=== PATIENT | female | born 1945 | race Caucasian/White ===

== ENCOUNTER 2019-07-02 14:28 | Inpatient (IN) | payer OTHER, SELFPAY ==
[2019-07-02] VITALS (32 sets, daily range): BP systolic 151–184; BP diastolic 50–106; PULSE 80–91; RESP 17–35; TEMP 36.4–36.9; O2SAT 88–97; BMI 36.4
--- NOTE | ~2019-07-02 | XR_ITS ---
EXAMINATION: XR pelvis 1-2V EXAM DATE: 07/02/2019 17:25 INDICATION: Fall, pelvic pain, initial encounter. TECHNIQUE: Pelvis frontal projection(s) obtained and reviewed. There is no prior study for compariso n. FINDINGS: There is moderate amount of collapsed right femoral head, likely from avascular necrosis. T here is severe bilateral hip osteoarthritis. There are no acute pelvic fractures or dislocations iden tified. There is no subcutaneous gas. There are arterial calcifications, arteriosclerosis. There are no radiopaque foreign bodies. IMPRESSION: 1. XR pelvis 1-2V exam without acute osseous findings. 2. 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 3. Severe bilateral hip osteoarthritis. Reviewed, dictated and finalized at location A.
--- NOTE | ~2019-07-02 | XR_ITS ---
EXAMINATION: XR lumbar spine 2-3V EXAM DATE: 07/02/2019 17:25 INDICATION: Initial encounter following injury, with pain of the lower back TECHNIQUE: Lumber spine frontal, lateral, lateral L5-S1 projections for interpretation. There is no prior study for comparison. FINDINGS: Mild diffuse loss of vertebral body heights. There are no acute fractures identified. There is moderate to severe disc disease at all lumbar levels. There is 4 mm retrolisthesis L4 on L5. The vertebral bodies are otherwise aligned. Sacrum, sacroiliac joints, sacral arcuate lines are intact. P araspinal soft tissue is unremarkable. Advanced lumbar facet arthropathy. IMPRESSION: 1. Advanced lumbar spondylosis. 2. No acute findings. Reviewed, dictated and finalized at location A.
--- NOTE | ~2019-07-02 | XR_ITS ---
EXAMINATION: XR chest 1V EXAM DATE: 07/02/2019 17:35 INDICATION: Frequent falls, abnormal lung sounds. TECHNIQUE: Portable AP frontal chest x-ray was obtained. There is no prior study for comparison. FINDINGS: There is prominent right paraspinal density, could be a right-sided or split aortic arch gi sandra normal left aortic knob is not identified. This finding has been indicated, marked on the examina tion for review, clinical correlation. No acute airspace disease suspected. There are no pleural eff usions. Cardiac silhouette is prominent but magnified on this AP technique. There is no pneumothor ax suspected. There is moderate to severe left glenohumeral, mild right glenohumeral primary osteoart hritis. IMPRESSION: 1. 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 2. No acute cardiopulmonary findings. Reviewed, dictated and finalized at location A.
--- NOTE | ~2019-07-02 | CT_ITS ---
EXAMINATION: CT chest w con DATE: 07/03/2019 16:32 INDICATION: Hyponatremia, abnormal chest radiograph TECHNIQUE: Transaxial computed tomographic images of the chest were obtained after the administration of 75 cc of Omnipaque 350 intravenous contrast. The dose-length product (DLP) was 757.43 mGy-cm. Ite rative reconstruction was used. COMPARISON: None FINDINGS: A right-sided aortic arch accounts for the chest radiographic finding in question. Respirat ory motion artifact limits evaluation of the lung parenchyma. There is mild mosaic perfusion of the l ungs, likely due to small airways disease. The right lobe of the thyroid is enlarged and contains mul tiple nodules. No pathologically enlarged thoracic lymph nodes are identified. The heart size is norm al. Calcified coronary artery atherosclerosis is noted. There is a trace pericardial effusion. Puncta te calcifications in an otherwise normal spleen likely represent healed granulomatous disease. There is moderate thoracic spondylosis. IMPRESSION: 1. 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 2. Multinodular goiter of the right thyroid lobe. Consider thyroid ultrasound for risk stratification . Reviewed, dictated and finalized at location A. IMPRESSION: 1. Right-sided aortic arch accounting for the chest radiographic finding in [place]le [place]. 2. Multinodular goiter of the right thyroid lobe. Consider thyroid ultrasound f or risk stratification.
--- NOTE | ~2019-07-02 | US_ITS ---
EXAMINATION: US thyroid DATE: 07/04/2019 10:42 INDICATION: Multinodular goiter TECHNIQUE: Multiple ultrasound images of the thyroid were obtained. COMPARISON: None. FINDINGS: The right thyroid lobe measures 5.7 x 3.1 x 3.7 cm. The left thyroid lobe measures 4.2 x 1.6 x 1.3 c m. There is a taller than wide, very hypoechoic predominantly solid nodule in the right thyroid maikel uring 1.7 x 1.2 x 1.1 cm with smooth margins but without internal echogenic foci. (TI-RADS 5, highly suspicious , FNA if >=1.0 cm, annual followup is >0.5 cm). There is a larger 3.3 x 2.0 x 3.5 cm wider than tall isoechoic solid nodule with smooth margins and without echogenic foci in the right thyroid (TI-RADS 3, mildly suspicious , FNA if >=2.5 cm, annual followup is >1.5 cm). IMPRESSION: 1. Multinodular goiter. Both the 1.7 cm TI RADS 5 and 3.5 cm TI RADS 3 nodules in the right thyroid m eet criteria for ultrasound-guided biopsy which would be recommended. Reviewed, dictated and finalized at location A. IMPRESSION: 1. Multinodular goiter. Both the 1.7 cm TI RADS 5 and 3.5 cm TI RADS 3 nodules in the right thyroid meet criteria for ultrasound-guided biopsy which would be recommended.
--- NOTE | ~2019-07-02 | CT_ITS ---
EXAMINATION: CT cervical spine wo con EXAM DATE: 07/02/2019 17:00 INDICATION: Fall, head injury. TECHNIQUE: Spiral CT of the cervical spine was performed without contrast. Axial images were reviewe d. Coronal and sagittal reformatted images were also reviewed. The dose-length product (DLP) for thi s examination was 432.14 mGy-cm. The exposure was tailored according to patient size (auto mA exposu re control), and iterative reconstruction (ASIR) was used as additional dose reduction technique. ere is no prior study for comparison. FINDINGS: There is no evidence of acute cervical fracture. The odontoid process is intact. Pre-dens space is normal. Prevertebral soft tissue is normal. There are no soft tissue abnormalities identi fied. There is no disc space widening or traumatic vertebral body subluxation suspected. There is m oderate to severe disc disease at C3-4 and C5-6 and 6-7. Overall moderate cervical arthropathy. A de tailed level by level evaluation of spondylosis can be added as addendum if requested. IMPRESSION: 1. No acute cervical fracture. 2. Advanced cervical spondylosis. Reviewed, dictated and finalized at location A.
--- NOTE | ~2019-07-02 | CT_ITS ---
EXAMINATION: CT brain wo con DATE: 07/02/2019 15:12 INDICATION: Fall. Head injury. Posterior head laceration. TECHNIQUE: Computed tomography (CT) of the head was performed without intravenous contrast. The mA wa s adjusted according to patient size. Iterative reconstruction technique was employed. Exam dose: 68 1.00 mGy-cm total exam DLP. COMPARISON: None FINDINGS: Prominent bilateral carotid siphon internal carotid artery calcifications. There is nonspec ific diminished attenuation of the cerebral white matter, likely due to chronic small vessel ischemic changes. No intracranial mass lesion or hemorrhage or cerebrovascular accident is evident. No midline shift or mass effect. There is central and cortical cerebral as well as cerebellar volume loss. No subdural or epidural hematoma is evident. No intracranial to or contrecoup injury is identified. No skull fracture is evident. There is a posterior occipital cephalohematoma centered slightly right of midline. Associated subcutaneous emphysema consistent with laceration. Incidental finding of 2 upper left posterior periapical tooth abscesses. IMPRESSION: Laceration and cephalhematoma in the occipital region; no skull fracture or acute intrac ranial finding Cerebral atherosclerosis and chronic small vessel ischemic changes of the cerebral white matter Reviewed, dictated and finalized at Location A. Reviewed, dictated and finalized at location A. IMPRESSION: Laceration and cephalhematoma in the occipital region; no skull fr acture or acute intracranial finding Cerebral atherosclerosis and chronic small vessel ischemic changes of the cereb ral white matter
--- NOTE | 2019-07-02 16:00 | ED.FALL ---
HPI - Fall General Chief Complaint: Fall Stated Complaint: fall Time Seen by Provider: 07/02/19 15:29 Source: patient Mode of arrival: EMS Limitations: no limitations History of Present Illness HPI Narrative: Patient is a 73-year-old female who presents to the emergency department complaint of fall. Patient has history of prior CVA and has issues with her legs getting weak and is prone to them giving out at times. Patient was on the toilet and when she tried to get up she fell and struck the back of her head. She denies having any loss of consciousness. She did sustain a small laceration to the occipital region. Bleeding has subsided this time. Patient is also complaining of some pain in her low back. Patient reportedly had a fall a few days ago before going to her dental appointment to have some teeth extracted. Patient reports pain in her back with movement that radiates down her legs. Patient denies any extremity injury during her fall and states she is otherwise been feeling okay. complaint: fall Fall from: other ([place]) Fall witnessed: no Place fall occurred: home Loss of consciousness: none Prolonged down time: unclear Symptoms prior to fall: other (weak in the legs from prior strokes) Context: tripped/slipped Location of injury: head and back Related Data Home Medications Medication Instructions Recorded Confirmed amlodipine 07/02/19 amoxicillin 07/02/19 atorvastatin 07/02/19 clopidogrel 07/02/19 ergocalciferol (vitamin D2) 07/02/19 escitalopram oxalate mg 07/02/19 folic acid 07/02/19 fosinopril 07/02/19 gabapentin 07/02/19 glipizide mg 07/02/19 hydrochlorothiazide 07/02/19 metformin [Glumetza] mg PO 07/02/19 sitagliptin [Januvia] mg 07/02/19 Allergies Allergy/AdvReac Type Severity Reaction Status Date / Time No Known Allergies Allergy Verified 07/02/19 14:29 Review of Systems Review of Systems: All systems reviewed & are unremarkable except as noted in HPI and below Musculoskeletal: Musculoskeletal: Reports back pain PMFSH Past Medical History Medical History (Updated 07/02/19 @ 19:56 by Elle Mills MD) CVA (cerebral vascular accident) Diabetes mellitus Hyperlipidemia Hypertension Social History Social History (Updated 07/02/19 @ 16:04 by Elle Mills MD) Smoking status: Former smoker Living arrangements: with friend(s) Gender identity (if verbalized by the patient): Female Exam Narrative: Exam Narrative: Small hematoma to the occipital region of the scalp with superficial small laceration without active bleeding Const: General: cooperative, no acute distress and alert Nutritional Appearance: obese Orientation/consciousness: patient oriented x3 Limitations: no limitations HENMT: Mouth: Yes lip normal and Yes moist mucous membranes Resp: Effort & Inspection: normal respiratory effort Auscultation: rhonchi throughout Cardio: Rate: regular rate Rhythm: regular rhythm GI: GI Palp: Yes Soft to palpation and Yes Tenderness to palpation present (GI) (Mild mid abdomen) Auscultation: normal bowel sounds Back/Spine/Pelvis: Cervical Spine: cervical ROM normal Thoracic/Lumbar Spine: pain with thoraco-lumbar ROM Skin: General skin exam: normal color Neuro: General: patient oriented x3 Cognition (Neuro): normal cognition Speech: normal speech Extrem: General: normal to inspection, full ROM, no clubbing, cyanosis or edema and other (No extremity trauma noted) Psych: Mental Status: mental status grossly normal Affect: normal affect Attitude: cooperative Course Course Emergency Course: Patient with findings of hyponatremia on labs. This certainly could be the origin of patient's recent falls. Patient without any acute abnormalities noted on CT scan of the brain aside from scalp hematoma. Laceration to the scalp is very superficial and does not require any repair. Patient started on normal saline and will be admitted to [facility]
[2019-07-02 16:20] LABS: Alveolar/Arterial O2 Gradient 53.2 mmHg; Base Excess ABG -0.7 mEq/l (+/-2.0); Carboxyhemoglobin 0.9 % THb (0-2.0); Fractional Inspired Oxygen 21 %; HCO3 ABG 22.3 mEq/l (22.0-26.0); Methemoglobin ABG 0.2 %THb (0-1.5); Oxygen Content ABG 17.2 %vol (16.0-22.0); Oxygen Saturation ABG 92.1 % (95.0-100.0); Oxyhemoglobin 89.3 % THb (90.0-100.0); PCO2 ABG 31.8 mmHg (35.0-45.0); PO2 ABG 58.5 mmHg (80.0-100.0); PO2 FiO2 Ratio Arterial Blood 2.79 %; Reduced Hemoglobin 9.6 %THb (0-5.0); Total Hemoglobin 13.7 g/dL (12.0-18.0); pH ABG 7.463 (7.350-7.450)
[2019-07-02 16:21] LABS: Basophils Percent Auto 0.2 % (0.2-1.2); Eosinophils Percent Auto 0.2 % (0-4.4); Hematocrit 34.9 % (37.0-47.0); Hemoglobin 13.3 g/dL (12.0-15.0); Immature Granulocyte Absolute 0.12 K/mm3 (0.00-0.031); Lymphocytes Absolute Auto 0.64 K/mm3 (0.9-3.2); Lymphocytes Percent Auto 5.1 % (18.3-44.2); Mean Corpuscular Hemoglobin 34.7 pg (26-34); Mean Corpuscular Volume 91.1 fl (80-100); Mean Platelet Volume 9.3 fl (7.4-10.4); Monocytes Absolute Auto 0.6 K/mm3 (0.1-0.6); Monocytes Percent Auto 4.4 % (2.6-8.5); Neutrophils Absolute Auto 11.2 K/mm3 (1.3-6.7); Neutrophils Percent Auto 89.1 % (45.5-73.1); Platelet Count Result 283 k/mm3 (150-375); Red Blood Count 3.83 M/mm3 (4.2-5.4); Red Cell Distribution Width 11.2 % (11.5-14.5); White Blood Count 12.6 K/mm3 (4.5-10.0)
[2019-07-02 16:22] LABS: Device ROOM AIR; Modified Allen's Test Pass; Site Drawn RIGHT RADIAL
[2019-07-02 16:43] LABS: Mean Corpuscular HGB Conc 38.1 g/dl (32-36)
[2019-07-02 16:58] LABS: Potassium 4.1 mmol/L (3.4-5.0)
[2019-07-02 17:09] LABS: NT Pro B Type Natriuretic Pept 206 PG/ML (5-100)
[2019-07-02 17:13] LABS: Alanine Aminotransferase 15 U/L (4-35); Albumin Level 4.6 g/dL (3.5-5.1); Alkaline Phosphatase 81 U/L (38-126); Aspartate Amino Transferase 56 U/L (14-36); Bilirubin,Total 0.9 mg/dL (0.2-1.3); Blood Urea Nitrogen 17 mg/dL (7-17); Calcium 8.9 mg/dL (8.4-10.2); Carbon Dioxide 23 mmol/L (22-30); Chloride 77 mmol/L (98-107); Creatine Kinase 414 U/L (30-135); Estimated CRCL calculation 83 ml/min; Estimated Glomerular Filt Rate > 60; Glucose 129 mg/dL (65-105); Sodium 113 mmol/L (137-145)
[2019-07-02] MEDS: SODIUM CHLORIDE 0.9% IV 1,000 ML 125 ML IV CONT (18:05)
--- NOTE | 2019-07-02 19:22 | PC.NURSE ---
Per dayshift, they were unable to obtain urine sample from straight cath, patient placed on bedpan for multiple bowel movements. VIRI Edwards instructed this RN to hold straight cath at this time.
--- NOTE | 2019-07-02 19:51 | PC.NURSE ---
Patient straight cathed upon this RN assuming care of patient
[2019-07-02 20:12] LABS: Add Urine Microscopic? YES; Appearance Urine Clear (Clear); Bilirubin Urine Negative (Negative); Blood Urine Negative (Negative); Color Urine Yellow (Yellow); Glucose Urine UA Negative (Negative); Ketones Urine 1+ mg/dL (Negative); Leukocyte Esterase Ur Trace LEU/UL (Negative); Mucus Urine Rare /lpf; Nitrate Urine Negative (Negative); Protein Urine 2+ mg/dL (Negative); RBC Urine 0-2 /hpf (0-2); Specific Grav Ur 1.015 (1.001-1.035); Squamous Epithelial Cell Urine Rare /hpf (Few); Urobilinogen Urine Negative mg/dL (<2.0); WBC Urine 0-3 /hpf
--- NOTE | 2019-07-02 21:08 | ADMGEN ---
This patient, Bela Shepherd, was admitted to [facility] Surg Room 306-01. Patient/family oriented to hospital policies and general routines including ID bracelet, bed and alarms, visiting hours, pain management, procedures, bathroom and other care routines, personal items, smoking policy, room service/diet, and visiting hours. Valuables list has been completed. Information on how to activate the Rapid Response Team has been discussed. Patient/Family are encouraged to report perceived risks to care and to ask questions if they do not understand what they are told or what they should do.
[2019-07-03] VITALS (9 sets, daily range): BP systolic 145–149; BP diastolic 54–65; PULSE 74–86; RESP 16–20; TEMP 36.6–36.7; O2SAT 91–92
[2019-07-03] MEDS: AMLODIPINE BESYLATE 5 MG TABLET 10 MG PO (02:02)
[2019-07-03 03:30] LABS: Sodium 113 mmol/L (137-145)
[2019-07-03 03:31] LABS: Blood Urea Nitrogen 16 mg/dL (7-17); Calcium 8.1 mg/dL (8.4-10.2); Carbon Dioxide 22 mmol/L (22-30); Chloride 81 mmol/L (98-107); Estimated CRCL calculation 84 ml/min; Estimated Glomerular Filt Rate > 60; Glucose 112 mg/dL (65-105); Potassium 3.5 mmol/L (3.4-5.0)
--- NOTE | 2019-07-03 05:21 | PM.IMHP ---
H&P: HPI History of Present Illness Chief complaint: Weakness, fall Narrative: Date and time of patient contact: 07/03/2019 at 2:40 a.m. Bela Shepherd is a 73 year old female with a past medical history of bibasilar CVA, recent tooth extraction due to abscess a noncompliance with antibiotic therapy, hypertension, type 2 diabetes mellitus and chronic hyponatremia who presented to the ER after having a fall when trying to stand up off the commode. Source of information is the patient was a fair historian and her POA. She had 3 teeth pulled on Saturday the due to dental infection. She had been on Bactrim prior to the teeth being pulled due to urinary urgency and dysuria. They stopped the Bactrim when she got prescribed Augmentin. She has been taking the Augmentin as directed but has had some looser stools last couple of days. She admits that she does fluctuate between diarrhea and constipation on a regular basis. Nursing staff reports that the patient had 1 loose brown somewhat watery brown stool after arriving to the medical floor. She reports generalized abdominal tenderness to palpation that is mild. The patient has been getting progressively weaker over what sounds like a fairly long time. She has [id number] arthritis to bilateral knees and hips according to her POA. The patient has chronic back pain and neck pain as well. The patient has had a progressive weight gain over the last 10 years following her brainstem strokes and contributed to with her chronic pain. The patient also does not sleep well, snores, and has daytime fatigue. She has never had a sleep study. The patient's primary care physician has been telling her for years that she has hyponatremia. He has threatened multiple times to admit her to the hospital for treatment and evaluation of her hyponatremia. However, the patient and her POA cannot remember what the patient's baseline sodium level. She has been on glipizide and hydrochlorothiazide for a longstanding period of time. The patient's hemoglobin A1c has been 7 or below for the last several lab draws. She does have an extensive smoking history and smoked 1-2 packs of cigarettes per day for over 40 years. She denies any history of lung disease, shortness of breath, cough, congestion, fevers or chills. She reports chronic gait instability. Her POA reports that the patient seemed to be more unstable on her feet when she was prescribed [place]. However despite stopping the [place] the patient continued to be unsteady on her feet and the POA was eventually able to convince the patient to come to the ER for evaluation after she fell. The patient has been taking marijuana gummies for the last couple of months. Her POA reports that the patient's blood pressure, anxiety, and pain levels have been significantly improved with the use of the marijuana. Review of Systems Review of Systems: Narrative: 12 systems were reviewed with pertinent positives and negatives per HPI. Except as documented in the HPI, all other systems were reviewed and are negative. COUNT INCLUDES THE [facility] Past Medical History Medical History (Updated 07/03/19 @ 08:20 by Jennifer Kennedy DO) Chronic hyponatremia CVA (cerebral vascular accident) Brainstem CVA in 2009 Diabetes mellitus Hemoglobin A1c today was 6.2 Hyperlipidemia Hypertension Surgical History Surgical History (Updated 07/03/19 @ 05:32 by Jennifer Kennedy DO) Hx of cholecystectomy Family History Family History (Updated 07/03/19 @ 05:29 by Jennifer Kennedy DO) Father Lung cancer Mother Heart disease Diabetes mellitus Sibling , Brother earlier this year. Multiple myeloma Social History Social History (Updated 07/03/19 @ 05:26 by Jennifer Kennedy DO) Social History: Primary care physician: Dr. Raya in [place] Code status: DNR/DNI however she would accept pressors, cardiac medications and possibly feeding tube. Surrogate decision maker: Her friend
[2019-07-03 06:39] LABS: Basophils Percent Auto 0.2 % (0.2-1.2); Eosinophils Percent Auto 0.1 % (0-4.4); Hematocrit 30.6 % (37.0-47.0); Hemoglobin 11.7 g/dL (12.0-15.0); Immature Granulocyte Percent A 1.2 % (0-0.5); Lymphocytes Absolute Auto 1.02 K/mm3 (0.9-3.2); Mean Corpuscular Volume 91.6 fl (80-100); Mean Platelet Volume 9.8 fl (7.4-10.4); Monocytes Absolute Auto 0.6 K/mm3 (0.1-0.6); Monocytes Percent Auto 7.4 % (2.6-8.5); Neutrophils Absolute Auto 6.7 K/mm3 (1.3-6.7); Neutrophils Percent Auto 79.1 % (45.5-73.1); Platelet Count Result 260 k/mm3 (150-375); Red Blood Count 3.34 M/mm3 (4.2-5.4); Red Cell Distribution Width 11.2 % (11.5-14.5); White Blood Count 8.5 K/mm3 (4.5-10.0)
[2019-07-03 07:03] LABS: Blood Urea Nitrogen 16 mg/dL (7-17); Calcium 8.1 mg/dL (8.4-10.2); Carbon Dioxide 22 mmol/L (22-30); Chloride 81 mmol/L (98-107); Estimated CRCL calculation 84 ml/min; Estimated Glomerular Filt Rate > 60; Glucose 102 mg/dL (65-105); Mean Corpuscular HGB Conc 38.2 g/dl (32-36); Potassium 3.6 mmol/L (3.4-5.0); Sodium 114 mmol/L (137-145)
[2019-07-03 07:10] LABS: Hemoglobin A1C 6.2 % (<5.7)
[2019-07-03] MEDS: ATORVASTATIN 10 MG TABLET PO (09:25)
[2019-07-03] MEDS: lisinopriL 20 MG TABLET PO ×2 (09:25→18:22)
[2019-07-03] MEDS: FOLIC ACID 1 MG TABLET PO (09:25)
[2019-07-03] MEDS: CLOPIDOGREL BISULFATE 75 MG TABLET PO (09:25)
[2019-07-03] MEDS: ESCITALOPRAM OXALATE 10 MG TABLET PO (09:26)
[2019-07-03] MEDS: GABAPENTIN 100 MG CAPSULE PO (09:26)
[2019-07-03] MEDS: AMLODIPINE BESYLATE 5 MG TABLET PO (09:26)
[2019-07-03 11:12] LABS: Blood Urea Nitrogen 15 mg/dL (7-17); Calcium 8.2 mg/dL (8.4-10.2); Carbon Dioxide 22 mmol/L (22-30); Chloride 80 mmol/L (98-107); Estimated CRCL calculation 84 ml/min; Estimated Glomerular Filt Rate > 60; Glucose 140 mg/dL (65-105); Potassium 3.5 mmol/L (3.4-5.0); Sodium 113 mmol/L (137-145)
[2019-07-03 11:40] LABS: Glucose Point of Care 117 (65-105)
[2019-07-03 12:26] LABS: Glucose Point of Care 158 (65-105)
--- NOTE | 2019-07-03 13:22 | PM.IMPN ---
Progress Note: A&P Assessment and Plan (1) Hyponatremia: Code(s): E87.1 - Hypo-osmolality and hyponatremia Status: Acute Assessment and Plan: Differential is broad and could be related to patient's chronic pain, hydrochlorothiazide and/or glipizide use, or possible underlying malignancy given abnormal chest x-ray. The patient's hydrochlorothiazide and glipizide for both discontinued. The patient's sodium stayed stable at 113 after IV fluid hydration. IV fluids were discontinued and her repeat sodium was still 113. Given the patient's abnormal chest x-ray and history of heavy tobacco use in the past her concern for possible malignancy related hyponatremia. CT of the chest has been ordered but is still pending at this time. Ordered urine sodium, urine creatinine and urine osmolality Will continue monitoring the patient's sodium every 4 hours. Nephrology was consulted for further recommendations. Will place the patient on a 1 L fluid restriction. (2) History of snoring: Code(s): Z87.898 - Personal history of other specified conditions Status: Acute Assessment and Plan: The patient is at high risk for obstructive sleep apnea given her report of poor sleep, disrupted sleep, snoring, and daytime fatigue. Apnea link has been ordered. (3) Traumatic hematoma of scalp: Qualifiers: Encounter type: initial encounter Qualified Code(s): S00.03XA - Contusion of scalp, initial encounter Code(s): S00.03XA - Contusion of scalp, initial encounter Status: Acute Assessment and Plan: Abrasion noted to her occipital scalp. With tenderness. Dry blood is noted. No acute bleeding. Fall precautions in place. (4) Frequent falls: Code(s): R29.6 - Repeated falls Status: Acute Assessment and Plan: Fall precautions in place. 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 A CT scan of the chest was ordered for further evaluation and rule out any masses, nodules or abnormality. (6) Arthritis: Code(s): M19.90 - Unspecified osteoarthritis, unspecified site Status: Acute Assessment and Plan: Patient reports having arthritis and taking ibuprofen daily for this. Due to her being on anticoagulation and history of CVAs I do not feel comfortable with her having ibuprofen at this time. I told patient she can have Tylenol, heating pad, for local arthritis areas and we can consider a lidocaine patch if it is necessary. (7) CVA (cerebral vascular accident): Code(s): I63.9 - Cerebral infarction, unspecified Status: Acute Assessment and Plan: Continue on Plavix and she is not having any symptoms of increased weakness or any focal deficits. Continue monitoring. Time Spent With Patient Time with patient: 25 - 35 minutes Subjective Date/time seen: 07/03/19 13:22 Interval history: Date of service 07/03/2019: She reports feeling okay today. She has slight tenderness to her left side of the neck and back of her head from when she fell prior to arrival. She reports chronic left shoulder pain from a torn ligament. She denies any lightheadedness, dizziness, syncope prior to her fall. She has been eating and drinking without any issues. She reports chronic shortness of breath denies any change or worsening symptoms recently. She denies any chest pain, cough, fever,
--- NOTE | 2019-07-03 15:04 | PM.CNNEP ---
Assessment and Plan Assessment and plan (1) Hyponatremia: Code(s): E87.1 - Hypo-osmolality and hyponatremia Status: Acute Assessment and Plan: . Additional Plan Bela has acute on chronic hyponatremia as evidenced by her labs on admission. Unfortunately, I am not clear what her baseline sodium level normally runs but apparently, from what she tells me, she has had issues with hyponatremia for years. From review of her history, she has multiple risk factors for hyponatremia in general. She has an extensive smoking history and lung disease in of itself can sometimes predispose the patient to low sodium levels. The concern for malignancy is also a possible culprit with regard to hyponatremia as well. She has taken narcotics recently which may have worsened her baseline hyponatremia as well. At this point, since her admission, she has been started on a free water restriction in the hopes that this will help improve her sodium level. I agree with testing has been done to date including urine electrolytes, serum and urine osmolality, and if not already ordered /checked, check a TSH, cortisol level, serum and urine protein electrophoresis. If her sodium level fails to improve with just fluid restriction alone, consideration of the use of 3% saline will be discussed as I would like to get the patient closer to the 120 range with regard to her sodium low to decrease the likelihood of any type of neurological sequelae (seizures, headaches, memory issues...etc). I will continue to follow the trend of her repeat sodium levels as well. I will continue to follow the patient with you while she remains hospitalized may further conditions during hospital course. Thank you for allowing me to participate in care this patient. History of Present Illness Reason for Consult Consult date: 07/04/19 Reason for consult: hyponatremia Chief Complaint Chief complaint: Weakness, fall History of Present Illness Narrative: The patient is a 73 year old female with a past medical history as outlined below who presented to [facility] ER after having a fall when trying to stand up off the commode. The patient has been dealing with multiple issues in lost several weeks ranging from a dental infection requiring antibiotics, urinary tract infection, diarrhea alternating with constipation, severe degenerative joint disease along with chronic back and neck pain, insomnia, and apparently chronic hyponatremia. Reportedly, her primary care physician has threatened to hospitalize her on several occasions for further evaluation of her hyponatremia given its severity. She has been recently more unstable on her feet which probably precipitated the a for mentioned fall. Workup and evaluation emergency room demonstrated the patient to be hemodynamically stable and routine blood test demonstrated significant/severe hypernatremia with a sodium level of 113. given her constellation of symptoms that led to her presentation to the emergency room as well as his laboratory findings, she was admitted to the hospital for further evaluation and therapy. Renal consultation was requested due to her acute on chronic hyponatremia. As already mentioned, the patient has a component of chronic hyponatremia at baseline but I am unclear exactly where her sodium level actually fluctuates. I attempted to get old records from her primary care physician's office but there apparently closed today. She does have multiple risk factors for hyponatremia and surprisingly, given the severity of her hyponatremia, she apparently seems asymptomatic. The obvious concern of course is that her frequent falls may be related to this issue/problem. Currently, at the time my evaluation, the patient appears to be in no acute distress and denies any issues or problems otherwise. Review of Systems Review of Systems: Narrative: As per HPI. [facility] Past Medical History Medical
[2019-07-03 15:11] LABS: Creatinine Urine 113.5 mg/dL
[2019-07-03 15:46] LABS: Sodium Urine Random 16 meq/L
[2019-07-03 17:37] LABS: Blood Urea Nitrogen 16 mg/dL (7-17); Calcium 7.8 mg/dL (8.4-10.2); Carbon Dioxide 22 mmol/L (22-30); Chloride 81 mmol/L (98-107); Estimated CRCL calculation 73 ml/min; Estimated Glomerular Filt Rate > 60; Glucose 182 mg/dL (65-105); Potassium 3.5 mmol/L (3.4-5.0); Sodium 112 mmol/L (137-145)
[2019-07-03 18:04] LABS: Glucose Point of Care 195 (65-105)
[2019-07-03] MEDS: SODIUM CHLORIDE 0.9% IV 1,000 ML 100 ML IV CONT (18:22)
[2019-07-03] MEDS: AMOXICILLIN 500 MG CAPSULE PO ×2 (18:22→21:23)
[2019-07-03] MEDS: SACCHAROMYCES BOULARDII 250 MG CAPSULE PO (18:22)
--- NOTE | 2019-07-03 23:46 | PC.NURSE ---
Laboratory called Na+ level is critical and will be released soon.
[2019-07-03 23:47] LABS: Blood Urea Nitrogen 15 mg/dL (7-17); Calcium 7.7 mg/dL (8.4-10.2); Carbon Dioxide 24 mmol/L (22-30); Chloride 82 mmol/L (98-107); Estimated CRCL calculation 73 ml/min; Estimated Glomerular Filt Rate > 60; Glucose 120 mg/dL (65-105); Potassium 3.5 mmol/L (3.4-5.0)
[2019-07-03 23:49] LABS: Sodium 114 mmol/L (137-145)
--- NOTE | 2019-07-03 23:57 | PC.NURSE ---
Na+ level released per laboratory. Level is 114.
[2019-07-04] VITALS (8 sets, daily range): BP systolic 146–150; BP diastolic 52–69; PULSE 72–80; RESP 18–20; TEMP 36.5–37.1; O2SAT 90–92
[2019-07-04 02:39] LABS: Blood Urea Nitrogen 14 mg/dL (7-17); Calcium 7.9 mg/dL (8.4-10.2); Carbon Dioxide 24 mmol/L (22-30); Chloride 84 mmol/L (98-107); Estimated CRCL calculation 84 ml/min; Estimated Glomerular Filt Rate > 60; Glucose 114 mg/dL (65-105); Potassium 3.4 mmol/L (3.4-5.0); Sodium 115 mmol/L (137-145)
[2019-07-04 07:14] LABS: Alanine Aminotransferase 15 U/L (4-35); Albumin Level 3.7 g/dL (3.5-5.1); Alkaline Phosphatase 70 U/L (38-126); Aspartate Amino Transferase 45 U/L (14-36); Bilirubin,Total 0.6 mg/dL (0.2-1.3); Blood Urea Nitrogen 13 mg/dL (7-17); Carbon Dioxide 25 mmol/L (22-30); Chloride 84 mmol/L (98-107); Estimated CRCL calculation 73 ml/min; Estimated Glomerular Filt Rate > 60; Glucose 113 mg/dL (65-105); Magnesium 1.5 mg/dL (1.6-2.3); Potassium 3.4 mmol/L (3.4-5.0); Sodium 117 mmol/L (137-145)
[2019-07-04 08:22] LABS: Basophils Percent Auto 0.3 % (0.2-1.2); Eosinophils Percent Auto 0.4 % (0-4.4); Hematocrit 30.3 % (37.0-47.0); Hemoglobin 11.5 g/dL (12.0-15.0); Immature Granulocyte Absolute 0.11 K/mm3 (0.00-0.031); Immature Granulocyte Percent A 1.6 % (0-0.5); Immature Platelet Fraction Pct 0.6 % (0.9-11.2); Lymphocytes Absolute Auto 1.18 K/mm3 (0.9-3.2); Lymphocytes Percent Auto 17.2 % (18.3-44.2); Mean Corpuscular Hemoglobin 34.5 pg (26-34); Mean Platelet Volume 9.7 fl (7.4-10.4); Monocytes Absolute Auto 0.7 K/mm3 (0.1-0.6); Monocytes Percent Auto 9.7 % (2.6-8.5); Neutrophils Absolute Auto 4.9 K/mm3 (1.3-6.7); Neutrophils Percent Auto 70.8 % (45.5-73.1); Platelet Count Result 301 k/mm3 (150-375); Red Blood Count 3.33 M/mm3 (4.2-5.4); Red Cell Distribution Width 11.5 % (11.5-14.5); White Blood Count 6.9 K/mm3 (4.5-10.0)
[2019-07-04] MEDS: lisinopriL 20 MG TABLET PO ×2 (08:58→18:02)
[2019-07-04] MEDS: ATORVASTATIN 10 MG TABLET PO (08:58)
[2019-07-04] MEDS: AMLODIPINE BESYLATE 5 MG TABLET PO (08:58)
[2019-07-04] MEDS: CLOPIDOGREL BISULFATE 75 MG TABLET PO (08:58)
[2019-07-04] MEDS: SACCHAROMYCES BOULARDII 250 MG CAPSULE PO ×2 (08:58→18:25)
[2019-07-04] MEDS: AMOXICILLIN 500 MG CAPSULE PO ×3 (08:58→21:59)
[2019-07-04] MEDS: ESCITALOPRAM OXALATE 10 MG TABLET PO (08:58)
[2019-07-04] MEDS: GABAPENTIN 100 MG CAPSULE PO (08:58)
[2019-07-04] MEDS: FOLIC ACID 1 MG TABLET PO (08:58)
--- NOTE | 2019-07-04 10:28 | PM.IMPN ---
Progress Note: A&P Assessment and Plan (1) Hyponatremia: Code(s): E87.1 - Hypo-osmolality and hyponatremia Status: Acute Assessment and Plan: Differential is broad and could be related to patient's chronic pain, hydrochlorothiazide and/or glipizide use, or possible underlying malignancy given abnormal chest x-ray. The patient's hydrochlorothiazide and glipizide for both discontinued. The patient's sodium improved today to 117. Yesterday at 1700 she she was at 112. There is improvement with IV normal saline we will continue this at this time. We will continue monitor make sure she does not go over 8 points in a 24 hour. Given the patient's abnormal chest x-ray and history of heavy tobacco use in the past her concern for possible malignancy related hyponatremia. 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 Multi nodule goiter of the right thyroid lobe was found and we will check a thyroid ultrasound. Urine sodium was slightly low at 16, urine creatinine was slightly low at 113. Urine osmolality was pending. Will continue monitoring the patient's sodium every 4 hours. Nephrology was consulted for further recommendations. Will place the patient on a 1 L fluid restriction. (2) History of snoring: Code(s): Z87.898 - Personal history of other specified conditions Status: Acute Assessment and Plan: The patient is at high risk for obstructive sleep apnea given her report of poor sleep, disrupted sleep, snoring, and daytime fatigue. Apnea link shows the patient's AHI is 5.8, RI is 6.6, oxygen desaturation was 9.4. This is very suspicious that she has a breathing disorder and will need a better outpatient sleep study for official diagnosis of sleep apnea. (3) Traumatic hematoma of scalp: Qualifiers: Encounter type: initial encounter Qualified Code(s): S00.03XA - Contusion of scalp, initial encounter Code(s): S00.03XA - Contusion of scalp, initial encounter Status: Acute Assessment and Plan: Abrasion noted to her occipital scalp. With tenderness. Dry blood is noted. No acute bleeding. Fall precautions in place. (4) Frequent falls: Code(s): R29.6 - Repeated falls Status: Acute Assessment and Plan: Fall precautions in place. 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 A CT scan of the chest showed Right-sided aortic arch accounting for the chest radiographic finding in question. No concerns at this time. (6) Arthritis: Code(s): M19.90 - Unspecified osteoarthritis, unspecified site Status: Acute Assessment and Plan: Patient reports having arthritis and taking ibuprofen daily for this. Due to her being on anticoagulation and history of CVAs I do not feel comfortable with her having ibuprofen at this time. I told patient she can have Tramadol, Tylenol, heating pad, for local arthritis areas and we can consider a lidocaine patch if it is necessary. (7) CVA (cerebral vascular accident): Code(s): I63.9 - Cerebral infarction, unspecified Status: Acute Assessment and Plan: Continue on Plavix and she is not having any symptoms of increased weakness or any focal deficits. Continue monitoring. (8) Multinodular thyroid: Code(s): E04.2 - Nontoxic multinodular goiter Status: Acute
[2019-07-04 10:48] LABS: Sodium 117 mmol/L (137-145)
--- NOTE | 2019-07-04 10:54 | PM.PNNEP ---
Progress Note: A&P Assessment and Plan (1) Hyponatremia: Code(s): E87.1 - Hypo-osmolality and hyponatremia Status: Acute Assessment and Plan: assuming acute on chronic (chronic history of low sodium levels) from my discussion with patient's POA, sodium in April 2019 was 127; in February 2018, her sodium was 130 urine sodium low suggestive of volume depletion - improvement in sodium noted with normal saline IVFs as well for now, follow trend of sodium with IVFs and fluid restriction goal is to keep rate of change in sodium with 6 - 9mmol in 24hrs off HCTZ at this time TSH and cortisol level okay; SPE/UPE pending CT of chest without evidence of malignancy depending on trend of sodium, will consider use of 3% saline as well Will continue to follow. Subjective Date/time seen: 07/04/19 10:54 No apparent issues or problems to report at this time; some improvement in sodium noted with IVFs (normal saline); no apparent distress voiced. Exam Narrative: Exam Narrative: General: WD/WN female in NAD Heart: normal S1 and S2; no rub Lungs: clear to auscultation Abdomen: soft, nontender, nondistended, positive bowel sounds Extremities: no cyanosis or clubbing; no edema Skin: warm and dry Objective Data Vital Signs Vital Signs: Vital Signs Temp Pulse Resp BP Pulse Ox 07/04/19 06:00 36.7 C 76 20 149/56 H 92 07/04/19 04:00 74 07/04/19 00:00 76 07/03/19 22:00 36.6 C 74 20 149/54 H 91 07/03/19 20:00 83 07/03/19 16:00 81 07/03/19 14:00 36.7 C 83 16 145/65 H 92 07/03/19 12:00 86 Intake/Output Intake/Output: Intake & Output 07/01/19 07/02/19 07/03/19 07/04/19 23:59 23:59 23:59 23:59 Intake Total 860 140 Output Total 300 325 Balance -300 535 140 Meds/Results Medications: Active Medications Generic Name Dose Route Start Last Admin Trade Name Freq PRN Reason Stop Dose Admin Acetaminophen 650 mg 07/03/19 11:58 Tylenol Tablet PO Q4H PRN mild pain Amlodipine Besylate 5 mg 07/03/19 09:00 07/04/19 08:58 Norvasc PO 5 mg DAILY MANOJ Administration Amoxicillin 500 mg 07/03/19 14:00 07/04/19 08:58 Amoxil Capsule PO 07/06/19 06:01 500 mg Q8HR MANOJ Administration Atorvastatin Calcium 10 mg 07/03/19 09:00 07/04/19 08:58 Lipitor PO 10 mg DAILY MANOJ Administration Clopidogrel Bisulfate 75 mg 07/03/19 09:00 07/04/19 08:58 Plavix PO 75 mg DAILY MANOJ Administration Dextrose 12.5 gm 07/03/19 00:55 Dextrose 50% Syringe IV PUSH PRN PRN Hypoglycemia Protocol Escitalopram Oxalate 10 mg 07/03/19 09:00 07/04/19 08:58 Lexapro PO 10 mg DAILY MANOJ Administration Folic Acid 1 mg 07/03/19 09:00 07/04/19 08:58 Folic Acid PO 1 mg DAILY MANOJ Administration Gabapentin 100 mg 07/03/19 09:00 07/04/19 08:58 Neurontin PO 100 mg DAILY [facility] Administration Glucagon 1 mg 07/03/19 00:55 Glucagon For Inj IM PRN PRN Hypoglycemia Protocol Glucose 15 gm 07/03/19 00:55 Glutose 15 PO PRN PRN Hypoglycemia Protocol Dextrose 1,000 mls @ 100 mls/hr 07/03/19 00:55 Dextrose 5% 1,000 Ml IVPB PRN PRN Hypoglycemia Protocol Sodium Chloride 1,000 mls @ 100 mls/hr 07/03/19 17:50 07/03/19 18:22 Normal Saline Iv IV CONT 100 mls/hr .Q10H [facility] Administration Insulin Aspart 3 - 6 units 07/03/19 08:00 Novolog SUB-Q TIDWM [facility] Protocol Lisinopril 20 mg 07/03/19 09:00 07/04/19 08:58 Prinivil PO 08/02/19 09:01 20 mg BID [facility] Administration Promethazine HCl 12.5 mg 07/04/19 09:14 Phenergan Inj IV PUSH Q4H PRN Nausea And Vomiting Saccharomyces Boulardii 250 mg 07/03/19 17:00 07/04/19 08:58 Florastor PO 250 mg BID [facility] Administration Sitagliptin Phosphate 100 mg 07/03/19 09:00 07/04/19 08:58 Januvia PO 100 mg DAILY [facility]OJ Administration T
[2019-07-04] MEDS: SODIUM CHLORIDE 0.9% IV 1,000 ML 100 ML IV CONT (11:02)
[2019-07-04] MEDS: MAGNESIUM SULFATE 3GM/D5W100ML 3 GM/100 ML BAG IVPB (12:06)
[2019-07-04 13:00] LABS: Glucose Point of Care 190 (65-105)
[2019-07-04] MEDS: POTASSIUM CHLORIDE 20 MEQ TABLET 40 MEQ PO (13:58)
[2019-07-04 14:07] LABS: Sodium 116 mmol/L (137-145)
[2019-07-04] MEDS: SODIUM CHLORIDE 3% 500 ML 80 ML IV CONT (15:30)
[2019-07-04 18:02] LABS: Glucose Point of Care 174 (65-105)
[2019-07-04 20:03] LABS: Sodium 119 mmol/L (137-145)
[2019-07-04 23:45] LABS: Sodium 119 mmol/L (137-145)
[2019-07-05] VITALS (9 sets, daily range): BP systolic 132–154; BP diastolic 50–60; PULSE 65–83; RESP 20; TEMP 36.6–37.1; O2SAT 90–93
[2019-07-05 00:27] LABS: Glucose Point of Care 222 (65-105)
[2019-07-05 02:20] LABS: Glucose Point of Care 139 (65-105)
[2019-07-05 06:10] LABS: Hemoglobin 10.6 g/dL (12.0-15.0); Immature Platelet Fraction Pct 0.8 % (0.9-11.2); Mean Corpuscular HGB Conc 37.9 g/dl (32-36); Mean Corpuscular Hemoglobin 35.3 pg (26-34); Mean Corpuscular Volume 93.3 fl (80-100); Mean Platelet Volume 10.1 fl (7.4-10.4); Platelet Count Result 294 k/mm3 (150-375); Red Cell Distribution Width 11.6 % (11.5-14.5); White Blood Count 6.8 K/mm3 (4.5-10.0)
[2019-07-05] MEDS: AMOXICILLIN 500 MG CAPSULE PO ×3 (06:15→21:11)
[2019-07-05 08:04] LABS: Sodium 121 mmol/L (137-145)
[2019-07-05] MEDS: ESCITALOPRAM OXALATE 10 MG TABLET PO (08:34)
[2019-07-05] MEDS: FOLIC ACID 1 MG TABLET PO (08:34)
[2019-07-05] MEDS: CLOPIDOGREL BISULFATE 75 MG TABLET PO (08:34)
[2019-07-05] MEDS: AMLODIPINE BESYLATE 5 MG TABLET PO (08:34)
[2019-07-05] MEDS: lisinopriL 20 MG TABLET PO ×2 (08:34→17:36)
[2019-07-05] MEDS: GABAPENTIN 100 MG CAPSULE PO (08:35)
[2019-07-05] MEDS: SACCHAROMYCES BOULARDII 250 MG CAPSULE PO ×2 (08:35→17:36)
[2019-07-05] MEDS: ATORVASTATIN 10 MG TABLET PO (08:35)
[2019-07-05 08:56] LABS: Glucose Point of Care 152 (65-105)
[2019-07-05 09:47] LABS: Blood Urea Nitrogen 14 mg/dL (7-17); Calcium 8.1 mg/dL (8.4-10.2); Carbon Dioxide 24 mmol/L (22-30); Chloride 89 mmol/L (98-107); Estimated CRCL calculation 73 ml/min; Estimated Glomerular Filt Rate > 60; Glucose 152 mg/dL (65-105); Sodium 121 mmol/L (137-145)
[2019-07-05 10:14] LABS: Sodium 120 mmol/L (137-145)
--- NOTE | 2019-07-05 11:29 | PM.PNNEP ---
Progress Note: A&P Assessment and Plan (1) Hyponatremia: Code(s): E87.1 - Hypo-osmolality and hyponatremia Status: Acute Assessment and Plan: acute on chronic (chronic history of low sodium levels) - from my discussion with patient's POA: -- sodium in April 2019 was 127 -- in February 2018, her sodium was 130 urine sodium low suggestive of volume depletion - improvement in sodium noted with normal saline IVFs transiently s/p 3% saline infusion yesterday with improvement in sodium goal is to keep rate of change in sodium with 6 - 9mmol in 24hrs off HCTZ at this time TSH and cortisol level okay; SPE/UPE pending CT of chest without evidence of malignancy depending on trend of sodium, may consider repeat use of 3% saline as well Will continue to follow. Subjective Date/time seen: 07/05/19 11:29 Seems to be doing relatively well; given 3% saline yesterday due to persistent hyponatremia despite fluid restriction and normal saline infusion with appropriate incrementation in sodium; otherwise, no apparent distress at this time. Exam Narrative: Exam Narrative: General: WD/WN female in NAD Heart: normal S1 and S2; no rub Lungs: clear to auscultation Abdomen: soft, nontender, nondistended, positive bowel sounds Extremities: no cyanosis or clubbing; no edema Skin: warm and dry Objective Data Vital Signs Vital Signs: Vital Signs Temp Pulse Resp BP Pulse Ox 07/05/19 06:00 37.1 C 75 20 132/60 92 07/05/19 04:00 74 07/05/19 00:00 73 07/04/19 22:00 37.1 C 76 18 150/69 H 90 07/04/19 20:00 80 07/04/19 16:00 72 07/04/19 14:00 36.5 C 76 20 146/52 H 90 07/04/19 12:00 79 Intake/Output Intake/Output: Intake & Output 07/02/19 07/03/19 07/04/19 07/05/19 23:59 23:59 23:59 23:59 Intake Total 860 1860 820 Output Total 300 325 200 Balance -763 009 5626 620 Meds/Results Medications: Active Medications Generic Name Dose Route Start Last Admin Trade Name Freq PRN Reason Stop Dose Admin Acetaminophen 650 mg 07/03/19 11:58 Tylenol Tablet PO Q4H PRN mild pain Amlodipine Besylate 5 mg 07/03/19 09:00 07/05/19 08:34 Norvasc PO 5 mg DAILY [facility] Administration Amoxicillin 500 mg 07/03/19 14:00 07/05/19 06:15 Amoxil Capsule PO 07/06/19 06:01 500 mg Q8HR [facility] Administration Atorvastatin Calcium 10 mg 07/03/19 09:00 07/05/19 08:35 Lipitor PO 10 mg DAILY [facility] Administration Clopidogrel Bisulfate 75 mg 07/03/19 09:00 07/05/19 08:34 Plavix PO 75 mg DAILY [facility] Administration Dextrose 12.5 gm 07/03/19 00:55 Dextrose 50% Syringe IV PUSH PRN PRN Hypoglycemia Protocol Escitalopram Oxalate 10 mg 07/03/19 09:00 07/05/19 08:34 Lexapro PO 10 mg DAILY [facility] Administration Folic Acid 1 mg 07/03/19 09:00 07/05/19 08:34 Folic Acid PO 1 mg DAILY [facility] Administration Gabapentin 100 mg 07/03/19 09:00 07/05/19 08:35 Neurontin PO 100 mg DAILY [facility] Administration Glucagon 1 mg 07/03/19 00:55 Glucagon For Inj IM PRN PRN Hypoglycemia Protocol Glucose 15 gm 07/03/19 00:55 Glutose 15 PO PRN PRN Hypoglycemia Protocol Dextrose 1,000 mls @ 100 mls/hr 07/03/19 00:55 Dextrose 5% 1,000 Ml IVPB PRN PRN Hypoglycemia Protocol Insulin Aspart 3 - 6 units 07/03/19 08:00 Novolog SUB-Q TIDWM [facility] Protocol Lisinopril 20 mg 07/03/19 09:00 07/05/19 08:34 Prinivil PO 08/02/19 09:01 20 mg BID [facility] Administration Promethazine HCl 12.5 mg 07/04/19 09:14 Phenergan Inj IV PUSH Q4H PRN Nausea And Vomiting Saccharomyces Boulardii 250 mg 07/03/19 17:00 07/05/19 08:35 Florastor PO 250 mg BID [facility] Administration Sitagliptin Phosphate 100 mg 07/03/19 09:00 07/05/19 08:34 Januvia PO 100 mg DAILY [facility] Administration Tramadol HCl 25 mg 0
[2019-07-05 11:46] LABS: Glucose Point of Care 201 (65-105)
--- NOTE | 2019-07-05 13:47 | PM.IMPN ---
Progress Note: A&P Assessment and Plan (1) Hyponatremia: Code(s): E87.1 - Hypo-osmolality and hyponatremia Status: Acute Assessment and Plan: Differential is broad and could be related to patient's chronic pain, hydrochlorothiazide and/or glipizide use, or possible underlying malignancy given abnormal chest x-ray. The patient's hydrochlorothiazide and glipizide for both discontinued. The patient's sodium improved today to 121 this morning, but repeat sodiums since them have been 120. Nephrology gave her some 3% NS yesterday afternoon, but it has since been discontinued. Given the patient's abnormal chest x-ray and history of heavy tobacco use in the past her concern for possible malignancy related hyponatremia. 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 Urine sodium was slightly low at 16, urine creatinine was slightly low at 113. Urine osmolality was pending. Will continue monitoring the patient's sodium every 4 hours. Nephrology was consulted for further recommendations. Will place the patient on a 1 L fluid restriction. (2) History of snoring: Code(s): Z87.898 - Personal history of other specified conditions Status: Acute Assessment and Plan: The patient is at high risk for obstructive sleep apnea given her report of poor sleep, disrupted sleep, snoring, and daytime fatigue. Apnea link shows the patient's AHI is 5.8, RI is 6.6, oxygen desaturation was 9.4. This is very suspicious that she has a breathing disorder and will need a better outpatient sleep study for official diagnosis of sleep apnea. (3) Traumatic hematoma of scalp: Qualifiers: Encounter type: initial encounter Qualified Code(s): S00.03XA - Contusion of scalp, initial encounter Code(s): S00.03XA - Contusion of scalp, initial encounter Status: Acute Assessment and Plan: Abrasion noted to her occipital scalp. With tenderness. Dry blood is noted. No acute bleeding. Fall precautions in place. (4) Frequent falls: Code(s): R29.6 - Repeated falls Status: Acute Assessment and Plan: Fall precautions in place. 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 A CT scan of the chest showed Right-sided aortic arch accounting for the chest radiographic finding in question. No concerns at this time. (6) Arthritis: Code(s): M19.90 - Unspecified osteoarthritis, unspecified site Status: Acute Assessment and Plan: Patient reports having arthritis and taking ibuprofen daily for this. Due to her being on anticoagulation and history of CVAs I do not feel comfortable with her having ibuprofen at this time. I told patient she can have Tramadol, Tylenol, heating pad, for local arthritis areas and we can consider a lidocaine patch if it is necessary. (7) CVA (cerebral vascular accident): Code(s): I63.9 - Cerebral infarction, unspecified Status: Acute Assessment and Plan: Continue on Plavix and she is not having any symptoms of increased weakness or any focal deficits. Continue monitoring. (8) Multinodular thyroid: Code(s): E04.2 - Nontoxic multinodular goiter Status: Acute Assessment and Plan: CT chest showed multi nodule goiter of the right thyroid lobe. Thyroid ultrasound showed Multinodular goiter
[2019-07-05 14:12] LABS: Sodium 120 mmol/L (137-145)
[2019-07-05] MEDS: SODIUM CHLORIDE 3% 500 ML 80 ML IV CONT (16:28)
[2019-07-05 17:34] LABS: Glucose Point of Care 155 (65-105)
[2019-07-05 18:44] LABS: Sodium 122 mmol/L (137-145)
--- NOTE | 2019-07-05 20:55 | PC.NURSE ---
Lab at bedside drawing sodium level.
[2019-07-05 21:19] LABS: Sodium 124 mmol/L (137-145)
[2019-07-05 21:42] LABS: Glucose Point of Care 191 (65-105)
[2019-07-06] VITALS: PULSE 77
--- NOTE | 2019-07-06 02:00 | PC.NURSE ---
Lab at bedside drawing sodium level.
[2019-07-06 02:28] LABS: Sodium 124 mmol/L (137-145)
[2019-07-06 04:00] VITALS: PULSE 75
[2019-07-06] MEDS: AMOXICILLIN 500 MG CAPSULE PO (05:42)
[2019-07-06 06:00] VITALS: BP 134/72; PULSE 80; RESP 20; TEMP 36.4; O2SAT 90
[2019-07-06 06:32] LABS: Hematocrit 32.5 % (37.0-47.0); Hemoglobin 11.9 g/dL (12.0-15.0); Mean Corpuscular HGB Conc 36.6 g/dl (32-36); Mean Corpuscular Hemoglobin 35.1 pg (26-34); Mean Corpuscular Volume 95.9 fl (80-100); Mean Platelet Volume 9.3 fl (7.4-10.4); Platelet Count Result 280 k/mm3 (150-375); Red Blood Count 3.39 M/mm3 (4.2-5.4); Red Cell Distribution Width 11.7 % (11.5-14.5); White Blood Count 7.3 K/mm3 (4.5-10.0)
[2019-07-06 07:48] LABS: Blood Urea Nitrogen 14 mg/dL (7-17); Calcium 8.1 mg/dL (8.4-10.2); Carbon Dioxide 24 mmol/L (22-30); Chloride 92 mmol/L (98-107); Estimated CRCL calculation 84 ml/min; Estimated Glomerular Filt Rate > 60; Glucose 150 mg/dL (65-105); Magnesium 1.9 mg/dL (1.6-2.3); Potassium 4.1 mmol/L (3.4-5.0); Sodium 124 mmol/L (137-145)
[2019-07-06] MEDS: ESCITALOPRAM OXALATE 10 MG TABLET PO (08:19)
[2019-07-06] MEDS: ATORVASTATIN 10 MG TABLET PO (08:19)
[2019-07-06] MEDS: lisinopriL 20 MG TABLET PO ×2 (08:19→17:12)
[2019-07-06] MEDS: FOLIC ACID 1 MG TABLET PO (08:19)
[2019-07-06] MEDS: CLOPIDOGREL BISULFATE 75 MG TABLET PO (08:19)
[2019-07-06] MEDS: GABAPENTIN 100 MG CAPSULE PO (08:19)
[2019-07-06] MEDS: SACCHAROMYCES BOULARDII 250 MG CAPSULE PO ×2 (08:19→17:12)
[2019-07-06] MEDS: AMLODIPINE BESYLATE 5 MG TABLET PO (08:19)
[2019-07-06 10:39] LABS: Sodium 122 mmol/L (137-145)
[2019-07-06] MEDS: SODIUM CHLORIDE 3% 500 ML 80 ML IV CONT (12:44)
--- NOTE | 2019-07-06 12:55 | PM.IMPN ---
Progress Note: A&P Assessment and Plan (1) Hyponatremia: Code(s): E87.1 - Hypo-osmolality and hyponatremia Status: Acute Assessment and Plan: Differential is broad and could be related to patient's chronic pain, hydrochlorothiazide and/or glipizide use, or possible underlying malignancy given abnormal chest x-ray. The patient's hydrochlorothiazide and glipizide for both discontinued. 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 Urine sodium was slightly low at 16, urine creatinine was slightly low at 113. Urine osmolality was pending. The patient's sodium improved today to 124 this morning, but repeat sodiums since them have been 122. I talked to Dr. Garcia Nephrology who recommended ordering another 3% NS for 3 hours and repeat sodium [address] Garica states he will look at the patient's sodium again in the morning and at that point consider adding salt tabs to her regiment. Will continue monitoring the patient's sodium every 4 hours. Nephrology was consulted for further recommendations. Will place the patient on a 1 L fluid restriction. (2) History of snoring: Code(s): Z87.898 - Personal history of other specified conditions Status: Acute Assessment and Plan: The patient is at high risk for obstructive sleep apnea given her report of poor sleep, disrupted sleep, snoring, and daytime fatigue. Apnea link shows the patient's AHI is 5.8, RI is 6.6, oxygen desaturation was 9.4. This is very suspicious that she has a breathing disorder and will need a better outpatient sleep study for official diagnosis of sleep apnea. (3) Traumatic hematoma of scalp: Qualifiers: Encounter type: initial encounter Qualified Code(s): S00.03XA - Contusion of scalp, initial encounter Code(s): S00.03XA - Contusion of scalp, initial encounter Status: Acute Assessment and Plan: Abrasion noted to her occipital scalp. With tenderness. Dry blood is noted. No acute bleeding. Fall precautions in place. (4) Frequent falls: Code(s): R29.6 - Repeated falls Status: Acute Assessment and Plan: Fall precautions in place. 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 A CT scan of the chest showed Right-sided aortic arch accounting for the chest radiographic finding in question. No concerns at this time. (6) Arthritis: Code(s): M19.90 - Unspecified osteoarthritis, unspecified site Status: Acute Assessment and Plan: Patient reports having arthritis and taking ibuprofen daily for this. Due to her being on anticoagulation and history of CVAs I do not feel comfortable with her having ibuprofen at this time. I told patient she can have Tramadol, Tylenol, heating pad, for local arthritis areas and we can consider a lidocaine patch if it is necessary. (7) CVA (cerebral vascular accident): Code(s): I63.9 - Cerebral infarction, unspecified Status: Acute Assessment and Plan: Continue on Plavix and she is not having any symptoms of increased weakness or any focal deficits. Continue monitoring. (8) Multinodular thyroid: Code(s): E04.2
[2019-07-06 14:00] VITALS: BP 131/70; PULSE 74; RESP 16; TEMP 36.8; O2SAT 96
[2019-07-06 14:11] LABS: Sodium 123 mmol/L (137-145)
--- NOTE | 2019-07-06 16:02 | PM.PNNEP ---
Progress Note: A&P Assessment and Plan (1) Hyponatremia: Code(s): E87.1 - Hypo-osmolality and hyponatremia Status: Acute Assessment and Plan: acute on chronic (chronic history of low sodium levels) - from my discussion with patient's POA: -- sodium in April 2019 was 127 -- in February 2018, her sodium was 130 urine sodium low suggestive of volume depletion - improvement in sodium noted with normal saline IVFs transiently s/p 3% saline infusion x2 with improvement in sodium - will repeat again today goal is to keep rate of change in sodium with 6 - 9mmol in 24hrs off HCTZ at this time; lexapro may be a contributing facotre TSH and cortisol level okay; SPE/UPE pending CT of chest without evidence of malignancy leaning toward use of salt tabs +/- low dose lasix to help maintain sodium level Will continue to follow. Subjective Date/time seen: 07/06/19 16:02 No new issues or complaints voiced -- slow improvement in sodium level noted but has required 3% saline to acheive this improvement; no apparent distress to report at this time. Exam Narrative: Exam Narrative: General: WD/WN female in NAD Heart: normal S1 and S2; no rub Lungs: clear to auscultation Abdomen: soft, nontender, nondistended, positive bowel sounds Extremities: no cyanosis or clubbing; no edema Skin: warm and intact Objective Data Vital Signs Vital Signs: Vital Signs Temp Pulse Resp BP Pulse Ox 07/06/19 14:00 36.8 C 74 16 131/70 96 07/06/19 06:00 36.4 C 80 20 134/72 90 07/06/19 04:00 75 07/06/19 00:00 77 07/05/19 22:00 36.9 C 77 20 154/50 H 93 07/05/19 20:00 83 Intake/Output Intake/Output: Intake & Output 07/03/19 07/04/19 07/05/19 07/06/19 23:59 23:59 23:59 23:59 Intake Total 860 1860 1798 380 Output Total 325 600 200 Balance 535 1860 1198 180 Meds/Results Medications: Active Medications Generic Name Dose Route Start Last Admin Trade Name Freq PRN Reason Stop Dose Admin Acetaminophen 650 mg 07/03/19 11:58 Tylenol Tablet PO Q4H PRN mild pain Amlodipine Besylate 5 mg 07/03/19 09:00 07/06/19 08:19 Norvasc PO 5 mg DAILY MANOJ Administration Atorvastatin Calcium 10 mg 07/03/19 09:00 07/06/19 08:19 Lipitor PO 10 mg DAILY MANOJ Administration Clopidogrel Bisulfate 75 mg 07/03/19 09:00 07/06/19 08:19 Plavix PO 75 mg DAILY MANOJ Administration Dextrose 12.5 gm 07/03/19 00:55 Dextrose 50% Syringe IV PUSH PRN PRN Hypoglycemia Protocol Escitalopram Oxalate 10 mg 07/03/19 09:00 07/06/19 08:19 Lexapro PO 10 mg DAILY MANOJ Administration Folic Acid 1 mg 07/03/19 09:00 07/06/19 08:19 Folic Acid PO 1 mg DAILY MANOJ Administration Gabapentin 100 mg 07/03/19 09:00 07/06/19 08:19 Neurontin PO 100 mg DAILY MANOJ Administration Glucagon 1 mg 07/03/19 00:55 Glucagon For Inj IM PRN PRN Hypoglycemia Protocol Glucose 15 gm 07/03/19 00:55 Glutose 15 PO PRN PRN Hypoglycemia Protocol Dextrose 1,000 mls @ 100 mls/hr 07/03/19 00:55 Dextrose 5% 1,000 Ml IVPB PRN PRN Hypoglycemia Protocol Insulin Aspart 3 - 6 units 07/03/19 08:00 Novolog SUB-Q TIDWM [facility] Protocol Lisinopril 20 mg 07/03/19 09:00 07/06/19 08:19 Prinivil PO 08/02/19 09:01 20 mg BID [facility] Administration Promethazine HCl 12.5 mg 07/04/19 09:14 Phenergan Inj IV PUSH Q4H PRN Nausea And Vomiting Saccharomyces Boulardii 250 mg 07/03/19 17:00 07/06/19 08:19 Florastor PO 250 mg BID [facility] Administration Sitagliptin Phosphate 100 mg 07/03/19 09:00 07/06/19 08:19 Januvia PO 100 mg DAILY [facility] Administration Tramadol HCl 25 mg 07/04/19 09:14 07/06/19 05:42 Ultram PO 25 mg Q4H PRN Administration Pain Rated 4-6 Radiology Results: ITS Impressions Head CT 06/18
[2019-07-06 17:08] LABS: Glucose Point of Care 173 (65-105)
[2019-07-06 17:08] LABS: Glucose Point of Care 166 (65-105)
[2019-07-06 17:15] LABS: Sodium 124 mmol/L (137-145)
[2019-07-06 17:39] LABS: Glucose Point of Care 220 (65-105)
[2019-07-06] MEDS: SODIUM CHLORIDE 500 MG TABLET PO (18:31)
[2019-07-06 20:26] LABS: Glucose Point of Care 170 (65-105)
[2019-07-06 22:00] VITALS: BP 149/68; PULSE 80; RESP 20; TEMP 37.4; O2SAT 92
[2019-07-06 22:24] LABS: Sodium 124 mmol/L (137-145)
[2019-07-07 06:00] VITALS: BP 149/70; PULSE 80; RESP 20; TEMP 37.1; O2SAT 90
[2019-07-07 06:27] LABS: Hematocrit 29.3 % (37.0-47.0); Hemoglobin 10.8 g/dL (12.0-15.0); Mean Corpuscular HGB Conc 36.9 g/dl (32-36); Mean Corpuscular Hemoglobin 35.3 pg (26-34); Mean Corpuscular Volume 95.8 fl (80-100); Mean Platelet Volume 9.4 fl (7.4-10.4); Platelet Count Result 281 k/mm3 (150-375); Red Blood Count 3.06 M/mm3 (4.2-5.4); Red Cell Distribution Width 11.7 % (11.5-14.5); White Blood Count 7.8 K/mm3 (4.5-10.0)
[2019-07-07 06:36] LABS: Blood Urea Nitrogen 12 mg/dL (7-17); Calcium 8.2 mg/dL (8.4-10.2); Carbon Dioxide 28 mmol/L (22-30); Chloride 93 mmol/L (98-107); Estimated CRCL calculation 99 ml/min; Estimated Glomerular Filt Rate > 60; Glucose 154 mg/dL (65-105); Potassium 3.7 mmol/L (3.4-5.0); Sodium 126 mmol/L (137-145)
[2019-07-07] MEDS: CLOPIDOGREL BISULFATE 75 MG TABLET PO (08:40)
[2019-07-07] MEDS: AMLODIPINE BESYLATE 5 MG TABLET PO (08:40)
[2019-07-07] MEDS: GABAPENTIN 100 MG CAPSULE PO (08:40)
[2019-07-07] MEDS: ATORVASTATIN 10 MG TABLET PO (08:40)
[2019-07-07] MEDS: lisinopriL 20 MG TABLET PO (08:40)
[2019-07-07] MEDS: FOLIC ACID 1 MG TABLET PO (08:41)
[2019-07-07] MEDS: SODIUM CHLORIDE 500 MG TABLET PO (08:41)
[2019-07-07] MEDS: SACCHAROMYCES BOULARDII 250 MG CAPSULE PO (08:41)
[2019-07-07] MEDS: ESCITALOPRAM OXALATE 10 MG TABLET PO (08:41)
[2019-07-07 09:00] LABS: Glucose Point of Care 173 (65-105)
[2019-07-07 12:07] LABS: Glucose Point of Care 228 (65-105)
[2019-07-07] MEDS: INSULIN ASPART (*BKC) 100 UNITS/ML SUB-Q (12:08)
--- NOTE | 2019-07-07 12:11 | PM.DS ---
DS: Summary Hospital Course Reason for hospitalization: Severe hyponatremia Hospital Course: Patient is a 73 yo F with past medical history of bibasilar CVA, recent tooth extraction due to abscess and noncompliance with antibiotic therapy, hypertension, type 2 diabetes mellitus and chronic hyponatremia who presented to the ER on 07/01 after having a fall when trying to stand up off the commode earlier in the day. Patient had been getting progressively weaker over a fairly long time. Patient had been told for years by her PCP that she has had hyponatremia but uncertain of her baseline. In the ER she was found to have acute hyponatremia and was admitted under this setting. Please see H&P for further details. Presenting VS: Temp Pulse Resp BP Pulse Ox 98.1 F 80 20 172/82 H 96 07/02/19 14:30 07/02/19 14:30 07/02/19 14:30 07/02/19 14:30 07/02/19 14:30 Presenting Pertinent labs: Na 113 (07/06: 126), WBC 12.6k. ABG on RA showed pH 7.463, pCO2 31.8, pO2 58.5, O2 sat 92.1, Oxyhemoglobin 89.3%, reduced hemoglobin 9.6%. CBC, chemistry, UA, and ABG otherwise grossly unremarkable Micro: none Imaging: Head CT 07/02/19 15:15 IMPRESSION: Laceration and cephalhematoma in the occipital region; no skull fracture or acute intracranial finding Cerebral atherosclerosis and chronic small vessel ischemic changes of the cerebral white matter Cervical Spine CT 07/02/19 17:04 IMPRESSION: 1. No acute cervical fracture. 2. Advanced cervical spondylosis. Pelvis X-Ray 07/02/19 17:27 IMPRESSION: 1. XR pelvis 1-2V exam without acute osseous findings. 2. 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 3. Severe bilateral hip osteoarthritis. Lumbar Spine X-Ray 07/02/19 17:29 IMPRESSION: 1. Advanced lumbar spondylosis. 2. No acute findings. Chest X-Ray 07/02/19 17:39 IMPRESSION: 1. 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 2. No acute cardiopulmonary findings. Chest CT 07/03/19 18:34 IMPRESSION: 1. 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 2. Multinodular goiter of the right thyroid lobe. Consider thyroid ultrasound for risk stratification. Thyroid Ultrasound 07/04/19 16:37 IMPRESSION: 1. Multinodular goiter. Both the 1.7 cm TI RADS 5 and 3.5 cm TI RADS 3 nodules in the right thyroid meet criteria for ultrasound-guided biopsy which would be recommended. ECG: none Patient was admitted to the hospitalist service for further evaluation for severe hyponatremia; Dr. Garcia (Nephrology) was consulted for further input and management of hyponatremia. CT of chest was ordered to rule out any malignancy related hyponatremia; CT results above. Patient was placed on free water restriction during stay and medications that could induce hyponatremia were held. Sodium was trended with goals of increasing sodium 6-9 mmol/24 hours. Patient given three 3% sodium solution infusions with improvements. She was also started on salt tablets later in stay. Sodium trended up to 126 on day of discharge; per POA, it appears baseline was between 127 in 04/2019 and 130 in 02/2018. Given improvement in sodium levels, patient was okay for discharge from a Nephrology standpoint on 07/06 with prompt follow up with PCP and BMP to be done on 07/09. Hydrochlorothiazide and glipizide held at discharge; she was to also discuss Lexapro being discontinued with her PCP. Patient was prescribed 500 mg sodium tablets twice daily. Of note, patient found to have multinodular goiter on US during stay; it was recommended she follow up with her PCP for furhter workup and management. Patient agreeable and comfortable with plan for discharge on 07/06. Patient remained hemodynamically stable and in improved condition. Status at Discharge Overall status at discharge: patient is progressing back to baseline Time Spent with Patient Time attestation: Total time spent providing and/or c
--- NOTE | 2019-07-07 12:39 | PM.PNNEP ---
Progress Note: A&P Assessment and Plan (1) Hyponatremia: Code(s): E87.1 - Hypo-osmolality and hyponatremia Status: Acute Assessment and Plan: acute on chronic (chronic history of low sodium levels) - from my discussion with patient's POA: -- sodium in April 2019 was 127 -- in February 2018, her sodium was 130 urine sodium low suggestive of volume depletion - improvement in sodium noted with normal saline IVFs transiently s/p 3% saline infusion x3 with improvement in sodium started on low dose salt tabs yesterday evening off HCTZ at this time; lexapro may be a contributing factor TSH and cortisol level okay; SPE/UPE pending CT of chest without evidence of malignancy Not opposed to discharge -- agree with checking BMP later this week to ensure sodium is stable. Discussed with LUCINDA Esteves. Subjective Date/time seen: 07/07/19 12:39 Happy about discharge today; sodium better following 3% saline and addition of salt tabs; no apparent distress voiced at this time; feels reasonably well. Exam Narrative: Exam Narrative: General: WD/WN female in NAD Heart: normal S1 and S2; no rub Lungs: clear to auscultation Abdomen: soft, nontender, nondistended, positive bowel sounds Extremities: no cyanosis or clubbing; no edema Skin: No rash Objective Data Vital Signs Vital Signs: Vital Signs Temp Pulse Resp BP Pulse Ox 07/07/19 06:00 37.1 C 80 20 149/70 H 90 07/06/19 22:00 37.4 C 80 20 149/68 H 92 07/06/19 14:00 36.8 C 74 16 131/70 96 Intake/Output Intake/Output: Intake & Output 07/04/19 07/05/19 07/06/19 07/07/19 23:59 23:59 23:59 23:59 Intake Total 1860 1798 850 380 Output Total 600 850 600 Balance 1860 1198 0 -220 Meds/Results Medications: Active Medications Generic Name Dose Route Start Last Admin Trade Name Freq PRN Reason Stop Dose Admin Acetaminophen 650 mg 07/03/19 11:58 Tylenol Tablet PO Q4H PRN mild pain Amlodipine Besylate 5 mg 07/03/19 09:00 07/07/19 08:40 Norvasc PO 5 mg DAILY MANOJ Administration Atorvastatin Calcium 10 mg 07/03/19 09:00 07/07/19 08:40 Lipitor PO 10 mg DAILY MANOJ Administration Clopidogrel Bisulfate 75 mg 07/03/19 09:00 07/07/19 08:40 Plavix PO 75 mg DAILY MANOJ Administration Dextrose 12.5 gm 07/03/19 00:55 Dextrose 50% Syringe IV PUSH PRN PRN Hypoglycemia Protocol Escitalopram Oxalate 10 mg 07/03/19 09:00 07/07/19 08:41 Lexapro PO 10 mg DAILY MANOJ Administration Folic Acid 1 mg 07/03/19 09:00 07/07/19 08:41 Folic Acid PO 1 mg DAILY MANOJ Administration Gabapentin 100 mg 07/03/19 09:00 07/07/19 08:40 Neurontin PO 100 mg DAILY MANOJ Administration Glucagon 1 mg 07/03/19 00:55 Glucagon For Inj IM PRN PRN Hypoglycemia Protocol Glucose 15 gm 07/03/19 00:55 Glutose 15 PO PRN PRN Hypoglycemia Protocol Dextrose 1,000 mls @ 100 mls/hr 07/03/19 00:55 Dextrose 5% 1,000 Ml IVPB PRN PRN Hypoglycemia Protocol Insulin Aspart 3 - 6 units 07/03/19 08:00 07/07/19 12:08 Novolog SUB-Q 3 units TIDWM MANOJ Administration Protocol Lisinopril 20 mg 07/03/19 09:00 07/07/19 08:40 Prinivil PO 08/02/19 09:01 20 mg BID MANOJ Administration Promethazine HCl 12.5 mg 07/04/19 09:14 Phenergan Inj IV PUSH Q4H PRN Nausea And Vomiting Saccharomyces Boulardii 250 mg 07/03/19 17:00 07/07/19 08:41 Florastor PO 250 mg BID MANOJ Administration Sitagliptin Phosphate 100 mg 07/03/19 09:00 07/07/19 08:41 Januvia PO 100 mg DAILY MANOJ Administration Sodium Chloride 500 mg 07/06/19 18:00 07/07/19 08:41 Sodium Chloride PO 500 mg BID MANOJ Administration Tramadol HCl 25 mg 07/04/19 09:14 07/07/19 00:41 Ultram PO 25 mg Q4H PRN Administration Pain Rated 4-6 Radiology Results: ITS Impre
[2019-07-07 14:53] VITALS: BP 149/60; PULSE 73; RESP 20; TEMP 35.9; O2SAT 93
[2019-07-07 22:23] LABS: Albumin 3.2 g/dL (3.8-4.8); Alpha 1 Globulin 0.3 g/dL (0.2-0.3); Alpha 2 Globulin 0.8 g/dL (0.5-0.9); Beta 1 Globulin 0.4 g/dL (0.4-0.6); Protein, Total 5.9 g/dL (6.1-8.1)
[2019-07-09 01:37] LABS: Osmolality, Urine 489 mOsm/kg (50-1200)
[2019-07-09 05:25] LABS: Creatinine, Random Urine 45 mg/dL (20-275); Total Protein/Creatinine Ratio 422 mg/g creat (21-161)
--- NOTE | 2019-08-03 13:09 | PM.IMPN ---
Progress Note: A&P Assessment and Plan (1) Hyponatremia: Code(s): E87.1 - Hypo-osmolality and hyponatremia Status: Acute Assessment and Plan: Differential is broad and could be related to patient's chronic pain, hydrochlorothiazide and/or glipizide use, or increased free fluid intake (patient felt she may have had a UTI coming, and decided to increase her PO fluid intake). Na 126 this morning; improved. Patient okay for discharge from Nephrology standpoint with prompt follow up with PCP in 1-2 weeks. Urine osmolality pending. The patient's hydrochlorothiazide and glipizide will be held Per Nephrology recommendations, will discharge on sodium tabs. Dr. Garcia states he will look at the patient's sodium again in the morning and at that point consider adding salt tabs to her regiment. Fluid restrict to 2L after discharge Follow up with PCP to see if HCTZ and glipizide should continue to be held and if Lexapro should be discontinued BMP on 07/09 F/u with Nephrology as needed (2) History of snoring: Code(s): Z87.898 - Personal history of other specified conditions Status: Acute Assessment and Plan: The patient is at high risk for obstructive sleep apnea given her report of poor sleep, disrupted sleep, snoring, and daytime fatigue. Apnea link shows the patient's AHI is 5.8, RI is 6.6, oxygen desaturation was 9.4. This is very suspicious that she has a breathing disorder and will need a better outpatient sleep study for official diagnosis of sleep apnea. Recommended outpatient work up for JULIA Follow up with PCP (3) Traumatic hematoma of scalp: Qualifiers: Encounter type: initial encounter Qualified Code(s): S00.03XA - Contusion of scalp, initial encounter Code(s): S00.03XA - Contusion of scalp, initial encounter Status: Acute Assessment and Plan: Abrasion noted to her occipital scalp. Stable Fall precautions in place. (4) Frequent falls: Code(s): R29.6 - Repeated falls Status: Acute Assessment and Plan: Fall precautions in place. PT and OT evaluation Patient wishes to be discharged home with her sleeve maker; Will recommend PT/OT outpatient should she wish to continue this. She does not wish to have HH therapy at this time despite PT/OT recs (5) Abnormal chest x-ray: Code(s): R93.89 - Abnormal findings on diagnostic imaging of other specified body structures Status: Acute Assessment and Plan: Patient's chest x-ray showed widened right paratracheal contour, most likely from right-sided aortic arch. A CT scan of the chest showed Right-sided aortic arch accounting for the chest radiographic finding in question. Follow up with PCP (6) Arthritis: Code(s): M19.90 - Unspecified osteoarthritis, unspecified site Status: Acute Assessment and Plan: Patient reports having arthritis and taking ibuprofen daily for this. Ibuprofen will be held at discharged, with recommendations fo Tylenol Recommend Tylenol, heating pad for pain relief. (7) CVA (cerebral vascular accident): Code(s): I63.9 - Cerebral infarction, unspecified Status: Acute Assessment and Plan: No acute issues at this time Continue on Plavix (8) Multinodular thyroid: Code(s): E04.2 - Nontoxic multinodular goiter Status: Acute Assessment and Plan: CT chest showed multi nodule goiter of the right thyroid lobe. Thyroid ultrasound showed Multinodular goiter. Both the 1.7 cm TI RADS 5 and 3.5 cm TI RADS 3 nodules in the right thyroid meet criteria for ultrasound-guided biopsy which would be
== END 2019-07-07 16:08 | disposition home or self-care (01) | DRG 641 ==
LOC: ANHED 19:56 → ANH3MEDSUR 07-03 08:03
PROVIDERS: Internal Medicine; Internal Medicine Nephrology; Physician Assistant; Admitting Provider Internal Medicine; Emergency Provider Emergency Medicine; PCP Internal Medicine; Visit Provider Physician Assistant
DX: E87.1 Hypo-osmolality and hyponatremia (principal); T50.2X5A Adverse effect of carbonic-anhydrase inhibitors, benzothiadiazides and other diuretics, initial encounter; T38.3X5A Adverse effect of insulin and oral hypoglycemic [antidiabetic] drugs, initial encounter; T43.225A Adverse effect of selective serotonin reuptake inhibitors, initial encounter; S01.01XA Laceration without foreign body of scalp, initial encounter; S00.03XA Contusion of scalp, initial encounter; E11.9 Type 2 diabetes mellitus without complications; I10 Essential (primary) hypertension; W18.12XA Fall from or off toilet with subsequent striking against object, initial encounter; E78.5 Hyperlipidemia, unspecified; R29.6 Repeated falls; R93.89 Abnormal findings on diagnostic imaging of other specified body structures; E04.2 Nontoxic multinodular goiter; M19.90 Unspecified osteoarthritis, unspecified site; G47.00 Insomnia, unspecified; E66.9 Obesity, unspecified; Z68.36 Body mass index [BMI] 36.0-36.9, adult; Z90.49 Acquired absence of other specified parts of digestive tract; Z87.891 Personal history of nicotine dependence; Z91.14 Patient's other noncompliance with medication regimen; Z86.73 Personal history of transient ischemic attack (TIA), and cerebral infarction without residual deficits
CPT/HCPCS: 36415; 36600; 51701; 70450; 71045; 71260; 72100; 72125; 72170; 76536; 80048; 80053; 81001; 82375; 82533; 82550; 82570; 82805; 83036; 83050; 83735; 83880; 83930; 83935; 84155; 84156; 84165; 84166; 84295; 84300; 84443; 85025; 85027; 85055; 94762; 97110; 97116; 97161; 97165; 97530; 97535; 99285; A9270; J1815; J3475; J7030; J7131; Q9967

== ENCOUNTER 2019-07-11 09:08 | Outpatient (CLI) | payer OTHER, SELFPAY ==
[2019-07-11 10:05] LABS: Blood Urea Nitrogen 13 mg/dL (7-17); Calcium 9.2 mg/dL (8.4-10.2); Carbon Dioxide 28 mmol/L (22-30); Chloride 90 mmol/L (98-107); Estimated Glomerular Filt Rate > 60; Glucose 185 mg/dL (65-105); Potassium 4.2 mmol/L (3.4-5.0); Sodium 127 mmol/L (137-145)
== END 2019-07-11 09:09 | disposition home or self-care (01) ==
PROVIDERS: Visit Provider Physician Assistant
DX: E87.1 Hypo-osmolality and hyponatremia (principal)
CPT/HCPCS: 36415; 80048

== ENCOUNTER 2019-08-03 10:44 | Outpatient (CLI) | payer OTHER, SELFPAY ==
[2019-08-03 11:50] LABS: Alanine Aminotransferase 13 U/L (4-35); Albumin Level 4.5 g/dL (3.5-5.1); Alkaline Phosphatase 128 U/L (38-126); Aspartate Amino Transferase 29 U/L (14-36); Bilirubin,Total 0.6 mg/dL (0.2-1.3); Blood Urea Nitrogen 13 mg/dL (7-17); Calcium 9.4 mg/dL (8.4-10.2); Carbon Dioxide 28 mmol/L (22-30); Chloride 94 mmol/L (98-107); Estimated Glomerular Filt Rate > 60; Glucose 206 mg/dL (65-105); Potassium 4.5 mmol/L (3.4-5.0); Sodium 132 mmol/L (137-145)
== END 2019-08-03 10:45 | disposition home or self-care (01) ==
LOC: ANHLAB 10:50
DX: E87.1 Hypo-osmolality and hyponatremia (principal)
CPT/HCPCS: 36415; 80053

== ENCOUNTER 2019-10-01 07:57 | Outpatient (CLI) | payer OTHER, SELFPAY ==
[2019-10-05 08:14] LABS: Adrenocorticotropic Hormone 16 pg/mL (6-50)
== END 2019-10-01 07:58 | disposition home or self-care (01) ==
LOC: ANHLAB 07:58
PROVIDERS: PCP Family Medicine; Visit Provider Internal Medicine Nephrology
DX: E87.1 Hypo-osmolality and hyponatremia (principal)
CPT/HCPCS: 36415; 82024; 82533; 96372; J0834

== ENCOUNTER 2019-11-26 11:14 | Outpatient (CLI) | payer OTHER, SELFPAY ==
[2019-11-26 12:48] LABS: Hemoglobin A1C 6.7 % (<5.7)
[2019-11-26 13:00] LABS: Phosphorus 4.5 mg/dL (2.5-4.5)
== END 2019-11-26 11:15 | disposition home or self-care (01) ==
PROVIDERS: PCP Family Medicine; Referring Provider Internal Medicine Nephrology; Visit Provider Physician Assistant
DX: E11.9 Type 2 diabetes mellitus without complications (principal); E87.1 Hypo-osmolality and hyponatremia; I10 Essential (primary) hypertension
CPT/HCPCS: 36415; 83036; 84100

== ENCOUNTER 2019-12-02 10:26 | Outpatient (CLI) | payer OTHER, SELFPAY ==
[2019-12-02 11:11] LABS: Alanine Aminotransferase 13 U/L (4-35); Albumin Level 4.7 g/dL (3.5-5.1); Alkaline Phosphatase 98 U/L (38-126); Anion Gap 11 mmol/L (8-16); Aspartate Amino Transferase 35 U/L (14-36); Bilirubin,Total 0.7 mg/dL (0.2-1.3); Blood Urea Nitrogen 14 mg/dL (7-17); Carbon Dioxide 27 mmol/L (22-30); Chloride 90 mmol/L (98-107); Cholesterol 146 mg/dL (0-200); Estimated Glomerular Filt Rate > 60; Glucose 138 mg/dL (65-105); HDL Direct 51 mg/dL; Potassium 4.9 mmol/L (3.4-5.0); Sodium 128 mmol/L (137-145); Triglycerides 203 mg/dL (<150)
[2019-12-02 11:19] LABS: LDL Cholesterol Direct 60 mg/dL
== END 2019-12-02 10:27 | disposition home or self-care (01) ==
PROVIDERS: PCP Family Medicine; Referring Provider Internal Medicine Nephrology; Visit Provider Family Medicine
DX: E78.5 Hyperlipidemia, unspecified (principal); I10 Essential (primary) hypertension
CPT/HCPCS: 36415; 80053; 80061

== ENCOUNTER 2020-03-18 11:46 | Outpatient (CLI) | payer OTHER, SELFPAY ==
[2020-03-18 13:03] LABS: Hemoglobin A1C 6.5 % (<5.7)
[2020-03-18 13:18] LABS: Alanine Aminotransferase 13 U/L (4-35); Albumin Level 4.5 g/dL (3.5-5.1); Alkaline Phosphatase 97 U/L (38-126); Anion Gap 7 mmol/L (8-16); Aspartate Amino Transferase 32 U/L (14-36); Bilirubin,Total 0.6 mg/dL (0.2-1.3); Blood Urea Nitrogen 13 mg/dL (7-17); Calcium 9.4 mg/dL (8.4-10.2); Carbon Dioxide 28 mmol/L (22-30); Chloride 95 mmol/L (98-107); Cholesterol 132 mg/dL (0-200); Estimated Glomerular Filt Rate > 60; Glucose 145 mg/dL (65-105); HDL Direct 53 mg/dL; Potassium 4.6 mmol/L (3.4-5.0); Sodium 130 mmol/L (137-145); Triglycerides 131 mg/dL (<150)
[2020-03-18 13:29] LABS: LDL Cholesterol Direct 53 mg/dL
== END 2020-03-18 11:47 | disposition home or self-care (01) ==
PROVIDERS: Physician Assistant; PCP Family Medicine; Visit Provider Internal Medicine Nephrology
DX: E78.5 Hyperlipidemia, unspecified (principal); I10 Essential (primary) hypertension; E11.9 Type 2 diabetes mellitus without complications; E87.1 Hypo-osmolality and hyponatremia
CPT/HCPCS: 36415; 80053; 80061; 83036

== ENCOUNTER 2020-09-13 10:39 | Outpatient (CLI) | payer OTHER, SELFPAY ==
[2020-09-13 11:20] LABS: Hematocrit 34.4 % (37.0-47.0); Hemoglobin 12.6 g/dL (12.0-15.0); Immature Reticulocyte Fraction 9.8 % (3.0-15.9); Mean Corpuscular HGB Conc 36.6 g/dl (32-36); Mean Corpuscular Hemoglobin 34.8 pg (26-34); Mean Platelet Volume 9.5 fl (7.4-10.4); Platelet Count Result 257 k/mm3 (150-375); Red Blood Count 3.62 M/mm3 (4.2-5.4); Red Cell Distribution Width 11.6 % (11.5-14.5); Reticulocyte Hemoglobin Conten 38.7 pg (28.2-35.7); Reticulocyte Percent 2.78 % (0.7-4.3); White Blood Count 8.5 K/mm3 (4.5-10.0)
[2020-09-13 11:35] LABS: Phosphorus 3.9 mg/dL (2.5-4.5)
[2020-09-13 11:43] LABS: Alanine Aminotransferase 13 U/L (4-35); Albumin Level 4.5 g/dL (3.5-5.1); Alkaline Phosphatase 91 U/L (38-126); Anion Gap 15 mmol/L (8-16); Aspartate Amino Transferase 33 U/L (14-36); Bilirubin,Total 0.8 mg/dL (0.2-1.3); Blood Urea Nitrogen 13 mg/dL (7-17); Carbon Dioxide 21 mmol/L (22-30); Chloride 80 mmol/L (98-107); Cholesterol 99 mg/dL (0-200); Estimated Glomerular Filt Rate > 60; Glucose 121 mg/dL (65-110); HDL Direct 51 mg/dL; Sodium 116 mmol/L (137-145); Triglycerides 67 mg/dL (<150)
[2020-09-13 12:12] LABS: Iron 72 ug/dL (37-170)
[2020-09-13 12:21] LABS: Percent Iron Saturation 26 % (20-50)
[2020-09-13 12:39] LABS: Folic Acid > 20.0 ng/mL (2.76->20); Vitamin B12 > 1000.0 pg/mL (239-931)
[2020-09-13 12:55] LABS: LDL Cholesterol Direct < 30 mg/dL
== END 2020-09-13 10:40 | disposition home or self-care (01) ==
PROVIDERS: PCP Family Medicine; Referring Provider Internal Medicine Nephrology; Visit Provider Family Medicine
DX: D64.9 Anemia, unspecified (principal); E78.2 Mixed hyperlipidemia; E11.9 Type 2 diabetes mellitus without complications; I10 Essential (primary) hypertension; R53.83 Other fatigue; E87.1 Hypo-osmolality and hyponatremia
CPT/HCPCS: 36415; 80053; 80061; 82607; 82728; 82746; 83036; 83540; 83550; 84100; 84443; 85027; 85046; 93005

== ENCOUNTER 2020-09-13 13:24 | Inpatient (IN) | payer OTHER, SELFPAY ==
[2020-09-13] VITALS (11 sets, daily range): BP systolic 96–144; BP diastolic 65–98; PULSE 44–120; RESP 18–95; TEMP 36.4–36.7; O2SAT 22–95; BMI 35.6
--- NOTE | ~2020-09-13 | XR_ITS ---
XR chest 1V portable 09/15/2020 06:04 Indication: Shortness of breath Procedure: AP portable chest Comparison: 09/13/2020 Findings: Cardiomegaly. No focal air space disease, pulmonary edema, pleural effusion or suspected pn eumothorax. There are degenerative changes of the shoulders, left greater than right. No acute osseou s abnormality. Impression: 1: No acute cardiopulmonary disease. Reviewed, dictated and finalized at location A. Impression: 1: No acute cardiopulmonary disease.
--- NOTE | ~2020-09-13 | CT_ITS ---
EXAMINATION: CT diagnostic chest wo con DATE: 09/13/2020 16:02 INDICATION: Hypoxia, abnormal chest radiograph TECHNIQUE: Computed tomography (CT) of the chest was performed without intravenous contrast. The dose -length product (DLP) was 772.37 mGy-cm. Automated exposure control and iterative reconstruction tech nique were employed. COMPARISON: 07/03/2019 FINDINGS: There is a large pericardial effusion. Streak artifact from the arms makes assessment of th e fluid density difficult however effusion measures greater than simple fluid density. There is passi ve atelectasis of the lingula and right middle lobe related to the pericardial effusion. There are sm all pleural effusions, right greater than left. Dependent atelectasis is noted. There is no pneumotho rax. There is calcified coronary artery atherosclerosis. There is a 3.7 cm nodule of the right thyroi d lobe. No pathologically enlarged thoracic lymph nodes are identified. The heart size is normal. The re is advanced osteoarthritis of the left shoulder. Punctate calcifications in an otherwise normal sp penny likely represent healed granulomatous disease. There is severe thoracic spondylosis. A right-nacho ed aortic arch is noted. IMPRESSION: 1. Large pericardial effusion with increased density which could reflect an exudative effusion contai alina proteinaceous and/or hemorrhagic material. These findings were discussed with Dr. Eric worley MD in the Emergency Department at 1623 hours on 09/13/2020. 2. Small pleural effusions with passive atelectasis in the lungs. 3. Right thyroid nodule having previously undergone ultrasound evaluation with recommendation for bio psy. Reviewed, dictated and finalized at location A. IMPRESSION: 1. Large pericardial effusion with increased density which could reflect an exu dative effusion containing proteinaceous and/or hemorrhagic material. These fin dings were discussed with Dr. Eric Woods MD in the Emergency Department at 1623 hours on 09/13/2020. 2. Small pleural effusions with passive atelectasis in the lungs. 3. Right thyroid nodule having previously undergone ultrasound evaluation with recommendation for biopsy.
--- NOTE | ~2020-09-13 | US_ITS ---
EXAMINATION: US venous doppler LE EXAM DATE: 09/13/2020 18:44 INDICATION: Leg swelling bilaterally. TECHNIQUE: Multiple grayscale, color flow and Doppler images of the lower extremity deep venous syste ms bilaterally were obtained and reviewed. There is no prior study for comparison. FINDINGS: Right side: The right common femoral, femoral and profunda veins demonstrate normal color flow, respi ratory variation, augmentation and compressibility. Compressibility, color flow confirmed within the right popliteal, posterior tibial, peroneal, and greater saphenous veins. Left side: The left common femoral, femoral and profunda veins demonstrate normal color flow, respira tory variation, augmentation and compressibility. Compressibility, color flow confirmed within the l eft popliteal, posterior tibial, peroneal, and greater saphenous veins. IMPRESSION: 1. No lower extremity deep venous thrombosis bilaterally. Reviewed, dictated and finalized at location .
--- NOTE | ~2020-09-13 | XR_ITS ---
EXAMINATION: XR chest 2V DATE: 09/13/2020 14:11 INDICATION: Shortness of breath TECHNIQUE: frontal and lateral views of the chest were obtained. COMPARISON: Chest radiograph dated 07/02/[address] dated 07/03/2019 FINDINGS: New opacity in the anterior right lower lung zone obscuring the right heart border consistent with ri ght middle lobe atelectasis and/or pneumonia. Small right pleural effusion with blunting at the right posterior sulcus. Left lung remains clear with no focal airspace opacities or left pleural effusion. No pulmonary edema or pneumothorax. Left heart border is unchanged. Anatomic variant right-sided aor tic arch. Severe left glenohumeral osteoarthritis. Moderate thoracolumbar spondylosis. IMPRESSION: 1. Confluent opacity in the right middle lobe which could represent atelectasis and/or pneumonia. 2. Small right pleural effusion. Reviewed, dictated and finalized at location A.
--- NOTE | 2020-09-13 13:58 | ECG_ITS ---
Measurements Intervals [place] Rate: 134 P: NE: 0 QRS: 56 QRSD: 140 T: -25 QT: 305 QTc: 456 Interpretive Statements ATRIAL FIBRILLATION WITH RAPID VENTRICULAR RESPONSE RIGHT BUNDLE BRANCH BLOCK BASELINE ARTIFACT- I, II, III, AVR, AVL, AVF, V2-V6 ABNORMAL ECG Electronically Signed On 09-13-2020 16:04:51 CDT by Diallo Gonzalez D.O.
[2020-09-13] MEDS: dilTIAZem HCl INJ 25 MG/5 ML VIAL 10 MG IV PUSH (14:33)
[2020-09-13 14:45] LABS: Anion Gap 11 mmol/L (8-16); Blood Urea Nitrogen 13 mg/dL (7-17); Calcium 8.7 mg/dL (8.4-10.2); Carbon Dioxide 21 mmol/L (22-30); Chloride 83 mmol/L (98-107); Estimated CRCL calculation 66 ml/min; Estimated Glomerular Filt Rate > 60; Glucose 159 mg/dL (65-110); Potassium 4.9 mmol/L (3.4-5.0); Sodium 115 mmol/L (137-145)
--- NOTE | 2020-09-13 14:51 | ED.GENADULT ---
HPI - General Adult General Chief complaint: Recheck/Abnormal Lab/Rx Stated complaint: low sodium Time Seen by Provider: 09/13/20 13:45 History of Present Illness HPI narrative: Patient is a 75-year-old female who presents ER with multiple issues. First issue is fact that she had abnormal outpatient lab work that showed a sodium of 116. She has history of low sodium in the past and she has been adhering to fluid restriction over the last year related to it. Additionally patient reports that she has been more short of breath and fatigued as of late. Worsening over the last 2 days and she has been having significant orthopnea and is now sleeping in recliner instead of in her bed. She denies any chest pain or chest pressure or racing the heart. Patient found to be in A. fib with RVR upon arrival here with hypoxia. Patient denies any known history of atrial fibrillation. Related Data Allergies Allergy/AdvReac Type Severity Reaction Status Date / Time No Known Allergies Allergy Verified 09/13/20 13:57 Review of Systems Review of Systems: All systems reviewed & are unremarkable except as noted in HPI and below Constitutional: Constitutional: Denies chills, Denies fever(s) and Reports weakness ENT: Denies nasal congestion and Denies sore throat Cardiovascular: Cardiovascular: Denies chest pain, Denies rapid heart rate and Denies radiating jaw, neck or arm pain Respiratory: Respiratory: Denies cough, Reports dyspnea and Denies wheezing Comments: Orthopnea Gastrointestinal: Gastrointestinal: Denies abdominal pain, Denies nausea and Denies vomiting PMFSH Past Medical History Medical History (Updated 09/13/20 @ 21:29 by Eric Woods MD) Anemia Chronic hyponatremia CVA (cerebral vascular accident) Brainstem CVA in 2009 Diabetes mellitus Hemoglobin A1c today was 6.2 Hyperlipidemia Hypertension Surgical History Surgical History Hx of cholecystectomy Family History Family History Father Lung cancer Mother Heart disease Diabetes mellitus Sibling , Brother earlier this year. Multiple myeloma Social History Social History Social History: Primary care physician: Dr. Raya in [place] Code status: DNR/DNI however she would accept pressors, cardiac medications and possibly feeding tube. Surrogate decision maker: Her friend Gwendolyn Smoking packs per day: 1.5 Smoking cigarettes per day: 30.0 Years smoked: 45 Smoking pack-years: 67.50 Smoking status: Former smoker Tobacco type: cigarettes Additional smoking assessment comments: She smoked 1-2 packs cigarettes per day for approximately 44 years. Alcohol intake: never Substance use: never Substance use type: marijuana Other substance usage details: pt states she sometimes uses marijuana gummies Additional living arrangements comments: The patient lives in her own home. Her close friend Gwendolyn lives downstairs and helps provide care for the patient. Her friend neo lau has 3 cats that live in the basement. She is single/never has been and does not have any children. 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 Gender identity (if verbalized by the patient): Female Spiritual care concerns: No Exam Narrative: Exam Narrative: GENERAL: Well-appearing, well-nourished, and in no acute distress. HEAD: Normocephalic, atraumatic. EYES: PERRL and EOMI. ENT: Mucous membranes moist. CHEST: Crackles diffuse, bilaterally. No respiratory distress. HEART: Tachycardic regular. Normal peripheral pulses. ABDOMEN: Soft, nontender, nondistended. EXTREMITIES: Normal range of motion. 2+ edema. SKIN: Warm, dry, no rash. NEURO: Alert and oriented x3. PSYCH: Normal mood and affect. Course Course Emergency Cou
[2020-09-13 15:01] LABS: Partial Thromboplastin Time 25.8 SECONDS (22.3-36.8); Prothrombin Time 13.5 Seconds (11.1-14.7)
[2020-09-13 15:06] LABS: NT Pro B Type Natriuretic Pept 360 pg/mL (5-100)
[2020-09-13 15:08] LABS: Alveolar/Arterial O2 Gradient 159.9 mmHg; Base Excess ABG -2.4 mEq/l (+/-2.0); Carboxyhemoglobin 0.6 % THb (0-2.0); Fractional Inspired Oxygen 36 %; HCO3 ABG 21.1 mEq/l (22.0-26.0); Methemoglobin ABG 0.3 %THb (0-1.5); Oxygen Content ABG 16.7 %vol (16.0-22.0); Oxygen Saturation ABG 91.6 % (95.0-100.0); Oxyhemoglobin 90.1 % THb (90.0-100.0); PCO2 ABG 32.6 mmHg (35.0-45.0); PO2 FiO2 Ratio Arterial Blood 1.64 %; Total Hemoglobin 13.2 g/dL (12.0-18.0); pH ABG 7.429 (7.350-7.450)
[2020-09-13 15:09] LABS: Device NASAL CANNULA; Modified Allen's Test Pass; Site Drawn RIGHT RADIAL
[2020-09-13] MEDS: FUROSEMIDE INJ 40 MG/4 ML VIAL 20 MG IV PUSH (15:34)
[2020-09-13 16:55] LABS: Creatinine Urine 123.5 mg/dL
[2020-09-13 16:57] LABS: Sodium Urine Random 26 meq/L
[2020-09-13 16:58] LABS: Sodium 114 mmol/L (137-145)
--- NOTE | 2020-09-13 17:00 | PM.IMHP ---
H&P: HPI History of Present Illness Date/Time: 09/13/20 17:00 Chief Complaint: Low sodium noted on outpatient labs. Narrative: This is a very pleasant 75-year-old female with history of stroke, hypertension, and type 2 diabetes who presented to the emergency department earlier today for evaluation after she was found to have low sodium on labs drawn today. She has not felt well for about 7 days with increasing weakness, no appetite, nausea, and poor oral intake. The symptoms are similar to when she had severe hyponatremia in June 2019 and thus she had outpatient labs done which showed a sodium level of 116. She has had some mild chest discomfort which seems to be worse when lying supine and a bit better when sitting forward as well as increasing shortness of breath on lesser and lesser exertion and mild lower extremity edema. A chest x-ray done on arrival to the emergency department showed a small right pleural effusion and a pericardial effusion fluid opacity in the right middle lobe and a subsequent chest CT showed a large pericardial effusion with increased density which could reflect an exudate of effusion containing proteinaceous and/or hemorrhagic material. upon further chart review the patient was found to have a multinodular goiter sometime last year and a thyroid ultrasound on 07/04/2019 which showed 1.7 cm TI RADS 5 and a 3.5 cm TI RADS 3 nodules in the right thyroid. The patient has had these biopsied as of yet, unfortunately. She has no known history of malignancy. Weight has remained stable. She denies confusion. No seizures. No pleuritic pain or palpitations. No history of venous thromboembolism. Review of Systems Review of Systems: Narrative: Twelve systems were reviewed with pertinent positives and negatives as per HPI. No fever or sweats. She reports feeling cold all of the time. She is no longer able to walk and is essentially wheelchair-bound though can help transfer and pivot. She lives with her friend, Gwendolyn, who helps her at home. She reports some mild right-sided foot pain that has been going on for couple of days and she is wondering if she twisted accidentally. No history of venous thromboembolism. No diarrhea. No dysuria. Except as documented, all other systems were reviewed and are negative. [facility] Past Medical History Medical History Anemia Arthritis 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 Chronic hyponatremia Coronary artery calcification Debilitated Diabetes mellitus Recent hemoglobin A1c was 6.2 Hyperlipidemia Hypertension Multinodular goiter Ultrasound in June 2019 showed 2 right thyroid nodules, 1 with TI RADS 3 and the other TI RADS 5. Suspected sleep apnea Surgical History Surgical History History of cholecystectomy Family History Family History Father Lung cancer Mother Heart disease Diabetes mellitus Sibling , Brother earlier this year. Multiple myeloma Social History Social History Social History: Primary care physician: Dr. Tori Roque. Code status: Full code. Surrogate decision maker and speech pathology assistant: Gwendolyn Peters, friend. Smoking packs per day: 1.5 Smoking cigarettes per day: 30.0 Years smoked: 45 Smoking pack-years: 67.50 Smoking status: Former smoker Tobacco type: cigarettes Additional smoking assessment comments: She smoked 1-2 packs cigarettes per day for approximately 44 years. Alcohol intake: never Substance use: never Other substance usage details: Occasional medicine all marijuana gummies. Additional living arrangements comments: The patient lives in her own home. Her close friend Gwendolyn lives downstairs and helps provide care for the patient. She is single/never has been and does not h
--- NOTE | 2020-09-13 20:10 | ADMGEN ---
This patient, Bela Shepherd, was admitted to IMU Room 211-01. Patient/family oriented to hospital policies and general routines including ID bracelet, bed and alarms, visiting hours, pain management, procedures, bathroom and other care routines, personal items, smoking policy, room service/diet, and visiting hours. Information on how to activate the Rapid Response Team has been discussed. Patient/Family are encouraged to report perceived risks to care and to ask questions if they do not understand what they are told or what they should do. arrived 2000
[2020-09-13 20:20] LABS: Glucose Point of Care 210 mg/dl (65-105)
[2020-09-13] MEDS: ONDANSETRON INJ 4 MG/2 ML VIAL IV PUSH (20:28)
[2020-09-13 21:03] LABS: Sodium 113 mmol/L (137-145)
--- NOTE | 2020-09-13 21:24 | PC.NURSE ---
Dr. Padilla consulted in ED for management of na+ which was 115 originally. He ordered a fluid restriction and lasix. I called to notified of newest na+113 he deferred me to hospitalist who ordered serial na+. I then notified Jessica she ordered normal saline 100mls/hr.
--- NOTE | 2020-09-13 21:28 | PC.NURSE ---
Pt converted at 1630 and arrived on floor w cardizem gtt at 15ml at 1900. heartrate at that time was SR50s. EKG repeated gtt shut off and Dr. Tolliver notified
[2020-09-13] MEDS: SODIUM CHLORIDE 0.9% IV 1,000 ML 75 ML IV CONT (21:37)
[2020-09-14] VITALS (15 sets, daily range): BP systolic 129–149; BP diastolic 55–96; PULSE 49–82; RESP 20–24; TEMP 35.8–37.1; O2SAT 90–96; BMI 36.4
--- NOTE | 2020-09-14 | ECHO_ITS ---
Patient Info Name: Bela Shepherd Age: 75 years : 1945 Gender: Female Ht: 66 in Wt: 225 lbs BSA: 2.22 m2 HR: 70 bpm BP: 135 / 65 mmHg Heart Rhythm: Sinus Rhythm Technical Quality: Fair Exam Date: 09/14/2020 3:10 PM Exam Location: [facility] Pulmonary Exam Room: 211 Patient Status: Inpatient Admit Date: 09/14/2020 Staff Ordering Physician: Britton Padilla MD Heel Room Supervisor: Gerri Le RDCS Attending Provider: Chantel Maldonado PA-C Referring Physician: Valerie STRAUSS; Exam Type: CA echo dop color flow w con Study Info Indications - effusion chf Complete two-dimensional, color flow and Doppler transthoracic echocardiogram is performed with contrast to opacify the left ventricle and to improve the deliniation of the left ventricle endocardial borders. Contrast/Agitated Saline Contrast/Ag. Saline: Definity Amount: 1.00 ml Existing IV Access: Yes IV Access Condition: patent with no signs of infiltration Summary 1. Left ventricular chamber size, wall thickness, systolic are normal with no regional wall motion abnormalities with an estimated ejection fraction of >70%. Grade 1 diastolic dysfunction is present. 2. Left atrial chamber dimension is mildly enlarged. 3. No significant valve disease. 4. Dilated inferior vena cava with <50% collapse upon inspiration consistent with significantly elevated right atrial pressure, 10 mmHg. 5. Mild pulmonary hypertension, estimated pulmonary arterial systolic pressure is 42 mmHg. 6. A large pericardial effusion is present, measuring 2.5-3.5 cm thick posteriorly with a small amount anteriorly and apically. No masses are seen within the pericardium. There is some invagination of the right atrium, and mild delayed relaxation of the right ventricle during diastole consistent with mild tamponade. 7. Normal sinus rhythm. Left Ventricle Left ventricular chamber dimension is normal. Left ventricular systolic function is normal, estimated at >70%. There is no increased left ventricular wall thickness. Left ventricular septal wall motion is normal. The left ventricular diastolic function is grade I diastolic dysfunction. Left ventricular chamber size, wall thickness, systolic are normal with no regional wall motion abnormalities with an estimated ejection fraction of >70%. Grade 1 diastolic dysfunction is present. Right Ventricle Right ventricular chamber dimension is normal. Right ventricular systolic function is normal. Left Atria Left atrial chamber dimension is mildly enlarged. Right Atria Right atrial chamber dimension is normal. Aortic Valve The aortic valve is trileaflet. There is no aortic valve sclerosis. There is no aortic valve stenosis. There is no aortic valve regurgitation. Pulmonic Valve The pulmonic valve is normal. There is no pulmonic valve stenosis. There is no pulmonic regurgitation. Mitral Valve The mitral valve has normal leaflets. There is no mitral valve stenosis. There is no mitral valve regurgitation. Tricuspid Valve The tricuspid valve leaflets are normal. There is no significant tricuspid valve stenosis. There is trace tricuspid valve regurgitation. Mild pulmonary hypertension, estimated pulmonary arterial systolic pressure is 42 mmHg. Pericardium/Pleural The pericardium appears normal. There is consistent with cardiac tamponade pericardial effusion. Inferior Vena Cava Dilated inferior vena cava with <50% col
[2020-09-14 00:01] LABS: Sodium 112 mmol/L (137-145)
[2020-09-14] MEDS: SODIUM CHLORIDE 3% 500 ML 50 ML IV CONT (00:47)
[2020-09-14 04:49] LABS: Sodium 115 mmol/L (137-145)
--- NOTE | 2020-09-14 05:33 | PC.NURSE ---
pt has had no output. bladder scan shows 250mls
[2020-09-14] MEDS: FUROSEMIDE INJ 40 MG/4 ML VIAL 20 MG IV PUSH (08:10)
[2020-09-14 09:10] LABS: Glucose Point of Care 122 mg/dl (65-105)
--- NOTE | 2020-09-14 09:24 | PM.CNNEP ---
Assessment and Plan Assessment and plan (1) Hyponatremia: Code(s): E87.1 - Hypo-osmolality and hyponatremia Status: Acute Assessment and Plan: the patient has chronic hyponatremia. TSH and cortisol are okay. She is not on SSRIs diuretics are narcotics. The CT scan shows a pericardial effusion and multinodular goiter. Could she have some sort of cancer? No primary pulmonary or [employer] issues on prior scans. The sodium is been low for at least a year generally the baseline sodium is around 130. Now she has acute hyponatremia. There are several things going on the could do this. The patient has had nausea for few days. Nausea can trigger hyponatremia. The patient has volume overload and probably congestive heart failure. This can also cause hyponatremia. she has a low urine sodium indicating pre renal azotemia. However she has swelling and chest congestion so this may be cardiac dysfunction. Will check an echo. The patient has not been eating very well because of the nausea. This the balance of water and osmoles in her diet are heavily leaning toward the free water side which could cause the sodium to drop. This is the same sort of physiology is beer drinkers potomania but of course she does not drink. She has a pericardial effusion which is new which could contribute to pre renal issues. And also if it is a manifestation of cancer than cancer could also be involved. All 5 of those could be playing a role. At this point would continue fluid restriction. Will give diuretics plus salt tablets. And try to diurese but also bring the sodium level up. We can give intermittent 3% saline if she needs it. (2) Atrial fibrillation with rapid ventricular response: Code(s): I48.91 - Unspecified atrial fibrillation Status: Acute Assessment and Plan: Her heart rate is doing well now. It is in the 70s. (3) Hypertension: Qualifiers: Hypertension type: essential hypertension Qualified Code(s): I10 - Essential (primary) hypertension Code(s): I10 - Essential (primary) hypertension Status: Acute Assessment and Plan: Blood pressure is under good control (4) Suspected sleep apnea: Code(s): R29.818 - Other symptoms and signs involving the nervous system Status: Acute Assessment and Plan: she needs an outpatient sleep test (5) Anemia: Code(s): D64.9 - Anemia, unspecified Status: Acute Assessment and Plan: hemoglobin is normal this admission. (6) Pericardial effusion: Code(s): I31.3 - Pericardial effusion (noninflammatory) Status: Acute Assessment and Plan: Will need evaluation for this. (7) Diabetes mellitus: Qualifiers: Diabetes mellitus type: type 2 Diabetes mellitus exterminator helper insulin use: without exterminator helper use Diabetes mellitus complication status: without complication Qualified Code(s): E11.9 - Type 2 diabetes mellitus without complications Code(s): E11.9 - Type 2 diabetes mellitus without complications Status: Acute Assessment and Plan: On Accu-Cheks and sliding-scale insulin History of Present Illness Reason for Consult Consult date: 09/14/20 Chief Complaint Chief complaint: afib rvr,hypoxia,hyponatremia History of Present Illness Narrative: Bela is a very pleasant 75-year-old lady who has multiple medical problems including hypertension, hyperlipidemia, chronic hyponatremia, vitamin-D deficiency, diabetes, Arthritis, anemia, possible sleep apneaand neuropathy. the patient has chronic hyponatremia. Been worked up in the past thoroughly. Thyroid and adrenals are okay. No sign of any cancer. Pulmonary and [employer] issues do not apply. She had a stroke but not big enough to cause this. She has had hyponatremia for years and is felt to be idiopathic. She was in the hospital on last year for severe hyponatremia. This was a
[2020-09-14 09:51] LABS: Anion Gap 13 mmol/L (8-16); Blood Urea Nitrogen 19 mg/dL (7-17); Calcium 8.7 mg/dL (8.4-10.2); Carbon Dioxide 19 mmol/L (22-30); Chloride 84 mmol/L (98-107); Estimated CRCL calculation 51 ml/min; Estimated Glomerular Filt Rate 54; Glucose 115 mg/dL (65-110); Potassium 4.9 mmol/L (3.4-5.0); Sodium 116 mmol/L (137-145)
[2020-09-14 12:19] LABS: Sodium 116 mmol/L (137-145)
--- NOTE | 2020-09-14 12:34 | PM.CNCAR ---
Assessment and Plan Assessment and plan (1) Atrial fibrillation with rapid ventricular response: Code(s): I48.91 - Unspecified atrial fibrillation Status: Acute Assessment and Plan: new onset AFib RVR in the setting of hypertension and diabetes in a older lady. Converted to sinus rhythm on IV Cardizem which has been discontinued TSH normal Echo pending eventual anticoagulation but holding off for now as the patient may need some procedures. eventually change amlodipine to a beta angel or Cardizem (2) Pericardial effusion: Code(s): I31.3 - Pericardial effusion (noninflammatory) Status: Acute Assessment and Plan: Ct scan shows a new large pericardial effusion of uncertain etiology. Appears exudative by CT. No obvious infection, connective tissue disease, TSH normal, no known malignancy. May be symptomatic as she has had BUTLER and SOB (which may be 2nd a fib also) Echo pending Check ESR, RAZIA, CRP etc. (3) Hyponatremia: Code(s): E87.1 - Hypo-osmolality and hyponatremia Status: Acute Assessment and Plan: Followed by Dr. Padilla. (4) Multinodular goiter: Code(s): E04.2 - Nontoxic multinodular goiter Status: Acute Assessment and Plan: Noted i the past biopsy recommended. (5) Hypertension: Qualifiers: Hypertension type: essential hypertension Qualified Code(s): I10 - Essential (primary) hypertension Code(s): I10 - Essential (primary) hypertension Status: Acute Assessment and Plan: REasonable control (6) Coronary artery calcification: Code(s): I25.10 - Atherosclerotic heart disease of [place] coronary artery without angina pectoris; I25.84 - Coronary atherosclerosis due to calcified coronary lesion Status: Acute Assessment and Plan: No angina Recommend ASA or anticoagulant and moderate dose statin -- will increase atorvastatin to 20 mg daily (7) Debilitated: Code(s): R53.81 - Other malaise Status: Acute Assessment and Plan: Nonambulatory History of Present Illness History of Present Illness Consult date/time: 09/14/20 12:34 Reason For Visit: afib rvr,hypoxia,hyponatremia Narrative: Date of service: 09/14/2020 Bela Weber is a 75-year-old female whom we were asked to see at the request of the hospitalist for advice and opinion regarding her pericardial effusion, in consultation. She has a history of stroke, diabetes, hyperlipidemia, hypertension, morbid obesity, and hyponatremia followed by Dr. Padilla. The patient was admitted in June 2019 after a fall and found to have hyponatremia. Her CT scan at that time showed a trivial pericardial effusion and a multinodular right-sided goiter. Thyroid US was done, bx recommended but I don't think was done. The patient came to the emergency room yesterday because an outpatient labs showed a sodium of 116, despite her adherence to her fluid restriction. She also complained of shortness of breath and fatigue with orthopnea over the past several days, nausea and poor appetite for a few weeks. No Chest pain (but has some heaviness associated with her SOB) or palpitations but has some edema. She was found to be in AFib RVR with an O2 sat of 87%. She was started on IV diltiazem and converted to NSR. A CT scan incidentally showed a large pericardial effusion with a consistency that might be an exudative effusion containing proteinaceous and/or hemorrhagic material. She also had coronary artery calcification, a right-sided multinodular goiter, compressive atelectasis, small bilateral effusioins and a right-sided aortic arch was noted. No h/o Heart disease, atrial fibrillation, recent infections or fevers,
[2020-09-14 13:23] LABS: Glucose Point of Care 174 mg/dl (65-105)
[2020-09-14] MEDS: FUROSEMIDE 20 MG TABLET PO ×2 (15:36→18:11)
[2020-09-14] MEDS: SODIUM CHLORIDE 1 GM TABLET PO ×2 (15:36→18:11)
[2020-09-14] MEDS: PERFLUTREN LIPID MICROSPHERES 1.5 ML VIAL DILUTED TO 10 ML TOTAL VOLUME IV PUSH (15:38)
--- NOTE | 2020-09-14 17:45 | PM.IMPN ---
Progress Note: A&P Assessment and Plan (1) Hyponatremia: Code(s): E87.1 - Hypo-osmolality and hyponatremia Status: Acute Assessment and Plan: Patient presents with acute on chronic hyponatremia - Last sodium 116 which is up from 112 from the lowest reading - nephrology is managing, I appreciate his recommendation - continue fluid restriction, diuretics and salt tabs. He also plans to give intermittent 3% saline if needed so she will need to continue to stay in the IMU - I am concerned that she does have possible thyroid cancer as she has had an abnormal thyroid scan. I have spoke with both Dr. Padilla and Dr. Levy in the plan is to get a biopsy in the near future. If she stays here ( depending on the echo) we can order it for here but if the echo shows need for transfer, she can get the biopsy at [facility] where cardiology plans to transfer her if needed. - Likely causing the patient's weakness (2) Pericardial effusion: Code(s): I31.3 - Pericardial effusion (noninflammatory) Status: Acute Assessment and Plan: Concerning for exudate of effusion per radiologist read - spoke with Dr. Levy who plans on obtaining an echo and formulating a plan from there - is no evidence of tamponade currently - consider malignant pleural effusions since she has an abnormal thyroid scan (3) Atrial fibrillation with rapid ventricular response: Code(s): I48.91 - Unspecified atrial fibrillation Status: Acute Assessment and Plan: converted with Cardizem drip and now normal sinus rhythm - cardiology managing, plan to hold off on anticoagulation due to large pericardial effusion which may need to be tapped in the future (4) Multinodular thyroid: Code(s): E04.2 - Nontoxic multinodular goiter Status: Acute Assessment and Plan: Ultrasound in June 2019 showed 2 nodules with TI RADS 5 and TI RADS 3. - this is concerning for malignancy and I recommend a biopsy in the very near future either here or at an outside area hospital where she may be transferred as stated above (5) Diabetes mellitus: Qualifiers: Diabetes mellitus type: type 2 Diabetes mellitus continuous churn buttermaker insulin use: without continuous churn buttermaker use Diabetes mellitus complication status: without complication Qualified Code(s): E11.9 - Type 2 diabetes mellitus without complications Code(s): E11.9 - Type 2 diabetes mellitus without complications Status: Acute Assessment and Plan: last glucose 174 - hold oral hypoglycemics and continue sliding scale insulin - last A1c 6.0 Time Spent With Patient Time with patient: 25 - 35 minutes Subjective Date/time seen: 09/14/20 17:45 Interval history: Pt is a 75-year-old female here for low sodium and hypoxia. Patient was seen today and states that she hurts all over but this is pretty normal for her. She does not use oxygen at home and she feels short of breath. She does not know if laying flat or sitting up helps. She denies chest pain but does feel pretty bloated. She denies nausea, vomiting, fevers, chills or abdominal pain. Plan discussed with patient and friend at bedside. Review of Systems Review of Systems: All systems reviewed & are unremarkable except as noted in HPI and below Exam Narrative: General: overweight patient resting comfortably in bed in no acute distress HEENT: normocephalic Neck: supple Neuro: Alert and oriented CV:RRR. Telemetry shows normal sinus rhythm now. Was previously in AFib Resp: crackles bilaterally to both lungs Abd: Soft, non distended. slightly distended but no pain to palpation or acute abdomen signs. Positive bowel sounds Extremities: Mild swelling to the feet. No pain to palpation or erythema. Objective Data Vital Signs Vital Signs: Vital Signs - 24 hr 09/13/20 19:20 09/13/20 22:00 09/13/20 23:55 Temperature 97.8 F 98.0 F Pulse Rate 67 44 L 50 L Respiratory Ra
[2020-09-14 18:00] LABS: Sodium 117 mmol/L (137-145)
[2020-09-14] MEDS: lisinopriL 20 MG TABLET PO (18:11)
[2020-09-14] MEDS: SODIUM CHLORIDE 0.9% IV 1,000 ML 75 ML IV CONT (19:13)
[2020-09-15] VITALS (18 sets, daily range): BP systolic 100–147; BP diastolic 59–92; PULSE 68–136; RESP 17–22; TEMP 35.9–36.9; O2SAT 91–96
--- NOTE | 2020-09-15 00:20 | ECG_ITS ---
Measurements Intervals [place] Rate: 114 P: [place]: 0 QRS: 69 QRSD: 137 T: 0 QT: 341 QTc: 471 Interpretive Statements ATRIAL FIBRILLATION WITH RAPID VENTRICULAR RESPONSE RIGHT BUNDLE BRANCH BLOCK BASELINE ARTIFACT- II, III, AVR, AVF, V1-V3 ABNORMAL ECG Electronically Signed On 09-15-2020 9:35:26 CDT by Diallo Gonzalez D.O.
[2020-09-15 05:18] LABS: Hematocrit 31.2 % (37.0-47.0); Mean Corpuscular HGB Conc 35.3 g/dl (32-36); Mean Corpuscular Hemoglobin 34.1 pg (26-34); Mean Corpuscular Volume 96.6 fl (80-100); Mean Platelet Volume 9.7 fl (7.4-10.4); Platelet Count Result 223 k/mm3 (150-375); Red Blood Count 3.23 M/mm3 (4.2-5.4); Red Cell Distribution Width 11.8 % (11.5-14.5); White Blood Count 8.1 K/mm3 (4.5-10.0)
[2020-09-15 05:32] LABS: Alanine Aminotransferase 26 U/L (4-35); Albumin Level 3.6 g/dL (3.5-5.1); Alkaline Phosphatase 69 U/L (38-126); Anion Gap 7 mmol/L (8-16); Aspartate Amino Transferase 47 U/L (14-36); Bilirubin Indirect 0.5 mg/dL (0-1.1); Bilirubin,Total 0.6 mg/dL (0.2-1.3); Blood Urea Nitrogen 16 mg/dL (7-17); Calcium 8.1 mg/dL (8.4-10.2); Carbon Dioxide 21 mmol/L (22-30); Chloride 89 mmol/L (98-107); Estimated CRCL calculation 63 ml/min; Estimated Glomerular Filt Rate > 60; Glucose 138 mg/dL (65-110); Magnesium 1.5 mg/dL (1.6-2.3); Phosphorus 3.5 mg/dL (2.5-4.5); Potassium 4.3 mmol/L (3.4-5.0); Sodium 117 mmol/L (137-145)
[2020-09-15 07:05] LABS: Erythrocyte Sedimentation Rate 19 mm/hr (0-20)
--- NOTE | 2020-09-15 08:21 | PM.PNCARD ---
Progress Note: A&P Assessment and Plan (1) Pericardial effusion: Code(s): I31.3 - Pericardial effusion (noninflammatory) Status: Acute Assessment and Plan: Ct scan shows a new large pericardial effusion of uncertain etiology. Appears to have increased density, possibly exudative effusion by CT. Echo suggests early tamponade physiology. The patient appears to be in mild CHF clinically. Hemodynamically stable. No obvious infection, h/o TB or connective tissue disease, TSH normal, no known malignancy. However there is concern that the patient may have a malignant thyroid nodule. Probably not viral pericarditis. ESR 19, RAZIA, CRP - Pending Effusion would be challenging to relieve with pericardiocentesis and I recommend she be transferred to [facility] for a pericardial window. Discussed extensively with the patient and she is in agreement. Discussed w/ pt's Gwendolyn WALL. Discussed with cardiothoracic surgeon, Dr. Therese Hill at [facility]. Discussed w/ Dr. Geeta Crews, cardiology at . Currently There are no beds available at [facility] but we will be on a waiting list. (2) Atrial fibrillation with rapid ventricular response: Code(s): I48.91 - Unspecified atrial fibrillation Status: Acute Assessment and Plan: New onset AFib RVR in the setting of hypertension , diabetes and pericardial effusion in a older lady. Had recurrence last night and is on IV Cardizem. TSH normal Change to po metoprolol 25 mg BID I have been holding off on anticoagulation due to possibly needing a procedure but at this point will start full-dose Lovenox to protect against cardioembolic events. Since the pericardial effusion is likely not inflammatory it is unlikely she will develop a hemorrhagic effusion. (3) Hyponatremia: Code(s): E87.1 - Hypo-osmolality and hyponatremia Status: Acute Assessment and Plan: Followed by Dr. Padilla. Very slowly improving. (4) Multinodular goiter: Code(s): E04.2 - Nontoxic multinodular goiter Status: Acute Assessment and Plan: Possibly malignant; biopsy recommended. (5) Hypertension: Qualifiers: Hypertension type: essential hypertension Qualified Code(s): I10 - Essential (primary) hypertension Code(s): I10 - Essential (primary) hypertension Status: Acute Assessment and Plan: REasonable control (6) Coronary artery calcification: Code(s): I25.10 - Atherosclerotic heart disease of [place] coronary artery without angina pectoris; I25.84 - Coronary atherosclerosis due to calcified coronary lesion Status: Acute Assessment and Plan: No angina Recommend ASA or anticoagulant and moderate dose statin -- will increase atorvastatin to 20 mg daily (7) Debilitated: Code(s): R53.81 - Other malaise Status: Acute Assessment and Plan: Nonambulatory Subjective Date/time seen: 09/15/20 08:21 Interval history: Follow-up large pericardial effusion, new onset paroxysmal AFib RVR, diastolic CHF. Also: Significant hyponatremia, coronary artery calcification, debilitation, hypertension, diabetes, history of stroke. Date of service 09/15/2020: Patient went back and AFib RVR last night, heart rate in the 140s, and was started on a Cardizem drip. Heart rate is now 95-105. Patient still feels a little short of breath, says the oxygen is not helping her much. A little queasy this morning. Sodium up to 117, Dr. Padilla stopped the 3% IV normal saline. Remains on 2 L O2 and fluid restriction. Declines to wear sequentials because they are uncomfortable. Echo yesterday as below, large mostly posterior pericardial effusion with signs of early tampon
[2020-09-15] MEDS: MAGNESIUM SULFATE 3GM/D5W100ML 3 GM/100 ML BAG IVPB (10:18)
[2020-09-15] MEDS: FOLIC ACID 1 MG TABLET PO (10:20)
[2020-09-15] MEDS: SODIUM CHLORIDE 1 GM TABLET PO ×3 (10:20→17:48)
[2020-09-15] MEDS: ATORVASTATIN 20 MG TABLET PO (10:20)
[2020-09-15] MEDS: FUROSEMIDE 20 MG TABLET PO ×3 (10:20→17:48)
[2020-09-15] MEDS: lisinopriL 20 MG TABLET PO ×2 (10:20→17:48)
[2020-09-15] MEDS: ENOXAPARIN 40 MG/0.4 ML SYRINGE SUB-Q (10:20)
[2020-09-15] MEDS: GABAPENTIN 100 MG CAPSULE PO (10:20)
--- NOTE | 2020-09-15 11:09 | PM.PNNEP ---
Progress Note: A&P Assessment and Plan (1) Hyponatremia: Code(s): E87.1 - Hypo-osmolality and hyponatremia Status: Acute Assessment and Plan: the patient has chronic hyponatremia. TSH and cortisol are okay. She is not on SSRIs diuretics are narcotics. The CT scan shows a pericardial effusion and multinodular goiter. Could she have some sort of cancer? No primary pulmonary or MANAGER ASSESSMENT issues on prior scans. The sodium is been low for at least a year generally the baseline sodium is around 130. Now she has acute hyponatremia. Osmolality is pending. etiology is unclear. Probably related to the pericardial effusion, nausea, and ?Cancer. She has been on fluid restriction, salt tablets, furosemide, and saline. Sodium has come up from 113 to 117. Will stop the IV fluids. recheck the sodium level at noon (2) Atrial fibrillation with rapid ventricular response: Code(s): I48.91 - Unspecified atrial fibrillation Status: Acute Assessment and Plan: Her heart rate is doing well now. It is in the 70s. (3) Hypertension: Qualifiers: Hypertension type: essential hypertension Qualified Code(s): I10 - Essential (primary) hypertension Code(s): I10 - Essential (primary) hypertension Status: Acute Assessment and Plan: Blood pressure is under good control (4) Suspected sleep apnea: Code(s): R29.818 - Other symptoms and signs involving the nervous system Status: Acute Assessment and Plan: she needs an outpatient sleep test (5) Anemia: Code(s): D64.9 - Anemia, unspecified Status: Acute Assessment and Plan: hemoglobin is normal this admission. (6) Pericardial effusion: Code(s): I31.3 - Pericardial effusion (noninflammatory) Status: Acute Assessment and Plan: Will need evaluation for this. (7) Diabetes mellitus: Qualifiers: Diabetes mellitus type: type 2 Diabetes mellitus long-term insulin use: without predatory animal exterminator use Diabetes mellitus complication status: without complication Qualified Code(s): E11.9 - Type 2 diabetes mellitus without complications Code(s): E11.9 - Type 2 diabetes mellitus without complications Status: Acute Assessment and Plan: On Accu-Cheks and sliding-scale insulin Subjective Date/time seen: 09/15/20 11:09 Interval history: Bela is feeling better. She is less short of breath. Her swelling seems to be better also. She is eating and drinking okay. Review of Systems Cardiovascular: Cardiovascular: Reports no additional cardiovascular complaints Respiratory: Respiratory: Reports no additional respiratory complaints Gastrointestinal: Gastrointestinal: Reports no additional gastrointestinal complaints Genitourinary: Genitourinary: Reports no additional female genitourinary complaints Exam Narrative: WDWN in NAD skin no rash head ncat lungs clear cor reg no rub abd BS+ nontender and soft ext 1-2+ edema. Objective Data Vital Signs Vital Signs: Vital Signs - 24 hr 09/14/20 12:00 09/14/20 12:34 09/14/20 14:00 Temperature 36.7 C Pulse Rate 73 72 Respiratory Rate 24 H Blood Pressure 129/57 L Pulse Oximetry 92 92 09/14/20 16:00 09/14/20 18:00 09/14/20 20:00 Temperature 37.1 C 35.8 C L Pulse Rate 74 78 78 Respiratory Rate 22 H 24 H Blood Pressure 138/55 L 149/61 H Pulse Oximetry 96 91 09/14/20 22:00 09/14/20 23:45 09/15/20 00:00 Temperature Pulse Rate 76 107 H Respiratory Rate Blood Pressure Pulse Oximetry 96 09/15/20 00:51 09/15/20 02:00 09/15/20 04:00 Temperature 36.4 C 35.9 C L Pulse Rate 113 H 104 H 136 H Respiratory Rate 22 H 20 Blood Pressure 147/92 H 110/73 Pulse Oximetry 92 96 09/15/20 06:00 09/15/20 07:57 09/15/20 09:34 Temperature 36.9 C Pulse Rate 97 85 Respiratory Rate 18 Blood Pressure 139/70 Pulse Oximetry
[2020-09-15 12:04] LABS: CRP 1.9 mg/dL (<1.0)
--- NOTE | 2020-09-15 13:01 | PM.IMPN ---
Progress Note: A&P Assessment and Plan (1) Pericardial effusion: Code(s): I31.3 - Pericardial effusion (noninflammatory) Status: Acute Assessment and Plan: Concerning for exudative effusion per radiologist read. Concerned the patient will need to have pericardial effusion to be drained and sent for cytology, I am worried that it is malignant in light of her thyroid nodules with a TI RADS [address] Levy has talked to cardiothoracic surgeon, Dr. Therese Hill at [facility] and with Dr. Geeta Crews, cardiology at [facility] for transfer, Accepting Dr. Crawley 09/15/20, who has accepted the patient but there is no bed available at this time. Cardiology believe she may have some early tamponade physiology. ESR 19, RAZIA, CRP - Pending (2) Hyponatremia: Code(s): E87.1 - Hypo-osmolality and hyponatremia Status: Acute Assessment and Plan: Patient presents with acute on chronic hyponatremia. Etiology is not entirely clear; she has had poor oral intake with nausea and she looks a bit dehydrated on exam. Urine sodium consistent with pre renal thus she has been started on normal saline at a low rate with frequent monitoring of her sodium. Effusion may be leading to pre-renal picture as well. She is edematous in the lower limbs which may be due in part to the effusion as well. She may very well have a component of SIADH with concerns for possible malignancy (thyroid). Continue Lasix and fluid restriction as well. Dr. Padilla has been consulted and his input is appreciated. Continue monitoring Sodium every 6 hours. (3) Dehydration: Code(s): E86.0 - Dehydration Status: Deleted Assessment and Plan: Very poor oral intake this past week. Cautious IV fluid rehydration overnight with close monitoring of volume status and sodium levels. (4) Atrial fibrillation with rapid ventricular response: Code(s): I48.91 - Unspecified atrial fibrillation Status: Acute Assessment and Plan: Currently on a Cardizem drip with improvement in rate. Hold on anticoagulation given large pericardial effusion which will need to be tapped. Cardiology input appreciated. (5) Multinodular thyroid: Code(s): E04.2 - Nontoxic multinodular goiter Status: Acute Assessment and Plan: Ultrasound in June 2019 showed 2 nodules with TI RADS 5 and TI RADS 3. Concerning for malignancy, unfortunately she did not have them biopsied. (6) Diabetes mellitus: Qualifiers: Diabetes mellitus complication status: without complication Diabetes mellitus fci insulin use: without fci use Diabetes mellitus type: type 2 Qualified Code(s): E11.9 - Type 2 diabetes mellitus without complications Code(s): E11.9 - Type 2 diabetes mellitus without complications Status: Acute Assessment and Plan: Initiate sliding scale insulin, Accu-Cheks, and hypoglycemic protocol. Check hemoglobin A1c. Time Spent With Patient Time with patient: 25 - 35 minutes Subjective Date/time seen: 09/15/20 13:01 Interval history: Pt is a 75-year-old female here for low sodium and hypoxia. Date of Service 09/15/20: Patient reports feeling well today. She is resting comfortably in 2 L of oxygen. She does report some right ankle pain and states she twisted her ankle at home prior to arrival. She also reports bilateral lower extremity swelling to her feet, right greater than left. Denies any shortness of breath, cough, fever, chills, nausea, vomiting, abdominal pain, or any other symptoms at this time. Review of Systems Review of Systems: All systems reviewed & are unremarkable except as noted in HPI and below Exam Narrative: General: 75-year-old woman sitting up in bed watching TV and friend at bedside. Appears comfortable. In no acute distress. Skin: No jaundice or cyanosis. Good skin turgor. Neck: Full range of motion. Supple. Respiratory: L
[2020-09-15] MEDS: METOPROLOL TARTRATE 25 MG TABLET PO ×2 (13:39→20:35)
[2020-09-15] MEDS: ONDANSETRON INJ 4 MG/2 ML VIAL IV PUSH (13:40)
[2020-09-15 14:14] LABS: EDCOVIDSCREEN Negative (Negative)
--- NOTE | 2020-09-15 19:02 | PC.NURSE ---
Called report to VIRI Almeida at [facility].
[2020-09-15 19:49] LABS: Sodium 118 mmol/L (137-145)
[2020-09-15] MEDS: ENOXAPARIN 100 MG/ML SYRINGE SUB-Q (20:35)
[2020-09-16] VITALS: BP 112/73; PULSE 72; PULSE 80; RESP 20; RESP 22; TEMP 36.2; O2SAT 93; O2SAT 96
[2020-09-16 01:27] LABS: Sodium 118 mmol/L (137-145)
--- NOTE | 2020-09-16 18:10 | PM.TDS ---
Transfer Discharge Sum: Prov Provider Date of admission: 09/14/20 09:26 Primary care physician: Tori Roque MD Admitting clinician: Yousif Robison MD Consults: 09/13/20 Consult to Physician Routine Comment: CALLED EXCHANGE WITH CONSULT INFORMATION Consulting Provider: Britton Padilla call center coordinator/MD group to consult: NEPHROLOGY Reason for consultation: hyponatremia Has provider been notified: Yes 09/14/20 Consult to Physician Routine Comment: Consulting Provider: Jessica Stratton call center coordinator/MD group to consult: Dr. Crews Reason for consultation: large pericardial effusion Has provider been notified: Yes Attending physician on discharge: Yousif Robison Discharging clinician: Domitila Jeong Receiving physician/facility: Dr. Levy has talked to cardiothoracic surgeon, Dr. Therese Hill at [facility] and with Dr. Geeta Crews, cardiology at [facility] for transfer, Accepting Dr. Crawley 09/15/20, DS: Admitting Diagnosis Admitting Diagnosis Abnormal labs, hyponatremia DS: Discharge Diagnosis Discharge Diagnosis (1) Pericardial effusion: Code(s): I31.3 - Pericardial effusion (noninflammatory) Status: Acute Assessment and Plan: This is a very pleasant 75-year-old female with history of stroke, hypertension, and type 2 diabetes who presented to the emergency department earlier today for evaluation after she was found to have low sodium on labs drawn today. She has not felt well for about 7 days with increasing weakness, no appetite, nausea, and poor oral intake. The symptoms are similar to when she had severe hyponatremia in June 2019 and thus she had outpatient labs done which showed a sodium level of 116. She has had some mild chest discomfort which seems to be worse when lying supine and a bit better when sitting forward as well as increasing shortness of breath on lesser and lesser exertion and mild lower extremity edema. A chest x-ray done on arrival to the emergency department showed a small right pleural effusion and a pericardial effusion fluid opacity in the right middle lobe and a subsequent chest CT showed a large pericardial effusion with increased density which could reflect an exudate of effusion containing proteinaceous and/or hemorrhagic material. upon further chart review the patient was found to have a multinodular goiter sometime last year and a thyroid ultrasound on 07/04/2019 which showed 1.7 cm TI RADS 5 and a 3.5 cm TI RADS 3 nodules in the right thyroid. The patient has had these biopsied as of yet, unfortunately. She has no known history of malignancy. She was admitted to the hospital with a consult to Cardiology due to her pericardial effusion. cast and is concerning for large pericardial effusion of uncertain etiology and peers to have increased density, possibly exudate of effusion. An echocardiogram was completed Suggests early tamponade physiology and appears to be in mild CHF clinically. Otherwise the patient is hemodynamically stable. The shotblaster, Dr Lazo, arranged for the patient to be transferred to [facility] with a consult to cardiothoracic surgery, Dr. Therese Hill and discussed with Dr. Geeta Crews. Patient was accepted in transfer for a higher level of care and CT surgery. She was transferred in stable condition (2) Hyponatremia: Code(s): E87.1 - Hypo-osmolality and hyponatremia Status: Acute Assessment and Plan: Patient presents with acute on chronic hyponatremia. Etiology is not entirely clear; she has had poor oral intake with nausea and she looks a bit dehydrated on exam. Urine sodium consistent with pre renal thus she has been started on normal saline at a low rate with frequent monitoring of her sodium. Effusion may be leading to pre-renal picture as well. She is edematous in the lower limbs which may be due in part to the effusion as well. She may very well have a component of SIADH with concerns for pos
[2020-09-17 04:43] LABS: Osmolality, Urine 415 mOsm/kg (50-1200)
== END 2020-09-16 02:50 | disposition short-term general hospital (02) | DRG 314 ==
LOC: ANHED 14:20 → ANHIMU 17:18
PROVIDERS: Internal Medicine Cardiovascular Disease; Internal Medicine Nephrology; Physician Assistant; Admitting Provider Internal Medicine; Emergency Provider Emergency Medicine; PCP Family Medicine; Visit Provider Physician Assistant
DX: I31.3 Pericardial effusion (noninflammatory) (principal); I50.31 Acute diastolic (congestive) heart failure; E87.1 Hypo-osmolality and hyponatremia; Z20.822 Contact with and (suspected) exposure to COVID-19; I11.0 Hypertensive heart disease with heart failure; E86.0 Dehydration; I48.91 Unspecified atrial fibrillation; E11.9 Type 2 diabetes mellitus without complications; E04.2 Nontoxic multinodular goiter; R09.02 Hypoxemia; E78.5 Hyperlipidemia, unspecified; D64.9 Anemia, unspecified; E55.9 Vitamin D deficiency, unspecified; G47.30 Sleep apnea, unspecified; M19.90 Unspecified osteoarthritis, unspecified site; Z86.73 Personal history of transient ischemic attack (TIA), and cerebral infarction without residual deficits; Z90.49 Acquired absence of other specified parts of digestive tract; Z87.891 Personal history of nicotine dependence; E66.01 Morbid (severe) obesity due to excess calories; Z68.36 Body mass index [BMI] 36.0-36.9, adult
CPT/HCPCS: 36415; 36600; 71045; 71046; 71250; 80048; 80053; 82248; 82375; 82570; 82805; 82948; 83036; 83050; 83735; 83880; 83930; 83935; 84100; 84295; 84300; 84443; 85027; 85610; 85652; 85730; 86038; 86140; 87426; 93005; 93970; 96365; 96366; 96374; 96375; 99285; A9270; C8929; C9803; G0378; J1650; J1940; J2405; J3475; J7030; J7131; Q9957

== ENCOUNTER 2020-11-28 10:24 | Outpatient (CLI) | payer OTHER, SELFPAY ==
[2020-11-28 11:04] LABS: Albumin Level 4.5 g/dL (3.5-5.1); Anion Gap 9 mmol/L (8-16); Blood Urea Nitrogen 12 mg/dL (7-17); Calcium 9.5 mg/dL (8.4-10.2); Carbon Dioxide 31 mmol/L (22-30); Chloride 95 mmol/L (98-107); Estimated Glomerular Filt Rate > 60; Glucose 146 mg/dL (65-110); Phosphorus 4.4 mg/dL (2.5-4.5); Potassium 4.1 mmol/L (3.4-5.0); Sodium 135 mmol/L (137-145)
== END 2020-11-28 10:25 | disposition home or self-care (01) ==
PROVIDERS: PCP Family Medicine; Referring Provider Internal Medicine Nephrology; Visit Provider Family Medicine
DX: E87.5 Hyperkalemia (principal)
CPT/HCPCS: 36415; 80069

== ENCOUNTER 2021-01-20 13:46 | Observation (INO) | payer OTHER, SELFPAY ==
[2021-01-20] VITALS (35 sets, daily range): BP systolic 104–160; BP diastolic 63–140; PULSE 78–149; RESP 12–31; TEMP 36.8; O2SAT 88–98
--- NOTE | ~2021-01-20 | XR_ITS ---
EXAMINATION: XR hip RT min 2V DATE: 01/21/2021 14:07 INDICATION: Right hip pain. TECHNIQUE: 2 views of right hip were obtained. COMPARISON: Pelvis radiograph 07/02/2019 FINDINGS: Bone alignment is normal. No acute fracture. There is advanced right hip osteoarthritis inc luding flattening of superior femoral head and enlargement of the acetabulum. IMPRESSION: 1. Advanced right hip osteoarthritis. Reviewed, dictated and finalized at location A. ING PERSONS INVESTIGATOR
--- NOTE | ~2021-01-20 | XR_ITS ---
EXAMINATION: XR knee RT 2V DATE: 01/21/2021 14:07 INDICATION: Right knee pain. TECHNIQUE: 2 views of right knee were obtained. COMPARISON: None. FINDINGS: Bone alignment is normal. No fracture. There is sclerosis in distal femur. There is moderat e osteoarthritis of lateral compartment and mild osteoarthritis of medial and patellofemoral compartm ents. No knee joint effusion. IMPRESSION: 1. Moderate right knee osteoarthritis. 2. Sclerosis in distal right femur, likely osteonecrosis. Reviewed, dictated and finalized at location A. CITY SHOOTER
--- NOTE | ~2021-01-20 | XR_ITS ---
EXAMINATION: XR chest 1V portable EXAM DATE: 01/20/2021 14:40 INDICATION: Heart palpitations. TECHNIQUE: Portable AP frontal chest x-ray was obtained. Comparison is made to prior examination from 09/15/2020. FINDINGS: The lungs are clear. There are no pleural effusions. Cardiac silhouette is prominent but magnified on this AP technique. There is no pneumothorax suspected. There is severe left glenohumer al joint primary osteoarthritis. IMPRESSION: No acute cardiopulmonary findings. Reviewed, dictated and finalized at location B. ICE DIRECTOR
--- NOTE | 2021-01-20 13:59 | ECG_ITS ---
Measurements Intervals [place] Rate: 149 P: NV: 0 QRS: -37 QRSD: 141 T: -41 QT: 294 QTc: 464 Interpretive Statements ATRIAL FLUTTER/TACHYCARDIA WITH RAPID VENTRICULAR RESPONSE RIGHT BUNDLE BRANCH BLOCK LOW VOLTAGE- PRECORDIAL LEADS NONSPECIFIC ST ELEVATION IN ANTEROLAT/HIGH LAT LEADS BASELINE ARTIFACT- I, II, AVR ABNORMAL ECG Electronically Signed On 01-25-2021 12:28:37 FINANCIAL ASSISTANT by Diallo Gonzalez D.O.
[2021-01-20 14:57] LABS: Basophils Percent Auto 0.3 % (0.2-1.2); Eosinophils Absolute Auto 0.1 K/mm3 (0-0.3); Eosinophils Percent Auto 0.7 % (0-4.4); Hematocrit 36.3 % (37.0-47.0); Hemoglobin 12.8 g/dL (12.0-15.0); Immature Granulocyte Absolute 0.17 K/mm3 (0.00-0.031); Immature Granulocyte Percent A 1.6 % (0-0.5); Lymphocytes Absolute Auto 2.24 K/mm3 (0.9-3.2); Lymphocytes Percent Auto 21.2 % (18.3-44.2); Mean Corpuscular HGB Conc 35.3 g/dl (32-36); Mean Corpuscular Hemoglobin 36.1 pg (26-34); Mean Corpuscular Volume 102.3 fl (80-100); Mean Platelet Volume 10.4 fl (7.4-10.4); Monocytes Absolute Auto 1.3 K/mm3 (0.1-0.6); Monocytes Percent Auto 12.6 % (2.6-8.5); Neutrophils Absolute Auto 6.7 K/mm3 (1.3-6.7); Neutrophils Percent Auto 63.6 % (45.5-73.1); Platelet Count Result 262 k/mm3 (150-375); Red Blood Count 3.55 M/mm3 (4.2-5.4); Red Cell Distribution Width 12.3 % (11.5-14.5); White Blood Count 10.6 K/mm3 (4.5-10.0)
[2021-01-20] MEDS: dilTIAZem HCl INJ 25 MG/5 ML VIAL 10 MG IV PUSH ×2 (14:58→16:36)
[2021-01-20 15:10] LABS: INR 1.9; Partial Thromboplastin Time 33.7 SECONDS (22.3-36.8)
--- NOTE | 2021-01-20 15:41 | ED.ARRPALP ---
HPI - Arrhythmia/Palpitations General Chief Complaint: Arrhythmia/Palpitations Stated Complaint: aflutter Time Seen by Provider: 01/20/21 14:28 Source: patient, family and RN notes reviewed Mode of arrival: ambulatory Limitations: no limitations History of Present Illness HPI narrative: Patient presents with tachycardia. Patient denies any symptoms. Normally she check her vital signs every day in the morning, heart rate this morning was in the 150s. Again patient denies any symptoms, referred to the emergency room for further evaluation. Patient denies any fever, chills, nausea, vomiting, chest pain, shortness of breath or back pain. I know the x-ray with him presents okay so currently can come together got because we were not sure patient anemia CHF October for anemia GI bleed #gastritis bleeding she came back in today as she now vomiting diarrhea start dark stools and hemoglobin so blood pressure. History of atrial fibrillation, used to be on Eliquis which changed to Xarelto 1 week ago because of insurance issues. Related Data Home Medications Medication Instructions Recorded Confirmed spironolactone 50 mg tablet 50 mg PO DAILY 10/20/20 10/20/20 urea 15 gram oral powder packet 1 packet PO DAILY 10/20/20 10/20/20 Allergies Allergy/AdvReac Type Severity Reaction Status Date / Time No Known Allergies Allergy Verified 10/20/20 12:05 Review of Systems Review of Systems: CONSTITUTIONAL: Denies fever, chills, or sweats. EYES: Denies visual changes, redness, or discharge. ENT: Denies rhinorrhea, congestion, sore throat, or otalgia. CARDIOVASCULAR: Tachycardia RESPIRATORY: Denies cough or dyspnea. GASTROINTESTINAL: Denies abdominal pain, nausea, vomiting, or diarrhea. GENITOURINARY: Denies dysuria or hematuria. SKIN: Denies rash or itching. MUSCULOSKELETAL: Denies back pain, joint pain, or myalgia. NEUROLOGIC: Denies headache, numbness, or weakness. PSYCHIATRIC: Denies anxiety or depression. 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 Chronic hyponatremia Chronic renal insufficiency, stage III (moderate) Coronary artery calcification Debilitated Diabetes mellitus Recent hemoglobin A1c was 6.2 Hyperlipidemia Hypertension penitentiary current use of diuretic Multinodular goiter Ultrasound in June 2019 showed 2 right thyroid nodules, 1 with TI RADS 3 and the other TI RADS 5. Suspected sleep apnea Surgical History Surgical History History of cholecystectomy Family History Family History Father Lung cancer Mother Heart disease Diabetes mellitus Sibling , Brother earlier this year. Multiple myeloma Social History Social History Social History: Primary care physician: Dr. Tori Roque. Code status: Full code. Surrogate decision maker and personal counselor: Gwendolyn Peters, friend. Smoking packs per day: 1.5 Smoking cigarettes per day: 30.0 Years smoked: 45 Smoking pack-years: 67.50 Tobacco type: cigarettes Additional smoking assessment comments: She smoked 1-2 packs cigarettes per day for approximately 44 years. Alcohol intake: never Substance use: never Other substance usage details: Occasional medicine all marijuana gummies. Additional living arrangements comments: The patient lives in her own home. Her close friend Gwendolyn lives downstairs and helps provide care for the patient. She is single/never has been and does not have any children. 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 Spiritual care concerns: No Course Consultations Consultation #1: Dr. Crawford Date: 01/20/21 Time: 16:13 Vital Signs Vital signs: Vital Signs Temperature 3
[2021-01-20 16:09] LABS: Alanine Aminotransferase 14 U/L (4-35); Albumin Level 4.1 g/dL (3.5-5.1); Alkaline Phosphatase 97 U/L (38-126); Anion Gap 11 mmol/L (8-16); Aspartate Amino Transferase 29 U/L (14-36); Bilirubin,Total 0.8 mg/dL (0.2-1.3); Blood Urea Nitrogen 18 mg/dL (7-17); Calcium 8.9 mg/dL (8.4-10.2); Carbon Dioxide 25 mmol/L (22-30); Chloride 93 mmol/L (98-107); Estimated CRCL calculation 58 ml/min; Estimated Glomerular Filt Rate > 60; Glucose 153 mg/dL (65-110); Lipase 97 U/L (23-300); Potassium 3.6 mmol/L (3.4-5.0); Sodium 129 mmol/L (137-145)
--- NOTE | 2021-01-20 16:10 | PM.CNCAR ---
Assessment and Plan Additional Plan This is a 75-year-old lady with: Atrial flutter with rapid ventricular response. She is anticoagulated with Xarelto. She is interestingly asymptomatic of the arrhythmia. I think we can be fairly confident that this started within the last 24 hours since her caregiver takes her vital signs every day and 1st noticed this this morning. She also has a history of atrial fibrillation which occurred in the summer when she was hospitalized with the above described pericardial effusion. I would like to trend recommend starting sotalol in hopes of converting her back to sinus rhythm at this time. Xarelto will be continued for systemic anticoagulation. If she does not convert medically we will plan on electrically converting her while she is in the hospital. Jasvir Crawford MD [facility] History of Present Illness History of Present Illness Consult date/time: 01/20/21 16:10 Reason For Visit: aflutter Narrative: This is a pleasant 75-year-old woman I am seeing at the request of the hospitalist assist with evaluation and management of atrial flutter with rapid ventricular response. Patient is followed by of our practice but I do not believe I have seen her previously. In any event she is in her usual state of health at home and her caregiver who sees her daily and checks her vital signs noticed this morning that she was tachycardic. Interestingly the patient herself was totally unaware of this. When she noticed the tachycardia she contacted our office who had her come in for an electrocardiogram. The electrocardiogram demonstrated atrial flutter with 2-1 conduction and an incomplete right bundle branch block. She was vessel E sent to the emergency room where she was evaluated. Since being here she has been placed on IV diltiazem infusion which really has not changed her heart rate very much. She remains asymptomatic and feels well otherwise. The patient will became ill a so acquainted with Dr. Levy this year in the summer in August of this year when she presented to the hospital with a symptomatic pericardial effusion. She was felt to have early cardiac tamponade and she was also in atrial fibrillation with rapid ventricular response. She was transferred to [facility] where she urgently underwent a pericardial window procedure for tamponade and rate about 700 cc of bloody pericardial fluid was drained. The etiology of this was never clear there was no cytology evidence of a malignancy. Following the procedure interestingly her ejection fraction dropped to a low of 25% with the appearance of a takotsubo cardiomyopathy. Later they LV recovered with an ejection fraction of 60%. When she was in atrial fibrillation during that hospitalization at the time of conversion to sinus rhythm which was done with amiodarone she had a 2nd asystolic pause. She was not maintained on any antiarrhythmic therapy and has been seen by Dr. braun in the office in October of this year and then by our nurse practitioner early last month. Apparently the patient is a lady who is wheelchair-bound secondary to an old CVA. She has a caregiver who comes in and checks on her and helps her with household activities regularly. 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 She has no other complaints such as chest pain shortness of breath or other distress today. Review of Systems Constitutional: Constitutional: Reports no additional constitutional complaints Eyes: Eyes: Reports no additional eye complaints ENT: Reports system reviewed and no additional complaints, except as documented Cardiovascular: Cardiovascular: Reports as per HPI Respiratory: Respiratory: Reports no additional respiratory complaints Gastrointestinal: Gastrointestinal: Reports no additional gastrointestinal complaints Musculoskeletal: Musculoskeletal: Reports no additional musculoskeletal complaints Integumentary/Breasts: Skin/Breast: Reports system reviewed
[2021-01-20 16:27] LABS: Troponin I < 0.012 ng/mL (0.000-0.034)
[2021-01-20] MEDS: SODIUM CHLORIDE 0.9% IV 1,000 ML 60 ML IV CONT (16:35)
[2021-01-20] MEDS: SOTALOL HCL 80 MG TABLET PO (16:35)
--- NOTE | 2021-01-20 19:19 | PC.NURSE ---
Assumed care of pt at this time. Caregiver at bedside. Discussed POC. VSS.
[2021-01-20 20:32] LABS: Troponin I < 0.012 ng/mL (0.000-0.034)
--- NOTE | 2021-01-20 22:03 | PM.IMHP ---
H&P: HPI History of Present Illness Date/Time: 01/20/21 22:03 this is a 75 year old female patient who has a history of having atrial fibrillation. The patient stated that she checks her pulse at home and her pulse is been going up and down. This morning her pulse rate was 150. She did have any symptoms or feel bad but noticed that her heart rate was elevated. The patient had been on Eliquis but was changed to Xarelto 1 week ago because insurance issues. Patient was found to be in atrial flutter heart rate in the 130s -140s. Her blood sugar was 153. The patient was given aspirin, Cardizem IV push and then a drip. When I saw the patient had a heart rate between 90s and 1 teens. Cardiology has been consulted and recommended sotalol. If the patient does not convert medically then the plan is to electrically convert her while she is in hospital. The patient also has a goiter and was hoping to get a biopsy however explained her that she would have to be on anticoagulation in order to get a biopsy of her thyroid. At this time it is not feasible to withhold anticoagulation. The patient does have a history of having a pericardial effusion with a pericardial window procedure performed in the past. Her sodium level was 129. Troponin negative x2. Chest x-ray was read as no acute cardiopulmonary findings. The patient is being admitted to observation status on 03/23/2020. Chief Complaint: Fast heart rate Review of Systems Review of Systems: All systems reviewed & are unremarkable except as noted in HPI and below Constitutional: Constitutional: Reports as per HPI and Reports no additional constitutional complaints Eyes: Eyes: Reports as per HPI and Reports no additional eye complaints ENT: Reports system reviewed and no additional complaints, except as documented and Reports Normal hearing present Cardiovascular: Cardiovascular: Reports no additional cardiovascular complaints Respiratory: Respiratory: Reports no additional respiratory complaints and Reports no additional respiratory complaints Gastrointestinal: Gastrointestinal: Reports as per HPI and Reports no additional gastrointestinal complaints Musculoskeletal: Musculoskeletal: Reports no additional musculoskeletal complaints Integumentary/Breasts: Skin/Breast: Reports system reviewed and no additional complaints, except as docu and Reports as per HPI Neurologic: Reports system reviewed and no additional complaints, except as documented, Reports as per HPI and Reports Normal hearing present Psychiatric: Psychiatric: Reports no additional psychiatric complaints and Reports as per HPI Endocrine: Endocrine: Reports no additional endocrine complaints Hematologic/Lymphatic: Hematologic/Lymphatic: Reports no additional hematologic/lymphatic complaints Allergic/Immunologic: Allergic/Immunologic: Reports no additional allergic/immunologic complaints [facility] Past Medical History Medical History (Updated 01/20/21 @ 22:24 by Janel Painting NP) Abrasion of scalp Anemia Ankle pain Arthritis 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 Suspected sleep apnea Traumatic hematoma of scalp Surgical History Surgical History (Updated 01/20/21 @ 22:18 by Janel Painting NP) History of cholecystectomy Status post creation of pericardial window Family History Family History Father Lung cancer Mother Heart disease Diabetes mellitus Sibling , Brother earlier this year. Multiple myeloma Social History Social History (Reviewed 01/20/21 @ 22:20 by Janel Henderson
[2021-01-20] MEDS: RIVAROXABAN 20 MG TABLET PO (22:27)
[2021-01-20 22:55] LABS: Troponin I < 0.012 ng/mL (0.000-0.034)
[2021-01-20 23:18] LABS: Anion Gap 8 mmol/L (8-16); Blood Urea Nitrogen 19 mg/dL (7-17); Calcium 8.8 mg/dL (8.4-10.2); Carbon Dioxide 25 mmol/L (22-30); Chloride 92 mmol/L (98-107); Estimated CRCL calculation 58 ml/min; Estimated Glomerular Filt Rate > 60; Glucose 179 mg/dL (65-110); Potassium 3.9 mmol/L (3.4-5.0); Sodium 125 mmol/L (137-145)
[2021-01-21] VITALS (17 sets, daily range): BP systolic 108–130; BP diastolic 66–94; PULSE 63–130; RESP 18–22; TEMP 36.1–37.5; O2SAT 93–96; BMI 30.7
--- NOTE | 2021-01-21 | PC.NURSE ---
This patient, Bela Shepherd, was admitted to IMU Room 206-01. Patient/family oriented to hospital policies and general routines including ID bracelet, bed and alarms, visiting hours, pain management, procedures, bathroom and other care routines, personal items, smoking policy, room service/diet, and visiting hours. Information on how to activate the Rapid Response Team has been discussed. Patient/Family are encouraged to report perceived risks to care and to ask questions if they do not understand what they are told or what they should do.
--- NOTE | 2021-01-21 | ECHO_ITS ---
Patient Info Name: Bela Shepherd Age: 75 years : 1945 Gender: Female Ht: 65 in Wt: 191 lbs BSA: 2.02 m2 HR: 122 bpm BP: 130 / 94 mmHg Heart Rhythm: Atrial Flutter, Tachycardia, Sinus Rhythm Technical Quality: Fair Exam Date: 01/21/2021 2:20 PM Exam Location: [facility] Pulmonary Exam Room: 206 1 Patient Status: Inpatient Admit Date: 01/20/2021 Staff Ordering Physician: Raheel Carrera MD Closet Builder: Gerri Le RDCS Attending Provider: Yumi Mendosa PA-C Exam Type: CA echo dop color flow w con Study Info Indications - pericardila effusion hx/o afib Complete two-dimensional, color flow and Doppler transthoracic echocardiogram is performed with contrast to opacify the left ventricle and to improve the deliniation of the left ventricle endocardial borders. Contrast/Agitated Saline Contrast/Ag. Saline: Definity Amount: 1.00 ml Existing IV Access: Yes Summary 1. Technically difficult study. 2. Left ventricular chamber dimension is normal. 3. Left ventricular systolic function is normal, estimated at 65-70%. 4. There is no increased left ventricular wall thickness. 5. The left ventricular diastolic function is indeterminate. 6. Left atrial chamber dimension is mildly enlarged. 7. There is no aortic valve stenosis. 8. There is trace mitral valve regurgitation. 9. There is trace tricuspid valve regurgitation. 10. No pulmonary hypertension, estimated pulmonary arterial systolic pressure is 27 mmHg. Left Ventricle Left ventricular chamber dimension is normal. Left ventricular systolic function is normal, estimated at 65-70%. There is no increased left ventricular wall thickness. The left ventricular diastolic function is indeterminate. Technically difficult study. Right Ventricle Right ventricular chamber dimension is normal. Right ventricular systolic function is normal. Left Atria Left atrial chamber dimension is mildly enlarged. Right Atria Right atrium was not well visualized. Aortic Valve The aortic valve is not well visualized. There is mild aortic valve sclerosis. There is no aortic valve stenosis. There is no aortic valve regurgitation. Pulmonic Valve The pulmonic valve is not well visualized. There is trace pulmonic regurgitation. Mitral Valve The mitral valve has thickened leaflets. There is trace mitral valve regurgitation. The mitral valve annulus is moderately calcified. Tricuspid Valve The tricuspid valve leaflets are normal. There is trace tricuspid valve regurgitation. No pulmonary hypertension, estimated pulmonary arterial systolic pressure is 27 mmHg. Pericardium/Pleural The pericardium appears normal. There is small pericardial effusion. Inferior Vena Cava Normal inferior vena cava with >50% collapse upon inspiration consistent with normal right atrial pressure, 5 mmHg. Aorta The aortic root size at the sinus of Valsalva is normal. There is mild aortic atherosclerosis. Left Ventricular Outflow Tract Name Value Normal LVOT 2D LVOT Diameter 1.95 cm LVOT Doppler LVOT Pe
[2021-01-21 07:51] LABS: Basophils Percent Auto 0.2 % (0.2-1.2); Eosinophils Absolute Auto 0.1 K/mm3 (0-0.3); Eosinophils Percent Auto 1.2 % (0-4.4); Hematocrit 32.3 % (37.0-47.0); Hemoglobin 11.5 g/dL (12.0-15.0); Immature Granulocyte Absolute 0.16 K/mm3 (0.00-0.031); Immature Granulocyte Percent A 1.9 % (0-0.5); Lymphocytes Percent Auto 17.5 % (18.3-44.2); Mean Corpuscular HGB Conc 35.6 g/dl (32-36); Mean Corpuscular Hemoglobin 35.9 pg (26-34); Mean Corpuscular Volume 100.9 fl (80-100); Mean Platelet Volume 10.3 fl (7.4-10.4); Monocytes Absolute Auto 0.9 K/mm3 (0.1-0.6); Monocytes Percent Auto 10.3 % (2.6-8.5); Neutrophils Absolute Auto 5.9 K/mm3 (1.3-6.7); Neutrophils Percent Auto 68.9 % (45.5-73.1); Platelet Count Result 255 k/mm3 (150-375); Red Cell Distribution Width 11.9 % (11.5-14.5); White Blood Count 8.6 K/mm3 (4.5-10.0)
[2021-01-21 08:08] LABS: Alanine Aminotransferase 13 U/L (4-35); Albumin Level 3.8 g/dL (3.5-5.1); Alkaline Phosphatase 81 U/L (38-126); Anion Gap 8 mmol/L (8-16); Aspartate Amino Transferase 25 U/L (14-36); Bilirubin,Total 0.6 mg/dL (0.2-1.3); Blood Urea Nitrogen 18 mg/dL (7-17); Calcium 8.8 mg/dL (8.4-10.2); Carbon Dioxide 27 mmol/L (22-30); Chloride 94 mmol/L (98-107); Estimated CRCL calculation 51 ml/min; Estimated Glomerular Filt Rate > 60; Glucose 165 mg/dL (65-110); Lactate Dehydrogenase 346 U/L (313-618); Magnesium 1.5 mg/dL (1.6-2.3); Potassium 4.1 mmol/L (3.4-5.0); Sodium 129 mmol/L (137-145)
[2021-01-21 09:24] LABS: Glucose Point of Care 159 mg/dl (65-105)
[2021-01-21] MEDS: SOTALOL HCL 80 MG TABLET PO ×2 (09:40→20:22)
--- NOTE | 2021-01-21 09:49 | ECG_ITS ---
Measurements Intervals [place] Rate: 126 P: [place]: 0 QRS: -10 QRSD: 161 T: -43 QT: 377 QTc: 546 Interpretive Statements ATRIAL FLUTTER/TACHYCARDIA WITH RAPID VENTRICULAR RESPONSE RIGHT BUNDLE BRANCH BLOCK LOW VOLTAGE- PRECORDIAL LEADS MINIMAL Q WAVES- INFERIOR LEADS NONSPECIFIC ST ELEVATION IN ANTEROLAT/HIGH LAT LEADS ABNORMAL ECG Electronically Signed On 01-21-2021 12:44:52 TREE TOPPER by Diallo Gonzalez D.O.
--- NOTE | 2021-01-21 10:54 | PM.PNCARD ---
Progress Note: A&P Assessment and Plan (1) Atrial flutter with rapid ventricular response: Code(s): I48.92 - Unspecified atrial flutter Status: Acute Assessment and Plan: Remains tachycardic on sotalol 80 mg twice daily started by my partner. Follow-up 12 lead EKG QT interval. Somewhat difficult to accurately assess given underlying RBBB confounded by underlying atrial flutter with RVR. Continue telemetry to monitor for ventricular arrhythmias. Stable thus far. Patient is asymptomatic in this regard and hemodynamically stable. Continue systemic anticoagulation. If she remains in atrial flutter discussed plans for cardioversion prior to discharge. Patient is verbalized understanding and is in agreement with the plan of care. Caution to avoid symptomatic bradycardia given underlying conduction system disease. May consider additional rate-control therapy if remains tachycardic and or symptomatic. (2) Hypertension: Qualifiers: Hypertension type: essential hypertension Qualified Code(s): I10 - Essential (primary) hypertension Code(s): I10 - Essential (primary) hypertension Status: Acute Assessment and Plan: Stable. Continue medical therapy. (3) Hyperlipidemia: Qualifiers: Hyperlipidemia type: unspecified Qualified Code(s): E78.5 - Hyperlipidemia, unspecified Code(s): E78.5 - Hyperlipidemia, unspecified Status: Acute Assessment and Plan: Continue atorvastatin. (4) Diabetes mellitus: Qualifiers: Diabetes mellitus type: type 2 Diabetes mellitus termite treater insulin use: without termite treater use Diabetes mellitus complication status: without complication Qualified Code(s): E11.9 - Type 2 diabetes mellitus without complications Code(s): E11.9 - Type 2 diabetes mellitus without complications Status: Acute Assessment and Plan: Per primary service. Stable. (5) History of CVA (cerebrovascular accident): Code(s): Z86.73 - Personal history of transient ischemic attack (TIA), and cerebral infarction without residual deficits Status: Acute Assessment and Plan: Continue systemic anticoagulation. Patient at elevated risk for recurrent stroke given history of atrial fibrillation and now in persistent atrial flutter. 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 Monitor renal function. Subjective Date/time seen: Date of Service: 01/21/21 10:54 Follow up for Atrial flutter with RVR Patient feels well. Denies palpitations. Remains in atrial flutter with RVR heart rate in the upper 120s. Started on sotalol 80 mg b.i.d. 1st dose evening 01/20/2021. QT stable with underlying LBBB. Caregiver at bedside. No chest pain or shortness of breath. Patient feels perfectly fine she states. Review of Systems Constitutional: Constitutional: Reports no additional constitutional complaints Eyes: Eyes: Reports no additional eye complaints ENT: Reports system reviewed and no additional complaints, except as documented Cardiovascular: Cardiovascular: Reports as per HPI Respiratory: Respiratory: Reports no additional respiratory complaints Gastrointestinal: Gastrointestinal: Reports no additional gastrointestinal complaints Musculoskeletal: Musculoskeletal: Reports no additional musculoskeletal complaints Integumentary/Breasts: Skin/Breast: Reports system reviewed and no additional complaints, except as docu Neurologic: Reports as per HPI Endocrine: Endocrine: Reports no additional endocrine complaints Hematologic/Lymphatic: Hematologic/Lymphatic: Reports no additional hematologic/lymphatic complaints Allergic/Immunologic: Allergic/Immunologic: Reports no additional allergic/immunologic complaints Exam Const: General: comfortable and no acute distress Other: Pleasant
--- NOTE | 2021-01-21 11:45 | ECG_ITS ---
Measurements Intervals [place] Rate: 123 P: 220 [place]: 221 QRS: 10 QRSD: 149 T: -43 QT: 378 QTc: 541 Interpretive Statements ATRIAL FLUTTER/TACHYCARDIA WITH RAPID VENTRICULAR RSPONSE RIGHT BUNDLE BRANCH BLOCK LOW VOLTAGE- PRECORDIAL LEADS MINIMAL Q WAVES- INFERIOR LEADS NONSPECIFIC ST ELEVATION IN ANTEROLAT/HIGH LAT LEADS ABNORMAL ECG Electronically Signed On 01-21-2021 12:45:29 EXECUTIVE DIRECTOR by Diallo Gonzalez D.O.
--- NOTE | 2021-01-21 12:56 | PM.IMPN ---
Progress Note: A&P Assessment and Plan (1) Atrial flutter with rapid ventricular response: Code(s): I48.92 - Unspecified atrial flutter Status: Acute Assessment and Plan: Patient has a history of atrial fibrillation. TSH normal. Echocardiogram in August showing EF of 70% with grade 1 diastolic dysfunction, mild pulmonary hypertension and large pericardial effusion. Chest x-ray on admission here showed the cardiac silhouette is prominent. Checked 2 Vasc score at least 7. Patient started on sotalol. Cardizem drip has been stopped. She remains on Xarelto stroke prophylaxis. Patient's heart rate poorly controlled. Appreciate cardiology input. Will start oral Cardizem. Repeat echocardiogram to follow up on the pericardial effusion. Lasix IV once and resume home lasix in the morning (2) Hyponatremia: Code(s): E87.1 - Hypo-osmolality and hyponatremia Status: Acute Assessment and Plan: Patient is chronically low with her normal baseline high 120 - low 130 range. She has see a phlebotomy services representative for this. Patient's sodium is 129 on admission and about the same now. Check urine sodium. Start sodium tablets (3) Thyroid nodule: Code(s): E04.1 - Nontoxic single thyroid nodule Status: Acute Assessment and Plan: Patient has a history of multinodular goiter with thyroid nodules. Will defer thyroid biopsy for now given the need to maintain anticoagulation. (4) Anemia: Code(s): D64.9 - Anemia, unspecified Status: Acute Assessment and Plan: Chronic and mild. Iron studies, B12 and folate levels normal in August. Continue to monitor HH. (5) Diabetes mellitus: Qualifiers: Diabetes mellitus complication status: without complication Diabetes mellitus correction insulin use: without correction use Diabetes mellitus type: type 2 Qualified Code(s): E11.9 - Type 2 diabetes mellitus without complications Code(s): E11.9 - Type 2 diabetes mellitus without complications Status: Acute Assessment and Plan: A1c 6.0 in August. The patient's blood glucose was reviewed on 01/21 Glucose remains reasonably well controlled. Continue AccuCheks covering with sliding scale. Hypoglycemia protocol available as needed. Resume home medications. (6) Hyperlipidemia: Qualifiers: Hyperlipidemia type: unspecified Qualified Code(s): E78.5 - Hyperlipidemia, unspecified Code(s): E78.5 - Hyperlipidemia, unspecified Status: Acute Assessment and Plan: LFTs normal. Resume atorvastatin (7) Hypertension: Qualifiers: Hypertension type: essential hypertension Qualified Code(s): I10 - Essential (primary) hypertension Code(s): I10 - Essential (primary) hypertension Status: Acute Assessment and Plan: Patient's blood pressure was reviewed on 01/21 Blood pressure remains well controlled. Will add diltiazem (8) History of CVA (cerebrovascular accident): Code(s): Z86.73 - Personal history of transient ischemic attack (TIA), and cerebral infarction without residual deficits Status: Acute Assessment and Plan: Patient has a history CVA. Will start PT and OT. Out of bed to the chair. Will check right knee and hip x-ray given the physical findings and increasing pain. 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 (9) DVT prophylaxis: Code(s): Z29.9 - Encounter for prophylactic measures, unspecified Status: Acute Assessment and Plan: Cassirelsid Subjective Date/time seen: 01/21/21 12:56 Interval history: 75yo female with hx of CVA, pAFib, DM and HTN here for palpitations and found to have AFib with RVR. Assuming care. Chart reviewed. Patient is not on home oxygen. She denies chest pain shortness of breath. No nausea or vomiting. She does have chronic right leg for shortening but has been complaining of right hip and knee pain over the past yea
[2021-01-21 13:15] LABS: Glucose Point of Care 203 mg/dl (65-105)
[2021-01-21] MEDS: FUROSEMIDE INJ 40 MG/4 ML VIAL IV PUSH (13:35)
[2021-01-21] MEDS: INSULIN ASPART (*BKC) 100 UNITS/ML SUB-Q ×2 (13:35→17:04)
--- NOTE | 2021-01-21 14:38 | PCPTNOTE ---
Attempted PT evaluation. Pt getting echo done, will attempt at a later date/time.
[2021-01-21 15:03] LABS: Sodium Urine Random 81 meq/L
[2021-01-21] MEDS: dilTIAZem HCL 30 MG TABLET PO (16:49)
[2021-01-21] MEDS: SODIUM CHLORIDE 500 MG TABLET PO (16:49)
[2021-01-21] MEDS: RIVAROXABAN 20 MG TABLET PO (16:49)
[2021-01-21] MEDS: glipiZIDE 5 MG TABLET PO (16:49)
[2021-01-21 16:54] LABS: Glucose Point of Care 217 mg/dl (65-105)
[2021-01-21] MEDS: ATORVASTATIN 20 MG TABLET PO (20:12)
[2021-01-21] MEDS: FOLIC ACID 1 MG TABLET PO (20:12)
[2021-01-21 20:52] LABS: Glucose Point of Care 223 mg/dl (65-105)
[2021-01-21] MEDS: ACETAMINOPHEN 325 MG TABLET 650 MG PO (22:09)
--- NOTE | 2021-01-21 22:12 | ECG_ITS ---
Measurements Intervals [place] Rate: 111 P: [place]: 0 QRS: 19 QRSD: 144 T: 34 QT: 380 QTc: 518 Interpretive Statements ATRIAL FLUTTER/TACHYCARDIA WITH RAPID VENTRICULAR RESPONSE RIGHT BUNDLE BRANCH BLOCK LOW VOLTAGE- PRECORDIAL LEADS MINIMAL Q WAVES- INFERIOR LEADS BASELINE ARTIFACT- I, II ABNORMAL ECG Electronically Signed On 01-26-2021 8:22:21 HAZARDOUS MATERIALS WASTE TECHNICIAN by Diallo Gonzalez D.O.
--- NOTE | 2021-01-21 22:38 | ECG_ITS ---
Measurements Intervals [place] Rate: 62 P: 56 [place]: 222 QRS: 14 QRSD: 158 T: 25 QT: 432 QTc: 440 Interpretive Statements SINUS RHYTHM WITH FIRST DEGREE AV BLOCK RIGHT BUNDLE BRANCH BLOCK CONSIDER INFERIOR INFARCT, AGE INDETERMINATE ABNORMAL ECG Electronically Signed On 01-22-2021 17:00:09 IMAGING ACCOUNT MANAGER by Diallo Gonzalez D.O.
[2021-01-22] VITALS (15 sets, daily range): BP systolic 123–143; BP diastolic 46–69; PULSE 60–90; RESP 10–20; TEMP 36.1–37.2; O2SAT 91–98
[2021-01-22 07:36] LABS: Albumin Level 3.7 g/dL (3.5-5.1); Anion Gap 7 mmol/L (8-16); Blood Urea Nitrogen 22 mg/dL (7-17); Calcium 8.7 mg/dL (8.4-10.2); Carbon Dioxide 24 mmol/L (22-30); Chloride 97 mmol/L (98-107); Estimated CRCL calculation 46 ml/min; Estimated Glomerular Filt Rate 54; Glucose 176 mg/dL (65-110); Magnesium 1.6 mg/dL (1.6-2.3); Phosphorus 4.3 mg/dL (2.5-4.5); Potassium 3.7 mmol/L (3.4-5.0); Sodium 128 mmol/L (137-145)
--- NOTE | 2021-01-22 07:49 | PCPTNOTE ---
Attempted PT evaluation this date however pt declined stating she was more concerned about her heart and did not want to do anything to mess it up. Pt asked that therapy return tomorrow.
[2021-01-22 07:58] LABS: Basophils Percent Auto 0.5 % (0.2-1.2); Eosinophils Absolute Auto 0.1 K/mm3 (0-0.3); Eosinophils Percent Auto 1.6 % (0-4.4); Hematocrit 31.7 % (37.0-47.0); Hemoglobin 11.1 g/dL (12.0-15.0); Immature Granulocyte Absolute 0.13 K/mm3 (0.00-0.031); Immature Granulocyte Percent A 1.6 % (0-0.5); Lymphocytes Absolute Auto 1.79 K/mm3 (0.9-3.2); Lymphocytes Percent Auto 22.3 % (18.3-44.2); Mean Corpuscular Hemoglobin 36.9 pg (26-34); Mean Corpuscular Volume 105.3 fl (80-100); Mean Platelet Volume 10.5 fl (7.4-10.4); Monocytes Absolute Auto 0.9 K/mm3 (0.1-0.6); Monocytes Percent Auto 10.8 % (2.6-8.5); Neutrophils Absolute Auto 5.1 K/mm3 (1.3-6.7); Neutrophils Percent Auto 63.2 % (45.5-73.1); Platelet Count Result 253 k/mm3 (150-375); Red Blood Count 3.01 M/mm3 (4.2-5.4); Red Cell Distribution Width 12.2 % (11.5-14.5)
[2021-01-22 08:29] LABS: Glucose Point of Care 167 mg/dl (65-105)
--- NOTE | 2021-01-22 10:20 | PCOTNOTE ---
Attempted OT evaluation this date however pt declined stating she was more concerned about her heart and did not want to do anything to mess it up. Pt asked that therapy return tomorrow.
[2021-01-22] MEDS: SOTALOL HCL 80 MG TABLET PO ×2 (10:22→20:03)
[2021-01-22] MEDS: glipiZIDE 5 MG TABLET PO ×2 (10:23→18:37)
[2021-01-22] MEDS: MULTIVITAMINS /C LUTEIN (CENTRUM SILVER) TABLET *BKC 1 TAB PO (10:24)
[2021-01-22] MEDS: SODIUM CHLORIDE 500 MG TABLET PO ×2 (10:24→18:38)
[2021-01-22] MEDS: FUROSEMIDE 20 MG TABLET 60 MG PO (10:25)
--- NOTE | 2021-01-22 10:47 | PHAR ---
Home medication Glumetza seen in pharmacy and returned to IMU nursing unit
--- NOTE | 2021-01-22 11:39 | PM.IMPN ---
Progress Note: A&P Assessment and Plan (1) Atrial flutter with rapid ventricular response: Code(s): I48.92 - Unspecified atrial flutter Status: Acute Assessment and Plan: Patient has a history of atrial fibrillation currently has episodes of a flutter per Cardiology. TSH normal. Echocardiogram shows ejection fraction of 66% no significant finding. Patient started on sotalol. Cardizem drip has been stopped. She remains on Xarelto stroke prophylaxis. Cardiology recommendation appreciated possible plan for cardioversion in a.m. (2) Hyponatremia: Code(s): E87.1 - Hypo-osmolality and hyponatremia Status: Acute Assessment and Plan: Patient is chronically low with her normal baseline high 120 - low 130 range. She has see a airways operations specialist for this. Patient's sodium is 129 on admission and 128 now. Continue sodium tablets (3) Thyroid nodule: Code(s): E04.1 - Nontoxic single thyroid nodule Status: Acute Assessment and Plan: Patient has a history of multinodular goiter with thyroid nodules. Follow-up with PCP and Endocrine as outpatient (4) Anemia: Code(s): D64.9 - Anemia, unspecified Status: Acute Assessment and Plan: Chronic and mild. Iron studies, B12 and folate levels normal in August. Continue to monitor HH. Probable anemia of chronic disease follow-up with PCP (5) Diabetes mellitus: Qualifiers: Diabetes mellitus type: type 2 Diabetes mellitus rat exterminator insulin use: without rat exterminator use Diabetes mellitus complication status: without complication Qualified Code(s): E11.9 - Type 2 diabetes mellitus without complications Code(s): E11.9 - Type 2 diabetes mellitus without complications Status: Acute Assessment and Plan: A1c 6.0 in August. Accu-Chek insulin sliding scale resume home meds (6) Hyperlipidemia: Qualifiers: Hyperlipidemia type: unspecified Qualified Code(s): E78.5 - Hyperlipidemia, unspecified Code(s): E78.5 - Hyperlipidemia, unspecified Status: Acute Assessment and Plan: LFTs normal. Resume atorvastatin (7) Hypertension: Qualifiers: Hypertension type: essential hypertension Qualified Code(s): I10 - Essential (primary) hypertension Code(s): I10 - Essential (primary) hypertension Status: Acute Assessment and Plan: Patient's blood pressure was reviewed on 01/22 Blood pressure remains well controlled. Continue the thiazide (8) History of CVA (cerebrovascular accident): Code(s): Z86.73 - Personal history of transient ischemic attack (TIA), and cerebral infarction without residual deficits Status: Acute Assessment and Plan: Patient has a history CVA. PT and OT. Out of bed to the chair. Will check right knee and hip x-ray given the physical findings and increasing pain. 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 (9) DVT prophylaxis: Code(s): Z29.9 - Encounter for prophylactic measures, unspecified Status: Acute Assessment and Plan: Xarelto (10) CHF exacerbation: Code(s): I50.9 - Heart failure, unspecified Status: Acute Assessment and Plan: Most likely acute of chronic diastolic CHF exacerbation present on admission given 1 dose of IV Lasix on 01/21/2021 Start oral diuretics on 01/22/2021 Subjective Date/time seen: 01/22/21 11:39 Interval history: 75 years old female with past medical history of CHF multinodular goiter sleep apnea hyponatremia coronary artery disease AFib on anticoagulation presented to the hospital found to have AFib with RVR cardiology was consulted patient was treated with sotalol plan for cardioversion before discharge Patient has history of chronic hyponatremia Patient denies chest pain or shortness of breath I am seeing the patient for hypertension Exam Narrative: Alert Chest decreased air entry bilateral Abdome
--- NOTE | 2021-01-22 12:15 | ECG_ITS ---
Measurements Intervals [place] Rate: 60 P: 46 [place]: 226 QRS: 10 QRSD: 178 T: 13 QT: 462 QTc: 462 Interpretive Statements SINUS RHYTHM WITH FIRST DEGREE AV BLOCK RIGHT BUNDLE BRANCH BLOCK CONSIDER INFERIOR INFARCT, AGE INDETERMINATE ABNORMAL ECG Electronically Signed On 01-22-2021 17:08:23 INTERNET E COMMERCE SPECIALIST by Diallo Gonzalez D.O.
[2021-01-22 12:49] LABS: Glucose Point of Care 209 mg/dl (65-105)
[2021-01-22] MEDS: INSULIN ASPART (*BKC) 100 UNITS/ML SUB-Q (13:25)
--- NOTE | 2021-01-22 13:40 | PM.PNCARD ---
Progress Note: A&P Assessment and Plan (1) Atrial flutter with rapid ventricular response: Code(s): I48.92 - Unspecified atrial flutter Status: Acute Assessment and Plan: Converted to sinus rhythm 11:33 p.m. last night on sotalol 80 mg b.i.d. and diltiazem 30 mg p.o. q.6 hours. Follow-up 12 lead EKG QT interval stable at 462 milliseconds presently. Continue telemetry to monitor for ventricular arrhythmias. Stable thus far. Patient is asymptomatic in this regard and hemodynamically stable. Continue systemic anticoagulation. Complete loading protocol with 5 total doses of sotalol in the hospital and routine EKG to monitor QT corrected interval and assessment for sotalol toxicity. Doing well thus far. Will discontinue diltiazem to avoid symptomatic bradycardia. (2) Hypertension: Qualifiers: Hypertension type: essential hypertension Qualified Code(s): I10 - Essential (primary) hypertension Code(s): I10 - Essential (primary) hypertension Status: Acute Assessment and Plan: Stable. Continue medical therapy. (3) Diabetes mellitus: Qualifiers: Diabetes mellitus type: type 2 Diabetes mellitus shelter insulin use: without shelter use Diabetes mellitus complication status: without complication Qualified Code(s): E11.9 - Type 2 diabetes mellitus without complications Code(s): E11.9 - Type 2 diabetes mellitus without complications Status: Acute Assessment and Plan: Per primary service. Stable. (4) History of CVA (cerebrovascular accident): Code(s): Z86.73 - Personal history of transient ischemic attack (TIA), and cerebral infarction without residual deficits Status: Acute Assessment and Plan: Continue systemic anticoagulation. Patient at elevated risk for recurrent stroke given history of atrial fibrillation and now atrial flutter converted to sinus rhythm on sotalol. 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 Monitor renal function. Monitor for signs of bleeding. Stable thus far. (6) Mixed dyslipidemia: Code(s): E78.2 - Mixed hyperlipidemia Status: Acute Assessment and Plan: Continue atorvastatin Subjective Date/time seen: Date of service: 01/22/21 13:40 History of PAF admitted with atrial flutter with rapid ventricular response Patient feels very well. Converted to sinus rhythm at 11:33 p.m.. 4.5 second pause upon conversion in which patient was aware feeling transiently lightheaded then completely resolved. Tolerating medical therapy. No other complaints. No chest pain, shortness of breath palpitations. Review of Systems Constitutional: Constitutional: Reports no additional constitutional complaints Eyes: Eyes: Reports no additional eye complaints ENT: Reports system reviewed and no additional complaints, except as documented Cardiovascular: Cardiovascular: Reports as per HPI Respiratory: Respiratory: Reports no additional respiratory complaints Gastrointestinal: Gastrointestinal: Reports no additional gastrointestinal complaints Musculoskeletal: Musculoskeletal: Reports no additional musculoskeletal complaints Integumentary/Breasts: Skin/Breast: Reports system reviewed and no additional complaints, except as docu Neurologic: Reports as per HPI Endocrine: Endocrine: Reports no additional endocrine complaints Hematologic/Lymphatic: Hematologic/Lymphatic: Reports no additional hematologic/lymphatic complaints Allergic/Immunologic: Allergic/Immunologic: Reports no additional allergic/immunologic complaints Exam Const: General: comfortable and no acute distress Other: Pleasant obese lady no apparent distress HENMT: Mouth: Yes moist mucous membranes Eyes: Sclera: sclerae normal Pupils: Equal, round and reactive pupils present Neck: Neck: suppl
[2021-01-22 16:37] LABS: Glucose Point of Care 184 mg/dl (65-105)
[2021-01-22] MEDS: RIVAROXABAN 20 MG TABLET PO (18:37)
[2021-01-22] MEDS: FOLIC ACID 1 MG TABLET PO (20:03)
[2021-01-22] MEDS: ATORVASTATIN 20 MG TABLET PO (20:03)
[2021-01-22 20:31] LABS: Glucose Point of Care 144 mg/dl (65-105)
--- NOTE | 2021-01-22 22:00 | ECG_ITS ---
Measurements Intervals [place] Rate: 65 P: 51 [place]: 215 QRS: 11 QRSD: 147 T: 21 QT: 441 QTc: 461 Interpretive Statements SINUS RHYTHM WITH FIRST DEGREE AV BLOCK RIGHT BUNDLE BRANCH BLOCK MINIMAL Q WAVES- INFERIOR LEADS BASELINE ARTIFACT- I, II, AVR, AVL ABNORMAL ECG Electronically Signed On 01-23-2021 5:33:34 PLANER OPERATOR by Diallo Gonzalez D.O.
[2021-01-22] MEDS: ACETAMINOPHEN 325 MG TABLET 650 MG PO (22:25)
[2021-01-23] VITALS (11 sets, daily range): BP systolic 137–158; BP diastolic 48–76; PULSE 58–80; RESP 20–22; TEMP 36.4–36.7; O2SAT 94–97
--- NOTE | 2021-01-23 08:00 | ECG_ITS ---
Measurements Intervals [place] Rate: 64 P: 53 [place]: 217 QRS: 13 QRSD: 164 T: 21 QT: 456 QTc: 473 Interpretive Statements SINUS RHYTHM WITH FIRST DEGREE AV BLOCK RIGHT BUNDLE BRANCH BLOCK MINIMAL Q WAVES- INFERIOR LEADS ABNORMAL ECG Electronically Signed On 01-23-2021 10:21:30 ASSISTANT FOREMAN by Diallo Gonzalez D.O.
[2021-01-23 08:48] LABS: Glucose Point of Care 113 mg/dl (65-105)
--- NOTE | 2021-01-23 09:05 | PCOTNOTE ---
Attempted OT evaluation, despite education on benefits of participating with Occupational therapy, patient declined OT at this time, RN notified. Will follow and attempt at later time.
--- NOTE | 2021-01-23 09:07 | PCPTNOTE ---
pt refused PT evaluation this AM, unable to convince her to do exercises or get OOB; pt stated she did not want to mess things up discussed pt with VIRI Rojas; she reports pt had a 24 hour caregiver at home who assisted her with mobility and she is returning to that same situation;
[2021-01-23] MEDS: glipiZIDE 5 MG TABLET PO (10:37)
[2021-01-23] MEDS: SOTALOL HCL 80 MG TABLET PO (10:37)
[2021-01-23] MEDS: MULTIVITAMINS /C LUTEIN (CENTRUM SILVER) TABLET *BKC 1 TAB PO (10:37)
[2021-01-23] MEDS: SODIUM CHLORIDE 500 MG TABLET PO (10:37)
--- NOTE | 2021-01-23 12:05 | PM.DS ---
DS: Admitting Diagnosis Discharge Date 01/23/21 Admitting Diagnosis Palpitations DS: Discharge Diagnosis Discharge Diagnosis (1) Atrial flutter with rapid ventricular response: Code(s): I48.92 - Unspecified atrial flutter Status: Acute Assessment and Plan: Patient has a history of atrial fibrillation. TSH normal. Echo in August showing EF of 70% with grade 1 diastolic dysfunction and large pericardial effusion. Chest x-ray on admission here showed the cardiac silhouette is prominent. [id number] score at least 7. Patient started on sotalol. Cardizem drip was stopped. She remained on Xarelto for stroke prophylaxis. Patient's heart rate was poorly controlled so oral Cardizem added. Appreciate cardiology input. Repeat Echo showing EF 65-70% with indeterminate diastolic function and small pericardial effusion. She converted after a 4.5sec pause. She continued on Sotalol and Diltiazem stopped. She remained in NSR t/o the remainder of her hospital course. (2) Hyponatremia: Code(s): E87.1 - Hypo-osmolality and hyponatremia Status: Acute Assessment and Plan: Patient has chronically low sodium with her normal baseline high 120 - low 130 range. She has see a electromagnet crane operator for this. Patient's sodium is 129 on admission and about the same at discharge. We started sodium tablets. (3) Thyroid nodule: Code(s): E04.1 - Nontoxic single thyroid nodule Status: Acute Assessment and Plan: Patient has a history of multinodular goiter with thyroid nodules. Defer to primary care provider who is following this (4) Anemia: Code(s): D64.9 - Anemia, unspecified Status: Acute Assessment and Plan: Chronic and mild. Iron studies, B12 and folate levels normal in August. Continue to monitor HH. 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 The patient's blood glucose was monitored closely with AccuCheks covering with sliding scale. Hypoglycemia protocol was available as needed. Glucose remained reasonably well controlled. (6) Hyperlipidemia: Qualifiers: Hyperlipidemia type: unspecified Qualified Code(s): E78.5 - Hyperlipidemia, unspecified Code(s): E78.5 - Hyperlipidemia, unspecified Status: Acute Assessment and Plan: LFTs were normal. We continued atorvastatin (7) Hypertension: Qualifiers: Hypertension type: essential hypertension Qualified Code(s): I10 - Essential (primary) hypertension Code(s): I10 - Essential (primary) hypertension Status: Acute Assessment and Plan: Patient's blood pressure was monitored closely and remained well controlled. (8) History of CVA (cerebrovascular accident): Code(s): Z86.73 - Personal history of transient ischemic attack (TIA), and cerebral infarction without residual deficits Status: Acute Assessment and Plan: Patient has a history CVA. She was evaluated and treated with PT and OT. We did check right knee and hip x-ray given the physical findings and increasing pain. Right hip xray showing advanced right hip osteoarthritis. Right knee xray showing moderate right knee osteoarthritis with sclerosis in distal right femur, likely osteonecrosis. Advised patient to followup with her primary care doctor to have this further evaluated. DS: Summary Hospital Course Reason for hospitalization: 75yo female with hx of CVA, pAFib, DM and HTN here for palpitations and found to have AFib with RVR. Please see H&P for details Hospital Course: Please see above for details of hospital cou
--- NOTE | 2021-01-23 12:45 | ECG_ITS ---
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
[2021-01-23 12:46] LABS: Glucose Point of Care 159 mg/dl (65-105)
--- NOTE | 2021-01-23 14:59 | PM.PNCARD ---
Progress Note: A&P Assessment and Plan (1) Atrial flutter with rapid ventricular response: Code(s): I48.92 - Unspecified atrial flutter Status: Acute Assessment and Plan: Converted to sinus rhythm 11:33 p.m. 12/4 on sotalol 80 mg b.i.d. and diltiazem 30 mg p.o. q.6 hours. Follow-up 12 lead EKG QT interval stable at 463 milliseconds this afternoon. Continue systemic anticoagulation. Diltiazem has been discontinued at this point. Sotalol loading protocol with 5 total doses has been completed and QTc has remained stable. O.K. for discharge from this perspective. (2) Hypertension: Qualifiers: Hypertension type: essential hypertension Qualified Code(s): I10 - Essential (primary) hypertension Code(s): I10 - Essential (primary) hypertension Status: Acute Assessment and Plan: Stable. Continue medical therapy. 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 Stable. (4) History of CVA (cerebrovascular accident): Code(s): Z86.73 - Personal history of transient ischemic attack (TIA), and cerebral infarction without residual deficits Status: Acute Assessment and Plan: Continue systemic anticoagulation. Patient at elevated risk for recurrent stroke given history of atrial fibrillation and now atrial flutter converted to sinus rhythm on sotalol. 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 Monitor renal function. Monitor for signs of bleeding. Stable thus far. (6) Mixed dyslipidemia: Code(s): E78.2 - Mixed hyperlipidemia Status: Acute Assessment and Plan: Continue atorvastatin Subjective Date/time seen: 01/23/21 14:59 Interval history: Cardiology follow up - History of PAF admitted with atrial flutter with rapid ventricular response Date of service 01/23/2021: She feels very well this morning. Maintaining sinus rhythm on sotalol. She does not have any shortness of breath, palpitations, chest pain. QTC stable on sotalol. Review of Systems Constitutional: Constitutional: Reports no additional constitutional complaints Eyes: Eyes: Reports no additional eye complaints ENT: Reports system reviewed and no additional complaints, except as documented Cardiovascular: Cardiovascular: Reports as per HPI Respiratory: Respiratory: Reports no additional respiratory complaints Gastrointestinal: Gastrointestinal: Reports no additional gastrointestinal complaints Musculoskeletal: Musculoskeletal: Reports no additional musculoskeletal complaints Integumentary/Breasts: Skin/Breast: Reports system reviewed and no additional complaints, except as docu Neurologic: Reports as per HPI Endocrine: Endocrine: Reports no additional endocrine complaints Hematologic/Lymphatic: Hematologic/Lymphatic: Reports no additional hematologic/lymphatic complaints Allergic/Immunologic: Allergic/Immunologic: Reports no additional allergic/immunologic complaints Exam Const: General: comfortable and no acute distress Other: Pleasant woman sitting in bed. Alert and oriented. HENMT: Mouth: Yes moist mucous membranes Eyes: Sclera: sclerae normal Pupils: Equal, round and reactive pupils present Neck: Neck: supple and no JVD Resp: Effort & Inspection: normal respiratory effort Auscultation: clear to auscultation bilaterally Other: Breath sounds are distant but otherwise clear Cardio: Rate: tachycardic Rhythm: regular rhythm Other: No murmur no gallop GI:
== END 2021-01-23 15:09 | disposition home health service (06) ==
LOC: ANHED 16:17 → ANH2MED 20:18 → ANHIMU 01-21 04:15
PROVIDERS: Nurse Practitioner; Physician Assistant; Admitting Provider Internal Medicine; Emergency Provider Emergency Medicine; PCP Family Medicine; Visit Provider Internal Medicine
DX: I48.92 Unspecified atrial flutter (principal); I12.9 Hypertensive chronic kidney disease with stage 1 through stage 4 chronic kidney disease, or unspecified chronic kidney disease; E11.22 Type 2 diabetes mellitus with diabetic chronic kidney disease; N18.30 Chronic kidney disease, stage 3 unspecified; D64.9 Anemia, unspecified; E87.1 Hypo-osmolality and hyponatremia; E04.1 Nontoxic single thyroid nodule; E78.5 Hyperlipidemia, unspecified; M17.11 Unilateral primary osteoarthritis, right knee; M16.11 Unilateral primary osteoarthritis, right hip; Z79.01 Long term (current) use of anticoagulants; Z23 Encounter for immunization; Z86.73 Personal history of transient ischemic attack (TIA), and cerebral infarction without residual deficits; Z87.891 Personal history of nicotine dependence; Z79.84 Long term (current) use of oral hypoglycemic drugs
CPT/HCPCS: 36415; 71045; 73502; 73560; 80048; 80053; 80069; 82570; 82728; 82948; 83605; 83615; 83690; 83735; 84300; 84443; 84484; 85025; 85610; 85730; 90471; 90653; 93005; 96361; 96365; 96374; 96376; 99285; A9270; C8929; G0008; G0378; J1815; J1940; J7030; Q9957

== ENCOUNTER 2021-01-30 09:33 | Outpatient (CLI) | payer OTHER, SELFPAY ==
[2021-01-30 10:29] LABS: Anion Gap 11 mmol/L (8-16); Blood Urea Nitrogen 21 mg/dL (7-17); Calcium 9.2 mg/dL (8.4-10.2); Carbon Dioxide 27 mmol/L (22-30); Chloride 96 mmol/L (98-107); Estimated Glomerular Filt Rate 54; Glucose 112 mg/dL (65-110); Potassium 4.5 mmol/L (3.4-5.0); Sodium 134 mmol/L (137-145)
== END 2021-01-30 09:34 | disposition home or self-care (01) ==
LOC: ANHLAB 09:35
PROVIDERS: PCP Family Medicine; Visit Provider Internal Medicine
DX: E87.1 Hypo-osmolality and hyponatremia (principal)
CPT/HCPCS: 36415; 80048

== ENCOUNTER 2021-04-24 10:52 | Outpatient (CLI) | payer OTHER, SELFPAY ==
--- NOTE | ~2021-04-24 | XR_ITS ---
EXAMINATION: XR lg joint inject/asp w image DATE: 04/24/2021 12:23 INDICATION: Right hip arthritis. TECHNIQUE: A time-out was performed to verify the patient's name, date of , and procedure to b e performed. The procedure including the risks, benefits, and alternatives was discussed with the pat ient. Risks discussed included bleeding and infection. The patient understood the risks and agreed to proceed. The skin overlying the right hip joint was prepped and draped in usual sterile fashion. A nesthetic was administered with 1% lidocaine subcutaneously. A 22 G needle was advanced under fluoro scopic guidance into the joint. Injection of 1 mL of Omnipaque 240 confirmed intra-articular positio n of the needle. Subsequently, injectate consisting of 2 mL 0.5% bupivacaine and 2 mL 40 mg/mL Depo- Medrol was instilled. The needle was removed and the entry site was cleaned and dressed. There were no immediate complications. Fluoroscopy exposure time was 0.1 minutes. The total number of images wa s 2. FINDINGS: Real-time fluoroscopy demonstrates the needle in the right hip joint. Patient's pain prior to procedure:8/10. Patient's pain following the procedure: /. IMPRESSION: 1. Fluoroscopy guided right hip joint injection of local anesthetic and steroid with decrease in the patient's presenting pain. Reviewed, dictated and finalized at location A. ATIONS BOARDMAN
== END 2021-04-24 10:53 | disposition home or self-care (01) ==
PROVIDERS: PCP Family Medicine; Visit Provider Orthopaedic Surgery
DX: M25.551 Pain in right hip (principal)
CPT/HCPCS: 20610; 77002; J1030; Q9966

== ENCOUNTER 2021-05-25 09:57 | Outpatient (CLI) | payer OTHER, SELFPAY ==
--- NOTE | ~2021-05-25 | US_ITS ---
EXAMINATION: US thyroid DATE: 05/25/2021 11:37 INDICATION: Thyroid nodules TECHNIQUE: Multiple ultrasound images of the thyroid were obtained. COMPARISON: None. FINDINGS: The right thyroid lobe measures 4.5 x 1.5 x 2.1 cm. The left thyroid lobe measures 4.0 x 2.1 x 1.0 c m. No significant change in a 3.4 x 1.6 x 3.1 cm wider than tall isoechoic solid right thyroid nodul e with ill-defined margins (TI-RADS 3, mildly suspicious , FNA if >=2.5 cm, annual followup is >=1.5 cm). A previously noted 1.7 cm TI RADS 5 nodule at the lateral right thyroid is partially visualized in one of the images currently measuring 1.3 x 0.7 cm although this may be underestimated as the nodu les most not directly imaged and measured by the slipcover cutter. No significant change in a 2.7 x 1.3 x 1.8 cm wider than tall solid hypoechoic nodule with smooth margins (TI-RADS 4, moderately suspicious , FNA if >=1.5 cm, annual followup is >=1 cm). IMPRESSION: 1. Multinodular goiter. Again seen are 3 thyroid nodules, each meeting criteria for ultrasound guided biopsy. Would recommend ultrasound-guided biopsy of at least the TI-RADS 5 right thyroid nodule. Reviewed, dictated and finalized at location B. IMPRESSION: 1. Multinodular goiter. Again seen are 3 thyroid nodules, each meeting criteria for ultrasound guided biopsy. Would recommend ultrasound-guided biopsy of at l east the TI-RADS 5 right thyroid nodule.
== END 2021-05-25 09:58 | disposition home or self-care (01) ==
PROVIDERS: PCP Family Medicine; Visit Provider Internal Medicine Endocrinology, Diabetes & Metabolism
DX: E04.2 Nontoxic multinodular goiter (principal)
CPT/HCPCS: 76536

== ENCOUNTER 2021-06-23 10:52 | Outpatient (CLI) | payer OTHER, SELFPAY ==
[2021-06-23 11:28] LABS: Albumin Level 4.2 g/dL (3.5-5.1); Anion Gap 8 mmol/L (8-16); Blood Urea Nitrogen 26 mg/dL (7-17); Calcium 8.9 mg/dL (8.4-10.2); Carbon Dioxide 29 mmol/L (22-30); Chloride 96 mmol/L (98-107); Estimated Glomerular Filt Rate > 60; Glucose 123 mg/dL (65-110); Phosphorus 4.5 mg/dL (2.5-4.5); Potassium 4.5 mmol/L (3.4-5.0); Sodium 133 mmol/L (137-145)
== END 2021-06-23 10:53 | disposition home or self-care (01) ==
LOC: ANHLAB 10:54
PROVIDERS: PCP Family Medicine; Visit Provider Internal Medicine Nephrology
DX: E87.1 Hypo-osmolality and hyponatremia (principal)
CPT/HCPCS: 36415; 80069

== ENCOUNTER 2021-07-25 11:15 | Outpatient (CLI) | payer OTHER, SELFPAY ==
[2021-07-25 11:57] LABS: Albumin Level 4.4 g/dL (3.5-5.1); Anion Gap 8 mmol/L (8-16); Blood Urea Nitrogen 22 mg/dL (7-17); Calcium 8.8 mg/dL (8.4-10.2); Carbon Dioxide 28 mmol/L (22-30); Chloride 97 mmol/L (98-107); Estimated Glomerular Filt Rate > 60; Glucose 136 mg/dL (65-110); Phosphorus 4.3 mg/dL (2.5-4.5); Potassium 4.5 mmol/L (3.4-5.0); Sodium 133 mmol/L (137-145)
== END 2021-07-25 11:16 | disposition home or self-care (01) ==
PROVIDERS: PCP Family Medicine; Visit Provider Internal Medicine Nephrology
DX: E87.1 Hypo-osmolality and hyponatremia (principal)
CPT/HCPCS: 36415; 80069

== ENCOUNTER 2021-08-22 11:11 | Outpatient (CLI) | payer OTHER, SELFPAY ==
[2021-08-22 11:47] LABS: Cholesterol 120 mg/dL (0-200); HDL Direct 41 mg/dL; Hemoglobin A1C 6.2 % (<5.7); Triglycerides 148 mg/dL (<150)
[2021-08-22 11:49] LABS: Albumin Level 4.4 g/dL (3.5-5.1); Anion Gap 5 mmol/L (8-16); Blood Urea Nitrogen 17 mg/dL (7-17); Calcium 8.6 mg/dL (8.4-10.2); Carbon Dioxide 28 mmol/L (22-30); Chloride 101 mmol/L (98-107); Estimated Glomerular Filt Rate > 60; Glucose 122 mg/dL (65-110); Phosphorus 4.4 mg/dL (2.5-4.5); Potassium 4.7 mmol/L (3.4-5.0); Sodium 134 mmol/L (137-145)
[2021-08-22 11:58] LABS: LDL Cholesterol Direct 46 mg/dL
== END 2021-08-22 11:12 | disposition home or self-care (01) ==
LOC: ANHLAB 11:12
PROVIDERS: PCP Family Medicine; Visit Provider Physician Assistant
DX: E11.9 Type 2 diabetes mellitus without complications (principal); Z13.220 Encounter for screening for lipoid disorders; E87.1 Hypo-osmolality and hyponatremia
CPT/HCPCS: 36415; 80061; 80069; 83036

== ENCOUNTER 2022-01-09 11:17 | Outpatient (CLI) | payer OTHER, SELFPAY ==
[2022-01-09 12:00] LABS: Albumin Level 4.4 g/dL (3.5-5.1); Anion Gap 11 mmol/L (8-16); Blood Urea Nitrogen 17 mg/dL (7-17); Calcium 8.7 mg/dL (8.4-10.2); Carbon Dioxide 23 mmol/L (22-30); Chloride 100 mmol/L (98-107); Estimated Glomerular Filt Rate > 60; Glucose 121 mg/dL (65-110); Phosphorus 4.1 mg/dL (2.5-4.5); Potassium 4.6 mmol/L (3.4-5.0); Sodium 134 mmol/L (137-145)
== END 2022-01-09 11:18 | disposition home or self-care (01) ==
PROVIDERS: PCP Family Medicine; Visit Provider Internal Medicine Nephrology
DX: E87.1 Hypo-osmolality and hyponatremia (principal)
CPT/HCPCS: 36415; 80069

== ENCOUNTER 2022-02-16 12:04 | Outpatient (CLI) | payer OTHER, SELFPAY ==
[2022-02-16 12:34] LABS: Hematocrit 38.3 % (37.0-47.0); Mean Corpuscular HGB Conc 33.9 g/dl (32-36); Mean Corpuscular Hemoglobin 35.3 pg (26-34); Mean Corpuscular Volume 104.1 fl (80-100); Mean Platelet Volume 10.4 fl (7.4-10.4); Platelet Count Result 206 k/mm3 (150-375); Red Blood Count 3.68 M/mm3 (4.2-5.4); Red Cell Distribution Width 11.8 % (11.5-14.5); White Blood Count 7.2 K/mm3 (4.5-10.0)
[2022-02-16 12:55] LABS: Alanine Aminotransferase 12 U/L (6-35); Albumin Level 4.4 g/dL (3.5-5.1); Alkaline Phosphatase 83 U/L (38-126); Anion Gap 9 mmol/L (8-16); Aspartate Amino Transferase 32 U/L (14-36); Bilirubin,Total 0.6 mg/dL (0.2-1.3); Blood Urea Nitrogen 14 mg/dL (7-17); Calcium 8.8 mg/dL (8.4-10.2); Carbon Dioxide 24 mmol/L (22-30); Chloride 100 mmol/L (98-107); Estimated Glomerular Filt Rate > 60; Glucose 122 mg/dL (65-110); Magnesium 1.6 mg/dL (1.6-2.3); Potassium 4.6 mmol/L (3.4-5.0); Sodium 133 mmol/L (137-145)
[2022-02-16 13:20] LABS: Hemoglobin A1C 6.6 % (<5.7)
== END 2022-02-16 12:05 | disposition home or self-care (01) ==
PROVIDERS: PCP Family Medicine; Visit Provider Physician Assistant
DX: D64.9 Anemia, unspecified (principal); E11.9 Type 2 diabetes mellitus without complications; Z51.81 Encounter for therapeutic drug level monitoring; Z79.899 Other long term (current) drug therapy; Z13.1 Encounter for screening for diabetes mellitus
CPT/HCPCS: 36415; 80053; 83036; 83735; 85027

== ENCOUNTER 2022-06-27 11:19 | Outpatient (CLI) | payer OTHER, SELFPAY ==
[2022-06-27 12:39] LABS: Albumin Level 4.4 g/dL (3.5-5.1); Anion Gap 5 mmol/L (8-16); Blood Urea Nitrogen 16 mg/dL (7-17); Calcium 8.8 mg/dL (8.4-10.2); Carbon Dioxide 29 mmol/L (22-30); Chloride 100 mmol/L (98-107); Estimated Glomerular Filt Rate > 60; Glucose 150 mg/dL (65-110); Potassium 4.8 mmol/L (3.4-5.0); Sodium 134 mmol/L (137-145)
== END 2022-06-27 11:20 | disposition home or self-care (01) ==
PROVIDERS: PCP Family Medicine; Visit Provider Internal Medicine Nephrology
DX: E87.1 Hypo-osmolality and hyponatremia (principal)
CPT/HCPCS: 36415; 80069

== ENCOUNTER 2022-09-18 10:45 | Outpatient (CLI) | payer OTHER, SELFPAY ==
[2022-09-18 11:31] LABS: Basophils Percent Auto 0.3 % (0.2-1.2); Eosinophils Absolute Auto 0.1 K/mm3 (0-0.3); Eosinophils Percent Auto 1.3 % (0-4.4); Hematocrit 36.3 % (37.0-47.0); Hemoglobin 12.7 g/dL (12.0-15.0); Immature Granulocyte Absolute 0.18 K/mm3 (0.00-0.031); Immature Granulocyte Percent A 2.6 % (0-0.5); Lymphocytes Absolute Auto 2.21 K/mm3 (0.9-3.2); Lymphocytes Percent Auto 32.4 % (18.3-44.2); Mean Corpuscular Hemoglobin 35.8 pg (26-34); Mean Corpuscular Volume 102.3 fl (80-100); Mean Platelet Volume 10.5 fl (7.4-10.4); Monocytes Absolute Auto 0.6 K/mm3 (0.1-0.6); Monocytes Percent Auto 8.5 % (2.6-8.5); Neutrophils Absolute Auto 3.7 K/mm3 (1.3-6.7); Neutrophils Percent Auto 54.9 % (45.5-73.1); Platelet Count Result 183 k/mm3 (150-375); Red Blood Count 3.55 M/mm3 (4.2-5.4); Red Cell Distribution Width 11.8 % (11.5-14.5); White Blood Count 6.8 K/mm3 (4.5-10.0)
[2022-09-18 11:42] LABS: Alanine Aminotransferase 16 U/L (6-35); Albumin Level 4.4 g/dL (3.5-5.1); Alkaline Phosphatase 82 U/L (38-126); Anion Gap 8 mmol/L (8-16); Aspartate Amino Transferase 27 U/L (14-36); Bilirubin,Total 0.5 mg/dL (0.2-1.3); Blood Urea Nitrogen 14 mg/dL (7-17); Calcium 8.9 mg/dL (8.4-10.2); Carbon Dioxide 25 mmol/L (22-30); Chloride 97 mmol/L (98-107); Cholesterol 124 mg/dL (0-200); Estimated Glomerular Filt Rate > 60; Glucose 130 mg/dL (65-110); HDL Direct 43 mg/dL; Potassium 4.5 mmol/L (3.4-5.0); Sodium 130 mmol/L (137-145); Triglycerides 213 mg/dL (<150)
[2022-09-18 11:47] LABS: Hemoglobin A1C 6.6 % (<5.7)
[2022-09-18 11:53] LABS: Creatinine Urine 89.7 mg/dL
[2022-09-18 11:53] LABS: LDL Cholesterol Direct 44 mg/dL
[2022-09-18 11:55] LABS: Microalbumin Urine Random 25.1 mg/L (0-16.7)
== END 2022-09-18 10:46 | disposition home or self-care (01) ==
PROVIDERS: PCP Physician Assistant; Visit Provider Physician Assistant
DX: R53.83 Other fatigue (principal); Z13.220 Encounter for screening for lipoid disorders; D64.9 Anemia, unspecified; E11.9 Type 2 diabetes mellitus without complications; Z13.1 Encounter for screening for diabetes mellitus
CPT/HCPCS: 36415; 80053; 80061; 82043; 83036; 84439; 84443; 85025

== ENCOUNTER 2022-12-25 10:38 | Outpatient (CLI) | payer OTHER, SELFPAY ==
[2022-12-25 11:55] LABS: Albumin Level 4.6 g/dL (3.5-5.1); Anion Gap 10 mmol/L (8-16); Blood Urea Nitrogen 14 mg/dL (7-17); Calcium 9.3 mg/dL (8.4-10.2); Carbon Dioxide 27 mmol/L (22-30); Chloride 94 mmol/L (98-107); Estimated Glomerular Filt Rate > 60; Glucose 126 mg/dL (65-110); Phosphorus 4.7 mg/dL (2.5-4.5); Potassium 4.4 mmol/L (3.4-5.0); Sodium 131 mmol/L (137-145)
[2022-12-25 12:00] LABS: Creatinine Urine 24.7 mg/dL; Total Protein Urine Random 27 mg/dL; Ur Ttl Prot Creatinine Ratio 1.09 mg/mg (0-0.20)
== END 2022-12-25 10:39 | disposition home or self-care (01) ==
PROVIDERS: PCP Physician Assistant; Visit Provider Internal Medicine Nephrology
DX: E87.1 Hypo-osmolality and hyponatremia (principal)
CPT/HCPCS: 36415; 80069; 82570; 84156

== ENCOUNTER 2023-06-27 10:57 | Outpatient (CLI) | payer OTHER, SELFPAY ==
[2023-06-27 12:00] LABS: Albumin Level 4.8 g/dL (3.5-5.1); Anion Gap 10 mmol/L (4-12); Blood Urea Nitrogen 15 mg/dL (7-17); Calcium 9.5 mg/dL (8.4-10.2); Carbon Dioxide 25 mmol/L (22-30); Chloride 100 mmol/L (98-107); Estimated Glomerular Filt Rate > 60; Glucose 120 mg/dL (65-110); Phosphorus 4.6 mg/dL (2.5-4.5); Potassium 4.5 mmol/L (3.4-5.0); Sodium 135 mmol/L (137-145)
== END 2023-06-27 10:58 | disposition home or self-care (01) ==
LOC: ANHLAB 10:59
PROVIDERS: PCP Family Medicine; Visit Provider Internal Medicine Nephrology
DX: E87.1 Hypo-osmolality and hyponatremia (principal)
CPT/HCPCS: 36415; 80069

== ENCOUNTER 2023-09-27 11:50 | Outpatient (CLI) | payer OTHER, SELFPAY ==
[2023-09-27 12:12] LABS: Hematocrit 38.4 % (37.0-47.0); Hemoglobin 13.7 g/dL (12.0-15.0); Mean Corpuscular HGB Conc 35.7 g/dl (32-36); Mean Corpuscular Hemoglobin 35.6 pg (26-34); Mean Corpuscular Volume 99.7 fl (80-100); Mean Platelet Volume 10.2 fl (7.4-10.4); Platelet Count Result 207 k/mm3 (150-375); Red Blood Count 3.85 M/mm3 (4.2-5.4); Red Cell Distribution Width 11.9 % (11.5-14.5)
[2023-09-27 12:36] LABS: Add Urine Microscopic? YES; Alanine Aminotransferase 11 U/L (6-35); Albumin Level 4.7 g/dL (3.5-5.1); Alkaline Phosphatase 88 U/L (38-126); Anion Gap 15 mmol/L (4-12); Appearance Urine Clear (Clear); Aspartate Amino Transferase 27 U/L (14-36); Bacteria Urine None Seen /hpf; Bilirubin Urine Negative (Negative); Bilirubin,Total 0.7 mg/dL (0.2-1.3); Blood Urea Nitrogen 14 mg/dL (7-17); Blood Urine 3+ (Negative); Calcium 8.8 mg/dL (8.4-10.2); Carbon Dioxide 25 mmol/L (22-30); Chloride 93 mmol/L (98-107); Color Urine Yellow (Yellow); Estimated Glomerular Filt Rate > 60; Glucose 163 mg/dL (65-110); Glucose Urine UA Negative (Negative); Ketones Urine Negative (Negative); Leukocyte Esterase Ur 3+ LEU/UL (Negative); Nitrate Urine Negative (Negative); Non Pathogenic Casts 0-2; Potassium 4.5 mmol/L (3.4-5.0); Protein Urine 3+ mg/dL (Negative); RBC Urine 21-50 /hpf (0-2); Sodium 133 mmol/L (137-145); Specific Grav Ur 1.005 (1.001-1.035); Squamous Epithelial Cell Urine None Seen /hpf (Few); Urobilinogen Urine 0.2 mg/dL (<2.0); WBC Urine 21-50 /hpf (0-3); pH Urine 7.5 (5.0-9.0)
[2023-09-27 14:16] LABS: Sodium Urine Random 72 meq/L
[2023-09-27 20:10] LABS: Hemoglobin A1C 6.6 % (<5.7)
[2023-10-01 09:54] LABS: Osmolality, Urine 207 mOsm/kg (50-1200)
== END 2023-09-27 11:51 | disposition home or self-care (01) ==
LOC: ANHLAB 11:51
PROVIDERS: PCP Family Medicine; Visit Provider Family Medicine
DX: R35.0 Frequency of micturition (principal); E87.1 Hypo-osmolality and hyponatremia; E11.9 Type 2 diabetes mellitus without complications; R53.83 Other fatigue; D64.9 Anemia, unspecified; E78.5 Hyperlipidemia, unspecified; I10 Essential (primary) hypertension
CPT/HCPCS: 36415; 80053; 81001; 83036; 83930; 83935; 84300; 84443; 85027; 87086; 87088

== ENCOUNTER 2024-01-01 11:19 | Outpatient (CLI) | payer OTHER, SELFPAY ==
[2024-01-01 12:07] LABS: Albumin Level 4.6 g/dL (3.5-5.1); Anion Gap 9 mmol/L (4-12); Blood Urea Nitrogen 15 mg/dL (7-17); Calcium 9.3 mg/dL (8.4-10.2); Carbon Dioxide 28 mmol/L (22-30); Chloride 96 mmol/L (98-107); Estimated Glomerular Filt Rate > 60; Glucose 143 mg/dL (65-110); Phosphorus 4.3 mg/dL (2.5-4.5); Potassium 4.7 mmol/L (3.4-5.0); Sodium 133 mmol/L (137-145)
== END 2024-01-01 11:20 | disposition home or self-care (01) ==
PROVIDERS: PCP Family Medicine; Visit Provider Internal Medicine Nephrology
DX: E87.1 Hypo-osmolality and hyponatremia (principal)
CPT/HCPCS: 36415; 80069

== ENCOUNTER 2024-07-16 09:43 | Outpatient (CLI) | payer OTHER, SELFPAY ==
--- OUTSIDE RECORDS SUMMARY | 2024-07-16 09:48 | XMS_ITS | Clinical Summary ---
Author Organization [facility] , [facility] Address [address] [address] Phone Care Team Providers Care Tool Inspector Name Role Phone Tori Roque MD Primary Care Provider [phone] Allergies Active Allergy Reactions Criticality Noted Date Comments Prochlorperazine Medium 09/21/2019 Medications amLODIPine (NORVASC) 5 MG tablet Take 5 mg by mouth 1 (one) time each day 09/04/2020 Active atorvastatin (LIPITOR) 20 MG tablet 09/30/2020 Active clopidogrel (PLAVIX) 75 MG tablet Take 75 mg by mouth 1 (one) time each day 09/04/2020 Active ergocalciferol 1.25 MG (49285 UT) capsule TAKE 1 CAPSULE BY MOUTH TWICE PER MONTH DIRECTED ON THE AND OF THE MONTH 09/10/2020 Active folic acid (FOLVITE) 1 MG tablet Take 1,000 mcg by mouth 1 (one) time each day 09/07/2020 Active fosinopril (MONOPRIL) 20 MG tablet Take 20 mg by mouth 2 (two) times a day 07/19/2020 Active furosemide (LASIX) 20 MG tablet 09/30/2020 Active glipiZIDE (GLUCOTROL) 5 MG tablet Take 5 mg by mouth 2 (two) times a day 09/07/2020 Active Glumetza 500 MG 24 hr tablet Take 500 mg by mouth 2 (two) times a day 09/11/2020 Active Januvia 100 MG tablet Take 100 mg by mouth 1 (one) time each day 09/04/2020 Active spironolactone (ALDACTONE) 100 MG tablet 09/30/2020 Active Active Problems Problem Noted Date Diagnosed Date Chronic hyponatremia 09/21/2019 Immunizations Immunization Administration Dates Next Due Influenza LAIV (Nasal) 11/19/2019 Social History Tobacco Use Types Packs/Day Years Used Date Smoking Tobacco: Never Assessed Comments Unknown Sex and Gender Information Value Date Recorded Sex Assigned at Not on file Legal Sex Female 3:16 PM EDT Gender Identity Not on file Sexual Orientation Not on file Plan of Treatment Health Maintenance Due Date Last Done Comments Pneumococcal Vaccine: 50+ Ye ars (1 of 1 - PCV) 1994 Influenza Vaccine (Season Ended) 2024 11/19/19 20 Hepatitis B Vaccine Aged Out No longe r eligible based on patient's age to complete this topic Insurance [employer] ([id number]) Care Teams Tool Inspector Relationship Specialty Start Date End Date Tori Roque MD [address] [place] [address] PCP - General Family Medicine 10/13/20
--- OUTSIDE RECORDS SUMMARY | 2024-07-16 09:48 | XMS_ITS | Clinical Summary ---
Author Organization [facility] Address [address] [place] [address] Care Team Providers Care Dispensing Optician Name Role Phone Alee Lewis MD Unavailable [phone] Jasvir Rosa MD Unavailable [phone] Britton Padilla MD Unavailable [phone] Tori Roque MD Primary Care Provider [phone] Allergies Active Allergy Reactions Criticality Noted Date Comments Losartan Rash Medium 03/20/2023 Possible rash, 2023 Prochlorperazine Medium Medications multivitamin/iro n/folic acid (CENTRUM COMPLETE ORAL)Indications :vitamin deficiency prevention Take 1 capsule by mouth daily. Indications: vitamin deficiency prevention Active folic acid (FOLVITE) 1 mg tabletIndication s:Folate Deficiency Take 1 tablet (1 mg total) by mouth daily Active glipiZIDE (GLUCOTROL) 5 mg tabletIndication s:type 2 diabetes mellitus Take 1 tablet (5 mg total) by mouth 2 (two) times a day Active ergocalciferol (VITAMIN D) 50,000 unit capsuleIndicatio ns:Vitamin D Deficiency Take 1 capsule (50,000 Units total) by mouth as directed take 2 times per month Active SITagliptin (JANUVIA) 100 mg tabletIndication s:type 2 diabetes mellitus Take 1 tablet (100 mg total) by mouth daily Active atorvastatin (LIPITOR) 20 mg tablet Take 1 tablet (20 mg total) by mouth nightly 30 tablet 1 Active acetaminophen (TYLENOL) 500 mg tabletIndication s:Pain Take 1 tablet (500 mg total) by mouth every 6 (six) hours as needed for fever, headaches or pain Active nystatin powderIndication s:cutaneous candidiasis Apply 1 application topically daily as needed RX# [id number] qty 30. No Refills. Ordered by LUCINDA Pedraza 12/08/20 Active UNABLE TO FINDIndications: pain Apply 1 each topically continuously as needed (Pain) Hempvana cream Active rivaroxaban (XARELTO) 20 mg tabletIndication s:atrial fibrillation Take 1 tablet (20 mg total) by mouth daily 1 Active amLODIPine (NORVASC) 2.5 mg tablet Take 1 tablet (2.5 mg total) by mouth daily 4 Active mupirocin (BACTROBAN) 2 % ointment APPLY TOPICALLY TO THE AFFECTED AREA TWICE DAILY 5 Active sAXagliptin (ONGLYZA) 5 mg tablet Take 1 tablet (5 mg total) by mouth daily 5 Active metFORMIN XR (GLUCOPHAGE XR) 500 mg 24 hr tablet Take 1 tablet (500 mg total) by mouth daily 5 Active sotaloL (BETAPACE) 80 mg tablet TAKE 1 TABLET(80 MG) BY MOUTH TWICE DAILY 180 tablet 2 5 Active Active Problems Problem Noted Date Diagnosed Date nutritionists current use of antiarrhythmic drug H/O: stroke 03/20/2023 Chronic pain syndrome 01/03/2022 Medication monitoring encounter 06/28/2021 Mixed diabetic hyperlipidemi a associated with type 2 diabetes mellitus 06/28/2021 Atrial flutter 03/01/2021 Encounter for monitoring sotalol therapy 022 Takotsubo cardiomyopathy 10/19/2020 Tachy-moshe syndrome 10/19/2020 Chronic anticoagulation 10/19/2020 History of cardiomyopathy 10/19/2020 Coronary artery calcification 10/19/2020 Sleep-disordered breathing 10/19/2020 Chronic systolic congestive heart failure 2020 Hyponatremia 09/16/2020 Pericardial effusion 09/16/2020 PAF (paroxysmal atrial fibrillation) 09/16/2020 Multiple thyroid nodules 09/16/2020 Diabetes mellitus type II, controlled 09/16/2020 Frailty syndrome in geriatric patient 09/16/2020 Moderate protein-calorie malnutrition 09/16/2020 Pleural effusion 09/15/2020 Overview (09/16/2020): Added automatically from request for surgery [id number] Hyperlipidemia Resolved Problems Problem Noted Date Diagnosed Date Resolved Date Acute respiratory failure with hypoxia 09/16/2020 10/19/2020 Atrial fibrillation with RVR 09/16/2020 01/21/2022 Encounters Date Type Department Care Team Description 05/12/2024 10:45 AM CDT Office Visit [facility] Medical Group Cardiology [address] [place] [address] Joesph Baker MD Paroxysmal atrial fibrillation (HCC) (Primary Dx); PAF (paroxysmal atrial fibrillation) (HCC) from Last 3 Months Surgical History Surgery Date Site/Laterality Comments CHOLECYSTECTOMY PERICARDIAL WINDOW 09/16/2020 Medical History Medical History Date Comments Multiple thyroid nodules Diabetes mellitus (HCC) Hyponatremia Hypertension Goiter Coronary artery disease Stroke (HCC) Family History Medical History Relation Name Comments Stroke Father Diabetes Mother Hypertension Mother Multiple sclerosis Mother Relation Name Status Comments Father (Age 71) Mother (Age 68) Social History Tobacco Use Types Packs/Day Years Used Date Smoking Tobacco: Former Cigarettes 1.5 45 1 964 - 2008 Smokeless Tobacco: Former Quit: 2008 Tobacco Cessation:Counseling Given: Not Answered AUDIT-C Answer Date Recorded Q1: How often do you have a drink containing alc ohol? 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 Gender Identity Not on file Sexual Orientation Not on file Obstetrics History Last Filed Vital Signs Vital Sign Reading Time Taken Comments Blood Pressure 142/82 05/12/2024 10:58 AM CDT Pulse 56 05/12/2024 10:58 AM CDT Temperature 35.7 C (96.3 F) 02/01/2021 4:18 PM CRUSHER FOREMAN Respiratory Rate 18 02/01/2021 4:18 PM CRUSHER FOREMAN Oxygen Saturation 90% 05/12/2024 10:58 AM CDT Inhaled Oxygen Concentration - - Weight 88.9 kg (196 lb) 05/12/2024 10:58 AM CDT Height 165.1 cm (5' 5) 05/12/2024 10:58 AM CDT Body Mass Index 32.62 05/12/2024 10:58 AM CDT Plan of Treatment Health Maintenance Due Date Last Done Comments Depression Screening 1944 Hepatitis C Screening 1944 Osteoporosis Screening-Bone Density Scan 1944 Dilated Eye Exam 1944 Foot Exam 1944 DTaP/Tdap/Td Vaccine (1 - Tdap) 08/19/1955 Hepatitis B Screening 1962 Pneumococcal vaccine 65+ (1 of 2 - PCV) 08/19/1963 Zoster Vaccine (1 of 2) 1994 Well Visit 65+ 2009 Hemoglobin A1C 03/23/2021 09/20/2020 Albumin Creatinine Ratio, Urine 09/17/2021 Fall Risk Assessment 10/01/2021 10/01/2020 eGFR 10/06/2021 10/06/2020, 09/18, 09/30/2020, Additional history exists Influenza Vaccine (Season Ended) 2024 12/03/19, 11/19/2019 Lipid Panel 05/12/2025 05/12/2024, 02/20, 03/01/2021 Procedures Procedure Name Priority Date/Time Associated Diagnosis Comments POCT LIPID PANEL Routine 05/12/2024 10:5 2 AM CDT Paroxysmal atrial fibrillation (HCC) ELECTROCARDIOGRAM REPORT Routine 05/12/2024 Paroxysmal atrial fibrillation (HCC) EGFR STAT 10/06/2020 8:45 AM CDT HEMOGLOBIN A1C Routine 09/20/2020 3:14 AM CDT ALBUMIN CREATININE RATIO, URINE Routine 09/17/2020 4:47 PM CDT from Last 3 Months or Most Recently Relevant to Health Maintenance Results * POCT lipid panel (05/12/2024 10:52 AM CDT) Cholesterol, POC <100 mg/dL HDL, POC 42 mg/dL Triglycerides, POC 157 mg/dL LDL Cholesterol POC 25.6 mg/dL Chol/HDL Ratio, POC n/a Non-HDL Cholesterol, POC n/a mg/dL Cholesterol Total, POC <100 mg/dL Capillary blood 05/12/2024 1 0:52 AM CDT Joesph Baker MD POINT OF CARE TEST ORDERABLES Fi nal Result * Electrocardiogram Report (05/12/2024) 05/12/2024 Joesph Baker MD ECG ORDERABLES Final Result * (ABNORMAL) eGFR (10/06/2020 8:45 AM CDT) eGFR 66(L) 90 - 130 mL/min/1.7 3 m2 [facility] Comment: Interpretive Data Reference Interval Normal >/= 90 mL/min/1.73m2 Mildly decreased* 60 - 89 mL/min/1.73m2 Mildly to moderately decreased 45 - 59 mL/min/1.73m2 Moderately to severely decreased 30 - 44 mL/min/1.73m2 Severely decreased 15 - 29 mL/min/1.73m2 Kidney Failure < 15 mL/min/1.73m2 *Relative to young adult level Estimated glomerular filtration rate is determined by the CKD-EPI equation recommended by the National Kidney Foundation (KDIGO 2012 Clinical Practice Guideline for the Evaluation and Management of Chronic Kidney Disease. Kidney Intnl Suppl Feb 2012;3:1). The CKD-EPI equation should not be used for patients with unstable renal function and has not been validated in children and those over 70. Current interpretive data was last reviewed 2020 Blood 10/06/2020 8:45 AM CDT 10/06/2020 11:44 AM CDT Tori Roque MD LAB BLOOD ORDERABLES Final Resu lt [facility] Department [place] [address] * (ABNORMAL) Hemoglobin A1c (09/20/2020 3:14 AM CDT) Hgb A1C 6.1(H) 4.0 - 5.6 % [facility] Estimated Average Glucose 128 mg/dL [facility] Comment: The ADA recommends reporting an estimated Average Glucose (eAG) with all Hemoglobin A1c results using the equation derived from a study of 507 normal and diabetic adults. Minority populations were underrepresented and children were not included. (Diabetes Care 31:3335-5263, 2008). The eAG is not equivalent to a fasting glucose. Blood specimen (specimen) 09/20/2020 3:14 AM CDT 09/20/2020 3:16 AM CDT Kyleigh Pastrana MD LAB BLOOD ORDERABLES Breana l Result Performing Organization Address City/[facility]/ZIP Co de Phone Number [facility] [address] [place] [address] * Albumin Creatinine Ratio, Urine (09/17/2020 4:47 PM CDT) Albumin Ur <12.0 mg/L [facility] Comment: Interpretive Data No reference range established. Current interpretive data was last revised 2018. Creatinine Ur 63.7 mg/dL [facility] Comment: Interpretive Data No reference range established. Current interpretive data was last revised 2018. Albumin Creatinine Ratio, Ur <19 1 - 29 mg/g [facility] Urine 09/17/2020 4:47 PM CDT 09/17/2020 4:51 PM CDT Cruz Villa DO LAB URINE ORDERABLES Final Result [facility] [address] [place] [address] from Last 3 Months or Most Recently Relevant to Health Maintenance Insurance [facility] [id number] [facility] [place] [facility] [id number] Advance Directives For more information, please contact: [phone] Documents on File Type Date Recorded Patient Personal Lines Account Manager Expl anation ADVANCE DIRECTIVE 10/03/2020 12:55 PM 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
--- OUTSIDE RECORDS SUMMARY | 2024-07-16 09:48 | XMS_ITS | Referral Summary ---
Author Organization [facility] Address [address] [place] [address] Care Team Providers Care Wooden Frame Builder Name Role Phone Alee Lewis MD Unavailable [phone] Jasvir Rosa MD Unavailable [phone] Britton Padilla MD Unavailable [phone] Tori Roque MD Primary Care Provider [phone] Encounters Date Type Department Care Team Description 05/12/2024 10:45 AM CDT Office Visit [facility] Medical Group Cardiology [address] [place] [address] Joesph Baker MD Paroxysmal atrial fibrillation (HCC) (Primary Dx); PAF (paroxysmal atrial fibrillation) (HCC) from Last 3 Months Allergies Active Allergy Reactions Criticality Noted Date [...] 1 application topically daily as needed RX# [id number] qty 30. No Refills. 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 Gender Identity Not on file Sexual Orientation Not on file Last Filed Vital Signs Vital Sign Reading Time Taken Comments Blood Pressure 142/82 05/12/2024 10:58 AM CDT Pulse 56 05/12/2024 10:58 AM CDT Temperature 35.7 C (96.3 F) 02/01/2021 4:18 PM 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 Respiratory Rate 18 02/01/2021 4:18 PM 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 Oxygen Saturation 90% 05/12/2024 10:58 AM CDT Inhaled Oxygen Concentration - - Weight 88.9 kg (196 lb) 05/12/2024 10:58 AM CDT Height 165.1 cm (5' 5) 05/12/2024 10:58 AM CDT Body Mass Index 32.62 05/12/2024 10:58 AM CDT Plan of Treatment Not on file Procedures Procedure Name Priority Date/Time Associated Diagnosis [...] Capillary blood 05/12/2024 1 0:52 AM CDT us Joesph Baker MD POINT OF CARE TEST ORDERABLES Fi nal Result * Electrocardiogram Report (05/12/2024) 05/12/2024 us Joesph Baker MD ECG ORDERABLES Final Result * (ABNORMAL) eGFR (10/06/2020 8:45 AM CDT) eGFR 66(L) 90 - 130 mL/min/1.7 3 m2 [facility] Comment: Interpretive Data Reference Interval Normal >/= [...] 8:45 AM CDT 10/06/2020 11:44 AM CDT us Tori Rouqe MD LAB BLOOD ORDERABLES Final Resu lt Performing Organization Address [facility] Co de Phone Number [facility] Department [place] [address] * (ABNORMAL) Hemoglobin A1c (09/20/2020 3:14 AM CDT) Hgb A1C 6.1(H) 4.0 - 5.6 % [facility] Estimated Average Glucose 128 mg/dL [facility] Comment: The ADA recommends reporting an estimated Average Glucose (eAG) with all Hemoglobin A1c results using the equation derived from a study of 507 normal and diabetic adults. Minority populations were underrepresented and children were not included. (Diabetes Care 31:9079-5304, 2008). The eAG is not equivalent to a fasting glucose. Blood specimen (specimen) 09/20/2020 3:14 AM CDT 09/20/2020 3:16 AM CDT Kyleigh Pastrana MD LAB BLOOD ORDERABLES Breana l Result [facility] [address] Department [place] [address] * Albumin Creatinine Ratio, Urine (09/17/2020 4:47 PM CDT) Albumin Ur <12.0 mg/L [facility] Comment: Interpretive Data No reference range established. Current interpretive data was last revised 2018. Creatinine Ur 63.7 mg/dL [facility] Comment: Interpretive Data No reference range established. Current interpretive data was last revised 2018. Albumin Creatinine Ratio, Ur <19 1 - 29 mg/g [facility] Urine 09/17/2020 4:47 PM CDT 09/17/2020 4:51 PM CDT Cruz Villa DO LAB URINE ORDERABLES Final Result [facility] [address] Department [place] [address] from Last 3 Months or Most Recently Relevant to Health Maintenance Insurance [employer] [facility] [employer] Address: [address] [address] [facility] [address] [facility] [id number] Advance Directives For more information, please contact: [phone] Documents on File Type Date Recorded Patient Criminal Analyst Expl anation ADVANCE DIRECTIVE 10/03/2020 12:55 PM GATITO R OF KINDERGARTEN INSTRUCTIONAL ASSISTANT-MEDICAL * Full Code (Latest Code Status on File) Date Activated Date Inactivated Comments 09/16/2020 5:33 AM 10/01/2020 8:25 PM Care Teams Wooden Frame Builder Relationship Specialty Start [place] [address] [address] PCP - General Family Medicine 10/19/20 [place] [address] [address] Consulting Physician Endocrinology 09/30/20 [place] [address] [address] Consulting Physician Pulmonary Disease 09/30/20 [place] [address] [address] [facility] [address], [place] [address] Referring Physician Nephrology 09/30/20
--- OUTSIDE RECORDS SUMMARY | 2024-07-16 09:48 | XMS_ITS | Continuity of Care Document ---
Author Organization [facility] Address [address] [facility] [address] [place] [address] Phone Care Team Providers Care Marine Habitat Resource Specialist Name Role Phone Janeen Sommer Unavailable Unavailable Procedures Procedure Date Office/outpatient Visit, Est Visual Field Examination(s) Office/outpatient Visit, Est Optic Nerve Topography Optic Nerve Topography Eye Exam, New Patient Advance Directives Directive Yes / No Effective Date File Name No Information Encounters Encounter Description Practice Location Reason(s) For Visit Diagnoses Date Provider Providers Copied on Encounter Office/outpat ient Visit, Est [facility], [address] [place] [address] [address], [place], [place], [id number], tel:[phone] [facility] No Information 8-200 9 Ros [place] [address] [facility] , [address], [place], [place], [facility], . tel:[phone] [facility], [address] [place] [address] [address], [place], [place], [id number], tel:[phone] [facility] [place] No Information 3-200 8 Ros [address] [address] [facility] [address] [facility], [place], [address], [place]. tel:[phone] Referring Provider: Jose [facility] [address], [place], [place], [facility]. tel:[phone] Office/outpat ient Visit, Est [facility], [address] [place] [address] [address], [place], [place], [id number], tel:[phone] [facility] [place] No Information Nov-0 6-200 8 Ros [place] [address] [facility] [place] , [address], [place], [place], [facility], . tel:[phone] [facility], [address] [place] [address] [address], [place], [place], [id number], tel:[phone] [facility] [place] No Information Dec-0 7-200 7 Ros [place]. [address] [facility] , [address], [place], [place], [facility], . tel:[phone] Referring Provider: Jose A [facility] [place] [address], [place], [facility]. tel:[phone] [facility], [address] [place] [address] [address], [place], [place], [id number], tel:[phone] [facility] [place] No Information Sep-2 0-200 7 Ros [place]. [facility] , [address], [place], [place], [facility], . tel:[phone] Family History Family Member Type Diagnosis Age At Onset No Information Payers Payer name Insurance type Covered libertarian ID Authoriza tion(s) No Information Social History Type Description Quantity Date Captured Comments Sex Female Smoking Status No Information Chief Complaint And Reason For Visit No Information Reason For Referral Reason For Referral No Information History Of Present Illness Encounter Date Complaint History Of Prese nt Illness No Information Functional Status Date Functional Assessmen t No Information Instructions Date Instruction Additional Infor mation No Information Assessments Type Assessment Date No Information Patient Care Teams Name Effective Dates (start - stop) Status Members No Information
--- OUTSIDE RECORDS SUMMARY | 2024-07-16 09:48 | XMS_ITS | Clinical Summary ---
Author Organization [facility] Address [address] [place] [address] Phone Care Team Providers Care Elevating Grader Operator Name Role Phone Tori Roque MD Primary Care Provider [phone] Allergies Active Allergy Reactions Criticality Noted Date Comments Prochlorperazine Medium 09/21/2019 Medications multivitamin with minerals (CENTRUM/CERTAV IT) 9-200 mg-mcg tablet (HALF TABLET) Take 1 capsule by mouth daily Active ergocalciferol (VITAMIN D2) 1.25 MG (43881 UT) capsule TK 2 CS PO MONTHLY 0 Active glipiZIDE (GLUCOTROL) 5 MG tablet TK 2 TS PO QAM AND 2 TS PO QPM 0 Active JANUVIA 100 MG tablet TK 1 T PO D 0 Active folic acid (FOLVITE) 1 MG tablet TK 1 T PO D 0 Active Glumetza 500 MG 24 hr tablet Take 500 mg by mouth 2 (two) times a day 1 Active SSD 1 % cream Apply topically 2 (two) times a day 0 Active atorvastatin (LIPITOR) 20 MG tablet Take 20 mg by mouth 1 (one) time each day 1 Active Nystop 692683 UNIT/GM powder APPLY TOPICALLY TO THE AFFECTED AREA TWICE DAILY 1 Active Xarelto 20 MG tablet TAKE 1 TABLET BY MOUTH WITH NOON MEAL 2 Active sotalol (BETAPACE) 80 MG tablet Take 80 mg by mouth every 12 (twelve) hours 2 Active Active Problems Problem Noted Date Diagnosed Date Dyslipidemia 12/15/2020 Atrial fibrillation with rapid ventricular respo nse 09/16/2020 Type 2 diabetes mellitus 09/16/2020 Chronic hyponatremia 09/21/2019 Immunizations Immunization Administration Dates Next Due Influenza LAIV (Nasal) 11/19/2019,11/19/2019 Influenza TIV (IM) 12/02/2021 Family History Medical History Relation Comments Hyponatremia Neg Hx Social History Tobacco Use Types Packs/Day Years Used Date Smoking Tobacco: Former Smokeless Tobacco: Never Alcohol Use Standard Drinks/Week Comments Yes 0 (1 standard drink = 0.6 oz pur e alcohol) rare Comments Unknown Sex and Gender Information Value Date Recorded Sex Assigned at Not on file Legal Sex Female 11:19 AM MDT Gender Identity Not on file Sexual Orientation Not on file Last Filed Vital Signs Vital Sign Reading Time Taken Comments Blood Pressure 122/82 01/15/2022 11:11 AM CONFERENCE SERVICE COORDINATOR Pulse 72 01/15/2022 11:11 AM CONFERENCE SERVICE COORDINATOR Temperature 35.2 C (95.3 F) 01/15/2022 11:11 AM CONFERENCE SERVICE COORDINATOR Respiratory Rate - - Oxygen Saturation - - Inhaled Oxygen Concentration - - Weight 88.9 kg (196 lb) 07/03/2021 11:10 AM CDT Height 167.6 cm (5' 6) 07/03/2021 11:10 AM CDT Body Mass Index 31.64 07/03/2021 11:10 AM CDT Plan of Treatment Health Maintenance Due Date Last Done Comments Diabetic Foot Exam 1955 Ophthalmology Exam 1954 Pneumococcal PPSV23/PCV13 65 + Years / High and Highest Risk (1 of 5 - PCV) 08/19/1963 Influenza Vaccine (Season Ended) 2024 12/02/2021, 11/19/2019, 11/19/2019 Insurance PISTIS Consult Advance Directives For more information, please contact: [phone] (7AM - 4PM [facility], 7 days a week) Documents on File Type Date Recorded Patient Security Guard Expl anation Power of Cmm Programmer 09/30/2019 12:07 PM Ajit [id number] f Care Teams Elevating Grader Operator Relationship Specialty Start Date End Date Tori Roque MD [address] [place] [address] PCP - General Internal Medicine 08/17/19
[2024-07-16 10:22] LABS: Alanine Aminotransferase 11 U/L (6-35); Albumin Level 4.6 g/dL (3.5-5.1); Alkaline Phosphatase 84 U/L (38-126); Aspartate Amino Transferase 32 U/L (14-36); Bilirubin,Total 0.7 mg/dL (0.2-1.3); Cholesterol 130 mg/dL (0-200); HDL Direct 48 mg/dL; Triglycerides 180 mg/dL (<150)
[2024-07-16 10:25] LABS: Albumin Level 4.5 g/dL (3.5-5.1); Anion Gap 8 mmol/L (4-12); Blood Urea Nitrogen 14 mg/dL (7-17); Calcium 9.3 mg/dL (8.4-10.2); Carbon Dioxide 28 mmol/L (22-30); Chloride 95 mmol/L (98-107); Estimated Glomerular Filt Rate > 60; Glucose 117 mg/dL (65-110); Phosphorus 4.7 mg/dL (2.5-4.5); Potassium 4.5 mmol/L (3.4-5.0); Sodium 131 mmol/L (137-145)
[2024-07-16 10:33] LABS: LDL Cholesterol Direct 51 mg/dL
[2024-07-16 10:48] LABS: Add Urine Microscopic? YES; Appearance Urine Clear (Clear); Bacteria Urine 3+ /hpf; Bilirubin Urine Negative (Negative); Blood Urine 2+ (Negative); Color Urine Yellow (Yellow); Glucose Urine UA Negative (Negative); Ketones Urine Negative (Negative); Leukocyte Esterase Ur 3+ LEU/UL (Negative); Nitrate Urine Positive (Negative); Non Pathogenic Casts 0-2; Protein Urine Negative (Negative); Squamous Epithelial Cell Urine Occasional /hpf (Few); Urobilinogen Urine 0.2 mg/dL (<2.0); WBC Urine 51-100 /hpf (0-3)
[2024-07-16 11:13] LABS: Hemoglobin A1C 6.4 % (<5.7)
== END 2024-07-16 09:44 | disposition home or self-care (01) ==
PROVIDERS: PCP Family Medicine; Visit Provider Internal Medicine Nephrology
DX: E87.1 Hypo-osmolality and hyponatremia (principal); R82.81 Pyuria; E11.9 Type 2 diabetes mellitus without complications; E78.2 Mixed hyperlipidemia; E78.5 Hyperlipidemia, unspecified; E03.9 Hypothyroidism, unspecified
CPT/HCPCS: 36415; 80061; 80069; 80076; 81001; 83036; 84443; 87077; 87086; 87186

== ENCOUNTER 2025-01-06 05:36 | Inpatient (IN) | payer OTHER, SELFPAY ==
[2025-01-06] VITALS (21 sets, daily range): BP systolic 156–191; BP diastolic 66–117; PULSE 56–77; RESP 12–23; TEMP 36.4–36.9; O2SAT 84–99; BMI 35.2
--- NOTE | ~2025-01-06 | XR_ITS ---
MODIFIED ESOPHAGRAM HISTORY: Dysphagia. TECHNIQUE: Modified barium esophagram was performed on 01/11/2025. I administered fluoroscopy and performed the exam with speech pathologist. Patient was seated for lateral fluoroscopic imaging for ingestion of thin liquids, pudding, solids and quantified amounts, followed by thin liquids in uncontrolled amounts. This was recorded on tape. A single fluoroscopic spot image was also recorded. The DAP for this procedure was 2.842 Gycm2. The amount of fluoroscopy time used during this procedure was 2.7 minutes. FINDINGS: Oral stage: Adequate function. Pharyngeal stage: Reduced laryngeal elevation. There is transient shallow/trace laryngeal penetration which cleared rapidly without aspiration.. Cervical/esophageal stage: Adequate function. IMPRESSION: Mild pharyngeal dysphagia with flash laryngeal penetration without aspiration. Please correlate with speech pathologist findings and specific feeding recommendations. Reviewed, dictated and finalized at location A. BUILDER IMPRESSION: Mild pharyngeal dysphagia with flash laryngeal penetration without aspiration. Please correlate with speech pathologist findings and specific fee ding recommendations.
--- NOTE | ~2025-01-06 | XR_ITS ---
EXAMINATION: XR chest 1V portable DATE: 01/07/2025 16:47 INDICATION: Hypoxia TECHNIQUE: A single frontal view of the chest was obtained. COMPARISON: January 06 chest x-ray FINDINGS: Mildly increased bibasilar parenchymal markings left worse than right. Mid and upper lung anderson are clear. Heart shadow normal. Bones and upper abdomen unremarkable. IMPRESSION: 1. Suspect worsening pulmonary edema and/or infiltrates in the lower lobes left worse than right. Reviewed, dictated and finalized at location A. L BUSINESS DIRECTOR
--- NOTE | ~2025-01-06 | XR_ITS ---
Examination: XR chest 2V Clinical History: sob Comparison: 01/20/2021 Technique: PA and Lateral Findings: Cardiomediastinal silhouette normal size and configuration. Lungs clear. No acute bony abnormality. IMPRESSION: 1. No acute cardiopulmonary findings. Reviewed, dictated and finalized at location R. TOCK SPRAY UNIT FEEDER
--- NOTE | ~2025-01-06 | XR_ITS ---
EXAM/PROCEDURE: XR barium swallow modified HISTORY: Coughing with liquids COMPARISON: None available. TECHNIQUE: Modified barium swallow Fluoroscopy time: 1.3 minutes DAP: 1.1 santos per square centimeter Number of images: 1 IMPRESSION: No aspiration observed. See speech therapist's report for complete evaluation. Reviewed, dictated and finalized at location A. DREN'S SERVICE WORKER
--- NOTE | ~2025-01-06 | XR_ITS ---
EXAMINATION: XR chest 1V portable COMPARISON: No comparisons available. HISTORY: CHF FINDINGS: The lungs are clear, no effusion. No pneumothorax. Heart is normal size. Mediastinal and hilar contours are within normal limits. Bony thorax no acute abnormality. Miscellaneous: None Impression: No acute cardiopulmonary abnormality. Reviewed, dictated and finalized at location P. GHT FLAGMAN Impression: No acute cardiopulmonary abnormality.
--- NOTE | ~2025-01-06 | XR_ITS ---
EXAMINATION: XR chest 1V portable COMPARISON: No comparisons available. HISTORY: SOB FINDINGS: Mild pulmonary venous congestion. No pneumothorax. Mild cardiomegaly. Mediastinal and hilar contours are within normal limits. Bony thorax no acute abnormality. Miscellaneous: None Impression: Mild CHF. The findings appear relatively unchanged Reviewed, dictated and finalized at location P. ON REDEMPTION CLERK Impression: Mild CHF. The findings appear relatively unchanged
--- NOTE | 2025-01-06 05:59 | ECG_ITS ---
Test Date: 2025-01-06 07:06:56 Measurements Intervals [place] Rate: 65 P: 37 [place]: 233 QRS: 5 QRSD: 154 T: 24 QT: 452 QTc: 472 Interpretive Statements SINUS RHYTHM WITH FIRST DEGREE AV BLOCK RIGHT BUNDLE BRANCH BLOCK [120+ ms QRS DURATION, UPRIGHT V1, 40+ ms S IN I/aVL/V4/V5/V6] ABNORMAL ECG No previous ECG available for comparison Electronically Signed On 01-06-2025 07:49:41 APPRISE COUNSELOR by Jasvir Crawford M.D.
--- NOTE | 2025-01-06 06:24 | ED.GENADULT ---
HPI - General Adult General Chief complaint: Shortness of Breath/Dyspnea <Raheel Velarde MD - Last Filed: 01/06/25 06:43> Stated complaint: Cough/fever/nausea <Raheel Velarde MD - Last Filed: 01/06/25 06:43> Time Seen by Provider: 01/06/25 06:10 <Raheel Velarde MD - Last Filed: 01/06/25 06:43> History of Present Illness HPI narrative: Patient is a 79-year-old female who presents emergency department with chief complaint of generalized malaise and shortness of breath patient reports about 4 days ago she started having flu-like symptoms with cough headache sore throat and nausea patient reports that she does not normally wear oxygen reports that she has been coughing but not coughing up anything noticed that her urine has been very dark patient does have prior history of congestive heart failure and hyponatremia <Raheel Velarde MD - Last Filed: 01/06/25 06:43> Related Data Home medications: Home Medications ?Medication ?Instructions ?Recorded ?Confirmed ?Last Taken ?Type multivitamin-ferrous 1 tablet PO DAILY 01/21/21 01/06/25 Unknown History fumarate-folic acid 18 mg-400 mcg tablet (Centrum Complete) acetaminophen 500 mg tablet 500 mg PO QHS PRN pain 01/14/24 01/06/25 Unknown History (Tylenol Extra Strength) glipizide 5 mg tablet 5 mg PO BID 01/06/25 01/06/25 Unknown History <Raheel Velarde MD - Last Filed: 01/06/25 06:43> Allergies/adverse reactions: Allergies Allergy/AdvReac Type Severity Reaction Status Date / Time No Known Allergies Allergy Verified 01/06/25 10:03 <Raheel Velarde MD - Last Filed: 01/06/25 06:43> Review of Systems Review of Systems: A 10 system review of systems was completed on the patient and is negative except for what is stated in the HPI. Nursing and ancillary documentation was reviewed. 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 Multinodular goiter Ultrasound in June 2019 showed 2 right thyroid nodules, 1 with TI RADS 3 and the other TI RADS 5. Anemia Chronic hyponatremia Abrasion of scalp Traumatic hematoma of scalp CVA (cerebral vascular accident) Brainstem CVA in 2009 Hyperlipidemia Hypertension Diabetes mellitus Recent hemoglobin A1c was 6.2 <Raheel Velarde MD - Last Filed: 01/06/25 06:43> Surgical History Surgical History: Surgical History History of hip surgery Status post creation of pericardial window History of cholecystectomy <Raheel Velarde MD - Last Filed: 01/06/25 06:43> Family History Family History: Family History Father Lung cancer Mother Heart disease Diabetes mellitus Sibling , Brother earlier this year. 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 She has no children and is single. She is with his best friend Gwendolyn. Quit smoking in 2008 after a 30pk year hx. No alcohol or drug use. Code status: Full code. Surrogate decision maker and personal care attendant: Gwendolyn Peters, friend. Smoking packs per day: 1 Smoking cigarettes per day: 20.0 Years smoked: 30 Smoking pack-years: 30.00 Smoking status: Former smoker Tobacco type: cigarettes Second hand tobacco smoke exposure: Yes Smoking end date: 07/19/08 Additional smoking assessment comments: She smoked 1-2 packs cigarettes per day for approximately 44 years. Alcohol intake: never Substance use: never Other substance usage details: Occasional medicine all marijuana gummies. Do You Feel Safe in your Home?: Yes Lack of Transportation: No Lack of Food: Never True Current Housing: I Have Housing Concerned About Future Housing: No Difficulty Paying Gas/Electric Bills: No Difficulty Paying for Meds: No Currently Unemployed: No Education: Bachelor's Degree Difficulty w/ Childcare or Family Care: No Living arrangements: with friend(s) Additional living arrangements comments: The patient lives in her own home. Her close friend Gwendolyn lives downstairs and helps provide care for the patient. She is single/never has been and does not have any children. Occupation/Education: retired Additional occupation/education comments: She is a retired teacher counselor. Gender identity (if verbalized by the patient): Female Spiritual care concerns: No Agree to blood products: Yes <Raheel Velarde MD - Last Filed: 01/06/25 06:43> Exam Narrative: GENERAL: Well-appearing, well-nourished, and in no acute distress. HEAD: Normocephalic, atraumatic. EYES: PERRLA and EOMI. ENT: Nares clear, no rhinorrhea or epistaxis. Mucous membranes moist. NECK: Supple. CHEST: Clear to auscultation. No respiratory distress. HEART: Regular rate and rhythm. No murmur heard. Normal peripheral pulses. ABDOMEN: Soft, nontender, nondistended, normal active bowel sounds. EXTREMITIES: Normal range of motion. No edema. SKIN: Warm, dry, no rash. NEURO: No focal deficits. Alert and oriented x3. PSYCH: Normal mood and affect. <Raheel Velarde MD - Last Filed: 01/06/25 06:43> Course Vital Signs Vital signs: Vital Signs Temperature 98.4 F 01/06/25 05:37 Pulse Rate 72 01/06/25 05:37 Respiratory Rate 23 H 01/06/25 05:37 Pulse Oximetry 84 L 01/06/25 05:37 Oxygen Delivery Room Air 01/06/25 05:37 Temperature 98.2 F 01/06/25 16:00 Pulse Rate 63 01/06/25 16:00 Respiratory Rate 22 H 01/06/25 16:00 Blood Pressure 157/117 H 01/06/25 16:00 Pulse Oximetry 93 01/06/25 16:00 Oxygen Delivery Nasal Cannula 01/06/25 12:00 Oxygen Flow Rate 2 01/06/25 12:00 <Raheel Velarde MD - Last Filed: 01/06/25 06:43> Vital Signs Temperature 98.4 F 01/06/25 05:37 Pulse Rate 72 01/06/25 05:37 Respiratory Rate 23 H 01/06/25 05:37 Pulse Oximetry 84 L 01/06/25 05:37 Oxygen Delivery Room Air 01/06/25 05:37 Temperature 98.2 F 01/06/25 16:00 Pulse Rate 63 01/06/25 16:00 Respiratory Rate 22 H 01/06/25 16:00 Blood Pressure 157/117 H 01/06/25 16:00 Pulse Oximetry 93 01/06/25 16:00 Oxygen Delivery Nasal Cannula 01/06/25 12:00 Oxygen Flow Rate 2 01/06/25 12:00 <Alexshayan Harmon Andrew III, DO - Last Filed: 01/06/25 18:36> Medical Decision Making MDM Narrative Medical decision making narrative: Differential diagnosis includes pneumonia, hypoxic respiratory failure, CHF, ACS, COVID, flu, RSV, UTI, Laboratory studies were ordered on the patient the patient was placed on 3 L nasal cannula that has improved the patient's oxygenation <Raheel Velarde MD - Last Filed: 01/06/25 06:43> Differential diagnosis includes pneumonia, hypoxic respiratory failure, CHF, ACS, COVID, flu, RSV, UTI, Laboratory studies were ordered on the patient the patient was placed on 3 L nasal cannula that has improved the patient's oxygenation. pt hyponatrmic and a bit dehydrated. discussed with Dr Carrera and agrees to admit. <Alex Harmon Andrew III, DO - Last Filed: 01/06/25 18:36> Medical Records Medical records reviewed: Yes I reviewed the external patient's medical records. <Alex Faustino Andrew III, DO - Last Filed: 01/06/25 18:36> Vital Signs Vital Signs: Vital Signs Temperature 98.4 F 01/06/25 05:37 Pulse Rate 72 01/06/25 05:37 Respiratory Rate 23 H 01/06/25 05:37 Pulse Oximetry 84 L 01/06/25 05:37 Oxygen Delivery Room Air 01/06/25 05:37 Temperature 98.2 F 01/06/25 16:00 Pulse Rate 63 01/06/25 16:00 Respiratory Rate 22 H 01/06/25 16:00 Blood Pressure 157/117 H 01/06/25 16:00 Pulse Oximetry 93 01/06/25 16:00 Oxygen Delivery Nasal Cannula 01/06/25 12:00 Oxygen Flow Rate 2 01/06/25 12:00 <Raheel Velarde MD - Last Filed: 01/06/25 06:43> Vital Signs Temperature 98.4 F 01/06/25 05:37 Pulse Rate 72 01/06/25 05:37 Respiratory Rate 23 H 01/06/25 05:37 Pulse Oximetry 84 L 01/06/25 05:37 Oxygen Delivery Room Air 01/06/25 05:37 Temperature 98.2 F 01/06/25 16:00 Pulse Rate 63 01/06/25 16:00 Respiratory Rate 22 H 01/06/25 16:00 Blood Pressure 157/117 H 01/06/25 16:00 Pulse Oximetry 93 01/06/25 16:00 Oxygen Delivery Nasal Cannula 01/06/25 12:00 Oxygen Flow Rate 2 01/06/25 12:00 <Alex Andrew III, DO - Last Filed: 01/06/25 18:36> Lab Data Lab results reviewed: Yes I reviewed the patient's lab results. <Alex Andrew III, DO - Last Filed: 01/06/25 18:36> Result diagrams: 01/06/25 06:16 01/06/25 17:53 <Raheel Velarde MD - Last Filed: 01/06/25 06:43> Labs: Lab Results 01/06/25 01/06/25 01/06/25 Range/Units 06:16 06:52 06:53 WBC 6.2 (4.5-10.0) K/mm3 RBC 4.15 L (4.2-5.4) M/mm3 Hgb 14.3 (12.0-15.0) g/dL Hct 37.5 (37.0-47.0) % MCV 90.4 (80-100) fl MCH 34.5 H (26-34) pg MCHC 38.1 H (32-36) g/dl RDW 11.5 (11.5-14.5) % Plt Count 165 (150-375) k/mm3 MPV 11.2 H (7.4-10.4) fl Immature Gran % (Auto) 3.4 H (0-0.5) % Neut % (Auto) 60.8 (45.5-73.1) % Lymph % (Auto) 22.9 (18.3-44.2) % [place] % (Auto) 12.4 H (2.6-8.5) % Eos % (Auto) 0.2 (0-4.4) % Baso % (Auto) 0.3 (0.2-1.2) % Lymph # (Auto) 1.42 (0.9-3.2) K/mm3 [place] # (Auto) 0.8 H (0.1-0.6) K/mm3 Eos # (Auto) 0.0 (0-0.3) K/mm3 Baso # (Auto) 0.0 (0.0-0.1) K/mm3 Abs Immat Gran (auto) 0.21 H (0.00-0.031) K/mm3 Absolute Neuts (auto) 3.8 (1.3-6.7) K/mm3 Absolute Nucleated RBC 0.000 (0.0-0.012) K/mm3 Band Neutrophils % Not Reportable Nucleated RBC % 0.0 (0.0-0.2) % Platelet Estimate Adequate (Adequate) Rouleaux Schistocytes None seen Sodium 112 L* (137-145) mmol/L Potassium 4.2 (3.4-5.0) mmol/L Chloride 78 L (98-107) mmol/L Carbon Dioxide 26 (22-30) mmol/L Anion Gap 8 (4-12) mmol/L BUN 14 (7-17) mg/dL Creatinine 0.70 (0.7-1.0) mg/dL Estim Creat Clear Calc 64 ml/min Estimated GFR > 60 (59 - ) Glucose 198 H (65-110) mg/dL POC Capillary Glucose (65-105) mg/dl Serum Osmolality Lactic Acid 0.8 (0.7-2.0) mmol/L Calcium 8.9 (8.4-10.2) mg/dL Magnesium 1.5 L (1.6-2.3) mg/dL Total Bilirubin 0.7 (0.2-1.3) mg/dL AST 37 H (14-36) U/L ALT 11 (6-35) U/L Alkaline Phosphatase 105 (38-126) U/L Troponin I < 0.012 (0.000-0.034) ng/mL NT-Pro-B Natriuret Pep 834 H (19.9-100) pg/mL Total Protein 8.3 H (6.3-8.2) g/dL Total Protein (PEP) Albumin 4.6 (3.5-5.1) g/dL Albumin (PEP) Globulin (PEP) Albumin/Globulin Ratio Bcdjb-5-Rolsvwbwf Jklbc-7-Obvqwidij Beta Globulins Gamma Globulins Procalcitonin 0.0 ng/mL TSH (Reflex) (0.465-4.68) uIU/mL Random Cortisol ug/dL Urine Color (Yellow) Urine Appearance (Clear) Urine pH (5.0-9.0) Ur Specific [place] (1.001-1.035) Urine Protein (Negative) mg/dL Urine Glucose (UA) (Negative) mg/dL Urine Ketones (Negative) mg/dL Ur Blood (Man) (Negative) Urine Nitrate (Negative) Urine Bilirubin (Negative) Urine Urobilinogen (<2.0) mg/dL Leukocyte Esterase Rfl (Negative) TARA/UL Urine RBC (0-2) /hpf Urine WBC (0-3) /hpf Ur Squamous Epith Cells (Few) /hpf Urine Bacteria /hpf Urine Casts U Random Total Protein mg/dL Ur Random Sodium meq/L Ur Random Urea MG/DL Urine Creatinine mg/dL Protein/Creat Ratio 2 (0-0.20) mg/mg Urine Total Protein Urine Albumin (PEP) U Glqpx-9-Zalbganl U Fjgaz-0-Vbxwvzbh U Beta Globulin U Gamma Globulin U Random M-Sinan (%) IgG IgA IgM Pr Electrophoresis MSpike ZAYDA Interpretation Influenza A (RT-PCR) Negative (Negative) Influenza B (RT-PCR) Negative (Negative) RSV (RT-PCR) Negative (Negative) SARS-CoV-2 RNA (RT-PCR) Negative (Negative) Group A Strep (PCR) Not detected (Negative) 01/06/25 01/06/25 01/06/25 Range/Units 10:02 11:15 11:23 WBC (4.5-10.0) K/mm3 RBC (4.2-5.4) M/mm3 Hgb (12.0-15.0) g/dL Hct (37.0-47.0) % MCV (80-100) fl MCH (26-34) pg MCHC (32-36) g/dl RDW (11.5-14.5) % Plt Count (150-375) k/mm3 MPV (7.4-10.4) fl Immature Gran % (Auto) (0-0.5) % Neut % (Auto) (45.5-73.1) % Lymph % (Auto) (18.3-44.2) % [place] % (Auto) (2.6-8.5) % Eos % (Auto) (0-4.4) % Baso % (Auto) (0.2-1.2) % Lymph # (Auto) (0.9-3.2) K/mm3 [place] # (Auto) (0.1-0.6) K/mm3 Eos # (Auto) (0-0.3) K/mm3 Baso # (Auto) (0.0-0.1) K/mm3 Abs Immat Gran (auto) (0.00-0.031) K/mm3 Absolute Neuts (auto) (1.3-6.7) K/mm3 Absolute Nucleated RBC (0.0-0.012) K/mm3 Band Neutrophils % Nucleated RBC % (0.0-0.2) % Platelet Estimate (Adequate) Rouleaux Schistocytes Sodium 113 L* (137-145) mmol/L Potassium (3.4-5.0) mmol/L Chloride (98-107) mmol/L Carbon Dioxide (22-30) mmol/L Anion Gap (4-12) mmol/L BUN (7-17) mg/dL Creatinine (0.7-1.0) mg/dL Estim Creat Clear Calc ml/min Estimated GFR (59 - ) Glucose (65-110) mg/dL POC Capillary Glucose 184 H (65-105) mg/dl Serum Osmolality Lactic Acid (0.7-2.0) mmol/L Calcium (8.4-10.2) mg/dL Magnesium (1.6-2.3) mg/dL Total Bilirubin (0.2-1.3) mg/dL AST (14-36) U/L ALT (6-35) U/L Alkaline Phosphatase (38-126) U/L Troponin I < 0.012 (0.000-0.034) ng/mL NT-Pro-B Natriuret Pep (19.9-100) pg/mL Total Protein (6.3-8.2) g/dL Total Protein (PEP) Albumin (3.5-5.1) g/dL Albumin (PEP) Globulin (PEP) Albumin/Globulin Ratio Yexte-5-Lxrjhnbui Raurt-7-Kffujxspc Beta Globulins Gamma Globulins Procalcitonin ng/mL TSH (Reflex) (0.465-4.68) uIU/mL Random Cortisol ug/dL Urine Color Yellow (Yellow) Urine Appearance Cloudy H (Clear) Urine pH 6.0 (5.0-9.0) Ur Specific [place] 1.015 (1.001-1.035) Urine Protein 2+ H (Negative) mg/dL Urine Glucose (UA) Trace H (Negative) mg/dL Urine Ketones Negative (Negative) mg/dL Ur Blood (Man) 3+ H (Negative) Urine Nitrate Negative (Negative) Urine Bilirubin Negative (Negative) Urine Urobilinogen 1.0 (<2.0) mg/dL Leukocyte Esterase Rfl 1+ H (Negative) TARA/UL Urine RBC >100 H (0-2) /hpf Urine WBC 11-20 H (0-3) /hpf Ur Squamous Epith Cells None seen (Few) /hpf Urine Bacteria Rare /hpf Urine Casts 0-2 U Random Total Protein mg/dL Ur Random Sodium meq/L Ur Random Urea MG/DL Urine Creatinine mg/dL Protein/Creat Ratio 2 (0-0.20) mg/mg Urine Total Protein Urine Albumin (PEP) U Yifyr-9-Nuxwunte U Odjzu-8-Rkbnkdgl U Beta Globulin U Gamma Globulin U Random M-Sinan (%) IgG IgA IgM Pr Electrophoresis MSpike ZAYDA Interpretation Influenza A (RT-PCR) (Negative) Influenza B (RT-PCR) (Negative) RSV (RT-PCR) (Negative) SARS-CoV-2 RNA (RT-PCR) (Negative) Group A Strep (PCR) (Negative) 01/06/25 01/06/25 Range/Units 13:05 14:00 WBC (4.5-10.0) K/mm3 RBC (4.2-5.4) M/mm3 Hgb (12.0-15.0) g/dL Hct (37.0-47.0) % MCV (80-100) fl MCH (26-34) pg MCHC (32-36) g/dl RDW (11.5-14.5) % Plt Count (150-375) k/mm3 MPV (7.4-10.4) fl Immature Gran % (Auto) (0-0.5) % Neut % (Auto) (45.5-73.1) % Lymph % (Auto) (18.3-44.2) % [place] % (Auto) (2.6-8.5) % Eos % (Auto) (0-4.4) % Baso % (Auto) (0.2-1.2) % Lymph # (Auto) (0.9-3.2) K/mm3 [place] # (Auto) (0.1-0.6) K/mm3 Eos # (Auto) (0-0.3) K/mm3 Baso # (Auto) (0.0-0.1) K/mm3 Abs Immat Gran (auto) (0.00-0.031) K/mm3 Absolute Neuts (auto) (1.3-6.7) K/mm3 Absolute Nucleated RBC (0.0-0.012) K/mm3 Band Neutrophils % Nucleated RBC % (0.0-0.2) % Platelet Estimate (Adequate) Rouleaux Schistocytes Sodium 113 L* (137-145) mmol/L Potassium (3.4-5.0) mmol/L Chloride (98-107) mmol/L Carbon Dioxide (22-30) mmol/L Anion Gap (4-12) mmol/L BUN (7-17) mg/dL Creatinine (0.7-1.0) mg/dL Estim Creat Clear Calc ml/min Estimated GFR (59 - ) Glucose (65-110) mg/dL POC Capillary Glucose (65-105) mg/dl Serum Osmolality Pending Lactic Acid (0.7-2.0) mmol/L Calcium (8.4-10.2) mg/dL Magnesium (1.6-2.3) mg/dL Total Bilirubin (0.2-1.3) mg/dL AST (14-36) U/L ALT (6-35) U/L Alkaline Phosphatase (38-126) U/L Troponin I (0.000-0.034) ng/mL NT-Pro-B Natriuret Pep (19.9-100) pg/mL Total Protein (6.3-8.2) g/dL Total Protein (PEP) Pending Albumin (3.5-5.1) g/dL Albumin (PEP) Pending Globulin (PEP) Pending Albumin/Globulin Ratio Pending Yqwuj-6-Vkfahvlzb Pending Cuyza-5-Xdskueroo Pending Beta Globulins Pending Gamma Globulins Pending Procalcitonin ng/mL TSH (Reflex) 1.100 (0.465-4.68) uIU/mL Random Cortisol 14.70 ug/dL Urine Color (Yellow) Urine Appearance (Clear) Urine pH (5.0-9.0) Ur Specific [place] (1.001-1.035) Urine Protein (Negative) mg/dL Urine Glucose (UA) (Negative) mg/dL Urine Ketones (Negative) mg/dL Ur Blood (Man) (Negative) Urine Nitrate (Negative) Urine Bilirubin (Negative) Urine Urobilinogen (<2.0) mg/dL Leukocyte Esterase Rfl (Negative) TARA/UL Urine RBC (0-2) /hpf Urine WBC (0-3) /hpf Ur Squamous Epith Cells (Few) /hpf Urine Bacteria /hpf Urine Casts U Random Total Protein 210 mg/dL Ur Random Sodium 123 meq/L Ur Random Urea 478 MG/DL Urine Creatinine 49.2 mg/dL Protein/Creat Ratio 2 4.27 H (0-0.20) mg/mg Urine Total Protein Pending Urine Albumin (PEP) Pending U Uigim-7-Afcqmoqg Pending U Sjrgb-3-Vlobnfwm Pending U Beta Globulin Pending U Gamma Globulin Pending U Random M-Sinan (%) Pending IgG Pending IgA Pending IgM Pending Pr Electrophoresis MSpike Pending ZAYDA Interpretation Pending Influenza A (RT-PCR) (Negative) Influenza B (RT-PCR) (Negative) RSV (RT-PCR) (Negative) SARS-CoV-2 RNA (RT-PCR) (Negative) Group A Strep (PCR) (Negative) <Raheel Velarde MD - Last Filed: 01/06/25 06:43> Lab Results 01/06/25 01/06/25 01/06/25 Range/Units 06:16 06:52 06:53 WBC 6.2 (4.5-10.0) K/mm3 RBC 4.15 L (4.2-5.4) M/mm3 Hgb 14.3 (12.0-15.0) g/dL Hct 37.5 (37.0-47.0) % MCV 90.4 (80-100) fl MCH 34.5 H (26-34) pg MCHC 38.1 H (32-36) g/dl RDW 11.5 (11.5-14.5) % Plt Count 165 (150-375) k/mm3 MPV 11.2 H (7.4-10.4) fl Immature Gran % (Auto) 3.4 H (0-0.5) % Neut % (Auto) 60.8 (45.5-73.1) % Lymph % (Auto) 22.9 (18.3-44.2) % [place] % (Auto) 12.4 H (2.6-8.5) % Eos % (Auto) 0.2 (0-4.4) % Baso % (Auto) 0.3 (0.2-1.2) % Lymph # (Auto) 1.42 (0.9-3.2) K/mm3 [place] # (Auto) 0.8 H (0.1-0.6) K/mm3 Eos # (Auto) 0.0 (0-0.3) K/mm3 Baso # (Auto) 0.0 (0.0-0.1) K/mm3 Abs Immat Gran (auto) 0.21 H (0.00-0.031) K/mm3 Absolute Neuts (auto) 3.8 (1.3-6.7) K/mm3 Absolute Nucleated RBC 0.000 (0.0-0.012) K/mm3 Band Neutrophils % Not Reportable Nucleated RBC % 0.0 (0.0-0.2) % Platelet Estimate Adequate (Adequate) Rouleaux Schistocytes None seen Sodium 112 L* (137-145) mmol/L Potassium 4.2 (3.4-5.0) mmol/L Chloride 78 L (98-107) mmol/L Carbon Dioxide 26 (22-30) mmol/L Anion Gap 8 (4-12) mmol/L BUN 14 (7-17) mg/dL Creatinine 0.70 (0.7-1.0) mg/dL Estim Creat Clear Calc 64 ml/min Estimated GFR > 60 (59 - ) Glucose 198 H (65-110) mg/dL POC Capillary Glucose (65-105) mg/dl Serum Osmolality Lactic Acid 0.8 (0.7-2.0) mmol/L Calcium 8.9 (8.4-10.2) mg/dL Magnesium 1.5 L (1.6-2.3) mg/dL Total Bilirubin 0.7 (0.2-1.3) mg/dL AST 37 H (14-36) U/L ALT 11 (6-35) U/L Alkaline Phosphatase 105 (38-126) U/L Troponin I < 0.012 (0.000-0.034) ng/mL NT-Pro-B Natriuret Pep 834 H (19.9-100) pg/mL Total Protein 8.3 H (6.3-8.2) g/dL Total Protein (PEP) Albumin 4.6 (3.5-5.1) g/dL Albumin (PEP) Globulin (PEP) Albumin/Globulin Ratio Lrlzp-5-Dhdlwuthl Cckvm-4-Zzsaqmkys Beta Globulins Gamma Globulins Procalcitonin 0.0 ng/mL TSH (Reflex) (0.465-4.68) uIU/mL Random Cortisol ug/dL Urine Color (Yellow) Urine Appearance (Clear) Urine pH (5.0-9.0) Ur Specific [place] (1.001-1.035) Urine Protein (Negative) mg/dL Urine Glucose (UA) (Negative) mg/dL Urine Ketones (Negative) mg/dL Ur Blood (Man) (Negative) Urine Nitrate (Negative) Urine Bilirubin (Negative) Urine Urobilinogen (<2.0) mg/dL Leukocyte Esterase Rfl (Negative) TARA/UL Urine RBC (0-2) /hpf Urine WBC (0-3) /hpf Ur Squamous Epith Cells (Few) /hpf Urine Bacteria /hpf Urine Casts U Random Total Protein mg/dL Ur Random Sodium meq/L Ur Random Urea MG/DL Urine Creatinine mg/dL Protein/Creat Ratio 2 (0-0.20) mg/mg Urine Total Protein Urine Albumin (PEP) U Lcfmc-4-Iuizncki U Cvgse-9-Niqylwom U Beta Globulin U Gamma Globulin U Random M-Sinan (%) IgG IgA IgM Pr Electrophoresis MSpike ZAYDA Interpretation Influenza A (RT-PCR) Negative (Negative) Influenza B (RT-PCR) Negative (Negative) RSV (RT-PCR) Negative (Negative) SARS-CoV-2 RNA (RT-PCR) Negative (Negative) Group A Strep (PCR) Not detected (Negative) 01/06/25 01/06/25 01/06/25 Range/Units 10:02 11:15 11:23 WBC (4.5-10.0) K/mm3 RBC (4.2-5.4) M/mm3 Hgb (12.0-15.0) g/dL Hct (37.0-47.0) % MCV (80-100) fl MCH (26-34) pg MCHC (32-36) g/dl RDW (11.5-14.5) % Plt Count (150-375) k/mm3 MPV (7.4-10.4) fl Immature Gran % (Auto) (0-0.5) % Neut % (Auto) (45.5-73.1) % Lymph % (Auto) (18.3-44.2) % [place] % (Auto) (2.6-8.5) % Eos % (Auto) (0-4.4) % Baso % (Auto) (0.2-1.2) % Lymph # (Auto) (0.9-3.2) K/mm3 [place] # (Auto) (0.1-0.6) K/mm3 Eos # (Auto) (0-0.3) K/mm3 Baso # (Auto) (0.0-0.1) K/mm3 Abs Immat Gran (auto) (0.00-0.031) K/mm3 Absolute Neuts (auto) (1.3-6.7) K/mm3 Absolute Nucleated RBC (0.0-0.012) K/mm3 Band Neutrophils % Nucleated RBC % (0.0-0.2) % Platelet Estimate (Adequate) Rouleaux Schistocytes Sodium 113 L* (137-145) mmol/L Potassium (3.4-5.0) mmol/L Chloride (98-107) mmol/L Carbon Dioxide (22-30) mmol/L Anion Gap (4-12) mmol/L BUN (7-17) mg/dL Creatinine (0.7-1.0) mg/dL Estim Creat Clear Calc ml/min Estimated GFR (59 - ) Glucose (65-110) mg/dL POC Capillary Glucose 184 H (65-105) mg/dl Serum Osmolality Lactic Acid (0.7-2.0) mmol/L Calcium (8.4-10.2) mg/dL Magnesium (1.6-2.3) mg/dL Total Bilirubin (0.2-1.3) mg/dL AST (14-36) U/L ALT (6-35) U/L Alkaline Phosphatase (38-126) U/L Troponin I < 0.012 (0.000-0.034) ng/mL NT-Pro-B Natriuret Pep (19.9-100) pg/mL Total Protein (6.3-8.2) g/dL Total Protein (PEP) Albumin (3.5-5.1) g/dL Albumin (PEP) Globulin (PEP) Albumin/Globulin Ratio Nfita-6-Utawfimby Nwtry-9-Zmivjxgsu Beta Globulins Gamma Globulins Procalcitonin ng/mL TSH (Reflex) (0.465-4.68) uIU/mL Random Cortisol ug/dL Urine Color Yellow (Yellow) Urine Appearance Cloudy H (Clear) Urine pH 6.0 (5.0-9.0) Ur Specific [place] 1.015 (1.001-1.035) Urine Protein 2+ H (Negative) mg/dL Urine Glucose (UA) Trace H (Negative) mg/dL Urine Ketones Negative (Negative) mg/dL Ur Blood (Man) 3+ H (Negative) Urine Nitrate Negative (Negative) Urine Bilirubin Negative (Negative) Urine Urobilinogen 1.0 (<2.0) mg/dL Leukocyte Esterase Rfl 1+ H (Negative) TARA/UL Urine RBC >100 H (0-2) /hpf Urine WBC 11-20 H (0-3) /hpf Ur Squamous Epith Cells None seen (Few) /hpf Urine Bacteria Rare /hpf Urine Casts 0-2 U Random Total Protein mg/dL Ur Random Sodium meq/L Ur Random Urea MG/DL Urine Creatinine mg/dL Protein/Creat Ratio 2 (0-0.20) mg/mg Urine Total Protein Urine Albumin (PEP) U Bpvhz-7-Lgpnodkw U Wmjag-2-Cqxztbta U Beta Globulin U Gamma Globulin U Random M-Sinan (%) IgG IgA IgM Pr Electrophoresis MSpike ZAYDA Interpretation Influenza A (RT-PCR) (Negative) Influenza B (RT-PCR) (Negative) RSV (RT-PCR) (Negative) SARS-CoV-2 RNA (RT-PCR) (Negative) Group A Strep (PCR) (Negative) 01/06/25 01/06/25 Range/Units 13:05 14:00 WBC (4.5-10.0) K/mm3 RBC (4.2-5.4) M/mm3 Hgb (12.0-15.0) g/dL Hct (37.0-47.0) % MCV (80-100) fl MCH (26-34) pg MCHC (32-36) g/dl RDW (11.5-14.5) % Plt Count (150-375) k/mm3 MPV (7.4-10.4) fl Immature Gran % (Auto) (0-0.5) % Neut % (Auto) (45.5-73.1) % Lymph % (Auto) (18.3-44.2) % [place] % (Auto) (2.6-8.5) % Eos % (Auto) (0-4.4) % Baso % (Auto) (0.2-1.2) % Lymph # (Auto) (0.9-3.2) K/mm3 [place] # (Auto) (0.1-0.6) K/mm3 Eos # (Auto) (0-0.3) K/mm3 Baso # (Auto) (0.0-0.1) K/mm3 Abs Immat Gran (auto) (0.00-0.031) K/mm3 Absolute Neuts (auto) (1.3-6.7) K/mm3 Absolute Nucleated RBC (0.0-0.012) K/mm3 Band Neutrophils % Nucleated RBC % (0.0-0.2) % Platelet Estimate (Adequate) Rouleaux Schistocytes Sodium 113 L* (137-145) mmol/L Potassium (3.4-5.0) mmol/L Chloride (98-107) mmol/L Carbon Dioxide (22-30) mmol/L Anion Gap (4-12) mmol/L BUN (7-17) mg/dL Creatinine (0.7-1.0) mg/dL Estim Creat Clear Calc ml/min Estimated GFR (59 - ) Glucose (65-110) mg/dL POC Capillary Glucose (65-105) mg/dl Serum Osmolality Pending Lactic Acid (0.7-2.0) mmol/L Calcium (8.4-10.2) mg/dL Magnesium (1.6-2.3) mg/dL Total Bilirubin (0.2-1.3) mg/dL AST (14-36) U/L ALT (6-35) U/L Alkaline Phosphatase (38-126) U/L Troponin I (0.000-0.034) ng/mL NT-Pro-B Natriuret Pep (19.9-100) pg/mL Total Protein (6.3-8.2) g/dL Total Protein (PEP) Pending Albumin (3.5-5.1) g/dL Albumin (PEP) Pending Globulin (PEP) Pending Albumin/Globulin Ratio Pending Qgrlz-7-Zmqkrgjwq Pending Zdsff-4-Ybeabpjas Pending Beta Globulins Pending Gamma Globulins Pending Procalcitonin ng/mL TSH (Reflex) 1.100 (0.465-4.68) uIU/mL Random Cortisol 14.70 ug/dL Urine Color (Yellow) Urine Appearance (Clear) Urine pH (5.0-9.0) Ur Specific [place] (1.001-1.035) Urine Protein (Negative) mg/dL Urine Glucose (UA) (Negative) mg/dL Urine Ketones (Negative) mg/dL Ur Blood (Man) (Negative) Urine Nitrate (Negative) Urine Bilirubin (Negative) Urine Urobilinogen (<2.0) mg/dL Leukocyte Esterase Rfl (Negative) TARA/UL Urine RBC (0-2) /hpf Urine WBC (0-3) /hpf Ur Squamous Epith Cells (Few) /hpf Urine Bacteria /hpf Urine Casts U Random Total Protein 210 mg/dL Ur Random Sodium 123 meq/L Ur Random Urea 478 MG/DL Urine Creatinine 49.2 mg/dL Protein/Creat Ratio 2 4.27 H (0-0.20) mg/mg Urine Total Protein Pending Urine Albumin (PEP) Pending U [id number]-8-Gfajsogt Pending U Vzwqk-0-Nnisrqir Pending U Beta Globulin Pending U Gamma Globulin Pending U Random M-Sinan (%) Pending IgG Pending IgA Pending IgM Pending Pr Electrophoresis MSpike Pending ZAYDA Interpretation Pending Influenza A (RT-PCR) (Negative) Influenza B (RT-PCR) (Negative) RSV (RT-PCR) (Negative) SARS-CoV-2 RNA (RT-PCR) (Negative) Group A Strep (PCR) (Negative) <Alex Faustino Andrew III, DO - Last Filed: 01/06/25 18:36> Imaging Data Attestation: I personally reviewed and interpreted this imaging study as follows: <Alex Faustino Andrew III, DO - Last Filed: 01/06/25 18:36> My impression: nad <Alex Faustino Andrew III, DO - Last Filed: 01/06/25 18:36> Radiologist's impression: [place] [address] [place] [address] XRay Report Signed Patient: Bela Shepherd : 1945 MR#: [id number] Age: 79 Acct:[id number] Loc: [facility] ADM Date: 01/06/[address]: Ordering Physician: Edgardo Velarde MD Date of Service: 01/06/25 Procedure(s): XR chest 2V Accession Number(s): [id number] cc: Edgardo Velarde MD; STRIP MACHINE TENDER PHYSICIAN~ Examination: XR chest 2V Clinical History: sob Comparison: 01/20/2021 Technique: PA and Lateral Findings: Cardiomediastinal silhouette normal size and configuration. Lungs clear. No acute bony abnormality. IMPRESSION: 1. No acute cardiopulmonary findings. Reviewed, dictated and finalized at location R. AWAY WORKER Please be advised this is a medical document. It is intended for igql-ga-thof communication. It is written in medical language and may contain unfamiliar abbreviations or verbiage. Medical documents are intended to carry relevant information, facts as evident, and the clinical opinion of the practitioner at the time of the encounter. This report may have been done utilizing a voice recognition system. Attempts have been made to correct errors. However, there may be uncorrected grammatical, spelling, and recognition errors present. The file time of this note does not necessarily represent the time of service. Dictated By: Chevy Dangelo MD 01/06/25 0735 Signed By: <Electronically signed by Chevy Dangelo MD in OV> <Alex Andrew III, DO - Last Filed: 01/06/25 18:36> Discharge Plan Discharge Clinical Impression: Acute hyponatremia <Raheel Velarde MD - Last Filed: 01/06/25 06:43> Patient Disposition: Still a Patient <Raheel Velarde MD - Last Filed: 01/06/25 06:43> Condition: Improved <Raheel Velarde MD - Last Filed: 01/06/25 06:43>
[2025-01-06 06:40] LABS: Alanine Aminotransferase 11 U/L (6-35); Albumin Level 4.6 g/dL (3.5-5.1); Alkaline Phosphatase 105 U/L (38-126); Anion Gap 8 mmol/L (4-12); Aspartate Amino Transferase 37 U/L (14-36); Bilirubin,Total 0.7 mg/dL (0.2-1.3); Blood Urea Nitrogen 14 mg/dL (7-17); Calcium 8.9 mg/dL (8.4-10.2); Carbon Dioxide 26 mmol/L (22-30); Chloride 78 mmol/L (98-107); Estimated CRCL calculation 64 ml/min; Estimated Glomerular Filt Rate > 60; Glucose 198 mg/dL (65-110); Potassium 4.2 mmol/L (3.4-5.0); Sodium 112 mmol/L (137-145); Total Protein 8.3 g/dL (6.3-8.2)
[2025-01-06] MEDS: SODIUM CHLORIDE 0.9% IV 1,000 ML 999 ML IV CONT (06:53)
[2025-01-06 07:15] LABS: Magnesium 1.5 mg/dL (1.6-2.3)
[2025-01-06 07:17] LABS: Hematocrit 37.5 % (37.0-47.0); Hemoglobin 14.3 g/dL (12.0-15.0); Immature Granulocyte Percent A 3.4 % (0-0.5); Lymphocytes Absolute Auto 1.42 K/mm3 (0.9-3.2); Mean Corpuscular Hemoglobin 34.5 pg (26-34); Mean Corpuscular Volume 90.4 fl (80-100); Nucleated Red Blood Cells Absolute Auto 0.000 K/mm3 (0.0-0.012); Nucleated Red Blood Cells Perc 0.0 % (0.0-0.2); Platelet Count Result 165 k/mm3 (150-375); Red Blood Count 4.15 M/mm3 (4.2-5.4); White Blood Count 6.2 K/mm3 (4.5-10.0)
[2025-01-06 07:19] LABS: Mean Corpuscular HGB Conc 38.1 g/dl (32-36)
[2025-01-06 07:20] LABS: Schistocytes None Seen
[2025-01-06 07:25] LABS: Troponin I < 0.012 ng/mL (0.000-0.034)
[2025-01-06 07:28] LABS: Strep Group A RT-PCR NOT DETECTED (Negative)
[2025-01-06 07:29] LABS: Procalcitonin 0.0 ng/mL
[2025-01-06 07:39] LABS: Influenza A QL RT-PCR Negative (Negative); Influenza B QL RT-PCR Negative (Negative); RSV RNA, RT-PCR Negative (Negative); SARS-CoV-2 RNA PCR Negative (Negative)
[2025-01-06 07:47] LABS: NT Pro B Type Natriuretic Pept 834 pg/mL (19.9-100)
--- NOTE | 2025-01-06 07:59 | PC.NURSE ---
patient had used a bed mahajan for urination, no urine collected.
[2025-01-06] MEDS: SODIUM CHLORIDE 0.9% IV 1,000 ML 125 ML IV CONT ×2 (08:07→17:21)
[2025-01-06] MEDS: MAGNESIUM OXIDE 400 MG TABLET PO (08:34)
--- NOTE | 2025-01-06 08:38 | WPCEDHO ---
ED Hand Off Checklist All vitals saved: YES IV Site documented: YES All med administrations documented: YES Triage Note Triage Note Pt to ED from home w c/o flu like 01/06/25 05:37 symptoms for 4 days. Pt c/o cough/WALKER/nausea/SOB/CP denies vomiting. EMS reports Pt initially was at 88% RA, placed on 3 L NC and went up to 92%. Pt does not normally wear oxygen . Pt is bedbound due to previous CVA. hx type 2 diabetes and AFIB. Allergies No Known Allergies Allergy (Verified 10/14/24 11:28) Family History (Last Reviewed 01/06/25 @ 06:25 by Raheel Velarde MD) Father Lung cancer Mother Heart disease Diabetes mellitus Sibling Multiple myeloma Other Arthritis Cerebrovascular accident High cholesterol Hypertension Multiple sclerosis Thyroid disease Active Medications including assessments/comments Sodium Chloride (Normal Saline Iv) 1,000 mls @ 125 mls/hr IV CONT .Q8H MANOJ Last Admin: 01/06/25 08:07 Dose: 125 mls/hr Documented By: MARY Infusion/Titration Document 01/06/25 08:07 MARY (Rec: 01/06/25 08:07 MARY [id number]) Intake IV Site Peripheral Access Right Antecubital Container Volume 1,000 Waste Amount 0 Dosing Infusion Rate 125 Cumulative Dose Not Applicable Increase/Decrease Started Elapsed Time Elapsed Time ( 0m minutes) Administered/Completed Medications Discontinued Medications Sodium Chloride (Normal Saline Iv) 1,000 mls @ 999 mls/hr IV CONT .Q1H1M STA Stop: 01/06/25 07:20 Last Infusion: 01/06/25 08:03 Dose: Infused Documented By: Admin: 01/06/25 06:53 Dose: 999 mls/hr Documented By: CRISTOBAL Magnesium Oxide (Magnesium Oxide 400 Mg Tablet) 400 mg PO ONCE STA Stop: 01/06/25 08:24 Last Admin: 01/06/25 08:34 Dose: 400 mg Documented By: MARY Notes 01/06/25 07:59 Nurse Note by Brittani Brooke patient had used a bed mahajan for urination, no urine collected. Initialized on 01/06/25 07:59 - END OF NOTE Interventions/Assessments Cardiac Monitoring Start: 01/06/25 05:35 Freq: Status: Active Protocol: Document 01/06/25 05:50 EMW (Rec: 01/06/25 05:51 EMW [id number]) Director Of Logistics Assessment Director Of Logistics Yes Applied Pulse Rate (60-100) 77 General Assessment Start: 01/06/25 05:35 Freq: Status: Complete Protocol: Document 01/06/25 05:57 EMW (Rec: 01/06/25 05:57 EMW [id number]) GA Cardiovascular Assessment Cardiovascular Chest Pain Symptoms Skin Description Normal Color GA Respiratory Assessment Symptoms Congestion,Cough,Shortness of Breath at Rest,Shortness of Breath With Exertion Respiratory Rate (12 23 H -20) Effort Short of Breath Depth Shallow Cough Description Acute Cough Frequency Intermittent IV / Saline Lock, Insert Start: 01/06/25 05:35 Freq: Status: Active Protocol: Document 01/06/25 05:53 EMW (Rec: 01/06/25 05:53 EMW [id number]) IV Assessment Peripheral Access Right Antecubital IV Catheter Access Initiated IV Insertion Date 01/06/25 IV Insertion Time 05:53 Catheter Gauge 20 IV Insertion 1 Attempts Ultrasound Used for No Placement IV Site Assessment WNL IV Care and WNL Maintenance IV / Saline Lock, Insert Start: 01/06/25 05:59 Freq: STAT Status: Active Protocol: Document 01/06/25 06:00 EMW (Rec: 01/06/25 06:00 EMW [id number]) IV Assessment Peripheral Access Right Antecubital IV Catheter Access Initiated IV Insertion Date 01/06/25 IV Insertion Time 05:53 Catheter Gauge 20 IV Insertion 1 Attempts Ultrasound Used for No Placement IV Site Assessment WNL IV Care and WNL Maintenance PA: Cardiovascular Assessment Start: 01/06/25 05:57 Freq: Status: Active Protocol: Document 01/06/25 05:58 EMW (Rec: 01/06/25 05:58 EMW [id number]) Cardiovascular Assessment Cardiovascular Chest Pain Symptoms Skin Description Normal Color PA: Neurological Assessment Start: 01/06/25 08:13 Freq: Status: Active Protocol: Document 01/06/25 08:13 AJW (Rec: 01/06/25 08:14 AJW [id number]) Neurological Assessment Level of Alert,Awake Consciousness Arousable to Verbal Orientation Oriented to Person,Oriented to Place,Oriented to Time Neurological Weakness, General Symptoms Behavior Appropriate,Cooperative Memory Description Intact Ability to Maintain Unable to Assess Balance Facial Symmetry Symmetrical Speech Pattern Clear Ability to Swallow Normal Tongue Position Midline Mary Coma Scale Eyes Open Verbal Oriented and Alert Motor Follows Commands Mary Coma Total 15 Score PA: Respiratory Assessment Start: 01/06/25 05:57 Freq: Status: Active Protocol: Document 01/06/25 05:58 EMW (Rec: 01/06/25 05:58 EMW [id number]) Respiratory Assessment Symptoms Congestion,Cough Effort Short of Breath Pattern Tachypnea Depth Shallow Cough Description Acute Cough Frequency Intermittent Oxygen Delivery Oxygen Delivery Nasal Cannula Oxygen Flow Rate 3 Pulse Oximetry (90- 95 100) Last Vital Signs Temperature 98.4 F 01/06/25 05:37 Pulse Rate 64 01/06/25 07:45 Respiratory Rate 18 01/06/25 07:45 Pulse Oximetry 98 01/06/25 07:45 Blood Pressure 189/69 H 01/06/25 07:22 Blood Pressure Mean 104 01/06/25 07:22 Oxygen Delivery Nasal Cannula 01/06/25 05:58 Oxygen Flow Rate 3 01/06/25 05:58 Weight 98.8 kg 01/06/25 05:37 Last Result - Abnormals Only RBC 4.15 M/mm3 (4.2-5.4) L 01/06/25 06:16 MCH 34.5 pg (26-34) H 01/06/25 06:16 MCHC 38.1 g/dl (32-36) H 01/06/25 06:16 MPV 11.2 fl (7.4-10.4) H 01/06/25 06:16 Immature Gran % (Auto) 3.4 % (0-0.5) H 01/06/25 06:16 [place] % (Auto) 12.4 % (2.6-8.5) H 01/06/25 06:16 [place] # (Auto) 0.8 K/mm3 (0.1-0.6) H 01/06/25 06:16 Abs Immat Gran (auto) 0.21 K/mm3 (0.00-0.031) H 01/06/25 06:16 Sodium 112 mmol/L (137-145) L* 01/06/25 06:16 Chloride 78 mmol/L (98-107) L 01/06/25 06:16 Glucose 198 mg/dL (65-110) H 01/06/25 06:16 Magnesium 1.5 mg/dL (1.6-2.3) L 01/06/25 06:52 AST 37 U/L (14-36) H 01/06/25 06:16 NT-Pro-B Natriuret Pep 834 pg/mL (19.9-100) H 01/06/25 06:52 Total Protein 8.3 g/dL (6.3-8.2) H 01/06/25 06:16 Most Recent Suicide Severity Rating Suicide Severity Rating NO RISK INDICATED 01/06/25 05:37
--- NOTE | 2025-01-06 09:56 | ADMGEN ---
This patient, Bela Shepherd, was admitted to IMU Room 231-01 at 0911. Patient/family oriented to hospital policies and general routines including ID bracelet, bed and alarms, visiting hours, pain management, procedures, bathroom and other care routines, personal items, smoking policy, room service/diet, and visiting hours. Information on how to activate the Rapid Response Team has been discussed. Patient/Family are encouraged to report perceived risks to care and to ask questions if they do not understand what they are told or what they should do.
[2025-01-06 10:43] LABS: Troponin I < 0.012 ng/mL (0.000-0.034)
[2025-01-06 11:02] LABS: Sodium 113 mmol/L (137-145)
[2025-01-06 11:41] LABS: Add Urine Microscopic? YES; Appearance Urine Cloudy (Clear); Glucose Urine UA Trace mg/dL (Negative); Leukocyte Esterase Ur 1+ LEU/UL (Negative); Nitrate Urine Negative (Negative); Non Pathogenic Casts 0-2; Specific Grav Ur 1.015 (1.001-1.035)
[2025-01-06 14:25] LABS: Urea Random Urine 478 MG/DL
[2025-01-06 14:32] LABS: Sodium 113 mmol/L (137-145)
--- NOTE | 2025-01-06 14:43 | PM.IMHP ---
H&P: HPI History of Present Illness Date/Time: 01/06/25 14:43 Chief Complaint: Weakness Narrative: 79yo female with DM, HTN, CVA, AFib and CHF who presents with weakness. Patient developed sinus symptoms with cough about 1 week ago. She has not taken any qjkw-wld-uzxjzij medications. She feels short of breath which is associated with a cough. No fever or chills. She does have a mild headache. She lives with a friend who noted a low oxygen levels associated with a cough for the past 3-4 days. Patient does have a history of CHF but no pedal edema. No increased weight. No odynophagia or dysphagia. She was having mid chest discomfort but was not pleuritic or palpable. She could not tell me how long it lasted or if anything made it better or worse. There is no radiation of the pain. She rated the pain 1-2/10. She has had decreased appetite due to nausea. She may have sleep apnea but was never tested. No diarrhea. No rash. No dysuria or hematuria. Her urine has been dark. She has a history of hyponatremia and is on water restriction at home. She does not ambulate well due to left biceps injury and right knee and hip osteoarthritis. Because of the low oxygen and generalized weakness, patient presented to the emergency room for evaluation. In the ED, she was hypoxic with Sp)2 84% and RR 23. She was afebrile. BP elevated at 191/76. She was placed on 3L. COVID, RSV ad Influenza PCR negative. Lactic 0.8. CBC was normal. Sodium was 112, chloride 78 and fglucose 198 otherwise CMP was normal. PCT was 0. BNP 834 and Troponin negative x 2. Mag low at 1.5. UA was cloudy with 2+ protein, trace glucose, 3+ blood, 1+ LE, >100RBC and 11-20 WBC. rare bacteria. Protein/Cr ratio 4.3gm. Jones 123 with FENa 1.5%. Blood and Urine Cx collected. She has a hx of Pseudomonas UTI in the past. CXR was clear. EKG showing sinus rhythm with 1st degree AVB, Rt BBB. She was given Magnesium and IV fuid bolus and started on IV fluids. She was admitted for further care. 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 Multinodular goiter Ultrasound in June 2019 showed 2 right thyroid nodules, 1 with TI RADS 3 and the other TI RADS 5. Anemia Chronic hyponatremia Abrasion of scalp Traumatic hematoma of scalp CVA (cerebral vascular accident) Brainstem CVA in 2009 Hyperlipidemia Hypertension Diabetes mellitus Recent hemoglobin A1c was 6.2 Surgical History Surgical History History of hip surgery Status post creation of pericardial window History of cholecystectomy Family History Family History Father Lung cancer Mother Heart disease Diabetes mellitus Sibling , Brother earlier this year. 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 She has no children and is single. She is with his best friend Gwendolyn. Quit smoking in 2008 after a 30pk year hx. No alcohol or drug use. Code status: Full code. Surrogate decision maker and personal lines sales executive: Gwendolyn Peters, friend. Smoking packs per day: 1 Smoking cigarettes per day: 20.0 Years smoked: 30 Smoking pack-years: 30.00 Smoking status: Former smoker Tobacco type: cigarettes Second hand tobacco smoke exposure: Yes Smoking end date: 07/19/08 Additional smoking assessment comments: She smoked 1-2 packs cigarettes per day for approximately 44 years. Alcohol intake: never Substance use: never Other substance usage details: Occasional medicine all marijuana gummies. Do You Feel Safe in your Home?: Yes Lack of Transportation: No Lack of Food: Never True Current Housing: I Have Housing Concerned About Future Housing: No Difficulty Paying Gas/Electric Bills: No Difficulty Paying for Meds: No Currently Unemployed: No Education: Bachelor's Degree Difficulty w/ Childcare or Family Care: No Living arrangements: with friend(s) Additional living arrangements comments: The patient lives in her own home. Her close friend Gwendolyn lives downstairs and helps provide care for the patient. She is single/never has been and does not have any children. 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 Gender identity (if verbalized by the patient): Female Spiritual care concerns: No Agree to blood products: Yes Meds Home Medications and Allergies Home Medications ?Medication ?Instructions ?Recorded ?Confirmed ?Type multivitamin-ferrous 1 tablet PO DAILY 01/21/21 01/06/25 History fumarate-folic acid 18 mg-400 mcg tablet (Centrum Complete) sotalol 80 mg tablet 80 mg PO Q12HR #60 tabs 10/24/21 01/06/25 Rx nystatin 100,000 unit/gram topical 1 applic topical BID #30 grams 07/05/22 01/06/25 Rx powder acetaminophen 500 mg tablet 500 mg PO QHS PRN pain 01/14/24 01/06/25 History (Tylenol Extra Strength) metformin 500 mg tablet,extended 500 mg PO DAILY #90 tabs 04/05/24 01/06/25 Rx release 24 hr rivaroxaban 20 mg tablet (Xarelto) 20 mg PO DAILY #90 tabs 09/10/24 01/06/25 Rx saxagliptin 5 mg tablet 5 mg PO DAILY #90 tabs 10/04/24 01/06/25 Rx ergocalciferol (vitamin D2) 1,250 1,250 mcg PO DIRECTED #7 caps 11/12/24 01/06/25 Rx mcg (50,000 unit) capsule folic acid 1 mg tablet See Rx Instructions .Route 11/20/24 01/06/25 Rx .COMPLEX #90 tabs amlodipine 2.5 mg tablet 2.5 mg PO DAILY #90 tabs 12/04/24 01/06/25 Rx atorvastatin 20 mg tablet See Rx Instructions .Route 12/10/24 01/06/25 Rx .COMPLEX #30 tabs glipizide 5 mg tablet 5 mg PO BID 01/06/25 01/06/25 History Allergies Allergy/AdvReac Type Severity Reaction Status Date / Time No Known Allergies Allergy Verified 01/06/25 10:03 Vital Signs Vital Signs - 24 hr 01/06/25 05:37 01/06/25 05:50 01/06/25 05:56 Temperature 98.4 F Pulse Rate 72 77 Respiratory Rate 23 H Blood Pressure Pulse Oximetry 84 L 93 Oxygen Delivery Room Air Nasal Cannula Oxygen Flow Rate 3 01/06/25 05:57 01/06/25 05:58 01/06/25 07:11 Temperature Pulse Rate 65 Respiratory Rate 23 H 19 Blood Pressure 191/76 H Pulse Oximetry 95 92 Oxygen Delivery Nasal Cannula Oxygen Flow Rate 3 01/06/25 07:16 01/06/25 07:22 01/06/25 07:35 Temperature Pulse Rate 64 65 67 Respiratory Rate 21 H 22 H 12 Blood Pressure 189/69 H Pulse Oximetry 92 91 92 Oxygen Delivery Oxygen Flow Rate 01/06/25 07:45 01/06/25 09:27 01/06/25 10:00 Temperature Pulse Rate 64 64 67 Respiratory Rate 18 Blood Pressure Pulse Oximetry 98 Oxygen Delivery Oxygen Flow Rate 01/06/25 12:00 01/06/25 12:00 01/06/25 12:00 Temperature 97.7 F Pulse Rate 62 66 Respiratory Rate 23 H Blood Pressure 179/75 H Pulse Oximetry 98 94 Oxygen Delivery Nasal Cannula Oxygen Flow Rate 2 01/06/25 14:00 Temperature Pulse Rate 60 Respiratory Rate Blood Pressure Pulse Oximetry Oxygen Delivery Oxygen Flow Rate Exam Narrative: AF 97.7 179/75 60 23 94% 2L Gen - well appearing female in no acute respiratory distress who is nontoxic-appearing lying semi recumbent in bed HEENT - normocephalic. Atraumatic. Pupils equal round and reactive. Extraocular motions intact. Sclera injected. Nares patent. Oropharynx was clear. Mild erythema to the tonsillar pillars. No oral lesions. Moist mucous membranes. Tongue was midline. Palate pili symmetrically. No facial asymmetry. Neck - neck was supple. No dominant adenopathy or masses. Neck was full but possible thyroidmegaly Chest -bibasilar inspiratory crackles mid and lower lung anderson Breast exam was deferred. CV - heart was regular rate and rhythm. S1-S2. No murmurs gallops or rubs. Abd - abdomen was soft, obese, NT. Nondistended. Positive bowel sounds. No organomegaly or masses. Ext - no clubbing, cyanosis or edema. 2+ DP pulses bilaterally. Neuro - patient is alert and oriented x4 but appears forgetful. Strength is 5/5 in upper extremities. Poor ankle mobility. 4/5 hip flexors. Cranial nerves 2-12 are intact. Speech is clear. Psych - normal mood and affect. Patient is pleasant and cooperative. Skin - warm and dry. No rashes noted. H&P: Results Labs Labs: Short CBC 01/06/25 Range/Units 06:16 WBC 6.2 (4.5-10.0) K/mm3 Hgb 14.3 (12.0-15.0) g/dL Hct 37.5 (37.0-47.0) % Plt Count 165 (150-375) k/mm3 BMP 01/06/25 01/06/25 01/06/25 06:16 10:02 14:00 Sodium 112 L* 113 L* 113 L* Potassium 4.2 Chloride 78 L Carbon Dioxide 26 BUN 14 Creatinine 0.70 Glucose 198 H Calcium 8.9 Cardiac Enzymes 01/06/25 01/06/25 Range/Units 06:52 10:02 Troponin I < 0.012 < 0.012 (0.000-0.034) ng/mL Liver Function 01/06/25 Range/Units 06:16 Total Bilirubin 0.7 (0.2-1.3) mg/dL AST 37 H (14-36) U/L ALT 11 (6-35) U/L Alkaline Phosphatase 105 (38-126) U/L Albumin 4.6 (3.5-5.1) g/dL Urine 01/06/25 Range/Units 11:15 Urine Color Yellow (Yellow) Urine Appearance Cloudy H (Clear) Urine pH 6.0 (5.0-9.0) Ur Specific [place] 1.015 (1.001-1.035) Urine Protein 2+ H (Negative) mg/dL Urine Glucose (UA) Trace H (Negative) mg/dL Assessment and Plan Assessment and plan (1) Hypoxia: Code(s): R09.02 - Hypoxemia Status: Acute Assessment and Plan: Patient presents with hypoxia. Etiology unclear. Viral swab was negative. Chest x-ray was clear. Does not appear to be fluid overloaded. No significant wheezing to suggest COPD. She is on anticoagulation making PE less likely. She is compliant with her anticoagulation medications. Probably related to viral illness. Supportive treatment. Wean oxygen as tolerated. Consider CT of the chest or repeat chest x-ray if her condition does not improve as expected. Consider apnea link before discharge (2) Hyponatremia: Code(s): E87.1 - Hypo-osmolality and hyponatremia Status: Acute Assessment and Plan: Patient presents with weakness and viral symptoms. She has known history of hyponatremia. Sodium on presentation was 112. Jones 123 with FENa 1.5% to suggest intrinsic renal disease. Fluid restriction. Stop IV fluids. Nephrology consulted and appreciate their input. Check TSH and cortisol levels. SPEP and UPEP have been ordered. Immunofixation has been ordered. Serial sodium levels. Consider adding sodium tablets. (3) CHF (congestive heart failure): Qualifiers: Heart failure type: other Qualified Code(s): I50.9 - Heart failure, unspecified Code(s): I50.9 - Heart failure, unspecified Status: Acute Assessment and Plan: Patient has a history of CHF. 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 The most recent echo is from Jan 2021 after the window which showed normal EF and indeterminate diastolic function. No pulmonary hypertension noted at that time. Check echocardiogram. Check BNP (4) Hypertension: Qualifiers: Hypertension type: essential hypertension Qualified Code(s): I10 - Essential (primary) hypertension Code(s): I10 - Essential (primary) hypertension Status: Acute Assessment and Plan: Patient with elevated blood pressure on admission and has remained high. Will resume home medications and continue to evaluate. (5) Afib: Code(s): I48.91 - Unspecified atrial fibrillation Status: Acute Assessment and Plan: Patient with history of atrial fibrillation. She is on sotalol which will continue. She is also on Xarelto which will resume this evening. Monitor on telemetry (6) Diabetes mellitus: Qualifiers: Diabetes mellitus complication status: without complication Diabetes mellitus terminal carman insulin use: without mcc use Diabetes mellitus type: type 2 Qualified Code(s): E11.9 - Type 2 diabetes mellitus without complications Code(s): E11.9 - Type 2 diabetes mellitus without complications Status: Acute Assessment and Plan: Patient with a history of diabetes. She is on glipizide, saxagliptin and metformin. Will hold these medications for now. Start sliding scale protocol. (7) UTI (urinary tract infection): Code(s): N39.0 - Urinary tract infection, site not specified Status: Acute Assessment and Plan: UA noted and concerning for UTI. She has 2+ protein on a sample. Protein/Cr ratio 4.3gm but suspect this is probably related to the UTI. Plan to repeat protein-creatinine ratio after urine clears. She has a history of Pseudomonas UTI. Will start cefepime. (8) History of CVA (cerebrovascular accident): Code(s): Z86.73 - Personal history of transient ischemic attack (TIA), and cerebral infarction without residual deficits Status: Acute Assessment and Plan: Patient has a history of CVA. She is debilitated as well due to osteoarthritis. Will start PT OT. Plan DVT prophylaxis -Xarelto Code status -full Hospitalist MIPS Advance Care Plan I have confirmed that the patient's Advanced Care Plan is present, code status is documented, or surrogate decision maker is listed in patient medical record.: Yes Medication Reconciliation I have utilized all available resources to obtain, update and review the patients current medications (includes all prescriptions, OTC, herbals, cannabis, and nutritional supplements).: Yes
[2025-01-06 14:45] LABS: Total Protein Urine Random 210 mg/dL; Ur Ttl Prot Creatinine Ratio 4.27 mg/mg (0-0.20)
--- NOTE | 2025-01-06 15:05 | P.CONNP_ITS ---
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(?) * previous extensive evaluation noted in the past/previous hospital stays: * TSH okay * cortisol has been lowish in the past but normal cosyntropin stimulation test * imaging of brain and chest WNL * negative SPEP and UPEP * urine osmolality > serum osmolality * previous bouts of acute drops in sodium attributed to HCTZ and SSRI use * up to date on cancer screening(?) * has required 3% saline in the past as well as combo of salt tabs + fluid restriction + lasix * on fluid restriction as an outpatient (but apparently weaned off salt tabs and lasix) * trial of normal saline IVFs currently * depending on trend of sodium, may need to consider 3% saline again * may also need salt tabs +/- lasix as well * follow trend of serial sodium levels (2) Acute hypoxic respiratory failure: Code(s): J96.01 - Acute respiratory failure with hypoxia Status: Acute Assessment and Plan: * noted on presentation * no evidence of respiratory distress * etiology not clear: * viral testing for influenza/RSV/COVD negative * CXR on admission clear * BNP noted but does not appear fluid overloaded * PE less likely since already on anticoagulation * no fevers or elevated WBC * due to viral illness/bronchitis(?) * follow cultures * on empiric antibiotics * wean oxygen as tolerated (3) CHF (congestive heart failure): Qualifiers: Heart failure type: other Qualified Code(s): I50.9 - Heart failure, unspecified Code(s): I50.9 - Heart failure, unspecified Status: Acute Assessment and Plan: * known history * recent Echo noted: * normal biventricular size and systolic function * no significant valvular abnormalities * pulmonary arterial systolic pressure is estimated at 79 mmHg - severe pulmonary hypertension * BNP 984 * admission CXR clear (4) UTI (urinary tract infection): Code(s): N39.0 - Urinary tract infection, site not specified Status: Acute Assessment and Plan: * admission UA highly suggestive * floow urine culture * on antibiotics (5) Afib: Code(s): I48.91 - Unspecified atrial fibrillation Status: Acute Assessment and Plan: * on sotalol * heart rate stable * on anticoagulation with Xarelto (6) Hypertension: Qualifiers: Hypertension type: essential hypertension Qualified Code(s): I10 - Essential (primary) hypertension Code(s): I10 - Essential (primary) hypertension Status: Acute Assessment and Plan: * elevated readings on admission * better control at this time * follow trend of hemodynamics (7) Diabetes mellitus: Qualifiers: Diabetes mellitus type: type 2 Diabetes mellitus skilled nursing insulin use: without skilled nursing use Diabetes mellitus complication status: without complication Qualified Code(s): E11.9 - Type 2 diabetes mellitus without complications Code(s): E11.9 - Type 2 diabetes mellitus without complications Status: Acute Assessment and Plan: * follow accu-cheks * glycemic control per hospitalist I will continue to follow the patient with you while he remains hospitalized and make further recommendations as deemed necessary. Thank you for allowing me to participate in the care of this patient. L History of Present Illness Reason for Consult Consult date: 01/06/25 Reason for consult: hyponatremia (acute on chronic) Chief Complaint Chief complaint: Hyponatremia History of Present Illness Narrative: The patient is an 79-year-old female with a past medical history as outlined below presented to [facility] Emergency Room due to complaints generalized weakness and shortness of breath. Approximately week ago the patient developed symptoms of sinus congestion in association with a cough. Has these symptoms continued to progress she then developed symptoms of shortness of breath. However she denies any fevers or chills association with these symptoms. Other associated symptoms included decreased appetite in association mild nausea. She also states that she noticed that her urine has been darker than usual as. As the symptoms continued progress, friend of hers checked her oxygen with a home pulse oximeter which noted evidence hypoxia. Given this finding his conjunction with her constellation of symptoms as mentioned she presented to the emergency room for further assessment. Workup evaluation emergency room demonstrated the patient to be hemodynamically stable (if hypertensive) with mild tachypnea evidence of hypoxemia with an oxygen saturation of 80% on room air but afebrile. She was placed on supplemental oxygen which improved her O2 saturations. routine blood work noted a normal CBC sodium 112 chloride 78, glucose 198 and otherwise normal CMP, Lactic acid 0.8 BNP 834 and negative troponins x2 magnesium 1.5. Viral testing for influenza, RSV, and COVID were negative. Her urinalysis was suggestive a UTI with a cloudy appearance, 2+ protein, trace glucose, 3+ blood, 1+ leukocyte esterase greater than 100 red blood cells and 11-20 white blood cells with rare bacteria. Her chest x-ray was negative and her EKG just showed normal sinus rhythm with first-degree AV block and right bundle branch. After appropriate cultures were obtained, she was started antibiotics for presumed urinary tract infection and given IV fluids due to her low sodium. She was subsequently admitted to the hospital for further evaluation and therapy. Renal consultation was requested due to her acute on chronic hyponatremia. The patient has a component of chronic hyponatremia at baseline. She has been hospitalized at least 2 separate occasions for acute hyponatremia top her baseline hyponatremia. she normally follows with Dr. Britton Padilla in the office ongoing management of her chronic hyponatremia and her baseline sodium level has been relatively stable the last few years -- sodium has been running in the 130s range in that time frame. The exact etiology of her chronic hyponatremia is not entirely clear but her previous bouts of acute hyponatremia top of her baseline disease related to medications in conjunction with congestive heart failure. She has maintain her sodium level an outpatient with just fluid restriction alone. Currently, at the time my evaluation, the patient appears to be in no acute distress. Review of Systems 2 Review of Systems: As per HPI. 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 Multinodular goiter Ultrasound in June 2019 showed 2 right thyroid nodules, 1 with TI RADS 3 and the other TI RADS 5. Anemia Chronic hyponatremia Abrasion of scalp Traumatic hematoma of scalp CVA (cerebral vascular accident) Brainstem CVA in 2009 Hyperlipidemia Hypertension Diabetes mellitus Recent hemoglobin A1c was 6.2 Surgical History Surgical History History of hip surgery Status post creation of pericardial window History of cholecystectomy Family History Family History Father Lung cancer Mother Heart disease Diabetes mellitus Sibling , Brother earlier this year. 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 She has no children and is single. She is with his best friend Gwendolyn. Quit smoking in 2008 after a 30pk year hx. No alcohol or drug use. Code status: Full code. Surrogate decision maker and personal injury attorney: Gwendolyn Peters, friend. Smoking packs per day: 1 Smoking cigarettes per day: 20.0 Years smoked: 30 Smoking pack-years: 30.00 Smoking status: Former smoker Tobacco type: cigarettes Second hand tobacco smoke exposure: Yes Smoking end date: 07/19/08 Additional smoking assessment comments: She smoked 1-2 packs cigarettes per day for approximately 44 years. Alcohol intake: never Substance use: never Other substance usage details: Occasional medicine all marijuana gummies. Do You Feel Safe in your Home?: Yes Lack of Transportation: No Lack of Food: Never True Current Housing: I Have Housing Concerned About Future Housing: No Difficulty Paying Gas/Electric Bills: No Difficulty Paying for Meds: No Currently Unemployed: No Education: Bachelor's Degree Difficulty w/ Childcare or Family Care: No Living arrangements: with friend(s) Additional living arrangements comments: The patient lives in her own home. Her close friend Gwendolyn lives downstairs and helps provide care for the patient. She is single/never has been and does not have any children. 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 Gender identity (if verbalized by the patient): Female Spiritual care concerns: No Agree to blood products: Yes Meds Home Medications and Allergies Home Medications ?Medication ?Instructions ?Recorded ?Confirmed ?Type multivitamin-ferrous 1 tablet PO DAILY 01/21/21 1 03/08/24 History fumarate-folic acid 18 mg-400 mcg tablet (Centrum Complete) sotalol 80 mg tablet 80 mg PO Q12HR #60 tabs 08/0901/06/25 Rx nystatin 100,000 unit/gram topical 1 applic topical BI D #30 grams 07/05/22 01/06/25 Rx powder acetaminophen 500 mg tablet 500 mg PO QHS PRN pain 01/06/25 History (Tylenol Extra Strength) metformin 500 mg tablet,extended 500 mg PO DAILY #90 t abs 04/05/24 01/06/25 Rx release 24 hr rivaroxaban 20 mg tablet (Xarelto) 20 mg PO DAILY #90 tabs 09/10/24 01/06/25 Rx saxagliptin 5 mg tablet 5 mg PO DAILY #90 tabs 10/0401/06/25 Rx ergocalciferol (vitamin D2) 1,250 1,250 mcg PO DIRE CTED #7 caps 11/12/24 01/06/25 Rx mcg (50,000 unit) capsule folic acid 1 mg tablet See Rx Instructions .Route 1 01/06/25 Rx .COMPLEX #90 tabs amlodipine 2.5 mg tablet 2.5 mg PO DAILY #90 tabs 01/06/25 Rx glipizide 5 mg tablet 5 mg PO BID 01/06/25 5 History atorvastatin 20 mg tablet See Rx Instructions .Route 1 03/09/24 Rx .COMPLEX #90 tabs Allergies Allergy/AdvReac Type Severity Reaction Status Date / Time No Known Allergies Allergy Verified 01/06/25 10:03 Vital Signs Vital Signs Temp Pulse Resp BP Pulse Ox O2 Del Method O2 Flow Rate 01/06/25 15:00 98.2 F 63 22 H 157/117 H 93 01/06/25 14:00 60 01/06/25 12:00 66 01/06/25 12:00 97.7 F 62 23 H 179/75 H 94 01/06/25 12:00 98 Nasal Cannula 2 01/06/25 10:00 67 01/06/25 09:27 64 01/06/25 07:45 64 18 98 01/06/25 07:35 67 12 92 01/06/25 07:22 65 22 H 189/69 H 91 01/06/25 07:16 64 21 H 92 01/06/25 07:11 65 19 191/76 H 92 01/06/25 05:58 95 Nasal Cannula 3 01/06/25 05:57 23 H 01/06/25 05:56 93 Nasal Cannula 3 01/06/25 05:50 77 01/06/25 05:37 98.4 F 72 23 H 84 L Room Air Exam 2 Narrative: GENERAL APPEARANCE: elderly but well developed well nourished female in no acute distress HEENT: normocephalic, atraumatic, normal conjunctiva and sclera, nares patient NECK: no lymphadenopathy, thyromegaly, or JVD MOUTH: normal lips, teeth, and gums CARDIOVASCULAR: RRR, normal S1 and S2, no rub detected RESPIRATORY: clear anteriorly with a few crackles at the bases ABDOMEN: soft, nontender, nondistended, positive bowel sounds present EXTREMITIES: no evidence of cyanosis, clubbing, or edema NEUROLOGICAL: alert and oriented x 3; CN II - XII intact bilaterally; no focal deficits noted Results Lab Results 01/09/25 04:09 01/09/25 04:09 Lab results: Most recent lab results Calcium 8.9 mg/dL (8.4-10.2) 01/06/25 06:16 Magnesium 1.5 mg/dL (1.6-2.3) L 01/06/25 06:52 Urine Creatinine 49.2 mg/dL 01/06/25 13:05
[2025-01-06 17:35] LABS: Thyroid Stimulating Hormone Reflex 1.100 uIU/mL (0.465-4.68)
[2025-01-06 18:16] LABS: Sodium 112 mmol/L (137-145)
[2025-01-06 18:25] LABS: NT Pro B Type Natriuretic Pept 984 pg/mL (19.9-100)
[2025-01-06 18:52] LABS: Hemoglobin A1C 6.8 % (<5.7)
[2025-01-06] MEDS: CEFEPIME 2 GM in SODIUM CHLORIDE 0.9% IV 50 ML 100 ML IVPB (18:53)
[2025-01-06] MEDS: FOLIC ACID 1 MG TABLET BY MOUTH (18:53)
[2025-01-06] MEDS: RIVAROXABAN 20 MG TABLET PO (18:53)
[2025-01-06 19:31] LABS: MRSA (PCR) NOT DETECTED (NOT DETECTE)
[2025-01-06] MEDS: SODIUM CHLORIDE 3% 270 ML 90 ML IV CONT (19:43)
[2025-01-06] MEDS: guaiFENesin 12 HR 600 MG TABCR 1200 MG PO (20:52)
[2025-01-06] MEDS: ATORVASTATIN 20 MG TABLET BY MOUTH (20:53)
[2025-01-06] MEDS: FLUTICASONE PROPIONATE 0.05% NA SPR 16 GM BTL (*BKC) 1 SPRAY NASAL (20:53)
[2025-01-06] MEDS: SOTALOL HCL 80 MG TABLET PO (20:53)
--- NOTE | 2025-01-06 23:00 | ECG_ITS ---
Test Date: 2025-01-06 22:53:10 Measurements Intervals [place] Rate: 59 P: 45 AK: 253 QRS: -12 QRSD: 160 T: 16 QT: 466 QTc: 463 Interpretive Statements SINUS BRADYCARDIA WITH FIRST DEGREE AV BLOCK RIGHT BUNDLE BRANCH BLOCK [120+ ms QRS DURATION, UPRIGHT V1, 40+ ms S IN I/aVL/V4/V5/V6] Compared to ECG 01/06/2025 07:06:56 Sinus rhythm no longer present Electronically Signed On 01-07-2025 08:35:12 MANAGER CLINICAL SERVICES by Joesph Baker M.D.
[2025-01-07] VITALS (19 sets, daily range): BP systolic 152–160; BP diastolic 58–73; PULSE 49–65; RESP 16–24; TEMP 36.4–36.8; O2SAT 92–99
--- NOTE | 2025-01-07 | ECHO_ITS ---
Patient Info Name: Bela Shepherd Age: 79 years : 1945 Gender: Female Ht: 65 in Wt: 211 lbs BSA: 2.14 m2 HR: 64 bpm BP: 153 / 65 mmHg Technical Quality: Good Exam Date: 01/07/2025 1:15 PM Patient Status: I Admit Date: 01/06/2025 Exam Type: CA echo doppler color flow Complete two-dimensional, color flow and Doppler transthoracic echocardiogram is performed. Staff Referring Physician: Raheel Velarde MD Safety Coordinator: Mariluz Macario Attending Provider: Raheel Carrera MD Summary 1. Complete two-dimensional, color flow and Doppler transthoracic echocardiogram is performed. 2. There is normal biventricular size and systolic function. 3. There are no significant valvular abnormalities. 4. Pulmonary arterial systolic pressure is estimated at 79 mmHg. There is severe pulmonary hypertension. Left Ventricle The left ventricle is normal in size and systolic function. The left ventricular ejection fraction is visually estimated to be 60-65%. Right Ventricle The right ventricle is normal in size and systolic function. Left Atria The left atrium is normal size. Right Atria The right atrium is normal size. Atrial Septum The atrial septum is likely normal. Aortic Valve There is no aortic stenosis. There is no aortic regurgitation. Pulmonic Valve The pulmonic valve not well visualized. There is no pulmonic valve regurgitation. Mitral Valve The mitral valve leaflets are sclerotic. There is no mitral regurgitation. Tricuspid Valve The tricuspid valve is normal. There is mild tricuspid regurgitation. Pulmonary Arteries Pulmonary arterial systolic pressure is estimated at 79 mmHg. There is severe pulmonary hypertension. Pericardium/Pleural Pericardium is normal in appearance with no evidence for significant pericardial effusion. Inferior Vena Cava Dilated inferior vena cava with <50% collapse upon inspiration consistent with significantly elevated right atrial pressure, 15 mmHg. Aorta The aortic root at the level of the sinus of Valsalva measures 2.7 cm in diameter. Left Ventricular Outflow Tract Name Value Normal LVOT 2D LVOT Diameter 1.9 cm LVOT Doppler LVOT Peak Velocity 142 cm/s LVOT Peak Gradient 8 mmHg LVOT Mean Gradient 4 mmHg LVOT VTI 35 cm LVOT Stroke Volume 101 ml LVOT CO 6.4 l/min LVOT CI 3.0 l/min/m2 Pulmonic Valve Name Value Normal RVOT Doppler RVOT Peak Velocity 88 cm/s RVOT Peak Gradient 3 mmHg PV Doppler PV Peak Velocity 95 cm/s PV Peak Gradient 4 mmHg Mitral Valve Name Value Normal MV Doppler MV Peak Gradient 8 mmHg MV Mean Gradient 4 mmHg MV Area (Cont Eq VTI) 2.1 cm2 MV Diastolic Function MV E Peak Velocity 112 cm/s MV A Peak Velocity 112 cm/s MV E/A 1.0 MV Decel Time (PW) 240 ms MV Annular TDI MV E/e' (Septal) 21.1 MV E/e' (Lateral) 18.3 MV E/e' (Average) 19.7 Tricuspid Valve Name Value Normal TV Regurgitation Doppler TR Peak Velocity 401 cm/s TR Peak Gradient 52 mmHg Estimated PAP/RSVP RA Pressure 15 mmHg <=5 PA Systolic Pressure 79 mmHg <36 RV Systolic Pressure 79 mmHg <36 Aortic Valve Name Value Normal AV Doppler AV Peak Velocity 183 cm/s AV Peak Gradient 13 mmHg AV Area (Cont Eq Billy) 2.2 cm2 AV DI (Billy) 0.78 AV Regurgitation 2D LVOT Area 2.8 cm2 Ventricles Name Value Normal LV Dimensions 2D/MM IVS Diastolic Thickness (2D) 0.8 cm 0.6-1.0 LVID Diastole (2D) 3.3 cm 3.8-5.2 LVIW Diastolic Thickness (2D) 1.0 cm 0.6-0.9 LVID Systole (2D) 2.4 cm 2.2-3.5 LVOT Diameter 1.9 cm LV Mass (2D Cubed) 79.18 g 67.00-162.00 LV Mass Index (2D Cubed) 37 g/m2 43-95 Relative Wall Thickness (2D) 0.61 <=0.42 LV Fractional Shortening/Ejection Fraction 2D/MM LV Fractional Shortening (2D) 29 % 27-45 LV EF (2D Teichholz) 57 % LV Diastolic Volume (4C MOD) 70 ml LV EF (4C MOD) 62 % LV Diastolic Volume (2C MOD) 64 ml LV EF (2C MOD) 59 % LV Diastolic Volume (BP MOD) 67 ml 46-106 LV Diastolic Volume Index (BP MOD) 32 ml/m2 29-61 LV Systolic Volume (BP MOD) 27 ml 14-42 LV Systolic Volume Index (BP MOD) 13 ml/m2 8-24 LV EF (BP MOD) 60 % 54-74 LV Diastolic Length (4C) 7.1 cm LV Systolic Length (4C) 6.1 cm LV Stroke Volume (4C MOD) 44 ml Atria Name Value Normal LA Dimensions LA Volume (4C A-L) 41 ml LA Volume (BP A-L) 43 ml RA Dimensions RA Systolic Major [place] Length (4C) 5.0 cm 2.2-2.8 RA Area (4C) 16.6 cm2 <=18.0 Report Signatures
[2025-01-07 00:04] LABS: Sodium 115 mmol/L (137-145)
[2025-01-07 04:26] LABS: Hematocrit 32.6 % (37.0-47.0); Hemoglobin 12.2 g/dL (12.0-15.0); Immature Granulocyte Percent A 2.4 % (0-0.5); Lymphocytes Absolute Auto 1.71 K/mm3 (0.9-3.2); Mean Corpuscular HGB Conc 37.4 g/dl (32-36); Mean Corpuscular Hemoglobin 34.7 pg (26-34); Mean Corpuscular Volume 92.6 fl (80-100); Nucleated Red Blood Cells Absolute Auto 0.000 K/mm3 (0.0-0.012); Nucleated Red Blood Cells Perc 0.0 % (0.0-0.2); Platelet Count Result 147 k/mm3 (150-375); Red Blood Count 3.52 M/mm3 (4.2-5.4); White Blood Count 6.7 K/mm3 (4.5-10.0)
[2025-01-07 04:39] LABS: Albumin Level 3.7 g/dL (3.5-5.1); Anion Gap 7 mmol/L (4-12); Blood Urea Nitrogen 13 mg/dL (7-17); Calcium 7.9 mg/dL (8.4-10.2); Carbon Dioxide 24 mmol/L (22-30); Chloride 86 mmol/L (98-107); Estimated CRCL calculation 63 ml/min; Estimated Glomerular Filt Rate > 60; Glucose 119 mg/dL (65-110); Magnesium 1.6 mg/dL (1.6-2.3); Potassium 3.9 mmol/L (3.4-5.0); Sodium 117 mmol/L (137-145)
[2025-01-07] MEDS: CEFEPIME 2 GM in SODIUM CHLORIDE 0.9% IV 50 ML 100 ML IVPB ×2 (05:59→17:14)
[2025-01-07 08:20] LABS: Sodium 117 mmol/L (137-145)
[2025-01-07] MEDS: guaiFENesin 12 HR 600 MG TABCR 1200 MG PO ×2 (08:49→21:00)
[2025-01-07] MEDS: SOTALOL HCL 80 MG TABLET PO ×2 (08:49→21:00)
[2025-01-07] MEDS: FOLIC ACID 1 MG TABLET BY MOUTH (08:50)
[2025-01-07] MEDS: MULTIVITAMINS /C LUTEIN (CENTRUM SILVER) TABLET *BKC 1 TAB PO (08:50)
[2025-01-07] MEDS: LORATADINE 5 MG TABLET PO (08:50)
[2025-01-07] MEDS: SODIUM CHLORIDE 1 GM TABLET PO ×2 (08:50→17:14)
[2025-01-07] MEDS: FLUTICASONE PROPIONATE 0.05% NA SPR 16 GM BTL (*BKC) 1 SPRAY NASAL ×2 (08:50→21:01)
[2025-01-07 12:32] LABS: Sodium 118 mmol/L (137-145)
--- NOTE | 2025-01-07 13:00 | P.PNNP_ITS ---
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(?) * previous extensive evaluation noted in the past/previous hospital stays: * TSH okay * cortisol has been lowish in the past but normal cosyntropin stimulation test * imaging of brain and chest WNL * negative SPEP and UPEP * urine osmolality > serum osmolality * previous bouts of acute drops in sodium attributed to HCTZ and SSRI use * up to date on cancer screening(?) * interventions to date noted: * on fluid restriction * s/p 3% saline x 1 * started on salt tabs * will probably need to add lasix as well * follow trend of serial sodium levels (2) Acute hypoxic respiratory failure: Code(s): J96.01 - Acute respiratory failure with hypoxia Status: Acute Assessment and Plan: * noted on presentation * no evidence of respiratory distress * etiology not clear: * viral testing for influenza/RSV/COVD negative * CXR on admission clear * BNP noted but does not appear fluid overloaded * PE less likely since already on anticoagulation * no fevers or elevated WBC * due to viral illness/bronchitis(?) * follow cultures * on empiric antibiotics * wean oxygen as tolerated (3) CHF (congestive heart failure): Qualifiers: Heart failure type: other Qualified Code(s): I50.9 - Heart failure, unspecified Code(s): I50.9 - Heart failure, unspecified Status: Acute Assessment and Plan: * known history * recent Echo noted: * normal biventricular size and systolic function * no significant valvular abnormalities * pulmonary arterial systolic pressure is estimated at 79 mmHg - severe pulmonary hypertension * BNP 984 * admission CXR clear (4) UTI (urinary tract infection): Code(s): N39.0 - Urinary tract infection, site not specified Status: Acute Assessment and Plan: * admission UA highly suggestive * floow urine culture * on antibiotics (5) Afib: Code(s): I48.91 - Unspecified atrial fibrillation Status: Acute Assessment and Plan: * on sotalol * heart rate stable * on anticoagulation with Xarelto (6) Hypertension: Qualifiers: Hypertension type: essential hypertension Qualified Code(s): I10 - Essential (primary) hypertension Code(s): I10 - Essential (primary) hypertension Status: Acute Assessment and Plan: * elevated readings on admission * better control at this time * follow trend of hemodynamics (7) Diabetes mellitus: Qualifiers: Diabetes mellitus complication status: without complication 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 Subjective Date/time seen: 01/07/25 13:00 Interval history: Follow-up for acute on chronic hyponatremia. Sodium remains unchanged with normal saline IVFs so this was discontinued and g iven a run of 3% saline with noted improvement in sodium level; otherwise, no apparent distress noted; shortness of breath present but stable/unchanged. Exam Narrative: General: elderly but WD/WN female in NAD Heart: normal S1 and S2; no rub Lungs: few wheezes with some bibasilar crackles Abdomen: soft, nontender, nondistended, positive bowel sounds Extremities: no cyanosis or clubbing; no edema Skin: warm and dry Objective Data Vital Signs Vital Signs: Vital Signs Temp Pulse Resp BP Pulse Ox O2 Del Method O2 Flow Rate 01/07/25 13:00 53 L 01/07/25 12:00 94 Nasal Cannula 2 01/07/25 11:58 97.7 F 60 16 153/67 H 92 01/07/25 10:00 62 01/07/25 08:00 60 01/07/25 08:00 94 Nasal Cannula 2 01/07/25 08:00 97.6 F 60 24 H 156/67 H 94 01/07/25 06:00 58 L 01/07/25 04:23 98.1 F 57 L 20 153/65 H 96 01/07/25 04:00 56 L 01/07/25 02:05 51 L 01/07/25 00:00 62 01/06/25 23:59 97.5 F L 61 20 156/66 H 93 01/06/25 22:00 66 01/06/25 20:53 61 01/06/25 20:05 98.2 F 61 20 185/82 H 99 01/06/25 20:00 58 L Intake/Output Intake/Output: Intake & Output 01/04/25 01/05/25 01/06/25 01/07/25 23:59 23:59 23:59 23:59 Intake Total 2680 1760 Output Total 300 300 Balance 2380 1460 Meds/Results Medications: Active Medications Generic Name Dose Route Start Last Admin Trade Name Freq PRN Reason Stop Dose Admin Acetaminophen 500 mg 01/06/25 17:36 Acetaminophen 500 Mg Tablet PO QHS PRN Pain 1-3 Albuterol 2.5 mg 01/06/25 17:32 Albuterol Sulfate Neb 2.5 Mg/3 Ml Inh INHALATION Q4HRT PRN Shortness Of Breath Albuterol/Ipratropium 3 ml 01/07/25 20:00 Ipratropium 0.5 Mg/Albuterol Sulfate 2.5 Mg (Base) Ampul.Neb 3 Ml INHALATION Q6HRT MANOJ Amlodipine Besylate 2.5 mg 01/06/25 17:40 01/07/25 08:49 Amlodipine Besylate 2.5 Mg Tablet PO 2.5 mg DAILY MANOJ Administration Atorvastatin Calcium 20 mg 01/06/25 21:00 01/06/25 20:53 Atorvastatin 20 Mg Tablet BY MOUTH 20 mg HS MANOJ Administration Dextrose 12.5 gm 01/06/25 17:32 Dextrose 50% 25 Gm/50 Ml Syringe IV PUSH PRN PRN Hypoglycemia Protocol Fluticasone Propionate 1 spray 01/06/25 21:00 01/07/25 08:50 Fluticasone Propionate 0.05% Na Spr 16 Gm Btl (*Bkc) NASAL 1 spray Q12HR MANOJ Administration Folic Acid 1 mg 01/06/25 17:40 01/07/25 08:50 Folic Acid 1 Mg Tablet BY MOUTH 1 mg DAILY MANOJ Administration Glucagon 1 mg 01/06/25 17:32 Glucagon For Inj 1 Mg Vial IM PRN PRN Hypoglycemia Protocol Glucose 15 gm 01/06/25 17:32 Glucose Oral Gel 15 Gm Of Glucse In 37.5 Gm Tube PO PRN PRN Hypoglycemia Protocol Guaifenesin 1,200 mg 01/06/25 21:00 01/07/25 08:49 Guaifenesin 12 Hr 600 Mg Tabcr PO 1,200 mg Q12HR MANOJ Administration Cefepime HCl 2 gm/ Sodium 50 mls @ 100 mls/hr 01/06/25 18:00 01/07/25 17:14 Chloride IVPB 100 mls/hr Q12H MANOJ Administration Dextrose 1,000 mls @ 100 mls/hr 01/06/25 17:32 Dextrose 5% 1,000 Ml IVPB PRN PRN Hypoglycemia Protocol Sodium Chloride 285 mls @ 95 mls/hr 01/07/25 17:50 Sodium Chloride 3% IV CONT 01/07/25 20:49 .Q3H MANOJ Insulin Aspart 3 - 6 units 01/07/25 08:00 01/07/25 17:11 Insulin Aspart (*Bkc) 100 Units/Ml SUB-Q Not Given TIDWM MANOJ Protocol Loratadine 5 mg 01/07/25 09:00 01/07/25 08:50 Loratadine 5 Mg Tablet PO 5 mg QAM MANOJ Administration Multivitamins/Minerals 1 tab 01/07/25 09:00 01/07/25 08:50 Multivitamins /C Lutein (Centrum Silver) Tablet *Bkc PO 1 tab DAILY MANOJ Administration Perflutren Lipid Microsphere 0 ml 01/06/25 16:28 Perflutren Lipid Microspheres 1.5 Ml Vial Diluted To 10 Ml Total Volume IV PUSH 01/09/25 16:28 ONCE PRN adequate visualization Protocol Rivaroxaban 20 mg 01/06/25 17:40 01/07/25 17:14 Rivaroxaban 20 Mg Tablet PO 20 mg DAILY@1700 MANOJ Administration Sodium Chloride 1 gm 01/07/25 09:00 01/07/25 17:14 Sodium Chloride 1 Gm Tablet PO 1 gm BID MANOJ Administration Sotalol HCl 80 mg 01/06/25 21:00 01/07/25 08:49 Sotalol Hcl 80 Mg Tablet PO 80 mg Q12HR MANOJ Administration Radiology Results: ITS Impressions Chest X-Ray 01/07/25 16:47 IMPRESSION: 1. Suspect worsening pulmonary edema and/or infiltrates in the lower lobes left worse than right. Labs Labs: Laboratory Results 01/06/25 01/07/25 01/07/25 01/07/25 23:26 04:16 07:51 12:02 WBC 6.7 Hgb 12.2 Hct 32.6 L Plt Count 147 L Sodium 115 L* 117 L* 117 L* 118 L* Potassium 3.9 Chloride 86 L Carbon Dioxide 24 Anion Gap 7 BUN 13 Creatinine 0.72 Estim Creat Clear Calc 63 Estimated GFR > 60 Glucose 119 H Calcium 7.9 L Phosphorus 3.9 Magnesium 1.6 Albumin 3.7
[2025-01-07 14:09] LABS: Albumin 3.3 g/dL (2.9-4.4); Alpha-1-Globulin 0.2 g/dL (0.0-0.4); Alpha-2-Globulin 0.7 g/dL (0.4-1.0); Gamma Globulin 1.2 g/dL (0.4-1.8)
[2025-01-07] MEDS: PHARMACIST COMMUNICATION ORDER 1 EACH XX (15:54)
--- NOTE | 2025-01-07 16:19 | PM.IMPN ---
Progress Note: A&P Assessment and Plan (1) Hypoxia: Code(s): R09.02 - Hypoxemia Status: Acute Assessment and Plan: Patient presents with hypoxia. Etiology unclear. Viral swab was negative. MRSA nasal swab negative. Chest x-ray was clear. Does not appear to be fluid overloaded. She is on anticoagulation making PE less likely. She is compliant with her anticoagulation medications. Probably related to viral illness and now wheezing. Repeat CXR now showing suspect worsening pulmonary edema and/or infiltrates in the lower lobes left worse than right. Could be related to pulm edema from IV fluids and poor UOP (Fluid positive 3.6L). Consider also PNA but no fever or leukocytosis. Supportive treatment. Wean oxygen as tolerated. Lasix IV x 1. Schedule nebs. Continue cefepime and add doxycycline (2) Hyponatremia: Code(s): E87.1 - Hypo-osmolality and hyponatremia Status: Acute Assessment and Plan: Patient presents with weakness and viral symptoms. She has known history of hyponatremia. Sodium on presentation was 112. TSH and Cortisol levels normal. Jones 123 with FENa 1.5% to suggest intrinsic renal disease. Fluid restriction. IV fluids stopped. Nephrology consulted and appreciate their input. SPEP, UPEP and Immunofixation pending Serial sodium levels better at 117. Sodium tablets added. Was started on 3% but stopped when CXR showing possible pulm edema. Continue serial Na levels (3) CHF (congestive heart failure): Qualifiers: Heart failure type: other Qualified Code(s): I50.9 - Heart failure, unspecified Code(s): I50.9 - Heart failure, unspecified Status: Acute Assessment and Plan: Patient has a history of CHF. 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 Echo here showing normal biventricular size and systolic function and pulmonary arterial systolic pressure of about 79 mmHg with severe pulmonary hypertension. BNP 984. CXR as above. (4) Hypertension: Qualifiers: Hypertension type: essential hypertension Qualified Code(s): I10 - Essential (primary) hypertension Code(s): I10 - Essential (primary) hypertension Status: Acute Assessment and Plan: Patient with elevated blood pressure on admission that has improved. Follow for now (5) Afib: Code(s): I48.91 - Unspecified atrial fibrillation Status: Acute Assessment and Plan: Patient with history of atrial fibrillation. She is on sotalol which was continued. Xarelto also resumed. Monitor on telemetry (6) Diabetes mellitus: Qualifiers: Diabetes mellitus complication status: without complication Diabetes mellitus mcfp insulin use: without mcfp use Diabetes mellitus type: type 2 Qualified Code(s): E11.9 - Type 2 diabetes mellitus without complications Code(s): E11.9 - Type 2 diabetes mellitus without complications Status: Acute Assessment and Plan: Patient with a history of diabetes. She is on glipizide, saxagliptin and metformin. Will continue to hold these medications for now. Continue sliding scale (7) UTI (urinary tract infection): Code(s): N39.0 - Urinary tract infection, site not specified Status: Acute Assessment and Plan: UA noted and concerning for UTI. She has 2+ protein on a sample. Protein/Cr ratio 4.3gm but suspect this is probably related to the UTI. Plan to repeat protein-creatinine ratio after urine clears. She has a history of Pseudomonas UTI. Cultures pending Continue cefepime. (8) History of CVA (cerebrovascular accident): Code(s): Z86.73 - Personal history of transient ischemic attack (TIA), and cerebral infarction without residual deficits Status: Acute Assessment and Plan: Patient has a history of CVA. She is debilitated and essentially bed bound Will stop PT/OT. Up to recliner with Ulisses prn. Plan DVT prophylaxis -Xarelto Code status -full Subjective Date/time seen: 01/07/25 16:19 Interval history: 79yo female with DM, HTN, CVA, AFib and CHF who presents with weakness. Slept off and on. Cough is nonproductive. No CP or SOB. Since her stroke, she is bed bound or up to a recliner with a Ulisses Lift. Exam Narrative: AF 97.7 153/67 53 16 94% 2L Gen - NARD Chest - anterior wheezing with bibasilar inspiratory crackles CV - RRR S1/S2 Abd - soft, NT/ND. Ext - no edema Neuro - patient is alert and oriented x4 and is clearer Psych - normal mood and affect. Skin - warm and dry. Objective Data Vital Signs Vital Signs: Vital Signs - 24 hr 01/06/25 18:00 01/06/25 20:00 01/06/25 20:05 Temperature 98.2 F Pulse Rate 56 L 58 L 61 Respiratory Rate 20 Blood Pressure 185/82 H Pulse Oximetry 99 Oxygen Delivery Oxygen Flow Rate 01/06/25 20:53 01/06/25 22:00 01/06/25 23:59 Temperature 97.5 F L Pulse Rate 61 66 61 Respiratory Rate 20 Blood Pressure 156/66 H Pulse Oximetry 93 Oxygen Delivery Oxygen Flow Rate 01/07/25 00:00 01/07/25 02:05 01/07/25 04:00 Temperature Pulse Rate 62 51 L 56 L Respiratory Rate Blood Pressure Pulse Oximetry Oxygen Delivery Oxygen Flow Rate 01/07/25 04:23 01/07/25 06:00 01/07/25 08:00 Temperature 98.1 F 97.6 F Pulse Rate 57 L 58 L 60 Respiratory Rate 20 24 H Blood Pressure 153/65 H 156/67 H Pulse Oximetry 96 94 Oxygen Delivery Oxygen Flow Rate 01/07/25 08:00 01/07/25 08:00 01/07/25 10:00 Temperature Pulse Rate 60 62 Respiratory Rate Blood Pressure Pulse Oximetry 94 Oxygen Delivery Nasal Cannula Oxygen Flow Rate 2 01/07/25 11:58 01/07/25 12:00 01/07/25 12:00 Temperature 97.7 F Pulse Rate 60 62 Respiratory Rate 16 Blood Pressure 153/67 H Pulse Oximetry 92 94 Oxygen Delivery Nasal Cannula Oxygen Flow Rate 2 01/07/25 14:00 Temperature Pulse Rate 53 L Respiratory Rate Blood Pressure Pulse Oximetry Oxygen Delivery Oxygen Flow Rate Intake/Output Intake/Output: Intake & Output 01/04/25 01/05/25 01/06/25 01/07/25 23:59 23:59 23:59 23:59 Intake Total 2680 1760 Output Total 300 300 Balance 2380 1460 Meds/Results Medications: Active Medications Generic Name Dose Route Start Last Admin Trade Name Freq PRN Reason Stop Dose Admin Acetaminophen 500 mg 01/06/25 17:36 Acetaminophen 500 Mg Tablet PO QHS PRN Pain 1-3 Albuterol 2.5 mg 01/06/25 17:32 Albuterol Sulfate Neb 2.5 Mg/3 Ml Inh INHALATION Q4HRT PRN Shortness Of Breath Amlodipine Besylate 2.5 mg 01/06/25 17:40 01/07/25 08:49 Amlodipine Besylate 2.5 Mg Tablet PO 2.5 mg DAILY MANOJ Administration Atorvastatin Calcium 20 mg 01/06/25 21:00 01/06/25 20:53 Atorvastatin 20 Mg Tablet BY MOUTH 20 mg HS MANOJ Administration Dextrose 12.5 gm 01/06/25 17:32 Dextrose 50% 25 Gm/50 Ml Syringe IV PUSH PRN PRN Hypoglycemia Protocol Fluticasone Propionate 1 spray 01/06/25 21:00 01/07/25 08:50 Fluticasone Propionate 0.05% Na Spr 16 Gm Btl (*Bkc) NASAL 1 spray Q12HR MANOJ Administration Folic Acid 1 mg 01/06/25 17:40 01/07/25 08:50 Folic Acid 1 Mg Tablet BY MOUTH 1 mg DAILY MANOJ Administration Glucagon 1 mg 01/06/25 17:32 Glucagon For Inj 1 Mg Vial IM PRN PRN Hypoglycemia Protocol Glucose 15 gm 01/06/25 17:32 Glucose Oral Gel 15 Gm Of Glucse In 37.5 Gm Tube PO PRN PRN Hypoglycemia Protocol Guaifenesin 1,200 mg 01/06/25 21:00 01/07/25 08:49 Guaifenesin 12 Hr 600 Mg Tabcr PO 1,200 mg Q12HR MANOJ Administration Cefepime HCl 2 gm/ Sodium 50 mls @ 100 mls/hr 01/06/25 18:00 01/07/25 06:29 Chloride IVPB Infused Q12H MANOJ Infusion Dextrose 1,000 mls @ 100 mls/hr 01/06/25 17:32 Dextrose 5% 1,000 Ml IVPB PRN PRN Hypoglycemia Protocol Insulin Aspart 3 - 6 units 01/07/25 08:00 01/07/25 12:04 Insulin Aspart (*Bkc) 100 Units/Ml SUB-Q Not Given TIDWM MANOJ Protocol Loratadine 5 mg 01/07/25 09:00 01/07/25 08:50 Loratadine 5 Mg Tablet PO 5 mg QAM MANOJ Administration Multivitamins/Minerals 1 tab 01/07/25 09:00 01/07/25 08:50 Multivitamins /C Lutein (Centrum Silver) Tablet *Bkc PO 1 tab DAILY MANOJ Administration Perflutren Lipid Microsphere 0 ml 01/06/25 16:28 Perflutren Lipid Microspheres 1.5 Ml Vial Diluted To 10 Ml Total Volume IV PUSH 01/09/25 16:28 ONCE PRN adequate visualization Protocol Rivaroxaban 20 mg 01/06/25 17:40 01/06/25 18:53 Rivaroxaban 20 Mg Tablet PO 20 mg DAILY@1700 MANOJ Administration Sodium Chloride 1 gm 01/07/25 09:00 01/07/25 08:50 Sodium Chloride 1 Gm Tablet PO 1 gm BID MANOJ Administration Sotalol HCl 80 mg 01/06/25 21:00 01/07/25 08:49 Sotalol Hcl 80 Mg Tablet PO 80 mg Q12HR MANOJ Administration Radiology Results: ITS Impressions Chest X-Ray 01/06/25 07:35 IMPRESSION: 1. No acute cardiopulmonary findings. Labs Labs: Laboratory Results - last 24 hr 01/06/25 01/06/25 01/06/25 14:00 16:34 17:53 WBC RBC Hgb Hct MCV MCH MCHC RDW Plt Count MPV Immature Gran % (Auto) Neut % (Auto) Lymph % (Auto) Boundary % (Auto) Eos % (Auto) Baso % (Auto) Lymph # (Auto) Boundary # (Auto) Eos # (Auto) Baso # (Auto) Abs Immat Gran (auto) Absolute Neuts (auto) Absolute Nucleated RBC Nucleated RBC % Sodium 112 L* Potassium Chloride Carbon Dioxide Anion Gap BUN Creatinine Estim Creat Clear Calc Estimated GFR Glucose POC Capillary Glucose 152 H Hemoglobin A1c 6.8 H Calcium Phosphorus Magnesium NT-Pro-B Natriuret Pep 984 H Total Protein (PEP) 6.2 Albumin Albumin (PEP) 3.3 Globulin (PEP) 2.9 Albumin/Globulin Ratio 1.1 Ebhwo-7-Yjviysqsv 0.2 Bzdru-5-Nqjccxfwl 0.7 Beta Globulins 0.8 Gamma Globulins 1.2 PEP Comment Comment TSH (Reflex) 1.100 Random Cortisol Nasal MRSA (PCR) Pr Electrophoresis MSpike Not observed 01/06/25 01/06/25 01/06/25 18:11 20:28 23:26 WBC RBC Hgb Hct MCV MCH MCHC RDW Plt Count MPV Immature Gran % (Auto) Neut % (Auto) Lymph % (Auto) Boundary % (Auto) Eos % (Auto) Baso % (Auto) Lymph # (Auto) Boundary # (Auto) Eos # (Auto) Baso # (Auto) Abs Immat Gran (auto) Absolute Neuts (auto) Absolute Nucleated RBC Nucleated RBC % Sodium 115 L* Potassium Chloride Carbon Dioxide Anion Gap BUN Creatinine Estim Creat Clear Calc Estimated GFR Glucose POC Capillary Glucose 144 H Hemoglobin A1c Calcium Phosphorus Magnesium NT-Pro-B Natriuret Pep Total Protein (PEP) Albumin Albumin (PEP) Globulin (PEP) Albumin/Globulin Ratio Wzakc-3-Ttboxhknd Sqwjn-7-Hlillzhjl Beta Globulins Gamma Globulins PEP Comment TSH (Reflex) Random Cortisol Nasal MRSA (PCR) Not detected Pr Electrophoresis MSpike 01/07/25 01/07/25 01/07/25 04:16 07:50 07:51 WBC 6.7 RBC 3.52 L Hgb 12.2 Hct 32.6 L MCV 92.6 MCH 34.7 H MCHC 37.4 H RDW 11.5 Plt Count 147 L MPV 10.3 Immature Gran % (Auto) 2.4 H Neut % (Auto) 53.3 Lymph % (Auto) 25.6 Boundary % (Auto) 18.3 H Eos % (Auto) 0.3 Baso % (Auto) 0.1 L Lymph # (Auto) 1.71 Boundary # (Auto) 1.2 H Eos # (Auto) 0.0 Baso # (Auto) 0.0 Abs Immat Gran (auto) 0.16 H Absolute Neuts (auto) 3.6 Absolute Nucleated RBC 0.000 Nucleated RBC % 0.0 Sodium 117 L* 117 L* Potassium 3.9 Chloride 86 L Carbon Dioxide 24 Anion Gap 7 BUN 13 Creatinine 0.72 Estim Creat Clear Calc 63 Estimated GFR > 60 Glucose 119 H POC Capillary Glucose 138 H Hemoglobin A1c Calcium 7.9 L Phosphorus 3.9 Magnesium 1.6 NT-Pro-B Natriuret Pep Total Protein (PEP) Albumin 3.7 Albumin (PEP) Globulin (PEP) Albumin/Globulin Ratio Qbfkb-7-Cdrqsmcwf Pbmwb-1-Qyhxvezol Beta Globulins Gamma Globulins PEP Comment TSH (Reflex) Random Cortisol 10.50 Nasal MRSA (PCR) Pr Electrophoresis MSpike 01/07/25 01/07/25 01/07/25 11:34 12:02 16:14 WBC RBC Hgb Hct MCV MCH MCHC RDW Plt Count MPV Immature Gran % (Auto) Neut % (Auto) Lymph % (Auto) Boundary % (Auto) Eos % (Auto) Baso % (Auto) Lymph # (Auto) Boundary # (Auto) Eos # (Auto) Baso # (Auto) Abs Immat Gran (auto) Absolute Neuts (auto) Absolute Nucleated RBC Nucleated RBC % Sodium 118 L* Potassium Chloride Carbon Dioxide Anion Gap BUN Creatinine Estim Creat Clear Calc Estimated GFR Glucose POC Capillary Glucose 154 H 158 H Hemoglobin A1c Calcium Phosphorus Magnesium NT-Pro-B Natriuret Pep Total Protein (PEP) Albumin Albumin (PEP) Globulin (PEP) Albumin/Globulin Ratio Okkcy-9-Ulbnpaocs Nfyiv-7-Ptlscdzbw Beta Globulins Gamma Globulins PEP Comment TSH (Reflex) Random Cortisol Nasal MRSA (PCR) Pr Electrophoresis MSpike
[2025-01-07] MEDS: RIVAROXABAN 20 MG TABLET PO (17:14)
[2025-01-07 17:20] LABS: Sodium 117 mmol/L (137-145)
[2025-01-07] MEDS: IPRATROPIUM 0.5 MG/ALBUTEROL SULFATE 2.5 MG (BASE) AMPUL.NEB 3 ML INHALATION (20:20)
[2025-01-07] MEDS: DOXYCYCLINE HYCLATE 100 MG TABLET PO (20:59)
[2025-01-07] MEDS: ATORVASTATIN 20 MG TABLET BY MOUTH (21:00)
[2025-01-07] MEDS: FUROSEMIDE INJ 40 MG/4 ML VIAL IV PUSH (21:01)
[2025-01-08] VITALS (26 sets, daily range): BP systolic 150–168; BP diastolic 60–98; PULSE 0–121; RESP 18–24; TEMP 36.5–36.9; O2SAT 89–95
[2025-01-08 00:02] LABS: Sodium 117 mmol/L (137-145)
[2025-01-08] MEDS: IPRATROPIUM 0.5 MG/ALBUTEROL SULFATE 2.5 MG (BASE) AMPUL.NEB 3 ML INHALATION ×4 (02:02→20:10)
[2025-01-08 04:47] LABS: Hematocrit 31.2 % (37.0-47.0); Hemoglobin 11.5 g/dL (12.0-15.0); Immature Granulocyte Percent A 3.0 % (0-0.5); Immature Platelet Fraction Pct 5.7 % (0.9-11.2); Lymphocytes Absolute Auto 1.65 K/mm3 (0.9-3.2); Mean Corpuscular HGB Conc 36.9 g/dl (32-36); Mean Corpuscular Hemoglobin 34.7 pg (26-34); Mean Corpuscular Volume 94.3 fl (80-100); Nucleated Red Blood Cells Absolute Auto 0.000 K/mm3 (0.0-0.012); Nucleated Red Blood Cells Perc 0.0 % (0.0-0.2); Platelet Count Result 145 k/mm3 (150-375); Red Blood Count 3.31 M/mm3 (4.2-5.4); White Blood Count 7.0 K/mm3 (4.5-10.0)
[2025-01-08 05:02] LABS: Albumin Level 3.5 g/dL (3.5-5.1); Anion Gap 5 mmol/L (4-12); Blood Urea Nitrogen 17 mg/dL (7-17); Calcium 8.0 mg/dL (8.4-10.2); Carbon Dioxide 25 mmol/L (22-30); Chloride 87 mmol/L (98-107); Estimated CRCL calculation 56 ml/min; Estimated Glomerular Filt Rate > 60; Glucose 136 mg/dL (65-110); Magnesium 1.6 mg/dL (1.6-2.3); Potassium 3.9 mmol/L (3.4-5.0); Sodium 117 mmol/L (137-145)
[2025-01-08] MEDS: CEFEPIME 2 GM in SODIUM CHLORIDE 0.9% IV 50 ML 100 ML IVPB ×2 (05:27→17:29)
[2025-01-08] MEDS: SODIUM CHLORIDE 1 GM TABLET PO ×2 (09:49→17:29)
[2025-01-08] MEDS: DOXYCYCLINE HYCLATE 100 MG TABLET PO ×2 (09:50→19:55)
[2025-01-08] MEDS: guaiFENesin 12 HR 600 MG TABCR 1200 MG PO ×2 (09:50→19:54)
[2025-01-08] MEDS: LORATADINE 5 MG TABLET PO (09:50)
[2025-01-08] MEDS: FOLIC ACID 1 MG TABLET BY MOUTH (09:50)
[2025-01-08] MEDS: FUROSEMIDE 20 MG TABLET PO ×2 (09:50→17:29)
[2025-01-08] MEDS: MULTIVITAMINS /C LUTEIN (CENTRUM SILVER) TABLET *BKC 1 TAB PO (09:51)
[2025-01-08] MEDS: SOTALOL HCL 80 MG TABLET PO ×2 (09:51→19:53)
[2025-01-08] MEDS: FLUTICASONE PROPIONATE 0.05% NA SPR 16 GM BTL (*BKC) 1 SPRAY NASAL ×2 (09:51→19:56)
--- NOTE | 2025-01-08 09:54 | P.PNIM_ITS ---
Progress Note: A&P Assessment and Plan (1) Hypoxia: Code(s): R09.02 - Hypoxemia Status: Acute Assessment and Plan: Patient presents with hypoxia. Etiology unclear. Viral swab was negative. MRSA nasal swab negative. Chest x-ray was clear. Does not appear to be fluid overloaded. She is on anticoagulation making PE less likely. She is compliant with her anticoagulation medications. Probably related to viral illness and now wheezing. Repeat CXR now showing suspect worsening pulmonary edema and/or infiltrates in the lower lobes left worse than right. Could be related to pulm edema from IV fluids and poor UOP (Fluid positive 3.6L). Consider also PNA but no fever or leukocytosis. Lasix started. Fluid status improved. Supportive treatment. Wean oxygen as tolerated. Continue nebs. Continue cefepime and doxycycline (2) Hyponatremia: Code(s): E87.1 - Hypo-osmolality and hyponatremia Status: Acute Assessment and Plan: Patient presents with weakness and viral symptoms. She has known history of hyponatremia. Sodium on presentation was 112. TSH and Cortisol levels normal. Jones 123 with FENa 1.5% to suggest intrinsic renal disease. Fluid restriction. IV fluids stopped. Nephrology consulted and appreciate their input. SPEP, UPEP and Immunofixation pending Serial sodium levels better at 117 but now plateued. Was started on 3% but stopped when CXR showing possible pulm edema. Continue serial Na levels. Continue oral NaCl. (3) CHF (congestive heart failure): Qualifiers: Heart failure type: other Qualified Code(s): I50.9 - Heart failure, unspecified Code(s): I50.9 - Heart failure, unspecified Status: Acute Assessment and Plan: Patient has a history of CHF. She has a history of large pericardial effusion s/p pericardial window in 2020. Echo here showing normal biventricular size and systolic function and pulmonary arterial systolic pressure of about 79 mmHg with severe pulmonary hypertension. BNP 984. CXR as above. Will need apnea link once off O2 and feeling better (4) Hypertension: Qualifiers: Hypertension type: essential hypertension Qualified Code(s): I10 - Essential (primary) hypertension Code(s): I10 - Essential (primary) hypertension Status: Acute Assessment and Plan: Patient with elevated blood pressure on admission that has improved. HTN possibly related to untreated JULIA? Follow for now (5) Afib: Code(s): I48.91 - Unspecified atrial fibrillation Status: Acute Assessment and Plan: Patient with history of atrial fibrillation. She is on sotalol which was continued. Tele showing transient bradycardia but HR stable overall Xarelto also resumed. Monitor on telemetry (6) Diabetes mellitus: Qualifiers: Diabetes mellitus type: type 2 Diabetes mellitus intermediate insulin use: without intermediate use Diabetes mellitus complication status: without complication Qualified Code(s): E11.9 - Type 2 diabetes mellitus without complications Code(s): E11.9 - Type 2 diabetes mellitus without complications Status: Acute Assessment and Plan: A1c 6.8%. Patient with a history of diabetes. She is on glipizide, saxagliptin and metformin. Glucose remaining stable. Will continue to hold these medications for now. Continue sliding scale (7) UTI (urinary tract infection): Code(s): N39.0 - Urinary tract infection, site not specified Status: Acute Assessment and Plan: UA noted and concerning for UTI. She has 2+ protein on a sample. Protein/Cr ratio 4.3gm but suspect this is probably related to the UTI. Plan to repeat protein-creatinine ratio after urine clears. She has a history of Pseudomonas UTI. U Cultures growing gram negative bacilli; follow up on ID and sensitivies Continue cefepime. (8) History of CVA (cerebrovascular accident): Code(s): Z86.73 - Personal history of transient ischemic attack (TIA), and cerebral infarction without residual deficits Status: Acute Assessment and Plan: Patient has a history of CVA. She is debilitated and essentially bed bound Up to recliner with Ulisses prn. Plan DVT prophylaxis -Xarelto Code status -full Subjective Date/time seen: 01/08/25 09:54 Interval history: 79yo female with DM, HTN, CVA, AFib and CHF who presents with weakness. Up to the chair yesterday. Eating well. Slept okay. No chest pain shortness of breath. No odynophagia or dysphagia. Exam Narrative: AF 97.8 168/60 48 20 93% 3L Gen - NARD sititng up in bed Chest - decreased bibasilar inspiratory crackles CV - RRR S1/S2. Tele showing no acute findings. Abd - soft, NT/ND. Ext - trace edema Neuro - alert and appropriate. bilateral LE paresis Psych - normal mood and affect. Skin - warm and dry. Objective Data Vital Signs Vital Signs: Vital Signs - 24 hr 01/07/25 10:00 01/07/25 11:58 01/07/25 12:00 Temperature 97.7 F Pulse Rate 62 60 62 Respiratory Rate 16 Blood Pressure 153/67 H Pulse Oximetry 92 Oxygen Delivery Oxygen Flow Rate 01/07/25 12:00 01/07/25 14:00 01/07/25 16:00 Temperature 98.1 F Pulse Rate 53 L 52 L Respiratory Rate 24 H Blood Pressure 157/58 H Pulse Oximetry 94 98 Oxygen Delivery Nasal Cannula Oxygen Flow Rate 2 01/07/25 16:00 01/07/25 16:00 01/07/25 18:00 Temperature Pulse Rate 49 L 65 Respiratory Rate Blood Pressure Pulse Oximetry 94 Oxygen Delivery Nasal Cannula Oxygen Flow Rate 2 01/07/25 19:37 01/07/25 20:00 01/07/25 20:20 Temperature 98.1 F Pulse Rate 50 L 65 58 L Respiratory Rate 22 H 18 Blood Pressure 152/68 H Pulse Oximetry 94 Oxygen Delivery Oxygen Flow Rate 01/07/25 20:20 01/07/25 20:28 01/07/25 21:00 Temperature Pulse Rate 65 58 L 56 L Respiratory Rate 18 Blood Pressure Pulse Oximetry 99 Oxygen Delivery Nasal Cannula Oxygen Flow Rate 3 01/07/25 22:00 01/07/25 23:20 01/08/25 00:00 Temperature 98.3 F Pulse Rate 56 L 57 L 55 L Respiratory Rate 22 H Blood Pressure 160/73 H Pulse Oximetry 92 Oxygen Delivery Oxygen Flow Rate 01/08/25 02:00 01/08/25 02:09 01/08/25 02:18 Temperature Pulse Rate 53 L 58 L 56 L Respiratory Rate 18 18 Blood Pressure Pulse Oximetry Oxygen Delivery Oxygen Flow Rate 01/08/25 03:49 01/08/25 04:00 01/08/25 06:00 Temperature 98.4 F Pulse Rate 68 58 L 58 L Respiratory Rate 22 H Blood Pressure 150/64 H Pulse Oximetry 94 Oxygen Delivery Oxygen Flow Rate 01/08/25 07:04 01/08/25 07:04 01/08/25 07:09 Temperature Pulse Rate 65 61 Respiratory Rate 20 20 Blood Pressure Pulse Oximetry 95 Oxygen Delivery Nasal Cannula Oxygen Flow Rate 3 01/08/25 08:00 01/08/25 09:51 Temperature 97.8 F Pulse Rate 60 48 L Respiratory Rate 20 Blood Pressure 168/60 H Pulse Oximetry 93 Oxygen Delivery Oxygen Flow Rate Intake/Output Intake/Output: Intake & Output 01/05/25 01/06/25 01/07/25 01/08/25 23:59 23:59 23:59 23:59 Intake Total 2680 2129.2 340 Output Total 300 1300 750 Balance 2380 829.2 -410 Meds/Results Medications: Active Medications Generic Name Dose Route Start Last Admin Trade Name Freq PRN Reason Stop Dose Admin Acetaminophen 500 mg 01/06/25 17:36 Acetaminophen 500 Mg Tablet PO QHS PRN Pain 1-3 Albuterol 2.5 mg 01/06/25 17:32 Albuterol Sulfate Neb 2.5 Mg/3 Ml Inh INHALATION Q4HRT PRN Shortness Of Breath Albuterol/Ipratropium 3 ml 01/07/25 20:00 01/08/25 07:02 Ipratropium 0.5 Mg/Albuterol Sulfate 2.5 Mg (Base) Ampul.Neb 3 Ml INHALATION 3 ml Q6HRT MANOJ Administration Amlodipine Besylate 2.5 mg 01/06/25 17:40 01/08/25 09:51 Amlodipine Besylate 2.5 Mg Tablet PO 2.5 mg DAILY MANOJ Administration Atorvastatin Calcium 20 mg 01/06/25 21:00 01/07/25 21:00 Atorvastatin 20 Mg Tablet BY MOUTH 20 mg HS MANOJ Administration Dextrose 12.5 gm 01/06/25 17:32 Dextrose 50% 25 Gm/50 Ml Syringe IV PUSH PRN PRN Hypoglycemia Protocol Doxycycline Hyclate 100 mg 01/07/25 21:00 01/08/25 09:50 Doxycycline Hyclate 100 Mg Tablet PO 01/12/25 09:01 100 mg Q12HR MANOJ Administration Fluticasone Propionate 1 spray 01/06/25 21:00 01/08/25 09:51 Fluticasone Propionate 0.05% Na Spr 16 Gm Btl (*Bkc) NASAL 1 spray Q12HR MANOJ Administration Folic Acid 1 mg 01/06/25 17:40 01/08/25 09:50 Folic Acid 1 Mg Tablet BY MOUTH 1 mg DAILY MANOJ Administration Furosemide 20 mg 01/08/25 09:00 01/08/25 09:50 Furosemide 20 Mg Tablet PO 20 mg BID MANOJ Administration Glucagon 1 mg 01/06/25 17:32 Glucagon For Inj 1 Mg Vial IM PRN PRN Hypoglycemia Protocol Glucose 15 gm 01/06/25 17:32 Glucose Oral Gel 15 Gm Of Glucse In 37.5 Gm Tube PO PRN PRN Hypoglycemia Protocol Guaifenesin 1,200 mg 01/06/25 21:00 01/08/25 09:50 Guaifenesin 12 Hr 600 Mg Tabcr PO 1,200 mg Q12HR MANOJ Administration Cefepime HCl 2 gm/ Sodium 50 mls @ 100 mls/hr 01/06/25 18:00 01/08/25 05:27 Chloride IVPB 100 mls/hr Q12H MANOJ Administration Dextrose 1,000 mls @ 100 mls/hr 01/06/25 17:32 Dextrose 5% 1,000 Ml IVPB PRN PRN Hypoglycemia Protocol Insulin Aspart 3 - 6 units 01/07/25 08:00 01/08/25 07:59 Insulin Aspart (*Bkc) 100 Units/Ml SUB-Q Not Given TIDWM MANOJ Protocol Loratadine 5 mg 01/07/25 09:00 01/08/25 09:50 Loratadine 5 Mg Tablet PO 5 mg QAM MANOJ Administration Multivitamins/Minerals 1 tab 01/07/25 09:00 01/08/25 09:51 Multivitamins /C Lutein (Centrum Silver) Tablet *Bkc PO 1 tab DAILY MANOJ Administration Perflutren Lipid Microsphere 0 ml 01/06/25 16:28 Perflutren Lipid Microspheres 1.5 Ml Vial Diluted To 10 Ml Total Volume IV PUSH 01/09/25 16:28 ONCE PRN adequate visualization Protocol Rivaroxaban 20 mg 01/06/25 17:40 01/07/25 17:14 Rivaroxaban 20 Mg Tablet PO 20 mg DAILY@1700 MANOJ Administration Sodium Chloride 1 gm 01/07/25 09:00 01/08/25 09:49 Sodium Chloride 1 Gm Tablet PO 1 gm BID MANOJ Administration Sotalol HCl 80 mg 01/06/25 21:00 01/08/25 09:51 Sotalol Hcl 80 Mg Tablet PO 80 mg Q12HR MANOJ Administration Radiology Results: ITS Impressions Chest X-Ray 01/08/25 08:21 Impression: Mild CHF. The findings appear relatively unchanged Labs Labs: Laboratory Results - last 24 hr 01/06/25 01/07/25 01/07/25 14:00 11:34 12:02 WBC RBC Hgb Hct MCV MCH MCHC RDW Plt Count MPV Immature Gran % (Auto) Neut % (Auto) Lymph % (Auto) Elliott % (Auto) Eos % (Auto) Baso % (Auto) Lymph # (Auto) Elliott # (Auto) Eos # (Auto) Baso # (Auto) Abs Immat Gran (auto) Absolute Neuts (auto) Absolute Nucleated RBC Nucleated RBC % % Immature Plt Fraction Sodium 118 L* Potassium Chloride Carbon Dioxide Anion Gap BUN Creatinine Estim Creat Clear Calc Estimated GFR Glucose POC Capillary Glucose 154 H Calcium Phosphorus Magnesium Total Protein (PEP) 6.2 Albumin Albumin (PEP) 3.3 Globulin (PEP) 2.9 Albumin/Globulin Ratio 1.1 Qsdrl-2-Aivgrmxez 0.2 Jxedx-5-Wgduqscpd 0.7 Beta Globulins 0.8 Gamma Globulins 1.2 PEP Comment Comment Pr Electrophoresis MSpike Not observed 01/07/25 01/07/25 01/07/25 16:14 16:16 19:40 WBC RBC Hgb Hct MCV MCH MCHC RDW Plt Count MPV Immature Gran % (Auto) Neut % (Auto) Lymph % (Auto) Elliott % (Auto) Eos % (Auto) Baso % (Auto) Lymph # (Auto) Elliott # (Auto) Eos # (Auto) Baso # (Auto) Abs Immat Gran (auto) Absolute Neuts (auto) Absolute Nucleated RBC Nucleated RBC % % Immature Plt Fraction Sodium 117 L* Potassium Chloride Carbon Dioxide Anion Gap BUN Creatinine Estim Creat Clear Calc Estimated GFR Glucose POC Capillary Glucose 158 H 183 H Calcium Phosphorus Magnesium Total Protein (PEP) Albumin Albumin (PEP) Globulin (PEP) Albumin/Globulin Ratio Fouyo-1-Lpesrszxt Vsjtf-5-Dxpnfgtgd Beta Globulins Gamma Globulins PEP Comment Pr Electrophoresis MSpike 01/07/25 01/08/25 01/08/25 22:00 04:24 07:14 WBC 7.0 RBC 3.31 L Hgb 11.5 L Hct 31.2 L MCV 94.3 MCH 34.7 H MCHC 36.9 H RDW 11.8 Plt Count 145 L MPV 10.5 H Immature Gran % (Auto) 3.0 H Neut % (Auto) 57.4 Lymph % (Auto) 23.6 Elliott % (Auto) 15.3 H Eos % (Auto) 0.4 Baso % (Auto) 0.3 Lymph # (Auto) 1.65 Elliott # (Auto) 1.1 H Eos # (Auto) 0.0 Baso # (Auto) 0.0 Abs Immat Gran (auto) 0.21 H Absolute Neuts (auto) 4.0 Absolute Nucleated RBC 0.000 Nucleated RBC % 0.0 % Immature Plt Fraction 5.7 Sodium 117 L* 117 L* Potassium 3.9 Chloride 87 L Carbon Dioxide 25 Anion Gap 5 BUN 17 Creatinine 0.82 Estim Creat Clear Calc 56 Estimated GFR > 60 Glucose 136 H POC Capillary Glucose 155 H Calcium 8.0 L Phosphorus 3.9 Magnesium 1.6 Total Protein (PEP) Albumin 3.5 Albumin (PEP) Globulin (PEP) Albumin/Globulin Ratio Yclgm-6-Nvkmthnbp Syepq-7-Gzwgaypsv Beta Globulins Gamma Globulins PEP Comment Pr Electrophoresis MSpike
[2025-01-08 11:28] LABS: Sodium 120 mmol/L (137-145)
--- NOTE | 2025-01-08 12:00 | P.PNNP_ITS ---
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(?) * previous extensive evaluation noted in the past/previous hospital stays: * TSH okay * cortisol has been lowish in the past but normal cosyntropin stimulation test * imaging of brain and chest WNL * negative SPEP and UPEP * urine osmolality > serum osmolality * previous bouts of acute drops in sodium attributed to HCTZ & SSRI use and CHF * up to date on cancer screening(?) * interventions to date noted: * on fluid restriction * s/p 3% saline x 1 * on salt tabs + lasix * follow trend of serial sodium levels (2) Acute hypoxic respiratory failure: Code(s): J96.01 - Acute respiratory failure with hypoxia Status: Acute Assessment and Plan: * noted on presentation * no evidence of respiratory distress * etiology not clear: * viral testing for influenza/RSV/COVD negative * CXR on admission clear * BNP noted but does not appear fluid overloaded * PE less likely since already on anticoagulation * no fevers or elevated WBC * due to viral illness/bronchitis(?) * repeat CXRs with PVC - now on diuretics * follow cultures * on empiric antibiotics * wean oxygen as tolerated (3) CHF (congestive heart failure): Qualifiers: Heart failure type: other Qualified Code(s): I50.9 - Heart failure, unspecified Code(s): I50.9 - Heart failure, unspecified Status: Acute Assessment and Plan: * known history * recent Echo noted: * normal biventricular size and systolic function * no significant valvular abnormalities * pulmonary arterial systolic pressure is estimated at 79 mmHg - severe pulmonary hypertension * BNP 984 * admission CXR clear * however, repeat CXRs with pulmonary vascular congestion... * on diuretics (4) UTI (urinary tract infection): Code(s): N39.0 - Urinary tract infection, site not specified Status: Acute Assessment and Plan: * admission UA highly suggestive * floow urine culture - GNB noted * on antibiotics (5) Afib: Code(s): I48.91 - Unspecified atrial fibrillation Status: Acute Assessment and Plan: * on sotalol * heart rate stable * on anticoagulation with Xarelto (6) Hypertension: Qualifiers: Hypertension type: essential hypertension Qualified Code(s): I10 - Essential (primary) hypertension Code(s): I10 - Essential (primary) hypertension Status: Acute Assessment and Plan: * elevated readings on admission * better control at this time * follow trend of hemodynamics (7) Diabetes mellitus: Qualifiers: Diabetes mellitus type: type 2 Diabetes mellitus joint terminal attack controller insulin use: without joint terminal attack controller use Diabetes mellitus complication status: without complication Qualified Code(s): E11.9 - Type 2 diabetes mellitus without complications Code(s): E11.9 - Type 2 diabetes mellitus without complications Status: Acute Assessment and Plan: * follow accu-cheks * glycemic control per hospitalist Will continue to follow. Subjective Date/time seen: 01/08/25 12:00 Interval history: Follow-up for acute on chronic hyponatremia. Further IVFs discontinued due to evidence of fluid on recent CXR -- given IV lasix and started on oral lasix therapy with salt tabs in an effort to diuresis but maintain/improve sodium levels; otherwise, no apparent distress noted; no other acute issues/events overnight or earlier this morning. Exam Narrative: General: elderly but WD/WN female in NAD Heart: normal S1 and S2; no rub Lungs: bibasilar crackles noted Abdomen: soft, nontender, nondistended, positive bowel sounds Extremities: no cyanosis or clubbing; no edema Skin: warm and intact Objective Data Vital Signs Vital Signs: Vital Signs Temp Pulse Resp BP Pulse Ox O2 Del Method O2 Flow Rate 01/08/25 12:00 70 01/08/25 11:58 98.2 F 66 20 157/71 H 91 01/08/25 10:00 59 L 01/08/25 09:51 48 L 01/08/25 08:00 52 L 01/08/25 08:00 97.8 F 60 20 168/60 H 93 01/08/25 07:09 61 20 01/08/25 07:04 65 20 01/08/25 07:04 95 Nasal Cannula 3 01/08/25 06:00 58 L 01/08/25 04:00 58 L 01/08/25 03:49 98.4 F 68 22 H 150/64 H 94 01/08/25 02:18 56 L 18 01/08/25 02:09 58 L 18 01/08/25 02:00 53 L 01/08/25 00:00 55 L 01/07/25 23:20 98.3 F 57 L 22 H 160/73 H 92 01/07/25 22:00 56 L 01/07/25 21:00 56 L 01/07/25 20:28 58 L 18 01/07/25 20:20 65 99 Nasal Cannula 3 01/07/25 20:20 58 L 18 01/07/25 20:00 65 01/07/25 19:37 98.1 F 50 L 22 H 152/68 H 94 Intake/Output Intake/Output: Intake & Output 01/05/25 01/06/25 01/07/25 01/08/25 23:59 23:59 23:59 23:59 Intake Total 2680 2129.2 866 Output Total 300 1300 1650 Balance 2380 829.2 -784 Meds/Results Medications: Active Medications Generic Name Dose Route Start Last Admin Trade Name Freq PRN Reason Stop Dose Admin Acetaminophen 500 mg 01/06/25 17:36 Acetaminophen 500 Mg Tablet PO QHS PRN Pain 1-3 Albuterol 2.5 mg 01/06/25 17:32 Albuterol Sulfate Neb 2.5 Mg/3 Ml Inh INHALATION Q4HRT PRN Shortness Of Breath Albuterol/Ipratropium 3 ml 01/07/25 20:00 01/08/25 13:53 Ipratropium 0.5 Mg/Albuterol Sulfate 2.5 Mg (Base) Ampul.Neb 3 Ml INHALATION 3 ml Q6HRT MANOJ Administration Amlodipine Besylate 2.5 mg 01/06/25 17:40 11/21/25 09:51 Amlodipine Besylate 2.5 Mg Tablet PO 2.5 mg DAILY MANOJ Administration Atorvastatin Calcium 20 mg 01/06/25 21:00 01/07/25 21:00 Atorvastatin 20 Mg Tablet BY MOUTH 20 mg HS MANOJ Administration Dextrose 12.5 gm 01/06/25 17:32 Dextrose 50% 25 Gm/50 Ml Syringe IV PUSH PRN PRN Hypoglycemia Protocol Doxycycline Hyclate 100 mg 01/07/25 21:00 01/08/25 09:50 Doxycycline Hyclate 100 Mg Tablet PO 01/12/25 09:01 100 mg Q12HR MANOJ Administration Fluticasone Propionate 1 spray 01/06/25 21:00 01/08/25 09:51 Fluticasone Propionate 0.05% Na Spr 16 Gm Btl (*Bkc) NASAL 1 spray Q12HR MANOJ Administration Folic Acid 1 mg 01/06/25 17:40 01/08/25 09:50 Folic Acid 1 Mg Tablet BY MOUTH 1 mg DAILY MANOJ Administration Furosemide 20 mg 01/08/25 09:00 01/08/25 17:29 Furosemide 20 Mg Tablet PO 20 mg BID MANOJ Administration Glucagon 1 mg 01/06/25 17:32 Glucagon For Inj 1 Mg Vial IM PRN PRN Hypoglycemia Protocol Glucose 15 gm 01/06/25 17:32 Glucose Oral Gel 15 Gm Of Glucse In 37.5 Gm Tube PO PRN PRN Hypoglycemia Protocol Guaifenesin 1,200 mg 01/06/25 21:00 01/08/25 09:50 Guaifenesin 12 Hr 600 Mg Tabcr PO 1,200 mg Q12HR MANOJ Administration Cefepime HCl 2 gm/ Sodium 50 mls @ 100 mls/hr 01/06/25 18:00 01/08/25 17:29 Chloride IVPB 100 mls/hr Q12H MANOJ Administration Dextrose 1,000 mls @ 100 mls/hr 01/06/25 17:32 Dextrose 5% 1,000 Ml IVPB PRN PRN Hypoglycemia Protocol Insulin Aspart 3 - 6 units 01/07/25 08:00 01/08/25 17:20 Insulin Aspart (*Bkc) 100 Units/Ml SUB-Q Not Given TIDWM MANOJ Protocol Loratadine 5 mg 01/07/25 09:00 01/08/25 09:50 Loratadine 5 Mg Tablet PO 5 mg QAM MANOJ Administration Multivitamins/Minerals 1 tab 01/07/25 09:00 01/08/25 09:51 Multivitamins /C Lutein (Centrum Silver) Tablet *Bkc PO 1 tab DAILY MANOJ Administration Perflutren Lipid Microsphere 0 ml 01/06/25 16:28 Perflutren Lipid Microspheres 1.5 Ml Vial Diluted To 10 Ml Total Volume IV PUSH 01/09/25 16:28 ONCE PRN adequate visualization Protocol Rivaroxaban 20 mg 01/06/25 17:40 01/08/25 17:29 Rivaroxaban 20 Mg Tablet PO 20 mg DAILY@1700 MANOJ Administration Sodium Chloride 1 gm 01/07/25 09:00 01/08/25 17:29 Sodium Chloride 1 Gm Tablet PO 1 gm BID MANOJ Administration Sotalol HCl 80 mg 01/06/25 21:00 01/08/25 09:51 Sotalol Hcl 80 Mg Tablet PO 80 mg Q12HR MANOJ Administration Radiology Results: ITS Impressions Chest X-Ray 01/08/25 08:21 Impression: Mild CHF. The findings appear relatively unchanged Modified Barium Swallow 01/08/25 13:38 IMPRESSION: No aspiration observed. See speech therapist's report for complete evaluation. Labs Labs: Laboratory Tests 01/08/25 01/08/25 04:24 11:02 WBC 7.0 Hgb 11.5 L Hct 31.2 L Plt Count 145 L Sodium 117 L* 120 L Potassium 3.9 Chloride 87 L Carbon Dioxide 25 Anion Gap 5 BUN 17 Creatinine 0.82 Estim Creat Clear Calc 56 Estimated GFR > 60 Glucose 136 H Calcium 8.0 L Phosphorus 3.9 Magnesium 1.6 Albumin 3.5 Microbiology 01/06/25 06:52 Blood Blood Culture - Preliminary 01/06/25 06:51 Blood Blood Culture - Preliminary 01/06/25 11:15 Unspecified Urine - Preliminary Gram negative bacilli isolated
[2025-01-08 14:08] LABS: Immunoglobulin A, Qn 118 mg/dL (64-422); Immunoglobulin G, Qn 1350 mg/dL (586-1602); Immunoglobulin M, Qn 74 mg/dL (26-217)
--- NOTE | 2025-01-08 14:16 | REHSTMBS ---
Assessment and note entered by Rufina Shah [employer] Modified Barium Swallow Evaluation Feeding Type Recommended Oral Food Consistency Regular, Level 7 Liquid Consistency Mildly Thick (2) Treatment Recommendations Laryngeal Elevation Exercise ST Clinical Summary The patient is an 79 year old female referred form a [facility] based on a BSE completed this date with noted coughing inconsistently with thin liquids during her noon meal. The patient was positioned in a lateral view and presented the following consistencies: 5cc/tsp thin liquid barium, cup trials thin liquid barium, mildly thick liquid barium via a cup, pudding mixed with barium paste, and cracker coated with barium paste. Oral Stage: Oral preparation and transit was viewed to be timely for all consistencies. Pharyngeal Stage: When presented thin liquid barium via cup the patient was viewed to have laryngeal penetration during the swallow secondary to reduced laryngeal elevation. Attempts to utilize a chin tuck posture to reduce penetration risk only resulted in further penetration, and patient was unable to consistently follow small single sips and place chin down. When presented cup trials of mildly thick liquid barium no further penetration or aspiration noted. With all remaining trials mildly thick liquid barium via cup, pudding mixed with barium paste and cracker coated with barium paste swallow initiation was completed in a timely manner without viewed aspiration or penetration. No residual was viewed to remain in the valleculae or pyriform sinus. Recommend : 1. Regular Diet / Level 7 2. Mildly thick liquid / Level 2 3. Upright with meals 4. Frequent observation 5. No straw 6. Speech therapy services to address laryngeal elevation and possible trials with single sips thin liquid and chin tuck posture. Thank you for the consult
[2025-01-08] MEDS: RIVAROXABAN 20 MG TABLET PO (17:29)
[2025-01-08 18:03] LABS: Sodium 121 mmol/L (137-145)
[2025-01-08] MEDS: ATORVASTATIN 20 MG TABLET BY MOUTH (19:55)
[2025-01-09] VITALS (26 sets, daily range): BP systolic 145–169; BP diastolic 52–96; PULSE 42–78; RESP 15–24; TEMP 35.9–36.5; O2SAT 89–98
[2025-01-09] MEDS: IPRATROPIUM 0.5 MG/ALBUTEROL SULFATE 2.5 MG (BASE) AMPUL.NEB 3 ML INHALATION ×4 (02:10→20:18)
[2025-01-09 04:43] LABS: Hematocrit 31.5 % (37.0-47.0); Hemoglobin 11.6 g/dL (12.0-15.0); Immature Granulocyte Percent A 2.7 % (0-0.5); Lymphocytes Absolute Auto 2.09 K/mm3 (0.9-3.2); Mean Corpuscular HGB Conc 36.8 g/dl (32-36); Mean Corpuscular Hemoglobin 34.5 pg (26-34); Mean Corpuscular Volume 93.8 fl (80-100); Nucleated Red Blood Cells Absolute Auto 0.000 K/mm3 (0.0-0.012); Nucleated Red Blood Cells Perc 0.0 % (0.0-0.2); Platelet Count Result 162 k/mm3 (150-375); Red Blood Count 3.36 M/mm3 (4.2-5.4); White Blood Count 8.1 K/mm3 (4.5-10.0)
[2025-01-09 05:13] LABS: Albumin Level 3.6 g/dL (3.5-5.1); Anion Gap 6 mmol/L (4-12); Blood Urea Nitrogen 19 mg/dL (7-17); Calcium 8.3 mg/dL (8.4-10.2); Carbon Dioxide 29 mmol/L (22-30); Chloride 86 mmol/L (98-107); Estimated CRCL calculation 55 ml/min; Estimated Glomerular Filt Rate > 60; Glucose 171 mg/dL (65-110); Magnesium 1.6 mg/dL (1.6-2.3); Potassium 3.5 mmol/L (3.4-5.0); Sodium 121 mmol/L (137-145)
[2025-01-09] MEDS: CEFEPIME 1 GM in SODIUM CHLORIDE 0.9% IV 50 ML 100 ML IVPB ×2 (05:54→18:14)
[2025-01-09] MEDS: ACETAMINOPHEN 500 MG TABLET PO (06:36)
[2025-01-09] MEDS: guaiFENesin 12 HR 600 MG TABCR 1200 MG PO ×2 (08:53→20:35)
[2025-01-09] MEDS: FOLIC ACID 1 MG TABLET BY MOUTH (08:53)
[2025-01-09] MEDS: FLUTICASONE PROPIONATE 0.05% NA SPR 16 GM BTL (*BKC) 1 SPRAY NASAL ×2 (08:53→20:35)
[2025-01-09] MEDS: DOXYCYCLINE HYCLATE 100 MG TABLET PO ×2 (08:54→20:35)
[2025-01-09] MEDS: FUROSEMIDE 20 MG TABLET PO ×2 (08:54→18:15)
[2025-01-09] MEDS: LORATADINE 5 MG TABLET PO (08:54)
[2025-01-09] MEDS: SODIUM CHLORIDE 1 GM TABLET PO ×2 (08:54→18:15)
[2025-01-09] MEDS: SOTALOL HCL 80 MG TABLET PO ×2 (08:54→20:35)
[2025-01-09] MEDS: MULTIVITAMINS /C LUTEIN (CENTRUM SILVER) TABLET *BKC 1 TAB PO (08:54)
[2025-01-09] MEDS: INSULIN ASPART (*BKC) 100 UNITS/ML SUB-Q ×2 (12:31→18:15)
--- NOTE | 2025-01-09 12:58 | P.PNNP_ITS ---
Progress Note: A&P Assessment and Plan (1) Hyponatremia: Code(s): E87.1 - Hypo-osmolality and hyponatremia Status: Acute Assessment and Plan: * slow improvement noted * acute on chronic * has been running ~ 127 - 135mmol/L since as far back as 2018 (if not longer) * several hospitalization noted in the past for this issue - August 2020 (here at [facility]) - June 2019 (here at [facility]) * etiology of acute drop on this admission not clear. However she was sick for the week before admission and it is likely that she was drinking extra water compared to what she was eating. * I reminded her that if she is sick for more than a couple of days she should call me so we can help her and also check a sodium before it gets real bad. 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 * Will give another round of 3% saline to get the sodium up. (2) Acute hypoxic respiratory failure: Code(s): J96.01 - Acute respiratory failure with hypoxia Status: Acute Assessment and Plan: * noted on presentation * no evidence of respiratory distress * etiology not clear: * viral testing for influenza/RSV/COVD negative * CXR on admission clear * BNP noted but does not appear fluid overloaded * PE less likely since already on anticoagulation * no fevers or elevated WBC * due to viral illness/bronchitis(?) * repeat CXRs with PVC - now on diuretics * follow cultures * on empiric antibiotics * wean oxygen as tolerated (3) CHF (congestive heart failure): Qualifiers: Heart failure type: other Qualified Code(s): I50.9 - Heart failure, unspecified Code(s): I50.9 - Heart failure, unspecified Status: Acute Assessment and Plan: * known history * recent Echo noted: * normal biventricular size and systolic function * no significant valvular abnormalities * pulmonary arterial systolic pressure is estimated at 79 mmHg - severe pulmonary hypertension * BNP 984 * admission CXR clear * however, repeat CXRs with pulmonary vascular congestion... * on diuretics (4) UTI (urinary tract infection): Code(s): N39.0 - Urinary tract infection, site not specified Status: Acute Assessment and Plan: * admission UA highly suggestive * floow urine culture - GNB noted * on antibiotics (5) Afib: Code(s): I48.91 - Unspecified atrial fibrillation Status: Acute Assessment and Plan: * on sotalol * heart rate stable * on anticoagulation with Xarelto (6) Hypertension: Qualifiers: Hypertension type: essential hypertension Qualified Code(s): I10 - Essential (primary) hypertension Code(s): I10 - Essential (primary) hypertension Status: Acute Assessment and Plan: * elevated readings on admission * better control at this time * follow trend of hemodynamics (7) Diabetes mellitus: Qualifiers: Diabetes mellitus type: type 2 Diabetes mellitus fdc insulin use: without manager background use Diabetes mellitus complication status: without complication Qualified Code(s): E11.9 - Type 2 diabetes mellitus without com plications Code(s): E11.9 - Type 2 diabetes mellitus without complications Status: Acute Assessment and Plan: * follow accu-cheks * glycemic control per hospitalist Subjective Date/time seen: 01/09/25 12:58 Interval history: Patient feels okay. On her fluid restriction. She says she was sick for about a week before admission. Exam Narrative: General: elderly but WD/WN female in NAD Heart: normal S1 and S2; no rub or gallop Lungs: bibasilar crackles noted Abdomen: soft, nontender, nondistended, positive bowel sounds Extremities: no cyanosis or clubbing; no edema Skin: No rash Objective Data Vital Signs Vital Signs: Vital Signs - 24 hr 01/08/25 13:55 01/08/25 14:00 01/08/25 14:02 Temperature Pulse Rate 66 59 L 62 Respiratory Rate 20 20 Blood Pressure Pulse Oximetry Oxygen Delivery Oxygen Flow Rate 01/08/25 16:00 01/08/25 16:00 01/08/25 18:00 Temperature 98.1 F Pulse Rate 67 73 85 Respiratory Rate 24 H Blood Pressure 155/70 H Pulse Oximetry 91 Oxygen Delivery Oxygen Flow Rate 01/08/25 19:53 01/08/25 20:00 01/08/25 20:00 Temperature 97.7 F Pulse Rate 121 H 105 H 117 H Respiratory Rate 24 H Blood Pressure 157/98 H Pulse Oximetry 93 Oxygen Delivery Oxygen Flow Rate 01/08/25 20:00 01/08/25 20:11 01/08/25 20:11 Temperature Pulse Rate 120 H Respiratory Rate 18 Blood Pressure Pulse Oximetry 89 L 92 Oxygen Delivery Nasal Cannula Oxygen Flow Rate 2 2 01/08/25 20:18 01/08/25 22:00 01/08/25 23:00 Temperature Pulse Rate 100 102 H Respiratory Rate 18 Blood Pressure Pulse Oximetry 90 Oxygen Delivery Nasal Cannula Oxygen Flow Rate 2 01/08/25 23:09 01/09/25 00:00 01/09/25 00:00 Temperature 96.7 F L Pulse Rate 0 L 49 L 70 Respiratory Rate 24 H Blood Pressure 146/63 H Pulse Oximetry 97 Oxygen Delivery Oxygen Flow Rate 01/09/25 02:00 01/09/25 02:10 01/09/25 02:17 Temperature Pulse Rate 42 L 58 L 55 L Respiratory Rate 15 15 Blood Pressure Pulse Oximetry Oxygen Delivery Oxygen Flow Rate 01/09/25 03:51 01/09/25 04:00 01/09/25 04:00 Temperature 97.4 F L Pulse Rate 65 65 Respiratory Rate 24 H Blood Pressure 148/57 H Pulse Oximetry 92 98 Oxygen Delivery Nasal Cannula Oxygen Flow Rate 2 01/09/25 06:00 01/09/25 08:00 01/09/25 08:00 Temperature 97.4 F L Pulse Rate 62 56 L 60 Respiratory Rate 22 H Blood Pressure 169/52 H Pulse Oximetry 91 Oxygen Delivery Oxygen Flow Rate 01/09/25 08:15 01/09/25 08:54 01/09/25 09:24 Temperature Pulse Rate 69 65 Respiratory Rate 17 Blood Pressure Pulse Oximetry 91 Oxygen Delivery Nasal Cannula Oxygen Flow Rate 3 01/09/25 09:24 01/09/25 09:28 01/09/25 10:00 Temperature Pulse Rate 50 L 57 L Respiratory Rate 15 Blood Pressure Pulse Oximetry 97 Oxygen Delivery Nasal Cannula Oxygen Flow Rate 1 01/09/25 11:52 Temperature 97.4 F L Pulse Rate 46 L Respiratory Rate 18 Blood Pressure 145/57 H Pulse Oximetry 90 Oxygen Delivery Oxygen Flow Rate Intake/Output Intake/Output: Intake & Output 01/06/25 01/07/25 01/08/25 01/09/25 23:59 23:59 23:59 23:59 Intake Total 2680 2129.2 1696 360 Output Total 300 1300 2800 400 Balance 2380 829.2 -1104 -40 Meds/Results Medications: Active Medications Generic Name Dose Route Start Last Admin Trade Name Freq PRN Reason Stop Dose Admin Acetaminophen 500 mg 01/06/25 17:36 01/09/25 06:36 Acetaminophen 500 Mg Tablet PO 500 mg QHS PRN Administration Pain 1-3 Albuterol 2.5 mg 01/06/25 17:32 Albuterol Sulfate Neb 2.5 Mg/3 Ml Inh INHALATION Q4HRT PRN Shortness Of Breath Albuterol/Ipratropium 3 ml 01/07/25 20:00 01/09/25 09:22 Ipratropium 0.5 Mg/Albuterol Sulfate 2.5 Mg (Base) Ampul.Neb 3 Ml INHALATION 3 ml Q6HRT MANOJ Administration Amlodipine Besylate 2.5 mg 01/06/25 17:40 01/09/25 08:54 Amlodipine Besylate 2.5 Mg Tablet PO 2.5 mg DAILY MANOJ Administration Atorvastatin Calcium 20 mg 01/06/25 21:00 01/08/25 19:55 Atorvastatin 20 Mg Tablet BY MOUTH 20 mg HS MANOJ Administration Dextrose 12.5 gm 01/06/25 17:32 Dextrose 50% 25 Gm/50 Ml Syringe IV PUSH PRN PRN Hypoglycemia Protocol Doxycycline Hyclate 100 mg 01/07/25 21:00 01/09/25 08:54 Doxycycline Hyclate 100 Mg Tablet PO 01/12/25 09:01 100 mg Q12HR MANOJ Administration Fluticasone Propionate 1 spray 01/06/25 21:00 01/09/25 08:53 Fluticasone Propionate 0.05% Na Spr 16 Gm Btl (*Bkc) NASAL 1 spray Q12HR MANOJ Administration Folic Acid 1 mg 01/06/25 17:40 01/09/25 08:53 Folic Acid 1 Mg Tablet BY MOUTH 1 mg DAILY MANOJ Administration Furosemide 20 mg 01/08/25 09:00 01/09/25 08:54 Furosemide 20 Mg Tablet PO 20 mg BID MANOJ Administration Glucagon 1 mg 01/06/25 17:32 Glucagon For Inj 1 Mg Vial IM PRN PRN Hypoglycemia Protocol Glucose 15 gm 01/06/25 17:32 Glucose Oral Gel 15 Gm Of Glucse In 37.5 Gm Tube PO PRN PRN Hypoglycemia Protocol Guaifenesin 1,200 mg 01/06/25 21:00 01/09/25 08:53 Guaifenesin 12 Hr 600 Mg Tabcr PO 1,200 mg Q12HR MANOJ Administration Dextrose 1,000 mls @ 100 mls/hr 01/06/25 17:32 Dextrose 5% 1,000 Ml IVPB PRN PRN Hypoglycemia Protocol Cefepime HCl 1 gm/ Sodium 50 mls @ 100 mls/hr 01/09/25 06:00 01/09/25 05:54 Chloride IVPB 100 mls/hr Q12H MANOJ Administration Insulin Aspart 3 - 6 units 01/07/25 08:00 01/09/25 12:31 Insulin Aspart (*Bkc) 100 Units/Ml SUB-Q 3 units TIDWM MANOJ Administration Protocol Loratadine 5 mg 01/07/25 09:00 01/09/25 08:54 Loratadine 5 Mg Tablet PO 5 mg QAM MANOJ Administration Multivitamins/Minerals 1 tab 01/07/25 09:00 01/09/25 08:54 Multivitamins /C Lutein (Centrum Silver) Tablet *Bkc PO 1 tab DAILY MANOJ Administration Perflutren Lipid Microsphere 0 ml 01/06/25 16:28 Perflutren Lipid Microspheres 1.5 Ml Vial Diluted To 10 Ml Total Volume IV PUSH 01/09/25 16:28 ONCE PRN adequate visualization Protocol Rivaroxaban 20 mg 01/06/25 17:40 01/08/25 17:29 Rivaroxaban 20 Mg Tablet PO 20 mg DAILY@1700 MANOJ Administration Sodium Chloride 1 gm 01/07/25 09:00 01/09/25 08:54 Sodium Chloride 1 Gm Tablet PO 1 gm BID MANOJ Administration Sotalol HCl 80 mg 01/06/25 21:00 01/09/25 08:54 Sotalol Hcl 80 Mg Tablet PO 80 mg Q12HR MANOJ Administration Radiology Results: ITS Impressions Chest X-Ray 01/08/25 08:21 Impression: Mild CHF. The findings appear relatively unchanged Modified Barium Swallow 01/08/25 13:38 IMPRESSION: No aspiration observed. See speech therapist's report for complete evaluation. Labs Labs: Laboratory Results - last 24 hr 01/06/25 01/08/25 01/08/25 14:00 16:17 17:50 WBC RBC Hgb Hct MCV MCH MCHC RDW Plt Count MPV Immature Gran % (Auto) Neut % (Auto) Lymph % (Auto) [place] % (Auto) Eos % (Auto) Baso % (Auto) Lymph # (Auto) [place] # (Auto) Eos # (Auto) Baso # (Auto) Abs Immat Gran (auto) Absolute Neuts (auto) Absolute Nucleated RBC Nucleated RBC % Sodium 121 L Potassium Chloride Carbon Dioxide Anion Gap BUN Creatinine Estim Creat Clear Calc Estimated GFR Glucose POC Capillary Glucose 193 H Calcium Phosphorus Magnesium Albumin IgG 1350 IgA 118 IgM 74 ZAYDA Interpretation Comment 01/08/25 01/08/25 01/09/25 20:43 23:54 04:09 WBC 8.1 RBC 3.36 L Hgb 11.6 L Hct 31.5 L MCV 93.8 MCH 34.5 H MCHC 36.8 H RDW 11.8 Plt Count 162 MPV 10.7 H Immature Gran % (Auto) 2.7 H Neut % (Auto) 57.0 Lymph % (Auto) 26.0 [place] % (Auto) 13.5 H Eos % (Auto) 0.4 Baso % (Auto) 0.4 Lymph # (Auto) 2.09 [place] # (Auto) 1.1 H Eos # (Auto) 0.0 Baso # (Auto) 0.0 Abs Immat Gran (auto) 0.22 H Absolute Neuts (auto) 4.6 Absolute Nucleated RBC 0.000 Nucleated RBC % 0.0 Sodium 121 L Potassium 3.5 Chloride 86 L Carbon Dioxide 29 Anion Gap 6 BUN 19 H Creatinine 0.84 Estim Creat Clear Calc 55 Estimated GFR > 60 Glucose 171 H POC Capillary Glucose 292 H 231 H Calcium 8.3 L Phosphorus 3.3 Magnesium 1.6 Albumin 3.6 IgG IgA IgM ZAYDA Interpretation 01/09/25 01/09/25 07:52 11:09 WBC RBC Hgb Hct MCV MCH MCHC RDW Plt Count MPV Immature Gran % (Auto) Neut % (Auto) Lymph % (Auto) [place] % (Auto) Eos % (Auto) Baso % (Auto) Lymph # (Auto) [place] # (Auto) Eos # (Auto) Baso # (Auto) Abs Immat Gran (auto) Absolute Neuts (auto) Absolute Nucleated RBC Nucleated RBC % Sodium Potassium Chloride Carbon Dioxide Anion Gap BUN Creatinine Estim Creat Clear Calc Estimated GFR Glucose POC Capillary Glucose 169 H 233 H Calcium Phosphorus Magnesium Albumin IgG IgA IgM ZAYDA Interpretation
[2025-01-09] MEDS: SODIUM CHLORIDE 3% 400 ML 50 ML IV CONT (14:01)
--- NOTE | 2025-01-09 15:29 | PM.IMPN ---
Progress Note: A&P Assessment and Plan (1) Hypoxia: Code(s): R09.02 - Hypoxemia Status: Acute Assessment and Plan: Patient presents with hypoxia. Etiology unclear. Viral swab was negative. MRSA nasal swab negative. Chest x-ray was clear. Does not appear to be fluid overloaded. She is on anticoagulation making PE less likely. Compliant with her anticoagulation medications. Probably related to viral illness and now wheezing. Repeat CXR now showing suspect worsening pulmonary edema and/or infiltrates in the lower lobes left worse than right. Could be related to pulm edema from IV fluids and poor UOP (Fluid positive 3.6L). Consider also PNA but no fever or leukocytosis. Lasix started. Fluid status improved. Speech therapy evaluation with MBS showing mild dysphagia requiring Level 2 thickened liquids. Diet adjusted. Weaned to 1.5L. CXR clear now. Contnue supportive treatment. Wean oxygen as tolerated. Continue nebs. Continue cefepime and doxycycline. (2) Hyponatremia: Code(s): E87.1 - Hypo-osmolality and hyponatremia Status: Acute Assessment and Plan: Patient presents with weakness and viral symptoms. She has known history of hyponatremia. Sodium on presentation was 112. TSH and Cortisol levels normal. Jones 123 with FENa 1.5% to suggest intrinsic renal disease. Fluid restriction. IV fluids stopped. Nephrology consulted and appreciate their input. SPEP showing no M-spike. SIF showing no monoclonalality. UPEP pending Lasix started. Oral NaCl tabs started. 3% saline given but stopped due to pulmonary edema. Serial sodium levels better at 121. CXR clear now so plan to repeat 3% saline. Continue serial Na levels. Continue oral NaCl. (3) CHF (congestive heart failure): Qualifiers: Heart failure type: other Qualified Code(s): I50.9 - Heart failure, unspecified Code(s): I50.9 - Heart failure, unspecified Status: Acute Assessment and Plan: Patient has a history of CHF. She has a history of large pericardial effusion s/p pericardial window in 2020. Echo here showing normal biventricular size and systolic function and pulmonary arterial systolic pressure of about 79 mmHg with severe pulmonary hypertension. BNP 984. CXR as above. Will need apnea link once off O2 and feeling better (4) Hypertension: Qualifiers: Hypertension type: essential hypertension Qualified Code(s): I10 - Essential (primary) hypertension Code(s): I10 - Essential (primary) hypertension Status: Acute Assessment and Plan: Patient with elevated blood pressure on admission that has improved. HTN possibly related to untreated JULIA? Advance Norvasc. Continue to follow (5) Afib: Code(s): I48.91 - Unspecified atrial fibrillation Status: Acute Assessment and Plan: Patient with history of atrial fibrillation. She is on sotalol which was continued. Tele showing transient bradycardia but HR stable overall Xarelto also resumed. Monitor on telemetry (6) Diabetes mellitus: Qualifiers: Diabetes mellitus complication status: without complication Diabetes mellitus group home insulin use: without group home use Diabetes mellitus type: type 2 Qualified Code(s): E11.9 - Type 2 diabetes mellitus without complications Code(s): E11.9 - Type 2 diabetes mellitus without complications Status: Acute Assessment and Plan: A1c 6.8%. Patient with a history of diabetes. She is on glipizide, saxagliptin and metformin. Glucose climbing. Will continue to hold these medications for now and add Lantus tonight Continue sliding scale (7) UTI (urinary tract infection): Code(s): N39.0 - Urinary tract infection, site not specified Status: Acute Assessment and Plan: UA noted and concerning for UTI. She has 2+ protein on a sample. Protein/Cr ratio 4.3gm but suspect this is probably related to the UTI. Plan to repeat protein-creatinine ratio after urine clears. She has a history of Pseudomonas UTI. UCx growing gram negative bacilli; follow up on ID and sensitivies Continue cefepime. (8) History of CVA (cerebrovascular accident): Code(s): Z86.73 - Personal history of transient ischemic attack (TIA), and cerebral infarction without residual deficits Status: Acute Assessment and Plan: Patient has a history of CVA. She is debilitated and essentially bed bound Up to recliner with Ulisses prn. Plan Dysphagia - MBS showing she needs to have Level [address] DVT prophylaxis -Xarelto Code status -full Subjective Date/time seen: 01/09/25 15:29 Interval history: 79yo female with DM, HTN, CVA, AFib and CHF who presents with weakness. Slept well. No shortness of breath or chest pain. No bowel movement since admission. Exam Narrative: AF 97.4 145/57 62 16 90% 1L Gen - NARD Chest - mild bibasilar inspiratory crackles o/w clear CV - RRR S1/S2. Tele showing episodes of transient bradycardia lasting a few beats Abd - soft, mild diffuse tenderness with guarding. Ext - no edema Neuro - alert and appropriate. bilateral LE paresis Psych - normal mood and affect. Skin - warm and dry. Objective Data Vital Signs Vital Signs: Vital Signs - 24 hr 01/08/25 16:00 01/08/25 16:00 01/08/25 18:00 Temperature 98.1 F Pulse Rate 67 73 85 Respiratory Rate 24 H Blood Pressure 155/70 H Pulse Oximetry 91 Oxygen Delivery Oxygen Flow Rate 01/08/25 19:53 01/08/25 20:00 01/08/25 20:00 Temperature 97.7 F Pulse Rate 121 H 105 H 117 H Respiratory Rate 24 H Blood Pressure 157/98 H Pulse Oximetry 93 Oxygen Delivery Oxygen Flow Rate 01/08/25 20:00 01/08/25 20:11 01/08/25 20:11 Temperature Pulse Rate 120 H Respiratory Rate 18 Blood Pressure Pulse Oximetry 89 L 92 Oxygen Delivery Nasal Cannula Oxygen Flow Rate 2 2 01/08/25 20:18 01/08/25 22:00 01/08/25 23:00 Temperature Pulse Rate 100 102 H Respiratory Rate 18 Blood Pressure Pulse Oximetry 90 Oxygen Delivery Nasal Cannula Oxygen Flow Rate 2 01/08/25 23:09 01/09/25 00:00 01/09/25 00:00 Temperature 96.7 F L Pulse Rate 0 L 49 L 70 Respiratory Rate 24 H Blood Pressure 146/63 H Pulse Oximetry 97 Oxygen Delivery Oxygen Flow Rate 01/09/25 02:00 01/09/25 02:10 01/09/25 02:17 Temperature Pulse Rate 42 L 58 L 55 L Respiratory Rate 15 15 Blood Pressure Pulse Oximetry Oxygen Delivery Oxygen Flow Rate 01/09/25 03:51 01/09/25 04:00 01/09/25 04:00 Temperature 97.4 F L Pulse Rate 65 65 Respiratory Rate 24 H Blood Pressure 148/57 H Pulse Oximetry 92 98 Oxygen Delivery Nasal Cannula Oxygen Flow Rate 2 01/09/25 06:00 01/09/25 08:00 01/09/25 08:00 Temperature 97.4 F L Pulse Rate 62 56 L 60 Respiratory Rate 22 H Blood Pressure 169/52 H Pulse Oximetry 91 Oxygen Delivery Oxygen Flow Rate 01/09/25 08:15 01/09/25 08:54 01/09/25 09:24 Temperature Pulse Rate 69 65 Respiratory Rate 17 Blood Pressure Pulse Oximetry 91 Oxygen Delivery Nasal Cannula Oxygen Flow Rate 3 01/09/25 09:24 01/09/25 09:28 01/09/25 10:00 Temperature Pulse Rate 50 L 57 L Respiratory Rate 15 Blood Pressure Pulse Oximetry 97 Oxygen Delivery Nasal Cannula Oxygen Flow Rate 1 01/09/25 11:52 01/09/25 12:00 01/09/25 13:34 Temperature 97.4 F L Pulse Rate 46 L 52 L 67 Respiratory Rate 18 15 Blood Pressure 145/57 H Pulse Oximetry 90 Oxygen Delivery Oxygen Flow Rate 01/09/25 13:39 01/09/25 14:00 Temperature Pulse Rate 62 62 Respiratory Rate 16 Blood Pressure Pulse Oximetry Oxygen Delivery Oxygen Flow Rate Intake/Output Intake/Output: Intake & Output 01/06/25 01/07/25 01/08/25 01/09/25 23:59 23:59 23:59 23:59 Intake Total 2680 2129.2 1696 360 Output Total 300 1300 2800 400 Balance 2380 829.2 -1104 -40 Meds/Results Medications: Active Medications Generic Name Dose Route Start Last Admin Trade Name Freq PRN Reason Stop Dose Admin Acetaminophen 500 mg 01/06/25 17:36 01/09/25 06:36 Acetaminophen 500 Mg Tablet PO 500 mg QHS PRN Administration Pain 1-3 Albuterol 2.5 mg 01/06/25 17:32 Albuterol Sulfate Neb 2.5 Mg/3 Ml Inh INHALATION Q4HRT PRN Shortness Of Breath Albuterol/Ipratropium 3 ml 01/07/25 20:00 01/09/25 13:32 Ipratropium 0.5 Mg/Albuterol Sulfate 2.5 Mg (Base) Ampul.Neb 3 Ml INHALATION 3 ml Q6HRT MANOJ Administration Amlodipine Besylate 2.5 mg 01/06/25 17:40 01/09/25 08:54 Amlodipine Besylate 2.5 Mg Tablet PO 2.5 mg DAILY MANOJ Administration Atorvastatin Calcium 20 mg 01/06/25 21:00 01/08/25 19:55 Atorvastatin 20 Mg Tablet BY MOUTH 20 mg HS MANOJ Administration Dextrose 12.5 gm 01/06/25 17:32 Dextrose 50% 25 Gm/50 Ml Syringe IV PUSH PRN PRN Hypoglycemia Protocol Doxycycline Hyclate 100 mg 01/07/25 21:00 01/09/25 08:54 Doxycycline Hyclate 100 Mg Tablet PO 01/12/25 09:01 100 mg Q12HR MANOJ Administration Fluticasone Propionate 1 spray 01/06/25 21:00 01/09/25 08:53 Fluticasone Propionate 0.05% Na Spr 16 Gm Btl (*Bkc) NASAL 1 spray Q12HR MANOJ Administration Folic Acid 1 mg 01/06/25 17:40 01/09/25 08:53 Folic Acid 1 Mg Tablet BY MOUTH 1 mg DAILY MANOJ Administration Furosemide 20 mg 01/08/25 09:00 01/09/25 08:54 Furosemide 20 Mg Tablet PO 20 mg BID MANOJ Administration Glucagon 1 mg 01/06/25 17:32 Glucagon For Inj 1 Mg Vial IM PRN PRN Hypoglycemia Protocol Glucose 15 gm 01/06/25 17:32 Glucose Oral Gel 15 Gm Of Glucse In 37.5 Gm Tube PO PRN PRN Hypoglycemia Protocol Guaifenesin 1,200 mg 01/06/25 21:00 01/09/25 08:53 Guaifenesin 12 Hr 600 Mg Tabcr PO 1,200 mg Q12HR MANOJ Administration Dextrose 1,000 mls @ 100 mls/hr 01/06/25 17:32 Dextrose 5% 1,000 Ml IVPB PRN PRN Hypoglycemia Protocol Cefepime HCl 1 gm/ Sodium 50 mls @ 100 mls/hr 01/09/25 06:00 01/09/25 05:54 Chloride IVPB 100 mls/hr Q12H MANOJ Administration Sodium Chloride 400 mls @ 50 mls/hr 01/09/25 13:05 01/09/25 14:01 Sodium Chloride 3% IV CONT 01/09/25 21:04 50 mls/hr .Q8H MANOJ Administration Insulin Aspart 3 - 6 units 01/07/25 08:00 01/09/25 12:31 Insulin Aspart (*Bkc) 100 Units/Ml SUB-Q 3 units TIDWM MANOJ Administration Protocol Loratadine 5 mg 01/07/25 09:00 01/09/25 08:54 Loratadine 5 Mg Tablet PO 5 mg QAM MANOJ Administration Multivitamins/Minerals 1 tab 01/07/25 09:00 01/09/25 08:54 Multivitamins /C Lutein (Centrum Silver) Tablet *Bkc PO 1 tab DAILY MANOJ Administration Perflutren Lipid Microsphere 0 ml 01/06/25 16:28 Perflutren Lipid Microspheres 1.5 Ml Vial Diluted To 10 Ml Total Volume IV PUSH 01/09/25 16:28 ONCE PRN adequate visualization Protocol Rivaroxaban 20 mg 01/06/25 17:40 01/08/25 17:29 Rivaroxaban 20 Mg Tablet PO 20 mg DAILY@1700 MANOJ Administration Sodium Chloride 1 gm 01/07/25 09:00 01/09/25 08:54 Sodium Chloride 1 Gm Tablet PO 1 gm BID MANOJ Administration Sotalol HCl 80 mg 01/06/25 21:00 01/09/25 08:54 Sotalol Hcl 80 Mg Tablet PO 80 mg Q12HR MANOJ Administration Radiology Results: ITS Impressions Modified Barium Swallow 01/08/25 13:38 IMPRESSION: No aspiration observed. See speech therapist's report for complete evaluation. Chest X-Ray 01/09/25 14:07 Impression: No acute cardiopulmonary abnormality. Labs Labs: Laboratory Results - last 24 hr 01/08/25 01/08/25 01/08/25 16:17 17:50 20:43 WBC RBC Hgb Hct MCV MCH MCHC RDW Plt Count MPV Immature Gran % (Auto) Neut % (Auto) Lymph % (Auto) [place] % (Auto) Eos % (Auto) Baso % (Auto) Lymph # (Auto) [place] # (Auto) Eos # (Auto) Baso # (Auto) Abs Immat Gran (auto) Absolute Neuts (auto) Absolute Nucleated RBC Nucleated RBC % Sodium 121 L Potassium Chloride Carbon Dioxide Anion Gap BUN Creatinine Estim Creat Clear Calc Estimated GFR Glucose POC Capillary Glucose 193 H 292 H Calcium Phosphorus Magnesium Albumin 01/08/25 01/09/25 01/09/25 23:54 04:09 07:52 WBC 8.1 RBC 3.36 L Hgb 11.6 L Hct 31.5 L MCV 93.8 MCH 34.5 H MCHC 36.8 H RDW 11.8 Plt Count 162 MPV 10.7 H Immature Gran % (Auto) 2.7 H Neut % (Auto) 57.0 Lymph % (Auto) 26.0 [place] % (Auto) 13.5 H Eos % (Auto) 0.4 Baso % (Auto) 0.4 Lymph # (Auto) 2.09 [place] # (Auto) 1.1 H Eos # (Auto) 0.0 Baso # (Auto) 0.0 Abs Immat Gran (auto) 0.22 H Absolute Neuts (auto) 4.6 Absolute Nucleated RBC 0.000 Nucleated RBC % 0.0 Sodium 121 L Potassium 3.5 Chloride 86 L Carbon Dioxide 29 Anion Gap 6 BUN 19 H Creatinine 0.84 Estim Creat Clear Calc 55 Estimated GFR > 60 Glucose 171 H POC Capillary Glucose 231 H 169 H Calcium 8.3 L Phosphorus 3.3 Magnesium 1.6 Albumin 3.6 01/09/25 11:09 WBC RBC Hgb Hct MCV MCH MCHC RDW Plt Count MPV Immature Gran % (Auto) Neut % (Auto) Lymph % (Auto) [place] % (Auto) Eos % (Auto) Baso % (Auto) Lymph # (Auto) [place] # (Auto) Eos # (Auto) Baso # (Auto) Abs Immat Gran (auto) Absolute Neuts (auto) Absolute Nucleated RBC Nucleated RBC % Sodium Potassium Chloride Carbon Dioxide Anion Gap BUN Creatinine Estim Creat Clear Calc Estimated GFR Glucose POC Capillary Glucose 233 H Calcium Phosphorus Magnesium Albumin
[2025-01-09] MEDS: RIVAROXABAN 20 MG TABLET PO (18:15)
[2025-01-09] MEDS: DOCUSATE SODIUM 100 MG CAPSULE PO (20:35)
[2025-01-09] MEDS: ATORVASTATIN 20 MG TABLET BY MOUTH (20:35)
[2025-01-09] MEDS: INSULIN GLARGINE (*BKC) 100 UNITS/ML 7 UNITS SUB-Q (20:36)
[2025-01-10] VITALS (30 sets, daily range): BP systolic 148–151; BP diastolic 56–96; PULSE 33–80; RESP 18–23; TEMP 36.4–36.8; O2SAT 87–95
[2025-01-10] MEDS: IPRATROPIUM 0.5 MG/ALBUTEROL SULFATE 2.5 MG (BASE) AMPUL.NEB 3 ML INHALATION ×4 (02:20→21:23)
[2025-01-10 04:18] LABS: Hematocrit 32.3 % (37.0-47.0); Hemoglobin 11.8 g/dL (12.0-15.0); Immature Granulocyte Percent A 2.1 % (0-0.5); Lymphocytes Absolute Auto 1.64 K/mm3 (0.9-3.2); Mean Corpuscular HGB Conc 36.5 g/dl (32-36); Mean Corpuscular Hemoglobin 34.6 pg (26-34); Mean Corpuscular Volume 94.7 fl (80-100); Nucleated Red Blood Cells Absolute Auto 0.000 K/mm3 (0.0-0.012); Nucleated Red Blood Cells Perc 0.0 % (0.0-0.2); Platelet Count Result 167 k/mm3 (150-375); Red Blood Count 3.41 M/mm3 (4.2-5.4); White Blood Count 7.7 K/mm3 (4.5-10.0)
[2025-01-10 04:34] LABS: Albumin Level 3.7 g/dL (3.5-5.1); Anion Gap 4 mmol/L (4-12); Blood Urea Nitrogen 17 mg/dL (7-17); Calcium 8.4 mg/dL (8.4-10.2); Carbon Dioxide 32 mmol/L (22-30); Chloride 91 mmol/L (98-107); Estimated CRCL calculation 59 ml/min; Estimated Glomerular Filt Rate > 60; Glucose 167 mg/dL (65-110); Magnesium 1.5 mg/dL (1.6-2.3); Potassium 3.4 mmol/L (3.4-5.0); Sodium 127 mmol/L (137-145)
[2025-01-10] MEDS: CEFEPIME 1 GM in SODIUM CHLORIDE 0.9% IV 50 ML 100 ML IVPB ×2 (05:41→18:29)
[2025-01-10] MEDS: MAGNESIUM SULF 2 GM/WATER 50ML 2 GM/50 ML BAG IVPB (09:14)
[2025-01-10] MEDS: DOCUSATE SODIUM 100 MG CAPSULE PO ×2 (09:15→21:09)
[2025-01-10] MEDS: DOXYCYCLINE HYCLATE 100 MG TABLET PO ×2 (09:15→21:09)
[2025-01-10] MEDS: FOLIC ACID 1 MG TABLET BY MOUTH (09:15)
[2025-01-10] MEDS: SODIUM CHLORIDE 1 GM TABLET PO ×2 (09:15→18:29)
[2025-01-10] MEDS: SOTALOL HCL 80 MG TABLET PO (09:15)
[2025-01-10] MEDS: MULTIVITAMINS /C LUTEIN (CENTRUM SILVER) TABLET *BKC 1 TAB PO (09:15)
[2025-01-10] MEDS: LORATADINE 5 MG TABLET PO (09:16)
[2025-01-10] MEDS: FUROSEMIDE 20 MG TABLET PO ×2 (09:16→18:29)
[2025-01-10] MEDS: guaiFENesin 12 HR 600 MG TABCR 1200 MG PO ×2 (09:16→21:09)
[2025-01-10] MEDS: FLUTICASONE PROPIONATE 0.05% NA SPR 16 GM BTL (*BKC) 1 SPRAY NASAL ×2 (09:17→21:10)
--- NOTE | 2025-01-10 11:15 | P.PNNP_ITS ---
Progress Note: A&P Assessment and Plan (1) Hyponatremia: Code(s): E87.1 - Hypo-osmolality and hyponatremia Status: Acute Assessment and Plan: * slow improvement noted * acute on chronic * has been running ~ 127 - 135mmol/L since as far back as 2018 (if not longer) * several hospitalization noted in the past for this issue - August 2020 (here at [facility]) - June 2019 (here at [facility]) * etiology of acute drop on this admission not clear. However she was sick for the week before admission and it is likely that she was drinking extra water compared to what she was eating. * previous extensive evaluation noted in the past/previous hospital stays: * TSH okay * cortisol has been lowish in the past but normal cosyntropin stimulation test * imaging of brain and chest WNL * negative SPEP and UPEP * urine osmolality > serum osmolality * previous bouts of acute drops in sodium attributed to HCTZ & SSRI use and CHF * up to date on cancer screening(?) * interventions to date noted: * on fluid restriction * s/p 3% saline x 2 * on salt tabs + lasix * sodium now up to 127 which is close to her baseline. * Continue fluid restriction alone * okay for discharge from the kidney standpoint when everything else is finished (2) Acute hypoxic respiratory failure: Code(s): J96.01 - Acute respiratory failure with hypoxia Status: Acute Assessment and Plan: * noted on presentation * no evidence of respiratory distress * etiology not clear: * viral testing for influenza/RSV/COVD negative * CXR on admission clear * BNP noted but does not appear fluid overloaded * PE less likely since already on anticoagulation * no fevers or elevated WBC * due to viral illness/bronchitis(?) * latest chest x-ray is clear (3) CHF (congestive heart failure): Qualifiers: Heart failure type: other Qualified Code(s): I50.9 - Heart failure, unspecified Code(s): I50.9 - Heart failure, unspecified Status: Acute Assessment and Plan: * known history * recent Echo noted: * normal biventricular size and systolic function * no significant valvular abnormalities * pulmonary arterial systolic pressure is estimated at 79 mmHg - severe pulmonary hypertension * BNP 984 * latest chest x-ray clear (4) UTI (urinary tract infection): Code(s): N39.0 - Urinary tract infection, site not specified Status: Acute Assessment and Plan: * admission UA highly suggestive * floow urine culture - highly sensitive Pseudomonas. * on antibiotics (5) Afib: Code(s): I48.91 - Unspecified atrial fibrillation Status: Acute Assessment and Plan: * on sotalol * heart rate stable * on anticoagulation with Xarelto (6) Hypertension: Qualifiers: Hypertension type: essential hypertension Qualified Code(s): I10 - Essential (primary) hypertension Code(s): I10 - Essential (primary) hypertension Status: Acute Assessment and Plan: * Systolic ranging 140s to 160 * currently on amlodipine 2.5 * Heart rate is borderline low which limits our use of non dihydropyridine calcium channel blockers , centrally acting agents, and beta-blockers. we can not use thiazides because of her sodium. * Will add lisinopril. * follow trend of hemodynamics (7) Diabetes mellitus: Qualifiers: Diabetes mellitus type: type 2 Diabetes mellitus usp insulin use: without usp use Diabetes mellitus complication status: without complication Qualified Code(s): E11.9 - Type 2 diabetes mellitus without complications Code(s): E11.9 - Type 2 diabetes mellitus without complications Status: Acute Assessment and Plan: * follow accu-cheks * glycemic control per hospitalist Subjective Date/time seen: 01/10/25 11:15 Interval history: Bela is feeling better today. Eating well. No nausea. No shortness of breath Exam Narrative: General: elderly but WD/WN female in NAD Heart: normal S1 and S2; no rub or gallop Lungs: fairly clear Abdomen: soft, nontender, nondistended, positive bowel sounds Extremities: no cyanosis or clubbing; no edema Skin: No rash or subcu nodules Objective Data Vital Signs Vital Signs: Vital Signs - 24 hr 01/09/25 11:52 01/09/25 12:00 01/09/25 13:34 Temperature 97.4 F L Pulse Rate 46 L 52 L 67 Respiratory Rate 18 15 Blood Pressure 145/57 H Pulse Oximetry 90 Oxygen Delivery Oxygen Flow Rate 01/09/25 13:39 01/09/25 14:00 01/09/25 15:57 Temperature 97.7 F Pulse Rate 62 62 76 Respiratory Rate 16 22 H Blood Pressure 147/96 H Pulse Oximetry 91 Oxygen Delivery Oxygen Flow Rate 01/09/25 16:00 01/09/25 18:00 01/09/25 20:00 Temperature 97.6 F Pulse Rate 62 77 77 Respiratory Rate 22 H Blood Pressure 158/73 H Pulse Oximetry 91 Oxygen Delivery Oxygen Flow Rate 01/09/25 20:00 01/09/25 20:00 01/09/25 20:19 Temperature Pulse Rate 78 61 Respiratory Rate 16 Blood Pressure Pulse Oximetry 91 89 L Oxygen Delivery Nasal Cannula Nasal Cannula Oxygen Flow Rate 1 1 01/09/25 20:19 01/09/25 20:25 01/09/25 20:35 Temperature Pulse Rate 61 58 L 60 Respiratory Rate 16 16 Blood Pressure Pulse Oximetry Oxygen Delivery Oxygen Flow Rate 01/09/25 22:00 01/10/25 00:00 01/10/25 00:00 Temperature 98.2 F Pulse Rate 59 L 72 70 Respiratory Rate 22 H Blood Pressure 151/58 H Pulse Oximetry 92 Oxygen Delivery Oxygen Flow Rate 01/10/25 00:00 01/10/25 02:00 01/10/25 02:20 Temperature Pulse Rate 72 72 Respiratory Rate 20 Blood Pressure Pulse Oximetry 90 Oxygen Delivery Nasal Cannula Oxygen Flow Rate 1 01/10/25 02:26 01/10/25 03:54 01/10/25 04:00 Temperature Pulse Rate 72 66 Respiratory Rate 18 Blood Pressure Pulse Oximetry 91 Oxygen Delivery Nasal Cannula Oxygen Flow Rate 1 01/10/25 04:00 01/10/25 08:00 01/10/25 08:00 Temperature 98.1 F 97.8 F Pulse Rate 71 65 64 Respiratory Rate 22 H 21 H Blood Pressure 151/81 H 148/85 H Pulse Oximetry 95 92 Oxygen Delivery Oxygen Flow Rate 01/10/25 08:27 01/10/25 08:27 01/10/25 08:30 Temperature Pulse Rate 63 Respiratory Rate 18 Blood Pressure Pulse Oximetry 93 91 Oxygen Delivery Nasal Cannula Nasal Cannula Oxygen Flow Rate 1 1 01/10/25 08:37 01/10/25 09:15 01/10/25 10:00 Temperature Pulse Rate 60 69 63 Respiratory Rate 18 Blood Pressure Pulse Oximetry Oxygen Delivery Oxygen Flow Rate Intake/Output Intake/Output: Intake & Output 01/07/25 01/08/25 01/09/25 01/10/25 23:59 23:59 23:59 23:59 Intake Total 2129.2 1696 700 240 Output Total 1300 2800 1500 250 Balance 829.2 -1104 -800 -10 Meds/Results Medications: Active Medications Generic Name Dose Route Start Last Admin Trade Name Freq PRN Reason Stop Dose Admin Acetaminophen 500 mg 01/06/25 17:36 01/09/25 06:36 Acetaminophen 500 Mg Tablet PO 500 mg QHS PRN Administration Pain 1-3 Albuterol 2.5 mg 01/06/25 17:32 Albuterol Sulfate Neb 2.5 Mg/3 Ml Inh INHALATION Q4HRT PRN Shortness Of Breath Albuterol/Ipratropium 3 ml 01/07/25 20:00 01/10/25 08:26 Ipratropium 0.5 Mg/Albuterol Sulfate 2.5 Mg (Base) Ampul.Neb 3 Ml INHALATION 3 ml Q6HRT MANOJ Administration Amlodipine Besylate 5 mg 01/10/25 09:00 01/10/25 09:15 Amlodipine Besylate 5 Mg Tablet PO 5 mg DAILY MANOJ Administration Atorvastatin Calcium 20 mg 01/06/25 21:00 01/09/25 20:35 Atorvastatin 20 Mg Tablet BY MOUTH 20 mg HS MANOJ Administration Dextrose 12.5 gm 01/06/25 17:32 Dextrose 50% 25 Gm/50 Ml Syringe IV PUSH PRN PRN Hypoglycemia Protocol Docusate Sodium 100 mg 01/09/25 21:00 01/10/25 09:15 Docusate Sodium 100 Mg Capsule PO 100 mg Q12HR MANOJ Administration Doxycycline Hyclate 100 mg 01/07/25 21:00 01/10/25 09:15 Doxycycline Hyclate 100 Mg Tablet PO 01/12/25 09:01 100 mg Q12HR MANOJ Administration Fluticasone Propionate 1 spray 01/06/25 21:00 01/10/25 09:17 Fluticasone Propionate 0.05% Na Spr 16 Gm Btl (*Bkc) NASAL 1 spray Q12HR MANOJ Administration Folic Acid 1 mg 01/06/25 17:40 01/10/25 09:15 Folic Acid 1 Mg Tablet BY MOUTH 1 mg DAILY MANOJ Administration Furosemide 20 mg 01/08/25 09:00 01/10/25 09:16 Furosemide 20 Mg Tablet PO 20 mg BID MANOJ Administration Glucagon 1 mg 01/06/25 17:32 Glucagon For Inj 1 Mg Vial IM PRN PRN Hypoglycemia Protocol Glucose 15 gm 01/06/25 17:32 Glucose Oral Gel 15 Gm Of Glucse In 37.5 Gm Tube PO PRN PRN Hypoglycemia Protocol Guaifenesin 1,200 mg 01/06/25 21:00 01/10/25 09:16 Guaifenesin 12 Hr 600 Mg Tabcr PO 1,200 mg Q12HR MANOJ Administration Dextrose 1,000 mls @ 100 mls/hr 01/06/25 17:32 Dextrose 5% 1,000 Ml IVPB PRN PRN Hypoglycemia Protocol Cefepime HCl 1 gm/ Sodium 50 mls @ 100 mls/hr 01/09/25 06:00 01/10/25 05:41 Chloride IVPB 100 mls/hr Q12H MANOJ Administration Insulin Aspart 3 - 6 units 01/07/25 08:00 01/10/25 09:13 Insulin Aspart (*Bkc) 100 Units/Ml SUB-Q Not Given TIDWM MANOJ Protocol Insulin Glargine 7 units 01/09/25 21:00 01/09/25 20:36 Insulin Glargine (*Bkc) 100 Units/Ml SUB-Q 7 units HS MANOJ Administration Loratadine 5 mg 01/07/25 09:00 01/10/25 09:16 Loratadine 5 Mg Tablet PO 5 mg QAM MANOJ Administration Multivitamins/Minerals 1 tab 01/07/25 09:00 01/10/25 09:15 Multivitamins /C Lutein (Centrum Silver) Tablet *Bkc PO 1 tab DAILY MANOJ Administration Polyethylene Glycol 17 gm 01/09/25 15:35 01/10/25 09:14 Polyethylene Glycol 3350 17 Gm Powd.Pack PO 17 gm QAM MANOJ Administration Rivaroxaban 20 mg 01/06/25 17:40 01/09/25 18:15 Rivaroxaban 20 Mg Tablet PO 20 mg DAILY@1700 MANOJ Administration Sodium Chloride 1 gm 01/07/25 09:00 01/10/25 09:15 Sodium Chloride 1 Gm Tablet PO 1 gm BID MANOJ Administration Sotalol HCl 80 mg 01/06/25 21:00 01/10/25 09:15 Sotalol Hcl 80 Mg Tablet PO 80 mg Q12HR MANOJ Administration Radiology Results: ITS Impressions Modified Barium Swallow 01/08/25 13:38 IMPRESSION: No aspiration observed. See speech therapist's report for complete evaluation. Chest X-Ray 01/09/25 14:07 Impression: No acute cardiopulmonary abnormality. Labs Labs: Laboratory Results - last 24 hr 01/09/25 01/09/25 01/09/25 11:09 16:49 20:37 WBC RBC Hgb Hct MCV MCH MCHC RDW Plt Count MPV Immature Gran % (Auto) Neut % (Auto) Lymph % (Auto) [place] % (Auto) Eos % (Auto) Baso % (Auto) Lymph # (Auto) [place] # (Auto) Eos # (Auto) Baso # (Auto) Abs Immat Gran (auto) Absolute Neuts (auto) Absolute Nucleated RBC Nucleated RBC % Sodium Potassium Chloride Carbon Dioxide Anion Gap BUN Creatinine Estim Creat Clear Calc Estimated GFR Glucose POC Capillary Glucose 233 H 209 H 219 H Calcium Phosphorus Magnesium Albumin 01/10/25 01/10/25 04:08 07:50 WBC 7.7 RBC 3.41 L Hgb 11.8 L Hct 32.3 L MCV 94.7 MCH 34.6 H MCHC 36.5 H RDW 12.0 Plt Count 167 MPV 10.2 Immature Gran % (Auto) 2.1 H Neut % (Auto) 60.2 Lymph % (Auto) 21.4 [place] % (Auto) 14.9 H Eos % (Auto) 1.0 Baso % (Auto) 0.4 Lymph # (Auto) 1.64 [place] # (Auto) 1.1 H Eos # (Auto) 0.1 Baso # (Auto) 0.0 Abs Immat Gran (auto) 0.16 H Absolute Neuts (auto) 4.6 Absolute Nucleated RBC 0.000 Nucleated RBC % 0.0 Sodium 127 L Potassium 3.4 Chloride 91 L Carbon Dioxide 32 H Anion Gap 4 BUN 17 Creatinine 0.78 Estim Creat Clear Calc 59 Estimated GFR > 60 Glucose 167 H POC Capillary Glucose 178 H Calcium 8.4 Phosphorus 3.1 Magnesium 1.5 L Albumin 3.7
[2025-01-10] MEDS: INSULIN ASPART (*BKC) 100 UNITS/ML SUB-Q (11:23)
--- NOTE | 2025-01-10 14:50 | PC.NURSE ---
Per Dr Carrera, PT is ok to be up in a chair. Per PT she is a oralia lift assist at baseline.
--- NOTE | 2025-01-10 17:22 | P.PNIM_ITS ---
Progress Note: A&P Assessment and Plan (1) Hypoxia: Code(s): R09.02 - Hypoxemia Status: Acute Assessment and Plan: Patient presents with hypoxia. Etiology unclear. Viral swab was negative. MRSA nasal swab negative. Chest x-ray was clear. Does not appear to be fluid overloaded. She is on anticoagulation making PE less likely. Compliant with her anticoagulation medications. Probably related to viral illness and now wheezing. Repeat CXR now showing suspect worsening pulmonary edema and/or infiltrates in the lower lobes left worse than right. Could be related to pulm edema from IV fluids and poor UOP (Fluid positive 3.6L). Consider also PNA but no fever or leukocytosis. Lasix started. Fluid status improved. Speech therapy evaluation with MBS showing mild dysphagia requiring Level 2 thickened liquids. Diet adjusted. Weaned to 0.5L. Repeat CXR clear now. Continue supportive treatment. Wean oxygen as tolerated. Increase activity with patient out of bed Continue nebs. Continue cefepime and doxycycline. (2) Hyponatremia: Code(s): E87.1 - Hypo-osmolality and hyponatremia Status: Acute Assessment and Plan: Patient presents with weakness and viral symptoms. She has known history of hyponatremia. Sodium on presentation was 112. TSH and Cortisol levels normal. Jones 123 with FENa 1.5% to suggest intrinsic renal disease. Fluid restriction. IV fluids stopped. Nephrology consulted and appreciate their input. SPEP showing no M-spike. SIF showing no monoclonalality. UPEP pending Lasix started. Oral NaCl tabs started. 3% saline given but stopped due to pulmonary edema. Serial sodium levels better at 121 but plateaued again so 3% resumed. Na up to 127. Continue serial Na levels. Continue oral NaCl tablets. (3) CHF (congestive heart failure): Qualifiers: Heart failure type: other Qualified Code(s): I50.9 - Heart failure, unspecified Code(s): I50.9 - Heart failure, unspecified Status: Acute Assessment and Plan: Patient has a history of CHF. She has a history of large pericardial effusion s/p pericardial window in 2020. Echo here showing normal biventricular size and systolic function and pulmonary arterial systolic pressure of about 79 mmHg with severe pulmonary hypertension. BNP 984. CXR as above. Will need apnea link once off O2 and feeling better (4) Hypertension: Qualifiers: Hypertension type: essential hypertension Qualified Code(s): I10 - Essential (primary) hypertension Code(s): I10 - Essential (primary) hypertension Status: Acute Assessment and Plan: Patient with elevated blood pressure on admission that has improved. HTN possibly related to untreated JULIA? Advance Norvasc. Lisinopril added Continue to follow (5) Afib: Code(s): I48.91 - Unspecified atrial fibrillation Status: Acute Assessment and Plan: Patient with history of atrial fibrillation. She is on sotalol which was continued. Tele showing transient bradycardia but HR stable overall Xarelto also resumed. Monitor on telemetry (6) Diabetes mellitus: Qualifiers: Diabetes mellitus complication status: without complication Diabetes mellitus halfway insulin use: without manager long term care use Diabetes mellitus type: type 2 Qualified Code(s): E11.9 - Type 2 diabetes mellitus without complications Code(s): E11.9 - Type 2 diabetes mellitus without complications Status: Acute Assessment and Plan: A1c 6.8%. Patient with a history of diabetes. She is on glipizide, saxagliptin and metformin. Glucose climbing. Will continue to hold these medications. Lantus added with improvement Continue sliding scale (7) UTI (urinary tract infection): Code(s): N39.0 - Urinary tract infection, site not specified Status: Acute Assessment and Plan: UA noted and concerning for UTI. She has 2+ protein on a sample. Protein/Cr ratio 4.3gm but suspect this is probably related to the UTI. Plan to repeat protein-creatinine ratio after urine clears. UCx growing Pseudomonas that is mahajan-sensitive Continue cefepime for 5 days of treatment. Cannot give fluoroquinolones due to interaction with sotalol. (8) History of CVA (cerebrovascular accident): Code(s): Z86.73 - Personal history of transient ischemic attack (TIA), and cerebral infarction without residual deficits Status: Acute Assessment and Plan: Patient has a history of CVA. She is debilitated and essentially bed bound Up to recliner with Ulisses prn. (9) Bacteremia: Code(s): R78.81 - Bacteremia Status: Acute Assessment and Plan: BCx (01/06) growing gram variable rods from one aerobic bottle only (also, possibly one from one of the anaerobic bottles?) Suspect this is a contaminate but will continue Cefepime and wait for final identification Called lab tomorrow to clarify Plan Dysphagia - MBS showing she needs to have Level [address] DVT prophylaxis -Xarelto Code status -full Subjective Date/time seen: 01/10/25 17:22 Interval history: 79yo female with DM, HTN, CVA, AFib and CHF who presents with weakness. No CP or SOB. Eating okay. Slept well. Exam Narrative: AF 98.1 148/96 60 22 87% 0.5L Gen - NARD Chest - dry inspiratory basilar crackles. Poor effort with IS CV - RRR S1/S2. Tele showing episodes of transient bradycardia lasting a few beats but rate overall normal Abd - soft, NT/ND Ext - no edema Psych - normal mood and affect. Skin - warm and dry. Objective Data Vital Signs Vital Signs: Vital Signs - 24 hr 01/09/25 18:00 01/09/25 20:00 01/09/25 20:00 Temperature 97.6 F Pulse Rate 77 77 Respiratory Rate 22 H Blood Pressure 158/73 H Pulse Oximetry 91 91 Oxygen Delivery Nasal Cannula Oxygen Flow Rate 1 01/09/25 20:00 01/09/25 20:19 01/09/25 20:19 Temperature Pulse Rate 78 61 61 Respiratory Rate 16 16 Blood Pressure Pulse Oximetry 89 L Oxygen Delivery Nasal Cannula Oxygen Flow Rate 1 01/09/25 20:25 01/09/25 20:35 01/09/25 22:00 Temperature Pulse Rate 58 L 60 59 L Respiratory Rate 16 Blood Pressure Pulse Oximetry Oxygen Delivery Oxygen Flow Rate 01/10/25 00:00 01/10/25 00:00 01/10/25 00:00 Temperature 98.2 F Pulse Rate 72 70 Respiratory Rate 22 H Blood Pressure 151/58 H Pulse Oximetry 92 90 Oxygen Delivery Nasal Cannula Oxygen Flow Rate 1 01/10/25 02:00 01/10/25 02:20 01/10/25 02:26 Temperature Pulse Rate 72 72 72 Respiratory Rate 20 18 Blood Pressure Pulse Oximetry Oxygen Delivery Oxygen Flow Rate 01/10/25 03:54 01/10/25 04:00 01/10/25 04:00 Temperature 98.1 F Pulse Rate 66 71 Respiratory Rate 22 H Blood Pressure 151/81 H Pulse Oximetry 91 95 Oxygen Delivery Nasal Cannula Oxygen Flow Rate 1 01/10/25 08:00 01/10/25 08:00 01/10/25 08:27 Temperature 97.8 F Pulse Rate 65 64 Respiratory Rate 21 H Blood Pressure 148/85 H Pulse Oximetry 92 93 Oxygen Delivery Nasal Cannula Oxygen Flow Rate 1 01/10/25 08:27 01/10/25 08:30 01/10/25 08:37 Temperature Pulse Rate 63 60 Respiratory Rate 18 18 Blood Pressure Pulse Oximetry 91 Oxygen Delivery Nasal Cannula Oxygen Flow Rate 1 01/10/25 09:15 01/10/25 10:00 01/10/25 11:46 Temperature Pulse Rate 69 63 Respiratory Rate Blood Pressure Pulse Oximetry 92 Oxygen Delivery Nasal Cannula Oxygen Flow Rate 1 01/10/25 11:54 01/10/25 12:00 01/10/25 14:00 Temperature 97.5 F L Pulse Rate 58 L 60 65 Respiratory Rate 22 H Blood Pressure 150/57 H Pulse Oximetry 91 Oxygen Delivery Oxygen Flow Rate 01/10/25 14:20 01/10/25 14:20 01/10/25 14:31 Temperature Pulse Rate 64 62 Respiratory Rate 18 18 Blood Pressure Pulse Oximetry 90 Oxygen Delivery Nasal Cannula Oxygen Flow Rate 0.5 01/10/25 15:37 01/10/25 15:44 01/10/25 16:00 Temperature 98.1 F Pulse Rate 64 60 Respiratory Rate 22 H Blood Pressure 148/96 H Pulse Oximetry 93 87 L Oxygen Delivery Nasal Cannula Oxygen Flow Rate 0.5 Intake/Output Intake/Output: Intake & Output 01/07/25 01/08/25 01/09/25 01/10/25 23:59 23:59 23:59 23:59 Intake Total 2129.2 1696 700 480 Output Total 1300 2800 1500 250 Balance 829.2 -1104 -800 230 Meds/Results Medications: Active Medications Generic Name Dose Route Start Last Admin Trade Name Freq PRN Reason Stop Dose Admin Acetaminophen 500 mg 01/06/25 17:36 01/09/25 06:36 Acetaminophen 500 Mg Tablet PO 500 mg QHS PRN Administration Pain 1-3 Albuterol 2.5 mg 01/06/25 17:32 Albuterol Sulfate Neb 2.5 Mg/3 Ml Inh INHALATION Q4HRT PRN Shortness Of Breath Albuterol/Ipratropium 3 ml 01/07/25 20:00 01/10/25 14:17 Ipratropium 0.5 Mg/Albuterol Sulfate 2.5 Mg (Base) Ampul.Neb 3 Ml INHALATION 3 ml Q6HRT MANOJ Administration Amlodipine Besylate 5 mg 01/10/25 09:00 01/10/25 09:15 Amlodipine Besylate 5 Mg Tablet PO 5 mg DAILY MANOJ Administration Atorvastatin Calcium 20 mg 01/06/25 21:00 01/09/25 20:35 Atorvastatin 20 Mg Tablet BY MOUTH 20 mg HS MANOJ Administration Dextrose 12.5 gm 01/06/25 17:32 Dextrose 50% 25 Gm/50 Ml Syringe IV PUSH PRN PRN Hypoglycemia Protocol Docusate Sodium 100 mg 01/09/25 21:00 01/10/25 09:15 Docusate Sodium 100 Mg Capsule PO 100 mg Q12HR MANOJ Administration Doxycycline Hyclate 100 mg 01/07/25 21:00 01/10/25 09:15 Doxycycline Hyclate 100 Mg Tablet PO 01/12/25 09:01 100 mg Q12HR MANOJ Administration Fluticasone Propionate 1 spray 01/06/25 21:00 01/10/25 09:17 Fluticasone Propionate 0.05% Na Spr 16 Gm Btl (*Bkc) NASAL 1 spray Q12HR MANOJ Administration Folic Acid 1 mg 01/06/25 17:40 01/10/25 09:15 Folic Acid 1 Mg Tablet BY MOUTH 1 mg DAILY MANOJ Administration Furosemide 20 mg 01/08/25 09:00 01/10/25 09:16 Furosemide 20 Mg Tablet PO 20 mg BID MANOJ Administration Glucagon 1 mg 01/06/25 17:32 Glucagon For Inj 1 Mg Vial IM PRN PRN Hypoglycemia Protocol Glucose 15 gm 01/06/25 17:32 Glucose Oral Gel 15 Gm Of Glucse In 37.5 Gm Tube PO PRN PRN Hypoglycemia Protocol Guaifenesin 1,200 mg 01/06/25 21:00 01/10/25 09:16 Guaifenesin 12 Hr 600 Mg Tabcr PO 1,200 mg Q12HR MANOJ Administration Dextrose 1,000 mls @ 100 mls/hr 01/06/25 17:32 Dextrose 5% 1,000 Ml IVPB PRN PRN Hypoglycemia Protocol Cefepime HCl 1 gm/ Sodium 50 mls @ 100 mls/hr 01/09/25 06:00 01/10/25 05:41 Chloride IVPB 100 mls/hr Q12H MANOJ Administration Insulin Aspart 3 - 6 units 01/07/25 08:00 01/10/25 11:23 Insulin Aspart (*Bkc) 100 Units/Ml SUB-Q 3 units TIDWM MANOJ Administration Protocol Insulin Glargine 7 units 01/09/25 21:00 01/09/25 20:36 Insulin Glargine (*Bkc) 100 Units/Ml SUB-Q 7 units HS MANOJ Administration Lisinopril 20 mg 01/10/25 11:25 01/10/25 11:31 Lisinopril 20 Mg Tablet PO 20 mg QAM MANOJ Administration Loratadine 5 mg 01/07/25 09:00 01/10/25 09:16 Loratadine 5 Mg Tablet PO 5 mg QAM MANOJ Administration Multivitamins/Minerals 1 tab 01/07/25 09:00 01/10/25 09:15 Multivitamins /C Lutein (Centrum Silver) Tablet *Bkc PO 1 tab DAILY MANOJ Administration Polyethylene Glycol 17 gm 01/09/25 15:35 01/10/25 09:14 Polyethylene Glycol 3350 17 Gm Powd.Pack PO 17 gm QAM MANOJ Administration Rivaroxaban 20 mg 01/06/25 17:40 01/09/25 18:15 Rivaroxaban 20 Mg Tablet PO 20 mg DAILY@1700 MANOJ Administration Sodium Chloride 1 gm 01/07/25 09:00 01/10/25 09:15 Sodium Chloride 1 Gm Tablet PO 1 gm BID MANOJ Administration Sotalol HCl 80 mg 01/06/25 21:00 01/10/25 09:15 Sotalol Hcl 80 Mg Tablet PO 80 mg Q12HR MANOJ Administration Radiology Results: ITS Impressions Modified Barium Swallow 01/08/25 13:38 IMPRESSION: No aspiration observed. See speech therapist's report for complete evaluation. Chest X-Ray 01/09/25 14:07 Impression: No acute cardiopulmonary abnormality. Labs Labs: Laboratory Results - last 24 hr 01/09/25 01/10/25 01/10/25 20:37 04:08 07:50 WBC 7.7 RBC 3.41 L Hgb 11.8 L Hct 32.3 L MCV 94.7 MCH 34.6 H MCHC 36.5 H RDW 12.0 Plt Count 167 MPV 10.2 Immature Gran % (Auto) 2.1 H Neut % (Auto) 60.2 Lymph % (Auto) 21.4 [place] % (Auto) 14.9 H Eos % (Auto) 1.0 Baso % (Auto) 0.4 Lymph # (Auto) 1.64 [place] # (Auto) 1.1 H Eos # (Auto) 0.1 Baso # (Auto) 0.0 Abs Immat Gran (auto) 0.16 H Absolute Neuts (auto) 4.6 Absolute Nucleated RBC 0.000 Nucleated RBC % 0.0 Sodium 127 L Potassium 3.4 Chloride 91 L Carbon Dioxide 32 H Anion Gap 4 BUN 17 Creatinine 0.78 Estim Creat Clear Calc 59 Estimated GFR > 60 Glucose 167 H POC Capillary Glucose 219 H 178 H Calcium 8.4 Phosphorus 3.1 Magnesium 1.5 L Albumin 3.7 01/10/25 01/10/25 11:11 16:30 WBC RBC Hgb Hct MCV MCH MCHC RDW Plt Count MPV Immature Gran % (Auto) Neut % (Auto) Lymph % (Auto) [place] % (Auto) Eos % (Auto) Baso % (Auto) Lymph # (Auto) [place] # (Auto) Eos # (Auto) Baso # (Auto) Abs Immat Gran (auto) Absolute Neuts (auto) Absolute Nucleated RBC Nucleated RBC % Sodium Potassium Chloride Carbon Dioxide Anion Gap BUN Creatinine Estim Creat Clear Calc Estimated GFR Glucose POC Capillary Glucose 222 H 200 H Calcium Phosphorus Magnesium Albumin
[2025-01-10] MEDS: RIVAROXABAN 20 MG TABLET PO (18:29)
[2025-01-10] MEDS: ATORVASTATIN 20 MG TABLET BY MOUTH (21:09)
[2025-01-10] MEDS: INSULIN GLARGINE (*BKC) 100 UNITS/ML 7 UNITS SUB-Q (21:10)
[2025-01-11] VITALS (30 sets, daily range): BP systolic 118–155; BP diastolic 50–88; PULSE 51–86; RESP 16–22; TEMP 36.4–37; O2SAT 90–96
[2025-01-11] MEDS: IPRATROPIUM 0.5 MG/ALBUTEROL SULFATE 2.5 MG (BASE) AMPUL.NEB 3 ML INHALATION ×4 (02:44→20:17)
[2025-01-11 04:38] LABS: Hematocrit 32.1 % (37.0-47.0); Hemoglobin 11.5 g/dL (12.0-15.0); Immature Granulocyte Percent A 1.7 % (0-0.5); Lymphocytes Absolute Auto 2.01 K/mm3 (0.9-3.2); Mean Corpuscular HGB Conc 35.8 g/dl (32-36); Mean Corpuscular Hemoglobin 34.8 pg (26-34); Mean Corpuscular Volume 97.3 fl (80-100); Nucleated Red Blood Cells Absolute Auto 0.000 K/mm3 (0.0-0.012); Nucleated Red Blood Cells Perc 0.0 % (0.0-0.2); Platelet Count Result 168 k/mm3 (150-375); Red Blood Count 3.30 M/mm3 (4.2-5.4); White Blood Count 8.3 K/mm3 (4.5-10.0)
[2025-01-11 05:00] LABS: Albumin Level 3.6 g/dL (3.5-5.1); Anion Gap 5 mmol/L (4-12); Blood Urea Nitrogen 21 mg/dL (7-17); Calcium 8.6 mg/dL (8.4-10.2); Carbon Dioxide 32 mmol/L (22-30); Chloride 91 mmol/L (98-107); Estimated CRCL calculation 60 ml/min; Estimated Glomerular Filt Rate > 60; Glucose 171 mg/dL (65-110); Magnesium 1.9 mg/dL (1.6-2.3); Potassium 3.3 mmol/L (3.4-5.0); Sodium 128 mmol/L (137-145)
[2025-01-11] MEDS: CEFEPIME 1 GM in SODIUM CHLORIDE 0.9% IV 50 ML 100 ML IVPB ×2 (05:29→18:22)
[2025-01-11] MEDS: DOCUSATE SODIUM 100 MG CAPSULE PO ×2 (08:51→20:32)
[2025-01-11] MEDS: FUROSEMIDE 20 MG TABLET PO ×2 (08:51→17:09)
[2025-01-11] MEDS: DOXYCYCLINE HYCLATE 100 MG TABLET PO ×2 (08:51→20:33)
[2025-01-11] MEDS: guaiFENesin 12 HR 600 MG TABCR 1200 MG PO ×2 (08:52→20:31)
[2025-01-11] MEDS: SODIUM CHLORIDE 1 GM TABLET PO ×2 (08:52→17:09)
[2025-01-11] MEDS: MULTIVITAMINS /C LUTEIN (CENTRUM SILVER) TABLET *BKC 1 TAB PO (08:52)
[2025-01-11] MEDS: FOLIC ACID 1 MG TABLET BY MOUTH (08:52)
[2025-01-11] MEDS: POTASSIUM CHLORIDE 20 MEQ ER TABLET 40 MEQ PO (08:52)
[2025-01-11] MEDS: SOTALOL HCL 80 MG TABLET PO ×2 (08:53→20:32)
[2025-01-11] MEDS: FLUTICASONE PROPIONATE 0.05% NA SPR 16 GM BTL (*BKC) 1 SPRAY NASAL (08:54)
--- NOTE | 2025-01-11 10:29 | P.PNNP_ITS ---
Progress Note: A&P Assessment and Plan (1) Hyponatremia: Code(s): E87.1 - Hypo-osmolality and hyponatremia Status: Acute Assessment and Plan: * slow improvement noted * acute on chronic * has been running ~ 127 - 135mmol/L since as far back as 2018 (if not longer) * several hospitalization noted in the past for this issue - August 2020 (here at [facility]) - June 2019 (here at [facility]) * previous extensive evaluation noted in the past/previous hospital stays: * TSH okay * cortisol has been lowish in the past but normal cosyntropin stimulation test * imaging of brain and chest WNL * negative SPEP and UPEP * urine osmolality > serum osmolality * previous bouts of acute drops in sodium attributed to HCTZ & SSRI use and CHF * Now probably related to UTI and extra water drinking. * up to date on cancer screening(?) * interventions to date noted: * on fluid restriction * s/p 3% saline x 2 * on salt tabs + lasix * sodium now up to 128 which is in the range of her baseline. * Continue fluid restriction alone. I think we can stop the furosemide and sodium chloride tabs. * okay for discharge from the kidney standpoint when everything else is finished (2) Acute hypoxic respiratory failure: Code(s): J96.01 - Acute respiratory failure with hypoxia Status: Acute Assessment and Plan: * noted on presentation * no evidence of respiratory distress * etiology not clear: * viral testing for influenza/RSV/COVD negative * CXR on admission clear * BNP noted but does not appear fluid overloaded * PE less likely since already on anticoagulation * no fevers or elevated WBC * due to viral illness/bronchitis(?) * latest chest x-ray is clear (3) CHF (congestive heart failure): Qualifiers: Heart failure type: other Qualified Code(s): I50.9 - Heart failure, unspecified Code(s): I50.9 - Heart failure, unspecified Status: Acute Assessment and Plan: * known history * recent Echo noted: * normal biventricular size and systolic function * no significant valvular abnormalities * pulmonary arterial systolic pressure is estimated at 79 mmHg - severe pulmonary hypertension * BNP 984 * latest chest x-ray clear (4) UTI (urinary tract infection): Code(s): N39.0 - Urinary tract infection, site not specified Status: Acute Assessment and Plan: * admission UA highly suggestive * floow urine culture - highly sensitive Pseudomonas. * on antibiotics (5) Afib: Code(s): I48.91 - Unspecified atrial fibrillation Status: Acute Assessment and Plan: * on sotalol * heart rate stable * on anticoagulation with Xarelto (6) Hypertension: Qualifiers: Hypertension type: essential hypertension Qualified Code(s): I10 - Essential (primary) hypertension Code(s): I10 - Essential (primary) hypertension Status: Acute Assessment and Plan: * Systolic ranging 140s to 160 * currently on amlodipine 2.5 * Heart rate is borderline low which limits our use of non dihydropyridine calcium channel blockers , centrally acting agents, and beta-blockers. we can not use thiazides because of her sodium. * on lisinopril as of yesterday. 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 Still on thickened liquids. She is looking forward to her modified barium swallow today. Hopefully things will be okay. Exam Narrative: General: elderly but WD/WN female in NAD Heart: normal S1 and S2; no rub or gallop Lungs: clear Abdomen: soft, nontender, nondistended, positive bowel sounds Extremities: no cyanosis or clubbing; no edema Skin: No rash or subcu nodules Objective Data Vital Signs Vital Signs: Vital Signs - 24 hr 01/10/25 11:46 01/10/25 11:54 01/10/25 12:00 Temperature 97.5 F L Pulse Rate 58 L 60 Respiratory Rate 22 H Blood Pressure 150/57 H Pulse Oximetry 92 91 Oxygen Delivery Nasal Cannula Oxygen Flow Rate 1 01/10/25 14:00 01/10/25 14:20 01/10/25 14:20 Temperature Pulse Rate 65 64 Respiratory Rate 18 Blood Pressure Pulse Oximetry 90 Oxygen Delivery Nasal Cannula Oxygen Flow Rate 0.5 01/10/25 14:31 01/10/25 15:37 01/10/25 15:44 Temperature 98.1 F Pulse Rate 62 64 Respiratory Rate 18 22 H Blood Pressure 148/96 H Pulse Oximetry 93 87 L Oxygen Delivery Nasal Cannula Oxygen Flow Rate 0.5 01/10/25 16:00 01/10/25 18:00 01/10/25 19:26 Temperature 97.6 F Pulse Rate 60 73 72 Respiratory Rate 23 H Blood Pressure 149/56 H Pulse Oximetry 91 Oxygen Delivery Oxygen Flow Rate 01/10/25 20:00 01/10/25 20:00 01/10/25 21:23 Temperature Pulse Rate 80 80 52 L Respiratory Rate 23 H 18 Blood Pressure Pulse Oximetry 91 Oxygen Delivery Nasal Cannula Oxygen Flow Rate 2 01/10/25 21:25 01/10/25 21:29 01/10/25 22:00 Temperature Pulse Rate 56 L 53 L Respiratory Rate 18 Blood Pressure Pulse Oximetry 91 Oxygen Delivery Nasal Cannula Oxygen Flow Rate 3 01/10/25 22:15 01/10/25 23:39 01/10/25 23:39 Temperature Pulse Rate 33 L 52 L 52 L Respiratory Rate 23 H Blood Pressure Pulse Oximetry 91 Oxygen Delivery Nasal Cannula Oxygen Flow Rate 3 01/11/25 00:00 01/11/25 02:00 01/11/25 02:45 Temperature 97.5 F L Pulse Rate 59 L 52 L 57 L Respiratory Rate 21 H 18 Blood Pressure 120/58 L Pulse Oximetry 90 Oxygen Delivery Oxygen Flow Rate 01/11/25 02:49 01/11/25 02:58 01/11/25 03:12 Temperature Pulse Rate 53 L 62 Respiratory Rate 18 18 Blood Pressure Pulse Oximetry 96 90 Oxygen Delivery Nasal Cannula Nasal Cannula Oxygen Flow Rate 3 2 01/11/25 03:12 01/11/25 03:20 01/11/25 04:00 Temperature 98 F Pulse Rate 62 64 Respiratory Rate 16 Blood Pressure 118/50 L Pulse Oximetry 93 92 Oxygen Delivery Nasal Cannula Oxygen Flow Rate 2 01/11/25 05:54 01/11/25 08:00 01/11/25 08:00 Temperature 97.5 F L Pulse Rate 62 69 Respiratory Rate 18 Blood Pressure 150/66 H Pulse Oximetry 93 94 Oxygen Delivery Nasal Cannula Oxygen Flow Rate 2 01/11/25 08:25 01/11/25 08:26 01/11/25 08:53 Temperature Pulse Rate 68 68 68 Respiratory Rate 18 18 Blood Pressure Pulse Oximetry 93 Oxygen Delivery Nasal Cannula Oxygen Flow Rate 2 Intake/Output Intake/Output: Intake & Output 01/08/25 01/09/25 01/10/25 01/11/25 23:59 23:59 23:59 23:59 Intake Total 1696 700 820 310 Output Total 2800 1500 750 Balance -1104 -800 70 310 Meds/Results Medications: Active Medications Generic Name Dose Route Start Last Admin Trade Name Freq PRN Reason Stop Dose Admin Acetaminophen 500 mg 01/06/25 17:36 01/09/25 06:36 Acetaminophen 500 Mg Tablet PO 500 mg QHS PRN Administration Pain 1-3 Albuterol 2.5 mg 01/06/25 17:32 Albuterol Sulfate Neb 2.5 Mg/3 Ml Inh INHALATION Q4HRT PRN Shortness Of Breath Albuterol/Ipratropium 3 ml 01/07/25 20:00 01/11/25 08:15 Ipratropium 0.5 Mg/Albuterol Sulfate 2.5 Mg (Base) Ampul.Neb 3 Ml INHALATION 3 ml Q6HRT MANOJ Administration Amlodipine Besylate 5 mg 01/10/25 09:00 01/11/25 08:51 Amlodipine Besylate 5 Mg Tablet PO 5 mg DAILY MANOJ Administration Atorvastatin Calcium 20 mg 01/06/25 21:00 01/10/25 21:09 Atorvastatin 20 Mg Tablet BY MOUTH 20 mg HS MANOJ Administration Dextrose 12.5 gm 01/06/25 17:32 Dextrose 50% 25 Gm/50 Ml Syringe IV PUSH PRN PRN Hypoglycemia Protocol Docusate Sodium 100 mg 01/09/25 21:00 01/11/25 08:51 Docusate Sodium 100 Mg Capsule PO 100 mg Q12HR MANOJ Administration Doxycycline Hyclate 100 mg 01/07/25 21:00 01/11/25 08:51 Doxycycline Hyclate 100 Mg Tablet PO 01/12/25 09:01 100 mg Q12HR MANOJ Administration Fluticasone Propionate 1 spray 01/06/25 21:00 01/11/25 08:54 Fluticasone Propionate 0.05% Na Spr 16 Gm Btl (*Bkc) NASAL 1 spray Q12HR MANOJ Administration Folic Acid 1 mg 01/06/25 17:40 01/11/25 08:52 Folic Acid 1 Mg Tablet BY MOUTH 1 mg DAILY MANOJ Administration Furosemide 20 mg 01/08/25 09:00 01/11/25 08:51 Furosemide 20 Mg Tablet PO 20 mg BID MANOJ Administration Glucagon 1 mg 01/06/25 17:32 Glucagon For Inj 1 Mg Vial IM PRN PRN Hypoglycemia Protocol Glucose 15 gm 01/06/25 17:32 Glucose Oral Gel 15 Gm Of Glucse In 37.5 Gm Tube PO PRN PRN Hypoglycemia Protocol Guaifenesin 1,200 mg 01/06/25 21:00 01/11/25 08:52 Guaifenesin 12 Hr 600 Mg Tabcr PO 1,200 mg Q12HR MANOJ Administration Dextrose 1,000 mls @ 100 mls/hr 01/06/25 17:32 Dextrose 5% 1,000 Ml IVPB PRN PRN Hypoglycemia Protocol Cefepime HCl 1 gm/ Sodium 50 mls @ 100 mls/hr 01/09/25 06:00 01/11/25 06:00 Chloride IVPB Infused Q12H MANOJ Infusion Insulin Aspart 3 - 6 units 01/07/25 08:00 01/10/25 18:23 Insulin Aspart (*Bkc) 100 Units/Ml SUB-Q Not Given TIDWM MANOJ Protocol Insulin Glargine 7 units 01/09/25 21:00 01/10/25 21:10 Insulin Glargine (*Bkc) 100 Units/Ml SUB-Q 7 units HS MANOJ Administration Lisinopril 20 mg 01/10/25 11:25 01/11/25 08:52 Lisinopril 20 Mg Tablet PO 20 mg QAM MANOJ Administration Loratadine 5 mg 01/07/25 09:00 01/10/25 09:16 Loratadine 5 Mg Tablet PO 5 mg QAM MANOJ Administration Multivitamins/Minerals 1 tab 01/07/25 09:00 01/11/25 08:52 Multivitamins /C Lutein (Centrum Silver) Tablet *Bkc PO 1 tab DAILY MANOJ Administration Polyethylene Glycol 17 gm 01/09/25 15:35 01/11/25 08:54 Polyethylene Glycol 3350 17 Gm Powd.Pack PO 17 gm QAM MANOJ Administration Potassium Chloride 10 meq 01/12/25 08:00 Potassium Chloride 10 Meq Er Tablet PO DAILY@0800 MANOJ Rivaroxaban 20 mg 01/06/25 17:40 01/10/25 18:29 Rivaroxaban 20 Mg Tablet PO 20 mg DAILY@1700 MANOJ Administration Sodium Chloride 1 gm 01/07/25 09:00 01/11/25 08:52 Sodium Chloride 1 Gm Tablet PO 1 gm BID MANOJ Administration Sotalol HCl 80 mg 01/06/25 21:00 01/11/25 08:53 Sotalol Hcl 80 Mg Tablet PO 80 mg Q12HR MANOJ Administration Radiology Results: ITS Impressions Modified Barium Swallow 01/08/25 13:38 IMPRESSION: No aspiration observed. See speech therapist's report for complete evaluation. Chest X-Ray 01/09/25 14:07 Impression: No acute cardiopulmonary abnormality. Labs Labs: Laboratory Results - last 24 hr 01/10/25 01/10/25 01/10/25 11:11 16:30 20:41 WBC RBC Hgb Hct MCV MCH MCHC RDW Plt Count MPV Immature Gran % (Auto) Neut % (Auto) Lymph % (Auto) Burke % (Auto) Eos % (Auto) Baso % (Auto) Lymph # (Auto) Burke # (Auto) Eos # (Auto) Baso # (Auto) Abs Immat Gran (auto) Absolute Neuts (auto) Absolute Nucleated RBC Nucleated RBC % Sodium Potassium Chloride Carbon Dioxide Anion Gap BUN Creatinine Estim Creat Clear Calc Estimated GFR Glucose POC Capillary Glucose 222 H 200 H 272 H Calcium Phosphorus Magnesium Albumin 01/11/25 01/11/25 04:30 07:23 WBC 8.3 RBC 3.30 L Hgb 11.5 L Hct 32.1 L MCV 97.3 MCH 34.8 H MCHC 35.8 RDW 11.9 Plt Count 168 MPV 9.9 Immature Gran % (Auto) 1.7 H Neut % (Auto) 57.8 Lymph % (Auto) 24.1 Burke % (Auto) 14.6 H Eos % (Auto) 1.4 Baso % (Auto) 0.4 Lymph # (Auto) 2.01 Burke # (Auto) 1.2 H Eos # (Auto) 0.1 Baso # (Auto) 0.0 Abs Immat Gran (auto) 0.14 H Absolute Neuts (auto) 4.8 Absolute Nucleated RBC 0.000 Nucleated RBC % 0.0 Sodium 128 L Potassium 3.3 L Chloride 91 L Carbon Dioxide 32 H Anion Gap 5 BUN 21 H Creatinine 0.76 Estim Creat Clear Calc 60 Estimated GFR > 60 Glucose 171 H POC Capillary Glucose 183 H Calcium 8.6 Phosphorus 3.1 Magnesium 1.9 Albumin 3.6
[2025-01-11] MEDS: LORATADINE 5 MG TABLET PO (10:54)
--- NOTE | 2025-01-11 12:51 | PM.IMPN ---
Progress Note: A&P Assessment and Plan (1) Hypoxia: Code(s): R09.02 - Hypoxemia Status: Acute Assessment and Plan: Patient presents with hypoxia. Etiology unclear. Viral swab was negative. MRSA nasal swab negative. Chest x-ray was clear. Does not appear to be fluid overloaded. She is on anticoagulation making PE less likely. Compliant with her anticoagulation medications. Probably related to viral illness with the wheezing. Repeat CXR now showing suspect worsening pulmonary edema and/or infiltrates in the lower lobes left worse than right. Could be related to pulm edema from IV fluids and poor UOP (Fluid positive 3.6L). Consider also PNA but no fever or leukocytosis. Lasix started. Fluid status improved. Speech therapy evaluation with MBS showing mild dysphagia requiring Level 2 thickened liquids. Diet adjusted. Weaned to 0.5L. Repeat CXR clear now. Continue supportive treatment. Wean oxygen as tolerated. Increase activity with patient out of bed. Repeat MBS shows patient can tolerate thin liquids with chin tucks. Continue nebs. Continue cefepime and doxycycline. Check ApneaLink tonight (2) UTI (urinary tract infection): Code(s): N39.0 - Urinary tract infection, site not specified Status: Acute Assessment and Plan: UA noted and concerning for UTI. She has 2+ protein on a sample. Protein/Cr ratio 4.3gm but suspect this is probably related to the UTI. Plan to repeat protein-creatinine ratio after urine clears as an outpatient. UCx growing Pseudomonas that is mahajan-sensitive Continue cefepime for 5 days of treatment for UTI but longer if BCx grows Pseudomonas Cannot give fluoroquinolones due to interaction with sotalol. (3) Bacteremia: Code(s): R78.81 - Bacteremia Status: Acute Assessment and Plan: BCx (01/06) growing gram variable rods from one aerobic bottle only (also, possibly both anaerobic bottles?) Suspect this is a contaminate but will continue Cefepime and wait for final identification Discussed with blood and plasma laboratory assistant and he is calling [facility] (4) Hyponatremia: Code(s): E87.1 - Hypo-osmolality and hyponatremia Status: Acute Assessment and Plan: Patient presents with weakness and viral symptoms. She has known history of hyponatremia. Sodium on presentation was 112. TSH and Cortisol levels normal. Jones 123 with FENa 1.5% to suggest intrinsic renal disease. Fluid restriction. IV fluids stopped. Nephrology consulted and appreciate their input. SPEP showing no M-spike. SIF showing no monoclonalality. UPEP pending Lasix started. Oral NaCl tabs started. 3% saline given but stopped due to pulmonary edema. Serial sodium levels better at 121 but plateaued again so 3% repeated. Na up to 128. Continue to monitor Continue oral NaCl tablets. Home once other issues managed (5) CHF (congestive heart failure): Qualifiers: Heart failure type: other Qualified Code(s): I50.9 - Heart failure, unspecified Code(s): I50.9 - Heart failure, unspecified Status: Acute Assessment and Plan: Patient has a history of CHF. She has a history of large pericardial effusion s/p pericardial window in 2020. Echo here showing normal biventricular size and systolic function and pulmonary arterial systolic pressure of about 79 mmHg with severe pulmonary hypertension. BNP 984. CXR as above. Apnea link tonight (6) Hypertension: Qualifiers: Hypertension type: essential hypertension Qualified Code(s): I10 - Essential (primary) hypertension Code(s): I10 - Essential (primary) hypertension Status: Acute Assessment and Plan: Patient with elevated blood pressure on admission that has improved. HTN possibly related to untreated JULIA? Norvasc advanced and Lisinopril added. BP better. Continue to follow (7) Afib: Code(s): I48.91 - Unspecified atrial fibrillation Status: Acute Assessment and Plan: Patient with history of atrial fibrillation. She is on sotalol which was continued. Tele showing transient bradycardia but HR stable overall Xarelto also resumed. Monitor on telemetry (8) Diabetes mellitus: Qualifiers: Diabetes mellitus type: type 2 Diabetes mellitus salvage determiner insulin use: without salvage determiner use Diabetes mellitus complication status: without complication Qualified Code(s): E11.9 - Type 2 diabetes mellitus without complications Code(s): E11.9 - Type 2 diabetes mellitus without complications Status: Acute Assessment and Plan: A1c 6.8%. Patient with a history of diabetes. She is on glipizide, saxagliptin and metformin. The patient's blood glucose was reviewed on 01/11 Glucose better controlled. Continue AccuCheks covering with sliding scale. Hypoglycemia protocol available as needed. Continue to monitor (9) History of CVA (cerebrovascular accident): Code(s): Z86.73 - Personal history of transient ischemic attack (TIA), and cerebral infarction without residual deficits Status: Acute Assessment and Plan: Patient has a history of CVA. She is debilitated and essentially bed bound Up to recliner with Ulisses baldwin. Plan Dysphagia - MBS showing she needs to have Level 2 thickened liquids. Repeat MBS showing patient can go to thin liquids with chin tucks. DIscussed with Speech Therapist. Continue ST. DVT prophylaxis -Xarelto Code status -full Subjective Date/time seen: 01/11/25 12:51 Interval history: 79yo female with DM, HTN, CVA, AFib and CHF who presents with weakness. Slept okay. Eating okay but not taking much liquids (even below the fluid restriction). No CP or SOB. Required increasing amount of O2 over night. Exam Narrative: AF 98.6 155/65 73 22 93% 0.5L Gen - NARD sitting up in recliner Chest - clear breath sounds. CV - RRR S1/S2. Tele showing episodes of transient bradycardia Abd - soft, NT/ND - Purewik in place with dark yellow-brown urine in canister Ext - trace edema Psych - normal mood and affect. Skin - warm and dry. Objective Data Vital Signs Vital Signs: Vital Signs - 24 hr 01/10/25 14:00 01/10/25 14:20 01/10/25 14:20 Temperature Pulse Rate 65 64 Respiratory Rate 18 Blood Pressure Pulse Oximetry 90 Oxygen Delivery Nasal Cannula Oxygen Flow Rate 0.5 01/10/25 14:31 01/10/25 15:37 01/10/25 15:44 Temperature 98.1 F Pulse Rate 62 64 Respiratory Rate 18 22 H Blood Pressure 148/96 H Pulse Oximetry 93 87 L Oxygen Delivery Nasal Cannula Oxygen Flow Rate 0.5 01/10/25 16:00 01/10/25 18:00 01/10/25 19:26 Temperature 97.6 F Pulse Rate 60 73 72 Respiratory Rate 23 H Blood Pressure 149/56 H Pulse Oximetry 91 Oxygen Delivery Oxygen Flow Rate 01/10/25 20:00 01/10/25 20:00 01/10/25 21:23 Temperature Pulse Rate 80 80 52 L Respiratory Rate 23 H 18 Blood Pressure Pulse Oximetry 91 Oxygen Delivery Nasal Cannula Oxygen Flow Rate 2 01/10/25 21:25 01/10/25 21:29 01/10/25 22:00 Temperature Pulse Rate 56 L 53 L Respiratory Rate 18 Blood Pressure Pulse Oximetry 91 Oxygen Delivery Nasal Cannula Oxygen Flow Rate 3 01/10/25 22:15 01/10/25 23:39 01/10/25 23:39 Temperature Pulse Rate 33 L 52 L 52 L Respiratory Rate 23 H Blood Pressure Pulse Oximetry 91 Oxygen Delivery Nasal Cannula Oxygen Flow Rate 3 01/11/25 00:00 01/11/25 02:00 01/11/25 02:45 Temperature 97.5 F L Pulse Rate 59 L 52 L 57 L Respiratory Rate 21 H 18 Blood Pressure 120/58 L Pulse Oximetry 90 Oxygen Delivery Oxygen Flow Rate 01/11/25 02:49 01/11/25 02:58 01/11/25 03:12 Temperature Pulse Rate 53 L 62 Respiratory Rate 18 18 Blood Pressure Pulse Oximetry 96 90 Oxygen Delivery Nasal Cannula Nasal Cannula Oxygen Flow Rate 3 2 01/11/25 03:12 01/11/25 03:20 01/11/25 04:00 Temperature 98 F Pulse Rate 62 64 Respiratory Rate 16 Blood Pressure 118/50 L Pulse Oximetry 93 92 Oxygen Delivery Nasal Cannula Oxygen Flow Rate 2 01/11/25 05:54 01/11/25 08:00 01/11/25 08:00 Temperature 97.5 F L Pulse Rate 62 69 Respiratory Rate 18 Blood Pressure 150/66 H Pulse Oximetry 93 94 Oxygen Delivery Nasal Cannula Oxygen Flow Rate 2 01/11/25 08:00 01/11/25 08:25 01/11/25 08:26 Temperature Pulse Rate 71 68 68 Respiratory Rate 18 18 Blood Pressure Pulse Oximetry 93 Oxygen Delivery Nasal Cannula Oxygen Flow Rate 2 01/11/25 08:53 01/11/25 10:00 01/11/25 11:15 Temperature Pulse Rate 68 57 L Respiratory Rate Blood Pressure Pulse Oximetry 94 Oxygen Delivery Nasal Cannula Oxygen Flow Rate 0.5 01/11/25 12:00 01/11/25 12:30 Temperature 98.6 F Pulse Rate 76 73 Respiratory Rate 22 H Blood Pressure 155/65 H Pulse Oximetry 93 Oxygen Delivery Oxygen Flow Rate Intake/Output Intake/Output: Intake & Output 01/08/25 01/09/25 01/10/25 01/11/25 23:59 23:59 23:59 23:59 Intake Total 1696 700 820 430 Output Total 2800 1500 750 Balance -1104 -800 70 430 Meds/Results Medications: Active Medications Generic Name Dose Route Start Last Admin Trade Name Freq PRN Reason Stop Dose Admin Acetaminophen 500 mg 01/06/25 17:36 01/09/25 06:36 Acetaminophen 500 Mg Tablet PO 500 mg QHS PRN Administration Pain 1-3 Albuterol 2.5 mg 01/06/25 17:32 Albuterol Sulfate Neb 2.5 Mg/3 Ml Inh INHALATION Q4HRT PRN Shortness Of Breath Albuterol/Ipratropium 3 ml 01/07/25 20:00 01/11/25 08:15 Ipratropium 0.5 Mg/Albuterol Sulfate 2.5 Mg (Base) Ampul.Neb 3 Ml INHALATION 3 ml Q6HRT MANOJ Administration Amlodipine Besylate 5 mg 01/10/25 09:00 01/11/25 08:51 Amlodipine Besylate 5 Mg Tablet PO 5 mg DAILY MANOJ Administration Atorvastatin Calcium 20 mg 01/06/25 21:00 01/10/25 21:09 Atorvastatin 20 Mg Tablet BY MOUTH 20 mg HS MANOJ Administration Dextrose 12.5 gm 01/06/25 17:32 Dextrose 50% 25 Gm/50 Ml Syringe IV PUSH PRN PRN Hypoglycemia Protocol Docusate Sodium 100 mg 01/09/25 21:00 01/11/25 08:51 Docusate Sodium 100 Mg Capsule PO 100 mg Q12HR MANOJ Administration Doxycycline Hyclate 100 mg 01/07/25 21:00 01/11/25 08:51 Doxycycline Hyclate 100 Mg Tablet PO 01/12/25 09:01 100 mg Q12HR MANOJ Administration Fluticasone Propionate 1 spray 01/06/25 21:00 01/11/25 08:54 Fluticasone Propionate 0.05% Na Spr 16 Gm Btl (*Bk) NASAL 1 spray Q12HR MANOJ Administration Folic Acid 1 mg 01/06/25 17:40 01/11/25 08:52 Folic Acid 1 Mg Tablet BY MOUTH 1 mg DAILY MANOJ Administration Furosemide 20 mg 01/08/25 09:00 01/11/25 08:51 Furosemide 20 Mg Tablet PO 20 mg BID MANOJ Administration Glucagon 1 mg 01/06/25 17:32 Glucagon For Inj 1 Mg Vial IM PRN PRN Hypoglycemia Protocol Glucose 15 gm 01/06/25 17:32 Glucose Oral Gel 15 Gm Of Glucse In 37.5 Gm Tube PO PRN PRN Hypoglycemia Protocol Guaifenesin 1,200 mg 01/06/25 21:00 01/11/25 08:52 Guaifenesin 12 Hr 600 Mg Tabcr PO 1,200 mg Q12HR MANOJ Administration Dextrose 1,000 mls @ 100 mls/hr 01/06/25 17:32 Dextrose 5% 1,000 Ml IVPB PRN PRN Hypoglycemia Protocol Cefepime HCl 1 gm/ Sodium 50 mls @ 100 mls/hr 01/09/25 06:00 01/11/25 06:00 Chloride IVPB Infused Q12H MANOJ Infusion Insulin Aspart 3 - 6 units 01/07/25 08:00 01/11/25 10:53 Insulin Aspart (*Bkc) 100 Units/Ml SUB-Q Not Given TIDWM MANOJ Protocol Insulin Glargine 7 units 01/09/25 21:00 01/10/25 21:10 Insulin Glargine (*Bkc) 100 Units/Ml SUB-Q 7 units HS MANOJ Administration Lisinopril 20 mg 01/10/25 11:25 01/11/25 08:52 Lisinopril 20 Mg Tablet PO 20 mg QAM MANOJ Administration Loratadine 5 mg 01/07/25 09:00 01/11/25 10:54 Loratadine 5 Mg Tablet PO 5 mg QAM MANOJ Administration Multivitamins/Minerals 1 tab 01/07/25 09:00 01/11/25 08:52 Multivitamins /C Lutein (Centrum Silver) Tablet *Bkc PO 1 tab DAILY MANOJ Administration Polyethylene Glycol 17 gm 01/09/25 15:35 01/11/25 08:54 Polyethylene Glycol 3350 17 Gm Powd.Pack PO 17 gm QAM MANOJ Administration Potassium Chloride 10 meq 01/12/25 08:00 Potassium Chloride 10 Meq Er Tablet PO DAILY@0800 MANOJ Rivaroxaban 20 mg 01/06/25 17:40 01/10/25 18:29 Rivaroxaban 20 Mg Tablet PO 20 mg DAILY@1700 [facility] Administration Sodium Chloride 1 gm 01/07/25 09:00 01/11/25 08:52 Sodium Chloride 1 Gm Tablet PO 1 gm BID MANOJ Administration Sotalol HCl 80 mg 01/06/25 21:00 01/11/25 08:53 Sotalol Hcl 80 Mg Tablet PO 80 mg Q12HR MANOJ Administration Radiology Results: ITS Impressions Chest X-Ray 01/09/25 14:07 Impression: No acute cardiopulmonary abnormality. Labs Labs: Laboratory Results - last 24 hr 01/10/25 01/10/25 01/11/25 16:30 20:41 04:30 WBC 8.3 RBC 3.30 L Hgb 11.5 L Hct 32.1 L MCV 97.3 MCH 34.8 H MCHC 35.8 RDW 11.9 Plt Count 168 MPV 9.9 Immature Gran % (Auto) 1.7 H Neut % (Auto) 57.8 Lymph % (Auto) 24.1 [place] % (Auto) 14.6 H Eos % (Auto) 1.4 Baso % (Auto) 0.4 Lymph # (Auto) 2.01 [place] # (Auto) 1.2 H Eos # (Auto) 0.1 Baso # (Auto) 0.0 Abs Immat Gran (auto) 0.14 H Absolute Neuts (auto) 4.8 Absolute Nucleated RBC 0.000 Nucleated RBC % 0.0 Sodium 128 L Potassium 3.3 L Chloride 91 L Carbon Dioxide 32 H Anion Gap 5 BUN 21 H Creatinine 0.76 Estim Creat Clear Calc 60 Estimated GFR > 60 Glucose 171 H POC Capillary Glucose 200 H 272 H Calcium 8.6 Phosphorus 3.1 Magnesium 1.9 Albumin 3.6 01/11/25 07:23 WBC RBC Hgb Hct MCV MCH MCHC RDW Plt Count MPV Immature Gran % (Auto) Neut % (Auto) Lymph % (Auto) [place] % (Auto) Eos % (Auto) Baso % (Auto) Lymph # (Auto) [place] # (Auto) Eos # (Auto) Baso # (Auto) Abs Immat Gran (auto) Absolute Neuts (auto) Absolute Nucleated RBC Nucleated RBC % Sodium Potassium Chloride Carbon Dioxide Anion Gap BUN Creatinine Estim Creat Clear Calc Estimated GFR Glucose POC Capillary Glucose 183 H Calcium Phosphorus Magnesium Albumin
--- NOTE | 2025-01-11 13:39 | PCSTNOTE ---
Please refer to the Modified Barium Swallow Evaluation in the EMR. The above pleasant and cooperative pt was seen for a repeat modified barium swallow. She was alert & oriented, and able to follow commands. She is currently on a regular diet with mildly thick liquids. Pt was coughing even before any test trials. Oral mucosa is normal; natural dentition is in good condition with some missing back teeth noted on both sides; a clear and strong vocal quality was noted. The patient was seated for a lateral view and presented with trials of the followin ml of thin liquid barium via spoon, pudding consistency barium via a spoon, cracker coated with barium pudding via a spoon, and uncontrolled thin liquid barium. This was presented via a cup & straw. Oral preparatory and oral phase symptoms: none/WFL. Pharyngeal phase symptoms: intermittent shallow laryngeal penetration occurred with thin liquids; when using the chin tuck posture, the penetration decreased but remained intermittent. No gross aspiration occurred; pt coughed x1 as a result of the penetration. Esophageal stage symptoms: none. No aspiration occurred. Impression: mild dysphagia as described above Recommendation: level 7 regular solids and level 0 thin liquids. Small sips and use the chin tuck with thin liquids. Pt should be positioned completely upright with all oral intake. The patient and her friend/caregiver were instructed on the results and recommendations. Both verbalized understanding. VIRI Vences and Provider Dr Carrera were notified of the results
[2025-01-11 14:08] LABS: Albumin, U 59.3 % (.); Alpha-1-Globulin, U 3.7 % (.); Alpha-2-Globulin, U 12.5 % (.); Beta Globulin, U 13.1 % (.); Gamma Globulin, U 11.4 % (.)
[2025-01-11 15:09] LABS: Osmolality, Serum 241 mOsmol/kg (280-301)
[2025-01-11] MEDS: INSULIN ASPART (*BKC) 100 UNITS/ML SUB-Q (17:07)
[2025-01-11] MEDS: RIVAROXABAN 20 MG TABLET PO (17:09)
[2025-01-11] MEDS: ACETAMINOPHEN 500 MG TABLET PO (20:33)
[2025-01-11] MEDS: ATORVASTATIN 20 MG TABLET BY MOUTH (20:33)
[2025-01-11] MEDS: INSULIN GLARGINE (*BKC) 100 UNITS/ML 7 UNITS SUB-Q (20:34)
[2025-01-12] VITALS (28 sets, daily range): BP systolic 127–164; BP diastolic 43–82; PULSE 47–79; RESP 15–28; TEMP 36.4–36.8; O2SAT 89–98
[2025-01-12] MEDS: CEFEPIME 1 GM in SODIUM CHLORIDE 0.9% IV 50 ML 100 ML IVPB ×2 (05:00→18:02)
[2025-01-12 06:48] LABS: Hematocrit 34.9 % (37.0-47.0); Hemoglobin 12.2 g/dL (12.0-15.0); Mean Corpuscular HGB Conc 35.0 g/dl (32-36); Mean Corpuscular Hemoglobin 34.3 pg (26-34); Mean Corpuscular Volume 98.0 fl (80-100); Platelet Count Result 201 k/mm3 (150-375); Red Blood Count 3.56 M/mm3 (4.2-5.4); White Blood Count 8.0 K/mm3 (4.5-10.0)
[2025-01-12 07:09] LABS: Anion Gap 5 mmol/L (4-12); Blood Urea Nitrogen 23 mg/dL (7-17); Calcium 8.8 mg/dL (8.4-10.2); Carbon Dioxide 34 mmol/L (22-30); Chloride 88 mmol/L (98-107); Estimated CRCL calculation 49 ml/min; Estimated Glomerular Filt Rate 57; Glucose 161 mg/dL (65-110); Potassium 4.0 mmol/L (3.4-5.0); Sodium 127 mmol/L (137-145)
--- NOTE | 2025-01-12 07:51 | PCRCNOTE ---
0200 updraft not given due to getting apnea link
[2025-01-12] MEDS: IPRATROPIUM 0.5 MG/ALBUTEROL SULFATE 2.5 MG (BASE) AMPUL.NEB 3 ML INHALATION ×3 (08:28→20:35)
[2025-01-12] MEDS: FUROSEMIDE 20 MG TABLET PO ×2 (09:15→18:03)
[2025-01-12] MEDS: guaiFENesin 12 HR 600 MG TABCR 1200 MG PO ×2 (09:15→20:59)
[2025-01-12] MEDS: DOCUSATE SODIUM 100 MG CAPSULE PO ×2 (09:16→21:04)
[2025-01-12] MEDS: LORATADINE 5 MG TABLET PO (09:16)
[2025-01-12] MEDS: POTASSIUM CHLORIDE 10 MEQ ER TABLET PO (09:16)
[2025-01-12] MEDS: FLUTICASONE PROPIONATE 0.05% NA SPR 16 GM BTL (*BKC) 1 SPRAY NASAL ×2 (09:16→21:04)
[2025-01-12] MEDS: FOLIC ACID 1 MG TABLET BY MOUTH (09:16)
[2025-01-12] MEDS: SODIUM CHLORIDE 1 GM TABLET PO ×2 (09:16→18:03)
[2025-01-12] MEDS: MULTIVITAMINS /C LUTEIN (CENTRUM SILVER) TABLET *BKC 1 TAB PO (09:16)
[2025-01-12] MEDS: DOXYCYCLINE HYCLATE 100 MG TABLET PO (09:16)
[2025-01-12] MEDS: SOTALOL HCL 80 MG TABLET PO ×2 (09:17→21:03)
--- NOTE | 2025-01-12 10:32 | PCNWS ---
Weekly nutritional screen. Patient is tolerating current Diabetic diet. Intake 25-improving to 75%. Pt reports appetite and intake improving, would like to hold off on any supplements right now due to fluid restriction and improving intake of meals. No weight loss reported. No nutritional recommendations at this time.
--- NOTE | 2025-01-12 10:44 | P.PNNP_ITS ---
Progress Note: A&P Assessment and Plan (1) Hyponatremia: Code(s): E87.1 - Hypo-osmolality and hyponatremia Status: Acute Assessment and Plan: * slow improvement noted * acute on chronic * has been running ~ 127 - 135mmol/L since as far back as 2018 (if not longer) * several hospitalization noted in the past for this issue - August 2020 (here at [facility]) - June 2019 (here at [facility]) * previous extensive evaluation noted in the past/previous hospital stays: * TSH okay * cortisol has been lowish in the past but normal cosyntropin stimulation test * imaging of brain and chest WNL * negative SPEP and UPEP * urine osmolality > serum osmolality * previous bouts of acute drops in sodium attributed to HCTZ & SSRI use and CHF * Now probably related to UTI and extra water drinking. * up to date on cancer screening(?) * interventions to date noted: * on fluid restriction * s/p 3% saline x 2 * on salt tabs + lasix * sodium is at 127 * Continue fluid restriction. She is actually still on furosemide and sodium chloride. I think we will just leave these on board and wean them as an outpatient. * okay for discharge from the kidney standpoint when everything else is finished (2) Acute hypoxic respiratory failure: Code(s): J96.01 - Acute respiratory failure with hypoxia Status: Acute Assessment and Plan: * noted on presentation * no evidence of respiratory distress * etiology not clear: * viral testing for influenza/RSV/COVD negative * CXR on admission clear * BNP noted but does not appear fluid overloaded * PE less likely since already on anticoagulation * no fevers or elevated WBC * due to viral illness/bronchitis(?) * latest chest x-ray is clear (3) CHF (congestive heart failure): Qualifiers: Heart failure type: other Qualified Code(s): I50.9 - Heart failure, unspecified Code(s): I50.9 - Heart failure, unspecified Status: Acute Assessment and Plan: * known history * recent Echo noted: * normal biventricular size and systolic function * no significant valvular abnormalities * pulmonary arterial systolic pressure is estimated at 79 mmHg - severe pulmonary hypertension * BNP 984 * latest chest x-ray clear (4) UTI (urinary tract infection): Code(s): N39.0 - Urinary tract infection, site not specified Status: Acute Assessment and Plan: * admission UA highly suggestive * floow urine culture - highly sensitive Pseudomonas. * on cefepime (5) Afib: Code(s): I48.91 - Unspecified atrial fibrillation Status: Acute Assessment and Plan: * on sotalol * heart rate stable * on anticoagulation with Xarelto (6) Hypertension: Qualifiers: Hypertension type: essential hypertension Qualified Code(s): I10 - Essential (primary) hypertension Code(s): I10 - Essential (primary) hypertension Status: Acute Assessment and Plan: * Systolic ranging 140s to 160 * currently on amlodipine 2.5 * Heart rate is borderline low which limits our use of non dihydropyridine calcium channel blockers , centrally acting agents, and beta-blockers. we can not use thiazides because of her sodium. * on lisinopril as of yesterday. * follow trend of hemodynamics (7) Diabetes mellitus: Qualifiers: Diabetes mellitus type: type 2 Diabetes mellitus superintendent terminal insulin use: without superintendent terminal use Diabetes mellitus complication status: without complication Qualified Code(s): E11.9 - Type 2 diabetes mellitus without complications Code(s): E11.9 - Type 2 diabetes mellitus without complications Status: Acute Assessment and Plan: * follow accu-cheks * glycemic control per hospitalist Subjective Date/time seen: 01/12/25 10:44 Interval history: Patient is alert. She did well with her swallow. She still needs to sit upright and tip her chin but is happy she can drink regular fluid. Exam Narrative: General: elderly but WD/WN female in NAD Heart: normal S1 and S2; no rub or gallop Lungs: clear Abdomen: soft, nontender, nondistended, positive bowel sounds Extremities: no cyanosis or clubbing; no edema Skin: No rash or subcu nodules Objective Data Vital Signs Vital Signs: Vital Signs - 24 hr 01/11/25 11:15 01/11/25 12:00 01/11/25 12:00 Temperature Pulse Rate 76 Respiratory Rate Blood Pressure Pulse Oximetry 94 92 Oxygen Delivery Nasal Cannula Nasal Cannula Oxygen Flow Rate 0.5 0.5 01/11/25 12:30 01/11/25 13:08 01/11/25 14:00 Temperature 98.6 F Pulse Rate 73 67 68 Respiratory Rate 22 H 18 Blood Pressure 155/65 H Pulse Oximetry 93 Oxygen Delivery Oxygen Flow Rate 01/11/25 16:00 01/11/25 16:00 01/11/25 16:00 Temperature 97.5 F L Pulse Rate 85 86 Respiratory Rate 16 Blood Pressure 150/88 H Pulse Oximetry 94 95 Oxygen Delivery Nasal Cannula Oxygen Flow Rate 0.5 01/11/25 18:00 01/11/25 19:52 01/11/25 20:00 Temperature 97.5 F L Pulse Rate 75 82 Respiratory Rate 20 Blood Pressure 149/58 H Pulse Oximetry 92 90 Oxygen Delivery Nasal Cannula Oxygen Flow Rate 1 01/11/25 20:00 01/11/25 20:17 01/11/25 20:22 Temperature Pulse Rate 71 72 85 Respiratory Rate 18 18 Blood Pressure Pulse Oximetry 93 Oxygen Delivery Nasal Cannula Oxygen Flow Rate 1 01/11/25 20:25 01/11/25 20:32 01/11/25 22:00 Temperature Pulse Rate 72 73 75 Respiratory Rate 18 Blood Pressure Pulse Oximetry Oxygen Delivery Oxygen Flow Rate 01/11/25 23:17 01/11/25 23:46 01/12/25 00:00 Temperature Pulse Rate 51 L 57 L Respiratory Rate Blood Pressure Pulse Oximetry 92 92 Oxygen Delivery Nasal Cannula Oxygen Flow Rate 1 01/12/25 02:00 01/12/25 03:16 01/12/25 04:00 Temperature Pulse Rate 47 L 48 L Respiratory Rate Blood Pressure Pulse Oximetry 89 L Oxygen Delivery Nasal Cannula Oxygen Flow Rate 3 01/12/25 04:07 01/12/25 06:00 01/12/25 06:07 Temperature 97.6 F Pulse Rate 60 55 L Respiratory Rate 24 H Blood Pressure 127/48 L Pulse Oximetry 96 95 Oxygen Delivery Nasal Cannula Oxygen Flow Rate 2 01/12/25 07:16 01/12/25 08:29 01/12/25 08:29 Temperature 97.6 F Pulse Rate 58 L 62 62 Respiratory Rate 20 20 20 Blood Pressure 156/80 H Pulse Oximetry 98 93 Oxygen Delivery Nasal Cannula Oxygen Flow Rate 2 01/12/25 08:43 01/12/25 08:43 01/12/25 09:17 Temperature Pulse Rate 68 64 Respiratory Rate 20 Blood Pressure Pulse Oximetry 95 Oxygen Delivery Oxygen Flow Rate Intake/Output Intake/Output: Intake & Output 01/09/25 01/10/25 01/11/25 01/12/25 23:59 23:59 23:59 23:59 Intake Total 700 820 920 420 Output Total 1500 750 500 350 Balance -800 70 420 70 Meds/Results Medications: Active Medications Generic Name Dose Route Start Last Admin Trade Name Freq PRN Reason Stop Dose Admin Acetaminophen 500 mg 01/06/25 17:36 01/11/25 20:33 Acetaminophen 500 Mg Tablet PO 500 mg QHS PRN Administration Pain 1-3 Albuterol 2.5 mg 01/06/25 17:32 Albuterol Sulfate Neb 2.5 Mg/3 Ml Inh INHALATION Q4HRT PRN Shortness Of Breath Albuterol/Ipratropium 3 ml 01/07/25 20:00 01/12/25 08:28 Ipratropium 0.5 Mg/Albuterol Sulfate 2.5 Mg (Base) Ampul.Neb 3 Ml INHALATION 3 ml Q6HRT MANOJ Administration Amlodipine Besylate 5 mg 01/10/25 09:00 01/12/25 09:16 Amlodipine Besylate 5 Mg Tablet PO 5 mg DAILY MANOJ Administration Atorvastatin Calcium 20 mg 01/06/25 21:00 01/11/25 20:33 Atorvastatin 20 Mg Tablet BY MOUTH 20 mg HS MANOJ Administration Dextrose 12.5 gm 01/06/25 17:32 Dextrose 50% 25 Gm/50 Ml Syringe IV PUSH PRN PRN Hypoglycemia Protocol Docusate Sodium 100 mg 01/09/25 21:00 01/12/25 09:16 Docusate Sodium 100 Mg Capsule PO 100 mg Q12HR MANOJ Administration Fluticasone Propionate 1 spray 01/06/25 21:00 01/12/25 09:16 Fluticasone Propionate 0.05% Na Spr 16 Gm Btl (*Bkc) NASAL 1 spray Q12HR MANOJ Administration Folic Acid 1 mg 01/06/25 17:40 01/12/25 09:16 Folic Acid 1 Mg Tablet BY MOUTH 1 mg DAILY MANOJ Administration Furosemide 20 mg 01/08/25 09:00 01/12/25 09:15 Furosemide 20 Mg Tablet PO 20 mg BID MANOJ Administration Glucagon 1 mg 01/06/25 17:32 Glucagon For Inj 1 Mg Vial IM PRN PRN Hypoglycemia Protocol Glucose 15 gm 01/06/25 17:32 Glucose Oral Gel 15 Gm Of Glucse In 37.5 Gm Tube PO PRN PRN Hypoglycemia Protocol Guaifenesin 1,200 mg 01/06/25 21:00 01/12/25 09:15 Guaifenesin 12 Hr 600 Mg Tabcr PO 1,200 mg Q12HR MANOJ Administration Dextrose 1,000 mls @ 100 mls/hr 01/06/25 17:32 Dextrose 5% 1,000 Ml IVPB PRN PRN Hypoglycemia Protocol Cefepime HCl 1 gm/ Sodium 50 mls @ 100 mls/hr 01/09/25 06:00 01/12/25 05:00 Chloride IVPB 100 mls/hr Q12H MANOJ Administration Insulin Aspart 3 - 6 units 01/07/25 08:00 01/12/25 09:15 Insulin Aspart (*Bkc) 100 Units/Ml SUB-Q Not Given TIDWM MANOJ Protocol Insulin Glargine 7 units 01/09/25 21:00 01/11/25 20:34 Insulin Glargine (*Bkc) 100 Units/Ml SUB-Q 7 units HS MANOJ Administration Lisinopril 20 mg 01/10/25 11:25 01/12/25 09:16 Lisinopril 20 Mg Tablet PO 20 mg QAM MANOJ Administration Loratadine 5 mg 01/07/25 09:00 01/12/25 09:16 Loratadine 5 Mg Tablet PO 5 mg QAM MANOJ Administration Multivitamins/Minerals 1 tab 01/07/25 09:00 01/12/25 09:16 Multivitamins /C Lutein (Centrum Silver) Tablet *Bkc PO 1 tab DAILY MANOJ Administration Polyethylene Glycol 17 gm 01/09/25 15:35 01/12/25 09:17 Polyethylene Glycol 3350 17 Gm Powd.Pack PO 17 gm QAM MANOJ Administration Potassium Chloride 10 meq 01/12/25 08:00 01/12/25 09:16 Potassium Chloride 10 Meq Er Tablet PO 10 meq DAILY@0800 MANOJ Administration Rivaroxaban 20 mg 01/06/25 17:40 01/11/25 17:09 Rivaroxaban 20 Mg Tablet PO 20 mg DAILY@1700 MANOJ Administration Sodium Chloride 1 gm 01/07/25 09:00 01/12/25 09:16 Sodium Chloride 1 Gm Tablet PO 1 gm BID MANOJ Administration Sotalol HCl 80 mg 01/06/25 21:00 01/12/25 09:17 Sotalol Hcl 80 Mg Tablet PO 80 mg Q12HR MANOJ Administration Radiology Results: ITS Impressions Chest X-Ray 01/09/25 14:07 Impression: No acute cardiopulmonary abnormality. Modified Barium Swallow 01/11/25 13:50 IMPRESSION: Mild pharyngeal dysphagia with flash laryngeal penetration without aspiration. Please correlate with speech pathologist findings and specific feeding recommendations. Labs Labs: Laboratory Results - last 24 hr 01/06/25 01/06/25 01/06/25 13:05 14:00 18:11 WBC RBC Hgb Hct MCV MCH MCHC RDW Plt Count MPV Sodium Potassium Chloride Carbon Dioxide Anion Gap BUN Creatinine Estim Creat Clear Calc Estimated GFR Glucose POC Capillary Glucose Serum Osmolality 241 L Calcium Urine Total Protein 151.9 Urine Albumin (PEP) 59.3 U Wqhur-3-Iochjnmh 3.7 U Vyzjd-8-Dodgrttj 12.5 U Beta Globulin 13.1 U Gamma Globulin 11.4 U Random M-Sinan (%) Not observed Urine PEP Note Comment Urine Immunofixation Comment 01/11/25 01/11/25 01/11/25 12:52 16:55 20:09 WBC RBC Hgb Hct MCV MCH MCHC RDW Plt Count MPV Sodium Potassium Chloride Carbon Dioxide Anion Gap BUN Creatinine Estim Creat Clear Calc Estimated GFR Glucose POC Capillary Glucose 234 H 214 H 231 H Serum Osmolality Calcium Urine Total Protein Urine Albumin (PEP) U Lvbmy-1-Scgnkhdy U Mhgtn-0-Vigxjxin U Beta Globulin U Gamma Globulin U Random M-Sinan (%) Urine PEP Note Urine Immunofixation 01/12/25 01/12/25 06:24 07:13 WBC 8.0 RBC 3.56 L Hgb 12.2 Hct 34.9 L MCV 98.0 MCH 34.3 H MCHC 35.0 RDW 12.1 Plt Count 201 MPV 10.1 Sodium 127 L Potassium 4.0 Chloride 88 L Carbon Dioxide 34 H Anion Gap 5 BUN 23 H Creatinine 0.94 Estim Creat Clear Calc 49 Estimated GFR 57 L Glucose 161 H POC Capillary Glucose 164 H Serum Osmolality Calcium 8.8 Urine Total Protein Urine Albumin (PEP) U Fmymh-7-Qutfabxv U Mbdok-9-Hwbyctur U Beta Globulin U Gamma Globulin U Random M-Sinan (%) Urine PEP Note Urine Immunofixation
[2025-01-12] MEDS: INSULIN ASPART (*BKC) 100 UNITS/ML SUB-Q ×2 (11:54→18:03)
--- NOTE | 2025-01-12 14:39 | P.PNIM_ITS ---
Progress Note: A&P Assessment and Plan (1) Hypoxia: Code(s): R09.02 - Hypoxemia Status: Acute Assessment and Plan: Patient presents with hypoxia. Etiology unclear. Viral swab was negative. MRSA nasal swab negative. Chest x-ray was clear. Does not appear to be fluid overloaded. She is on anticoagulation making PE less likely. Compliant with her anticoagulation medications. Probably related to viral illness with the wheezing. Repeat CXR now showing suspect worsening pulmonary edema and/or infiltrates in the lower lobes left worse than right. Could be related to pulm edema from IV fluids and poor UOP (Fluid positive 3.6L). Consider also PNA but no fever or leukocytosis. Lasix started. Fluid status improved. Speech therapy evaluation with MBS showing mild dysphagia requiring Level 2 thickened liquids. Diet adjusted. Repeat CXR 01/09 clear now. Continue supportive treatment. Wean oxygen as tolerated. Increase activity with patient out of bed. Repeat MBS shows patient can tolerate thin liquids with chin tucks. Continue nebs. Continue cefepime and doxycycline. Apnea link showing AHI 3.5 and RI 4.4 with 6 minutes with SpO2<88%. Started on 1L but increased to 3L due to hypoxia. Nocturnal hypoxia needing 3L O2 at night. Currently on 2L now. Home O2 evaluation so she can be set up for home O2. (2) UTI (urinary tract infection): Code(s): N39.0 - Urinary tract infection, site not specified Status: Acute Assessment and Plan: UA noted and concerning for UTI. She has 2+ protein on a sample. Protein/Cr ratio 4.3gm but suspect this is probably related to the UTI. Plan to repeat protein-creatinine ratio after urine clears as an outpatient. UCx growing Pseudomonas that is mahajan-sensitive Continue cefepime for 5 days of treatment for UTI but longer if BCx grows Pseudomonas Cannot give fluoroquinolones due to interaction with sotalol. (3) Bacteremia: Code(s): R78.81 - Bacteremia Status: Acute Assessment and Plan: BCx (01/06) growing gram variable rods from one anaerobic bottle Continue Cefepime and wait for final identification (4) Hyponatremia: Code(s): E87.1 - Hypo-osmolality and hyponatremia Status: Acute Assessment and Plan: Patient presents with weakness and viral symptoms. She has known history of hyponatremia. Sodium on presentation was 112. TSH and Cortisol levels normal. Jones 123 with FENa 1.5% to suggest intrinsic renal disease. Fluid restriction. IV fluids stopped. Nephrology consulted and appreciate their input. SPEP showing no M-spike. SIF showing no monoclonalality. UPEP pending Lasix started. Oral NaCl tabs started. 3% saline given but stopped due to pulmonary edema. Serial sodium levels better at 121 but plateaued again so 3% repeated. Na up to 127 Continue to monitor. Continue oral NaCl tablets. Home once other issues managed (5) CHF (congestive heart failure): Qualifiers: Heart failure type: other Qualified Code(s): I50.9 - Heart failure, unspecified Code(s): I50.9 - Heart failure, unspecified Status: Acute Assessment and Plan: Patient has a history of CHF. She has a history of large pericardial effusion s /p pericardial window in 2020. Echo here showing normal biventricular size and systolic function and pulmonary arterial systolic pressure of about 79 mmHg with severe pulmonary hypertension. BNP 984. CXR as above. Fluid status better. Continue Lasix. (6) Hypertension: Qualifiers: Hypertension type: essential hypertension Qualified Code(s): I10 - Essential (primary) hypertension Code(s): I10 - Essential (primary) hypertension Status: Acute Assessment and Plan: Patient with elevated blood pressure on admission that has improved. HTN possibly related to untreated JULIA? Norvasc advanced and Lisinopril added. BP better. Continue to follow (7) Afib: Code(s): I48.91 - Unspecified atrial fibrillation Status: Acute Assessment and Plan: Patient with history of atrial fibrillation. She is on sotalol which was continued. Tele showing transient bradycardia but HR stable overall Xarelto also resumed. Monitor on telemetry (8) Diabetes mellitus: Qualifiers: Diabetes mellitus complication status: without complication Diabetes mellitus detention insulin use: without shadowgraph operator use Diabetes mellitus type: type 2 Qualified Code(s): E11.9 - Type 2 diabetes mellitus without complications Code(s): E11.9 - Type 2 diabetes mellitus without complications Status: Acute Assessment and Plan: A1c 6.8%. Patient with a history of diabetes. She is on glipizide, saxagliptin and metformin. The patient's blood glucose was reviewed on 01/12 Glucose better controlled. Continue AccuCheks covering with sliding scale. Hypoglycemia protocol available as needed. Continue to monitor (9) History of CVA (cerebrovascular accident): Code(s): Z86.73 - Personal history of transient ischemic attack (TIA), and cerebral infarction without residual deficits Status: Acute Assessment and Plan: Patient has a history of CVA. She is debilitated and essentially bed bound Up to recliner with Ulisses baldwin. Plan Dysphagia - MBS showing she needs to have Level 2 thickened liquids. Repeat MBS showing patient can go to thin liquids with chin tucks. DIscussed with Speech Therapist. Continue ST. DVT prophylaxis -Xarelto Code status -full Subjective Date/time seen: 01/12/25 14:39 Interval history: 79yo female with DM, HTN, CVA, AFib and CHF who presents with weakness. Slept well. No CP or SOB. Eating okay. Up to the chair today. Exam Narrative: AF 98.2 148/82 62 18 96% 2L Gen - NARD sitting up in recliner Chest - CTA bilaterally CV - RRR S1/S2. Tele showing episodes of transient bradycardia Abd - soft, NT/ND Ext - no edema Psych - normal mood and affect. Skin - warm and dry. Apnea link showing AHI 3.5 and RI 4.4 with 6 minutes with SpO2<88%. Started on 1L but increased to 3L due to hypoxia. Objective Data Vital Signs Vital Signs: Vital Signs - 24 hr 01/11/25 16:00 01/11/25 16:00 01/11/25 16:00 Temperature 97.5 F L Pulse Rate 85 86 Respiratory Rate 16 Blood Pressure 150/88 H Pulse Oximetry 94 95 Oxygen Delivery Nasal Cannula Oxygen Flow Rate 0.5 01/11/25 18:00 01/11/25 19:52 01/11/25 20:00 Temperature 97.5 F L Pulse Rate 75 82 Respiratory Rate 20 Blood Pressure 149/58 H Pulse Oximetry 92 90 Oxygen Delivery Nasal Cannula Oxygen Flow Rate 1 01/11/25 20:00 01/11/25 20:17 01/11/25 20:22 Temperature Pulse Rate 71 72 85 Respiratory Rate 18 18 Blood Pressure Pulse Oximetry 93 Oxygen Delivery Nasal Cannula Oxygen Flow Rate 1 01/11/25 20:25 01/11/25 20:32 01/11/25 22:00 Temperature Pulse Rate 72 73 75 Respiratory Rate 18 Blood Pressure Pulse Oximetry Oxygen Delivery Oxygen Flow Rate 01/11/25 23:17 01/11/25 23:46 01/12/25 00:00 Temperature Pulse Rate 51 L 57 L Respiratory Rate Blood Pressure Pulse Oximetry 92 92 Oxygen Delivery Nasal Cannula Oxygen Flow Rate 1 01/12/25 02:00 01/12/25 03:16 01/12/25 04:00 Temperature Pulse Rate 47 L 48 L Respiratory Rate Blood Pressure Pulse Oximetry 89 L Oxygen Delivery Nasal Cannula Oxygen Flow Rate 3 01/12/25 04:07 01/12/25 06:00 01/12/25 06:07 Temperature 97.6 F Pulse Rate 60 55 L Respiratory Rate 24 H Blood Pressure 127/48 L Pulse Oximetry 96 95 Oxygen Delivery Nasal Cannula Oxygen Flow Rate 2 01/12/25 07:16 01/12/25 08:00 01/12/25 08:29 Temperature 97.6 F Pulse Rate 58 L 63 62 Respiratory Rate 20 20 Blood Pressure 156/80 H Pulse Oximetry 98 93 Oxygen Delivery Nasal Cannula Oxygen Flow Rate 2 01/12/25 08:29 01/12/25 08:43 01/12/25 08:43 Temperature Pulse Rate 62 68 Respiratory Rate 20 20 Blood Pressure Pulse Oximetry 95 Oxygen Delivery Oxygen Flow Rate 01/12/25 09:17 01/12/25 10:00 01/12/25 11:30 Temperature 98.2 F Pulse Rate 64 51 L 60 Respiratory Rate 20 Blood Pressure 148/82 H Pulse Oximetry 96 Oxygen Delivery Oxygen Flow Rate 01/12/25 12:00 01/12/25 13:48 01/12/25 13:56 Temperature Pulse Rate 60 75 62 Respiratory Rate 18 18 Blood Pressure Pulse Oximetry Oxygen Delivery Oxygen Flow Rate Intake/Output Intake/Output: Intake & Output 01/09/25 01/10/25 01/11/25 01/12/25 23:59 23:59 23:59 23:59 Intake Total 700 820 920 445 Output Total 1500 750 500 350 Balance -800 70 420 95 Meds/Results Medications: Active Medications Generic Name Dose Route Start Last Admin Trade Name Freq PRN Reason Stop Dose Admin Acetaminophen 500 mg 01/06/25 17:36 01/11/25 20:33 Acetaminophen 500 Mg Tablet PO 500 mg QHS PRN Administration Pain 1-3 Albuterol 2.5 mg 01/06/25 17:32 Albuterol Sulfate Neb 2.5 Mg/3 Ml Inh INHALATION Q4HRT PRN Shortness Of Breath Albuterol/Ipratropium 3 ml 01/07/25 20:00 01/12/25 13:47 Ipratropium 0.5 Mg/Albuterol Sulfate 2.5 Mg (Base) Ampul.Neb 3 Ml INHALATION 3 ml Q6HRT MANOJ Administration Amlodipine Besylate 5 mg 01/10/25 09:00 01/12/25 09:16 Amlodipine Besylate 5 Mg Tablet PO 5 mg DAILY MANOJ Administration Atorvastatin Calcium 20 mg 01/06/25 21:00 01/11/25 20:33 Atorvastatin 20 Mg Tablet BY MOUTH 20 mg HS MANOJ Administration Dextrose 12.5 gm 01/06/25 17:32 Dextrose 50% 25 Gm/50 Ml Syringe IV PUSH PRN PRN Hypoglycemia Protocol Docusate Sodium 100 mg 01/09/25 21:00 01/12/25 09:16 Docusate Sodium 100 Mg Capsule PO 100 mg Q12HR MANOJ Administration Fluticasone Propionate 1 spray 01/06/25 21:00 01/12/25 09:16 Fluticasone Propionate 0.05% Na Spr 16 Gm Btl (*Bkc) NASAL 1 spray Q12HR MANOJ Administration Folic Acid 1 mg 01/06/25 17:40 01/12/25 09:16 Folic Acid 1 Mg Tablet BY MOUTH 1 mg DAILY MANOJ Administration Furosemide 20 mg 01/08/25 09:00 01/12/25 09:15 Furosemide 20 Mg Tablet PO 20 mg BID MANOJ Administration Glucagon 1 mg 01/06/25 17:32 Glucagon For Inj 1 Mg Vial IM PRN PRN Hypoglycemia Protocol Glucose 15 gm 01/06/25 17:32 Glucose Oral Gel 15 Gm Of Glucse In 37.5 Gm Tube PO PRN PRN Hypoglycemia Protocol Guaifenesin 1,200 mg 01/06/25 21:00 01/12/25 09:15 Guaifenesin 12 Hr 600 Mg Tabcr PO 1,200 mg Q12HR MANOJ Administration Dextrose 1,000 mls @ 100 mls/hr 01/06/25 17:32 Dextrose 5% 1,000 Ml IVPB PRN PRN Hypoglycemia Protocol Cefepime HCl 1 gm/ Sodium 50 mls @ 100 mls/hr 01/09/25 06:00 01/12/25 05:00 Chloride IVPB 100 mls/hr Q12H MANOJ Administration Insulin Aspart 3 - 6 units 01/07/25 08:00 01/12/25 11:54 Insulin Aspart (*Bkc) 100 Units/Ml SUB-Q 3 units TIDWM MANOJ Administration Protocol Insulin Glargine 7 units 01/09/25 21:00 01/11/25 20:34 Insulin Glargine (*Bkc) 100 Units/Ml SUB-Q 7 units HS MANOJ Administration Lisinopril 20 mg 01/10/25 11:25 01/12/25 09:16 Lisinopril 20 Mg Tablet PO 20 mg QAM MANOJ Administration Loratadine 5 mg 01/07/25 09:00 01/12/25 09:16 Loratadine 5 Mg Tablet PO 5 mg QAM MANOJ Administration Multivitamins/Minerals 1 tab 01/07/25 09:00 01/12/25 09:16 Multivitamins /C Lutein (Centrum Silver) Tablet *Bkc PO 1 tab DAILY MANOJ Administration Polyethylene Glycol 17 gm 01/09/25 15:35 01/12/25 09:17 Polyethylene Glycol 3350 17 Gm Powd.Pack PO 17 gm QAM MANOJ Administration Potassium Chloride 10 meq 01/12/25 08:00 01/12/25 09:16 Potassium Chloride 10 Meq Er Tablet PO 10 meq DAILY@0800 MANOJ Administration Rivaroxaban 20 mg 01/06/25 17:40 01/11/25 17:09 Rivaroxaban 20 Mg Tablet PO 20 mg DAILY@1700 MANOJ Administration Sodium Chloride 1 gm 01/07/25 09:00 01/12/25 09:16 Sodium Chloride 1 Gm Tablet PO 1 gm BID MANOJ Administration Sotalol HCl 80 mg 01/06/25 21:00 01/12/25 09:17 Sotalol Hcl 80 Mg Tablet PO 80 mg Q12HR MANOJ Administration Radiology Results: ITS Impressions Chest X-Ray 01/09/25 14:07 Impression: No acute cardiopulmonary abnormality. Modified Barium Swallow 01/11/25 13:50 IMPRESSION: Mild pharyngeal dysphagia with flash laryngeal penetration without aspiration. Please correlate with speech pathologist findings and specific feeding recommendations. Labs Labs: Laboratory Results - last 24 hr 01/06/25 01/11/25 01/11/25 14:00 16:55 20:09 WBC RBC Hgb Hct MCV MCH MCHC RDW Plt Count MPV Sodium Potassium Chloride Carbon Dioxide Anion Gap BUN Creatinine Estim Creat Clear Calc Estimated GFR Glucose POC Capillary Glucose 214 H 231 H Serum Osmolality 241 L Calcium 01/12/25 01/12/25 01/12/25 06:24 07:13 10:59 WBC 8.0 RBC 3.56 L Hgb 12.2 Hct 34.9 L MCV 98.0 MCH 34.3 H MCHC 35.0 RDW 12.1 Plt Count 201 MPV 10.1 Sodium 127 L Potassium 4.0 Chloride 88 L Carbon Dioxide 34 H Anion Gap 5 BUN 23 H Creatinine 0.94 Estim Creat Clear Calc 49 Estimated GFR 57 L Glucose 161 H POC Capillary Glucose 164 H 230 H Serum Osmolality Calcium 8.8
[2025-01-12] MEDS: RIVAROXABAN 20 MG TABLET PO (18:03)
[2025-01-12 20:07] LABS: Osmolality, Urine 558 mOsmol/kg (.)
[2025-01-12] MEDS: ACETAMINOPHEN 500 MG TABLET PO (21:01)
[2025-01-12] MEDS: ATORVASTATIN 20 MG TABLET BY MOUTH (21:04)
[2025-01-12] MEDS: INSULIN GLARGINE (*BKC) 100 UNITS/ML 7 UNITS SUB-Q (21:06)
[2025-01-13] VITALS (30 sets, daily range): BP systolic 110–150; BP diastolic 54–96; PULSE 46–79; RESP 16–20; TEMP 36.6–36.8; O2SAT 87–100
[2025-01-13] MEDS: IPRATROPIUM 0.5 MG/ALBUTEROL SULFATE 2.5 MG (BASE) AMPUL.NEB 3 ML INHALATION ×4 (02:00→20:41)
[2025-01-13 04:25] LABS: Anion Gap 5 mmol/L (4-12); Blood Urea Nitrogen 28 mg/dL (7-17); Calcium 8.6 mg/dL (8.4-10.2); Carbon Dioxide 32 mmol/L (22-30); Chloride 91 mmol/L (98-107); Estimated CRCL calculation 45 ml/min; Estimated Glomerular Filt Rate 52; Glucose 164 mg/dL (65-110); Potassium 3.9 mmol/L (3.4-5.0); Sodium 128 mmol/L (137-145)
[2025-01-13] MEDS: CEFEPIME 1 GM in SODIUM CHLORIDE 0.9% IV 50 ML 100 ML IVPB ×2 (05:43→18:27)
--- NOTE | 2025-01-13 06:38 | PC.NURSE ---
pt was moved from 209 to room 211
[2025-01-13] MEDS: MULTIVITAMINS /C LUTEIN (CENTRUM SILVER) TABLET *BKC 1 TAB PO (09:10)
[2025-01-13] MEDS: FUROSEMIDE 20 MG TABLET PO (09:10)
[2025-01-13] MEDS: guaiFENesin 12 HR 600 MG TABCR 1200 MG PO ×2 (09:10→20:54)
[2025-01-13] MEDS: SODIUM CHLORIDE 1 GM TABLET PO (09:10)
[2025-01-13] MEDS: LORATADINE 5 MG TABLET PO (09:10)
[2025-01-13] MEDS: SOTALOL HCL 80 MG TABLET PO ×2 (09:10→20:53)
[2025-01-13] MEDS: DOCUSATE SODIUM 100 MG CAPSULE PO ×2 (09:10→20:55)
[2025-01-13] MEDS: FOLIC ACID 1 MG TABLET BY MOUTH (09:10)
[2025-01-13] MEDS: POTASSIUM CHLORIDE 10 MEQ ER TABLET PO (09:11)
[2025-01-13] MEDS: FLUTICASONE PROPIONATE 0.05% NA SPR 16 GM BTL (*BKC) 1 SPRAY NASAL ×2 (09:28→20:59)
--- NOTE | 2025-01-13 10:24 | P.PNNP_ITS ---
Progress Note: A&P Assessment and Plan (1) Hyponatremia: Code(s): E87.1 - Hypo-osmolality and hyponatremia Status: Acute Assessment and Plan: * slow improvement noted * acute on chronic * has been running ~ 127 - 135mmol/L since as far back as 2018 (if not longer) * several hospitalization noted in the past for this issue - August 2020 (here at [facility]) - June 2019 (here at [facility]) * previous extensive evaluation noted in the past/previous hospital stays: * TSH okay * cortisol has been lowish in the past but normal cosyntropin stimulation test * imaging of brain and chest WNL * negative SPEP and UPEP * urine osmolality > serum osmolality * previous bouts of acute drops in sodium attributed to HCTZ & SSRI use and CHF * Now probably related to UTI and extra water drinking. * up to date on cancer screening(?) * interventions to date noted: * on fluid restriction * s/p 3% saline x 2 * on salt tabs + lasix * sodium is at 128 * Continue fluid restriction. Her creatinine was slightly up today so we will reduce the salt tablets and Lasix to once a day * Patient is eager to go home today. * okay for discharge from the kidney standpoint when everything else is finished * She should follow-up in the office. * Discussed with patient and friend. (2) Acute hypoxic respiratory failure: Code(s): J96.01 - Acute respiratory failure with hypoxia Status: Acute Assessment and Plan: * noted on presentation * no evidence of respiratory distress * etiology not clear: * viral testing for influenza/RSV/COVD negative * CXR on admission clear * BNP noted but does not appear fluid overloaded * PE less likely since already on anticoagulation * no fevers or elevated WBC * due to viral illness/bronchitis(?) * latest chest x-ray is clear (3) CHF (congestive heart failure): Qualifiers: Heart failure type: other Qualified Code(s): I50.9 - Heart failure, unspecified Code(s): I50.9 - Heart failure, unspecified Status: Acute Assessment and Plan: * known history * recent Echo noted: * normal biventricular size and systolic function * no significant valvular abnormalities * pulmonary arterial systolic pressure is estimated at 79 mmHg - severe pulmonary hypertension * BNP 984 * latest chest x-ray clear (4) UTI (urinary tract infection): Code(s): N39.0 - Urinary tract infection, site not specified Status: Acute Assessment and Plan: * admission UA highly suggestive * floow urine culture - highly sensitive Pseudomonas. * on cefepime (5) Afib: Code(s): I48.91 - Unspecified atrial fibrillation Status: Acute Assessment and Plan: * on sotalol * heart rate stable * on anticoagulation with Xarelto (6) Hypertension: Qualifiers: Hypertension type: essential hypertension Qualified Code(s): I10 - Essential (primary) hypertension Code(s): I10 - Essential (primary) hypertension Status: Acute Assessment and Plan: * Systolic ranging 140s to 160 * currently on amlodipine 2.5 * Heart rate is borderline low which limits our use of non dihydropyridine calcium channel blockers , centrally acting agents, and beta-blockers. we can not use thiazides because of her sodium. * on lisinopril as of yesterday. * follow trend of hemodynamics (7) Diabetes mellitus: Qualifiers: Diabetes mellitus type: type 2 Diabetes mellitus long term acute care registered nurse insulin use: without longterm use Diabetes mellitus complication status: without complication Qualified Code(s): E11.9 - Type 2 diabetes mellitus without complications Code(s): E11.9 - Type 2 diabetes mellitus without complications Status: Acute Assessment and Plan: * follow accu-cheks * glycemic control per hospitalist Subjective Date/time seen: 01/13/25 10:24 Interval history: Patient is sitting up, talking her chin, and swallowing fine so far. Speech therapy is in the room Exam Narrative: General: elderly but WD/WN female in NAD Heart: normal S1 and S2; no rub or gallop Lungs: clear Abdomen: soft, nontender, nondistended, positive bowel sounds Extremities: no cyanosis or clubbing; no edema Skin: No rash or subcu nodules Objective Data Vital Signs Vital Signs: Vital Signs - 24 hr 01/12/25 11:30 01/12/25 12:00 01/12/25 13:48 Temperature 98.2 F Pulse Rate 60 60 75 Respiratory Rate 20 18 Blood Pressure 148/82 H Pulse Oximetry 96 Oxygen Delivery Oxygen Flow Rate 01/12/25 13:56 01/12/25 14:00 01/12/25 15:44 Temperature 97.8 F Pulse Rate 62 62 72 Respiratory Rate 18 28 H Blood Pressure 164/62 H Pulse Oximetry 97 Oxygen Delivery Oxygen Flow Rate 01/12/25 16:00 01/12/25 18:00 01/12/25 19:58 Temperature 98.3 F Pulse Rate 69 79 68 Respiratory Rate 22 H Blood Pressure 133/43 L Pulse Oximetry 91 Oxygen Delivery Oxygen Flow Rate 01/12/25 20:00 01/12/25 20:00 01/12/25 20:36 Temperature Pulse Rate 66 Respiratory Rate Blood Pressure Pulse Oximetry 95 95 Oxygen Delivery Nasal Cannula Nasal Cannula Oxygen Flow Rate 2 3 01/12/25 20:36 01/12/25 20:42 01/12/25 21:03 Temperature Pulse Rate 55 L 49 L 63 Respiratory Rate 15 15 Blood Pressure Pulse Oximetry Oxygen Delivery Oxygen Flow Rate 01/12/25 21:56 01/12/25 23:47 01/13/25 00:00 Temperature Pulse Rate 53 L 52 L Respiratory Rate Blood Pressure Pulse Oximetry 92 Oxygen Delivery Nasal Cannula Oxygen Flow Rate 3 01/13/25 00:31 01/13/25 02:00 01/13/25 02:01 Temperature 98.1 F Pulse Rate 55 L 46 L 54 L Respiratory Rate 20 Blood Pressure 110/96 H Pulse Oximetry 96 Oxygen Delivery Oxygen Flow Rate 01/13/25 03:28 01/13/25 04:00 01/13/25 04:00 Temperature 98 F Pulse Rate 51 L 55 L Respiratory Rate 20 Blood Pressure 118/54 L Pulse Oximetry 94 97 Oxygen Delivery Nasal Cannula Oxygen Flow Rate 3 01/13/25 05:45 01/13/25 08:00 01/13/25 08:00 Temperature 98.1 F Pulse Rate 60 58 L Respiratory Rate 16 Blood Pressure 143/68 H Pulse Oximetry 100 94 Oxygen Delivery Nasal Cannula Oxygen Flow Rate 3 01/13/25 08:00 01/13/25 08:10 01/13/25 08:10 Temperature Pulse Rate 64 68 Respiratory Rate 16 Blood Pressure Pulse Oximetry 94 Oxygen Delivery Nasal Cannula Oxygen Flow Rate 3 01/13/25 08:20 01/13/25 08:30 01/13/25 08:35 Temperature Pulse Rate 66 Respiratory Rate 16 Blood Pressure Pulse Oximetry 89 L 93 Oxygen Delivery Nasal Cannula Nasal Cannula Oxygen Flow Rate 2 3 01/13/25 09:10 01/13/25 10:00 Temperature Pulse Rate 73 59 L Respiratory Rate Blood Pressure Pulse Oximetry Oxygen Delivery Oxygen Flow Rate Intake/Output Intake/Output: Intake & Output 01/10/25 01/11/25 01/12/25 01/13/25 23:59 23:59 23:59 23:59 Intake Total 820 920 765 170 Output Total 750 500 600 100 Balance 70 420 165 70 Meds/Results Medications: Active Medications Generic Name Dose Route Start Last Admin Trade Name Freq PRN Reason Stop Dose Admin Acetaminophen 500 mg 01/06/25 17:36 01/12/25 21:01 Acetaminophen 500 Mg Tablet PO 500 mg QHS PRN Administration Pain 1-3 Albuterol 2.5 mg 01/06/25 17:32 Albuterol Sulfate Neb 2.5 Mg/3 Ml Inh INHALATION Q4HRT PRN Shortness Of Breath Albuterol/Ipratropium 3 ml 01/07/25 20:00 01/13/25 08:09 Ipratropium 0.5 Mg/Albuterol Sulfate 2.5 Mg (Base) Ampul.Neb 3 Ml INHALATION 3 ml Q6HRT MANOJ Administration Amlodipine Besylate 5 mg 01/10/25 09:00 01/13/25 09:11 Amlodipine Besylate 5 Mg Tablet PO 5 mg DAILY MANOJ Administration Atorvastatin Calcium 20 mg 01/06/25 21:00 01/12/25 21:04 Atorvastatin 20 Mg Tablet BY MOUTH 20 mg HS MANOJ Administration Dextrose 12.5 gm 01/06/25 17:32 Dextrose 50% 25 Gm/50 Ml Syringe IV PUSH PRN PRN Hypoglycemia Protocol Docusate Sodium 100 mg 01/09/25 21:00 01/13/25 09:10 Docusate Sodium 100 Mg Capsule PO 100 mg Q12HR MANOJ Administration Fluticasone Propionate 1 spray 01/06/25 21:00 01/13/25 09:28 Fluticasone Propionate 0.05% Na Spr 16 Gm Btl (*Bkc) NASAL 1 spray Q12HR MANOJ Administration Folic Acid 1 mg 01/06/25 17:40 01/13/25 09:10 Folic Acid 1 Mg Tablet BY MOUTH 1 mg DAILY MANOJ Administration Furosemide 20 mg 01/13/25 09:00 01/13/25 09:10 Furosemide 20 Mg Tablet PO 20 mg DAILY MANOJ Administration Glucagon 1 mg 01/06/25 17:32 Glucagon For Inj 1 Mg Vial IM PRN PRN Hypoglycemia Protocol Glucose 15 gm 01/06/25 17:32 Glucose Oral Gel 15 Gm Of Glucse In 37.5 Gm Tube PO PRN PRN Hypoglycemia Protocol Guaifenesin 1,200 mg 01/06/25 21:00 01/13/25 09:10 Guaifenesin 12 Hr 600 Mg Tabcr PO 1,200 mg Q12HR MANOJ Administration Dextrose 1,000 mls @ 100 mls/hr 01/06/25 17:32 Dextrose 5% 1,000 Ml IVPB PRN PRN Hypoglycemia Protocol Cefepime HCl 1 gm/ Sodium 50 mls @ 100 mls/hr 01/09/25 06:00 01/13/25 07:49 Chloride IVPB Infused Q12H MANOJ Infusion Insulin Aspart 3 - 6 units 01/07/25 08:00 01/13/25 08:02 Insulin Aspart (*Bkc) 100 Units/Ml SUB-Q Not Given TIDWM MANOJ Protocol Insulin Glargine 7 units 01/09/25 21:00 01/12/25 21:06 Insulin Glargine (*Bkc) 100 Units/Ml SUB-Q 7 units HS MANOJ Administration Lisinopril 20 mg 01/10/25 11:25 01/13/25 09:10 Lisinopril 20 Mg Tablet PO 20 mg QAM MANOJ Administration Loratadine 5 mg 01/07/25 09:00 01/13/25 09:10 Loratadine 5 Mg Tablet PO 5 mg QAM MANOJ Administration Multivitamins/Minerals 1 tab 01/07/25 09:00 01/13/25 09:10 Multivitamins /C Lutein (Centrum Silver) Tablet *Bkc PO 1 tab DAILY MANOJ Administration Polyethylene Glycol 17 gm 01/09/25 15:35 01/13/25 09:11 Polyethylene Glycol 3350 17 Gm Powd.Pack PO 17 gm QAM MANOJ Administration Potassium Chloride 10 meq 01/12/25 08:00 01/13/25 09:11 Potassium Chloride 10 Meq Er Tablet PO 10 meq DAILY@0800 MANOJ Administration Rivaroxaban 20 mg 01/06/25 17:40 01/12/25 18:03 Rivaroxaban 20 Mg Tablet PO 20 mg DAILY@1700 MANOJ Administration Sodium Chloride 1 gm 01/13/25 09:00 01/13/25 09:10 Sodium Chloride 1 Gm Tablet PO 1 gm QAM MANOJ Administration Sotalol HCl 80 mg 01/06/25 21:00 01/13/25 09:10 Sotalol Hcl 80 Mg Tablet PO 80 mg Q12HR MANOJ Administration Radiology Results: ITS Impressions Chest X-Ray 01/09/25 14:07 Impression: No acute cardiopulmonary abnormality. Modified Barium Swallow 01/11/25 13:50 IMPRESSION: Mild pharyngeal dysphagia with flash laryngeal penetration without aspiration. Please correlate with speech pathologist findings and specific feeding recommendations. Labs Labs: Laboratory Results - last 24 hr 01/06/25 01/12/25 01/12/25 18:12 10:59 16:26 Sodium Potassium Chloride Carbon Dioxide Anion Gap BUN Creatinine Estim Creat Clear Calc Estimated GFR Glucose POC Capillary Glucose 230 H 223 H Calcium Urine Osmolality 558 01/12/25 01/13/25 01/13/25 20:31 03:40 07:27 Sodium 128 L Potassium 3.9 Chloride 91 L Carbon Dioxide 32 H Anion Gap 5 BUN 28 H Creatinine 1.02 H Estim Creat Clear Calc 45 Estimated GFR 52 L Glucose 164 H POC Capillary Glucose 305 H 180 H Calcium 8.6 Urine Osmolality
--- NOTE | 2025-01-13 11:40 | HOMEO2EVAL ---
Evaluation was performed at [facility] Home Oxygen Evaluation RC: Home Oxygen (O2) Evaluation Start: 01/12/25 19:51 Freq: ONCE Status: Active Protocol: RPE Activity Type Activity Date Activity User E-sign Co-sign Detail Recorded Client Recorded Date Recorded By Document 01/13/25 11:09 KRM [email or web address] 01/13/25 11:40 KRM Document 01/13/25 11:12 KRM [id number] 01/13/25 11:40 KRM Document 01/13/25 11:14 KRM [email or web address] 01/13/25 11:40 KRM 01/13/25 01/13/25 01/13/25 11:09 11:12 11:14 Home O2 Evaluation [Oxygen] -Test Phase Resting Resting Resting -Oxygen Delivery Room Air Nasal Cannula Nasal Cannula -Oxygen Flow Rate (L/min) 1 2 [Pulse Oximetry] -Pulse Oximetry (90-100 %) 87 L 88 L 90 [Pulse Rate] -Pulse Rate (60-100 beats/min) 55 L 55 L 54 L [Comments] -Home Oxygen Evaluation Comments PT. BEDBOUND, DOES NOT AMBULATE. 2LPM CONT. [Charges] -Evaluation Charges O2 Evaluation by Pulmonary
--- NOTE | 2025-01-13 11:46 | PCRCNOTE ---
PT. REQUIRES HOME 02 OF 2LPM CONT. FAXED PAPERWORK TO [employer], PENDING APPROVAL POC COULD BE DELIVERED TODAY.
[2025-01-13] MEDS: INSULIN ASPART (*BKC) 100 UNITS/ML SUB-Q ×2 (12:26→16:50)
--- NOTE | 2025-01-13 15:07 | PM.IMPN ---
Progress Note: A&P Assessment and Plan (1) Hypoxia: Code(s): R09.02 - Hypoxemia Status: Acute Assessment and Plan: Patient presents with hypoxia. Etiology unclear. Viral swab was negative. MRSA nasal swab negative. Chest x-ray was clear. Does not appear to be fluid overloaded. She is on anticoagulation making PE less likely. Compliant with her anticoagulation medications. Probably related to viral illness with the wheezing. Repeat CXR now showing suspect worsening pulmonary edema and/or infiltrates in the lower lobes left worse than right. Could be related to pulm edema from IV fluids and poor UOP (Fluid positive 3.6L). Consider also PNA but no fever or leukocytosis. Lasix started. Fluid status improved. Speech therapy evaluation with MBS showing mild dysphagia requiring Level 2 thickened liquids. Diet adjusted. Repeat CXR 01/09 clear now. Continue supportive treatment. Wean oxygen as tolerated. Increase activity with patient out of bed. Repeat MBS shows patient can tolerate thin liquids with chin tucks. Continue nebs. Continue cefepime and doxycycline. Apnea link showing AHI 3.5 and RI 4.4 with 6 minutes with SpO2<88%. Started on 1L but increased to 3L due to hypoxia. Nocturnal hypoxia needing 3L O2 at night. Currently on 2L now. Home O2 evaluation so she can be set up for home O2. (2) UTI (urinary tract infection): Code(s): N39.0 - Urinary tract infection, site not specified Status: Acute Assessment and Plan: UA noted and concerning for UTI. She has 2+ protein on a sample. Protein/Cr ratio 4.3gm but suspect this is probably related to the UTI. Plan to repeat protein-creatinine ratio after urine clears as an outpatient. UCx growing Pseudomonas that is mahajan-sensitive Continue cefepime for treatment for UTI but longer if BCx grows Pseudomonas Cannot give fluoroquinolones due to interaction with sotalol. (3) Bacteremia: Code(s): R78.81 - Bacteremia Status: Acute Assessment and Plan: BCx (01/06) growing gram variable rods from one anaerobic bottle Continue Cefepime and wait for final identification (4) Hyponatremia: Code(s): E87.1 - Hypo-osmolality and hyponatremia Status: Acute Assessment and Plan: Patient presents with weakness and viral symptoms. She has known history of hyponatremia. Sodium on presentation was 112. TSH and Cortisol levels normal. Jones 123 with FENa 1.5% to suggest intrinsic renal disease. Fluid restriction. IV fluids stopped. Nephrology consulted and appreciate their input. SPEP showing no M-spike. SIF showing no monoclonalality. UPEP pending Lasix started. Oral NaCl tabs started. 3% saline given but stopped due to pulmonary edema. Serial sodium levels better at 121 but plateaued again so 3% repeated. Na up to 128 Continue to monitor. Continue oral NaCl tablets. Home once other issues managed (5) CHF (congestive heart failure): Qualifiers: Heart failure type: other Qualified Code(s): I50.9 - Heart failure, unspecified Code(s): I50.9 - Heart failure, unspecified Status: Acute Assessment and Plan: Patient has a history of CHF. She has a history of large pericardial effusion s/p pericardial window in 2020. Echo here showing normal biventricular size and systolic function and pulmonary arterial systolic pressure of about 79 mmHg with severe pulmonary hypertension. BNP 984. CXR as above. Fluid status better. Continue Lasix. (6) Hypertension: Qualifiers: Hypertension type: essential hypertension Qualified Code(s): I10 - Essential (primary) hypertension Code(s): I10 - Essential (primary) hypertension Status: Acute Assessment and Plan: Patient with elevated blood pressure on admission that has improved. HTN possibly related to untreated JULIA? Norvasc advanced and Lisinopril added. BP better. Continue to follow (7) Afib: Code(s): I48.91 - Unspecified atrial fibrillation Status: Acute Assessment and Plan: Patient with history of atrial fibrillation. She is on sotalol which was continued. Tele showing transient bradycardia but HR stable overall Xarelto Monitor on telemetry (8) Diabetes mellitus: Qualifiers: Diabetes mellitus type: type 2 Diabetes mellitus intermediate designer insulin use: without assisted use Diabetes mellitus complication status: without complication Qualified Code(s): E11.9 - Type 2 diabetes mellitus without complications Code(s): E11.9 - Type 2 diabetes mellitus without complications Status: Acute Assessment and Plan: A1c 6.8%. Patient with a history of diabetes. She is on glipizide, saxagliptin and metformin. The patient's blood glucose was reviewed on 01/12 Glucose better controlled. Continue AccuCheks covering with sliding scale. Hypoglycemia protocol available as needed. Continue to monitor (9) History of CVA (cerebrovascular accident): Code(s): Z86.73 - Personal history of transient ischemic attack (TIA), and cerebral infarction without residual deficits Status: Acute Assessment and Plan: Patient has a history of CVA. She is debilitated and essentially bed bound Up to recliner with Ulisses talleyn. Plan Dysphagia - MBS showing she needs to have Level 2 thickened liquids. Repeat MBS showing patient can go to thin liquids with chin tucks. DIscussed with Speech Therapist. Continue ST. DVT prophylaxis -Xarelto Code status -full Subjective Date/time seen: 01/13/25 15:07 Interval history: Patient was seen and examined at bedside. She is feeling better. Denies any chest pain, abdominal pain, nausea vomiting. Still has shortness of breath and needs 2 L oxygen. Sodium improved to 128 Urine positive for Pseudomonas. Continue with IV cefepime for one more day. Possible discharge tomorrow if continued to improve. Home oxygen evaluation. Review of Systems Review of Systems: All systems reviewed & are unremarkable except as noted in HPI and below Exam Narrative: AF 98.2 148/82 62 18 96% 2L Gen - NARD sitting up in recliner Chest - CTA bilaterally CV - RRR S1/S2. Tele showing episodes of transient bradycardia Abd - soft, NT/ND Ext - no edema Psych - normal mood and affect. Skin - warm and dry. Apnea link showing AHI 3.5 and RI 4.4 with 6 minutes with SpO2<88%. Started on 1L but increased to 3L due to hypoxia. Objective Data Vital Signs Vital Signs: Vital Signs - 24 hr 01/12/25 15:44 01/12/25 16:00 01/12/25 18:00 Temperature 97.8 F Pulse Rate 72 69 79 Respiratory Rate 28 H Blood Pressure 164/62 H Pulse Oximetry 97 Oxygen Delivery Oxygen Flow Rate 01/12/25 19:58 01/12/25 20:00 01/12/25 20:00 Temperature 98.3 F Pulse Rate 68 66 Respiratory Rate 22 H Blood Pressure 133/43 L Pulse Oximetry 91 95 Oxygen Delivery Nasal Cannula Oxygen Flow Rate 2 01/12/25 20:36 01/12/25 20:36 01/12/25 20:42 Temperature Pulse Rate 55 L 49 L Respiratory Rate 15 15 Blood Pressure Pulse Oximetry 95 Oxygen Delivery Nasal Cannula Oxygen Flow Rate 3 01/12/25 21:03 01/12/25 21:56 01/12/25 23:47 Temperature Pulse Rate 63 53 L Respiratory Rate Blood Pressure Pulse Oximetry 92 Oxygen Delivery Nasal Cannula Oxygen Flow Rate 3 01/13/25 00:00 01/13/25 00:31 01/13/25 02:00 Temperature 98.1 F Pulse Rate 52 L 55 L 46 L Respiratory Rate 20 Blood Pressure 110/96 H Pulse Oximetry 96 Oxygen Delivery Oxygen Flow Rate 01/13/25 02:01 01/13/25 03:28 01/13/25 04:00 Temperature Pulse Rate 54 L 51 L Respiratory Rate Blood Pressure Pulse Oximetry 94 Oxygen Delivery Nasal Cannula Oxygen Flow Rate 3 01/13/25 04:00 01/13/25 05:45 01/13/25 08:00 Temperature 98 F 98.1 F Pulse Rate 55 L 60 58 L Respiratory Rate 20 16 Blood Pressure 118/54 L 143/68 H Pulse Oximetry 97 100 Oxygen Delivery Oxygen Flow Rate 01/13/25 08:00 01/13/25 08:00 01/13/25 08:10 Temperature Pulse Rate 64 Respiratory Rate Blood Pressure Pulse Oximetry 94 94 Oxygen Delivery Nasal Cannula Nasal Cannula Oxygen Flow Rate 3 3 01/13/25 08:10 01/13/25 08:20 01/13/25 08:30 Temperature Pulse Rate 68 66 Respiratory Rate 16 16 Blood Pressure Pulse Oximetry 89 L Oxygen Delivery Nasal Cannula Oxygen Flow Rate 2 01/13/25 08:35 01/13/25 09:10 01/13/25 10:00 Temperature Pulse Rate 73 59 L Respiratory Rate Blood Pressure Pulse Oximetry 93 Oxygen Delivery Nasal Cannula Oxygen Flow Rate 3 01/13/25 11:09 01/13/25 11:12 01/13/25 11:14 Temperature Pulse Rate 55 L 55 L 54 L Respiratory Rate Blood Pressure Pulse Oximetry 87 L 88 L 90 Oxygen Delivery Room Air Nasal Cannula Nasal Cannula Oxygen Flow Rate 1 2 01/13/25 12:00 01/13/25 12:00 01/13/25 12:00 Temperature 98 F Pulse Rate 53 L 57 L Respiratory Rate 18 Blood Pressure 142/65 H Pulse Oximetry 92 92 Oxygen Delivery Nasal Cannula Oxygen Flow Rate 2 01/13/25 14:14 01/13/25 14:25 Temperature Pulse Rate 64 60 Respiratory Rate 16 16 Blood Pressure Pulse Oximetry Oxygen Delivery Oxygen Flow Rate Intake/Output Intake/Output: Intake & Output 01/10/25 01/11/25 01/12/25 01/13/25 23:59 23:59 23:59 23:59 Intake Total 820 920 765 410 Output Total 750 500 600 100 Balance 70 420 165 310 Meds/Results Medications: Active Medications Generic Name Dose Route Start Last Admin Trade Name Freq PRN Reason Stop Dose Admin Acetaminophen 500 mg 01/06/25 17:36 01/12/25 21:01 Acetaminophen 500 Mg Tablet PO 500 mg QHS PRN Administration Pain 1-3 Albuterol 2.5 mg 01/06/25 17:32 Albuterol Sulfate Neb 2.5 Mg/3 Ml Inh INHALATION Q4HRT PRN Shortness Of Breath Albuterol/Ipratropium 3 ml 01/07/25 20:00 01/13/25 14:13 Ipratropium 0.5 Mg/Albuterol Sulfate 2.5 Mg (Base) Ampul.Neb 3 Ml INHALATION 3 ml Q6HRT MANOJ Administration Amlodipine Besylate 5 mg 01/10/25 09:00 01/13/25 09:11 Amlodipine Besylate 5 Mg Tablet PO 5 mg DAILY MANOJ Administration Atorvastatin Calcium 20 mg 01/06/25 21:00 01/12/25 21:04 Atorvastatin 20 Mg Tablet BY MOUTH 20 mg HS MANOJ Administration Dextrose 12.5 gm 01/06/25 17:32 Dextrose 50% 25 Gm/50 Ml Syringe IV PUSH PRN PRN Hypoglycemia Protocol Docusate Sodium 100 mg 01/09/25 21:00 01/13/25 09:10 Docusate Sodium 100 Mg Capsule PO 100 mg Q12HR MANOJ Administration Fluticasone Propionate 1 spray 01/06/25 21:00 01/13/25 09:28 Fluticasone Propionate 0.05% Na Spr 16 Gm Btl (*Bkc) NASAL 1 spray Q12HR MANOJ Administration Folic Acid 1 mg 01/06/25 17:40 01/13/25 09:10 Folic Acid 1 Mg Tablet BY MOUTH 1 mg DAILY MANOJ Administration Furosemide 20 mg 01/13/25 09:00 01/13/25 09:10 Furosemide 20 Mg Tablet PO 20 mg DAILY MANOJ Administration Glucagon 1 mg 01/06/25 17:32 Glucagon For Inj 1 Mg Vial IM PRN PRN Hypoglycemia Protocol Glucose 15 gm 01/06/25 17:32 Glucose Oral Gel 15 Gm Of Glucse In 37.5 Gm Tube PO PRN PRN Hypoglycemia Protocol Guaifenesin 1,200 mg 01/06/25 21:00 01/13/25 09:10 Guaifenesin 12 Hr 600 Mg Tabcr PO 1,200 mg Q12HR MANOJ Administration Dextrose 1,000 mls @ 100 mls/hr 01/06/25 17:32 Dextrose 5% 1,000 Ml IVPB PRN PRN Hypoglycemia Protocol Cefepime HCl 1 gm/ Sodium 50 mls @ 100 mls/hr 01/09/25 06:00 01/13/25 07:49 Chloride IVPB Infused Q12H MANOJ Infusion Insulin Aspart 3 - 6 units 01/07/25 08:00 01/13/25 12:26 Insulin Aspart (*Bkc) 100 Units/Ml SUB-Q 3 units TIDWM MANOJ Administration Protocol Insulin Glargine 7 units 01/09/25 21:00 01/12/25 21:06 Insulin Glargine (*Bkc) 100 Units/Ml SUB-Q 7 units HS MANOJ Administration Lisinopril 20 mg 01/10/25 11:25 01/13/25 09:10 Lisinopril 20 Mg Tablet PO 20 mg QAM MANOJ Administration Loratadine 5 mg 01/07/25 09:00 01/13/25 09:10 Loratadine 5 Mg Tablet PO 5 mg QAM MANOJ Administration Multivitamins/Minerals 1 tab 01/07/25 09:00 01/13/25 09:10 Multivitamins /C Lutein (Centrum Silver) Tablet *Bkc PO 1 tab DAILY MANOJ Administration Polyethylene Glycol 17 gm 01/09/25 15:35 01/13/25 09:11 Polyethylene Glycol 3350 17 Gm Powd.Pack PO 17 gm QAM MANOJ Administration Potassium Chloride 10 meq 01/12/25 08:00 01/13/25 09:11 Potassium Chloride 10 Meq Er Tablet PO 10 meq DAILY@0800 MANOJ Administration Rivaroxaban 20 mg 01/06/25 17:40 01/12/25 18:03 Rivaroxaban 20 Mg Tablet PO 20 mg DAILY@1700 MANOJ Administration Sodium Chloride 1 gm 01/13/25 09:00 01/13/25 09:10 Sodium Chloride 1 Gm Tablet PO 1 gm QAM MANOJ Administration Sotalol HCl 80 mg 01/06/25 21:00 01/13/25 09:10 Sotalol Hcl 80 Mg Tablet PO 80 mg Q12HR MANOJ Administration Radiology Results: ITS Impressions Chest X-Ray 01/09/25 14:07 Impression: No acute cardiopulmonary abnormality. Modified Barium Swallow 01/11/25 13:50 IMPRESSION: Mild pharyngeal dysphagia with flash laryngeal penetration without aspiration. Please correlate with speech pathologist findings and specific feeding recommendations. Labs Labs: Laboratory Results - last 24 hr 01/06/25 01/12/25 01/12/25 18:12 16:26 20:31 Sodium Potassium Chloride Carbon Dioxide Anion Gap BUN Creatinine Estim Creat Clear Calc Estimated GFR Glucose POC Capillary Glucose 223 H 305 H Calcium Urine Osmolality 558 01/13/25 01/13/25 01/13/25 03:40 07:27 11:59 Sodium 128 L Potassium 3.9 Chloride 91 L Carbon Dioxide 32 H Anion Gap 5 BUN 28 H Creatinine 1.02 H Estim Creat Clear Calc 45 Estimated GFR 52 L Glucose 164 H POC Capillary Glucose 180 H 219 H Calcium 8.6 Urine Osmolality
[2025-01-13 16:27] LABS: Anion Gap 6 mmol/L (4-12); Blood Urea Nitrogen 29 mg/dL (7-17); Calcium 9.1 mg/dL (8.4-10.2); Carbon Dioxide 30 mmol/L (22-30); Chloride 93 mmol/L (98-107); Estimated CRCL calculation 51 ml/min; Estimated Glomerular Filt Rate > 60; Glucose 220 mg/dL (65-110); Potassium 4.2 mmol/L (3.4-5.0); Sodium 129 mmol/L (137-145)
[2025-01-13] MEDS: RIVAROXABAN 20 MG TABLET PO (16:49)
--- NOTE | 2025-01-13 20:53 | PCRCNOTE ---
Patient does not want to be awakened for 0200 updraft treatment. RN aware. Pt instructed to call RN if short of breath, RT will administer treatment.
[2025-01-13] MEDS: ATORVASTATIN 20 MG TABLET BY MOUTH (20:54)
[2025-01-13] MEDS: INSULIN GLARGINE (*BKC) 100 UNITS/ML 7 UNITS SUB-Q (20:58)
[2025-01-14] VITALS (15 sets, daily range): BP systolic 108–163; BP diastolic 55–72; PULSE 53–76; RESP 16–20; TEMP 36.4–36.8; O2SAT 91–96
[2025-01-14 04:13] LABS: Hematocrit 32.7 % (37.0-47.0); Hemoglobin 11.4 g/dL (12.0-15.0); Mean Corpuscular HGB Conc 34.9 g/dl (32-36); Mean Corpuscular Hemoglobin 33.9 pg (26-34); Mean Corpuscular Volume 97.3 fl (80-100); Platelet Count Result 188 k/mm3 (150-375); Red Blood Count 3.36 M/mm3 (4.2-5.4); White Blood Count 8.2 K/mm3 (4.5-10.0)
[2025-01-14 04:33] LABS: Anion Gap 4 mmol/L (4-12); Blood Urea Nitrogen 30 mg/dL (7-17); Calcium 8.7 mg/dL (8.4-10.2); Carbon Dioxide 30 mmol/L (22-30); Chloride 93 mmol/L (98-107); Estimated CRCL calculation 50 ml/min; Estimated Glomerular Filt Rate 59; Glucose 175 mg/dL (65-110); Potassium 3.9 mmol/L (3.4-5.0); Sodium 127 mmol/L (137-145)
[2025-01-14] MEDS: IPRATROPIUM 0.5 MG/ALBUTEROL SULFATE 2.5 MG (BASE) AMPUL.NEB 3 ML INHALATION (08:35)
[2025-01-14] MEDS: CEFEPIME 1 GM in SODIUM CHLORIDE 0.9% IV 50 ML 100 ML IVPB (08:46)
[2025-01-14] MEDS: DOCUSATE SODIUM 100 MG CAPSULE PO (08:48)
[2025-01-14] MEDS: FOLIC ACID 1 MG TABLET BY MOUTH (08:48)
[2025-01-14] MEDS: SODIUM CHLORIDE 1 GM TABLET PO (08:48)
[2025-01-14] MEDS: LORATADINE 5 MG TABLET PO (08:48)
[2025-01-14] MEDS: FUROSEMIDE 20 MG TABLET PO (08:49)
[2025-01-14] MEDS: SOTALOL HCL 80 MG TABLET PO (08:49)
[2025-01-14] MEDS: POTASSIUM CHLORIDE 10 MEQ ER TABLET PO (08:49)
[2025-01-14] MEDS: MULTIVITAMINS /C LUTEIN (CENTRUM SILVER) TABLET *BKC 1 TAB PO (08:49)
[2025-01-14] MEDS: guaiFENesin 12 HR 600 MG TABCR 1200 MG PO (08:50)
[2025-01-14] MEDS: FLUTICASONE PROPIONATE 0.05% NA SPR 16 GM BTL (*BKC) 1 SPRAY NASAL (08:50)
--- NOTE | 2025-01-14 10:08 | PM.DS ---
DS: Admitting Diagnosis Discharge Date 01/14/25 Admitting Diagnosis Weakness DS: Discharge Diagnosis Discharge Diagnosis (1) Hypoxia: Code(s): R09.02 - Hypoxemia Status: Acute (2) UTI (urinary tract infection): Code(s): N39.0 - Urinary tract infection, site not specified Status: Acute (3) Bacteremia: Code(s): R78.81 - Bacteremia Status: Acute (4) Hyponatremia: Code(s): E87.1 - Hypo-osmolality and hyponatremia Status: Acute (5) CHF (congestive heart failure): Qualifiers: Heart failure type: other Qualified Code(s): I50.9 - Heart failure, unspecified Code(s): I50.9 - Heart failure, unspecified Status: Acute (6) Hypertension: Qualifiers: Hypertension type: essential hypertension Qualified Code(s): I10 - Essential (primary) hypertension Code(s): I10 - Essential (primary) hypertension Status: Acute (7) Afib: Code(s): I48.91 - Unspecified atrial fibrillation Status: Acute (8) Diabetes mellitus: Qualifiers: Diabetes mellitus type: type 2 Diabetes mellitus intermediate school teacher insulin use: without intermediate school teacher use Diabetes mellitus complication status: without complication Qualified Code(s): E11.9 - Type 2 diabetes mellitus without complications Code(s): E11.9 - Type 2 diabetes mellitus without complications Status: Acute (9) History of CVA (cerebrovascular accident): Code(s): Z86.73 - Personal history of transient ischemic attack (TIA), and cerebral infarction without residual deficits Status: Acute DS: Summary Hospital Course Reason for hospitalization: 79yo female with DM, HTN, CVA, AFib and CHF who presents with weakness. Please see H&P for details. Hospital Course: (1) Hypoxia: Patient presents with hypoxia. Viral swab was negative. MRSA nasal swab negative. Chest x-ray was clear. Does not appear to be fluid overloaded. She is on anticoagulation making PE less likely. She is compliant with her anticoagulation medications. Probably related to viral illness with the wheezing. Repeat CXR showed suspected worsening pulmonary edema and/or infiltrates in the lower lobes left worse than right. Could be related to pulmonary edema from IV fluids and poor UOP. Consider also PNA but no fever or leukocytosis. Lasix started. Fluid status improved. Her discharge weight was less than on admission. [place] [facility] dysphagia requiring Level 2 thickened liquids. Diet was adjusted. Repeat CXR 01/09 clear now. As she became more awake and alert (as sodoum improved), we repeated the MBS showing patient can tolerate thin liquids with chin tucks. She was also treated with Duonebs and completed a course of cefepime and doxycycline. Apnea link showing AHI 3.5 and RI 4.4 with 6 minutes with SpO2<88% but she was started on 1L but increased to 3L due to hypoxia so unclear if she has sleep apnea. Home O2 evaluation so she needs home oxygen at 2L at rest, with activity and at bedtime. This was set up. (2) UTI (urinary tract infection): UA noted and concerning for UTI. She has 2+ protein on a sample. Protein/Cr ratio 4.3gm but suspect this is probably related to the UTI. Plan to repeat protein-creatinine ratio after urine clears as an outpatient. UCx growing Pseudomonas that was mahajan-sensitive. She was treated with cefepime for 7 days. Cannot give fluoroquinolones due to interaction with sotalol. (3) Bacteremia: BCx (01/06) grew gram variable rods from one anaerobic bottle. Final ID still pending. Treatment as above. (4) Hyponatremia: Patient presented with weakness and viral symptoms. She has known history of hyponatremia. Sodium on presentation was 112. TSH and Cortisol levels normal. Jones 123 with FENa 1.5% SIADH. Fluid restriction. IV fluids stopped. Nephrology consulted and appreciate their input. SPEP showing no M-spike. SIF showing no monoclonalality. UPEP pending. Lasix started. Oral NaCl tabs started. 3% saline given but stopped due to pulmonary edema. Serial sodium levels better at 121 but plateaued again so 3% repeated. Na up to 127 and stable. (5) CHF (congestive heart failure): Patient has a history of CHF. She has a history of large pericardial effusion s/p pericardial window in 2020. Echo here showing normal biventricular size and systolic function and pulmonary arterial systolic pressure of about 79 mmHg with severe pulmonary hypertension. BNP 984. CXR as above. Fluid status better. Continue Lasix. (6) Hypertension: Patient with elevated blood pressure on admission that has improved. HTN possibly related to untreated JULIA? Norvasc advanced and Lisinopril added. BP better. (7) Afib: Patient with history of atrial fibrillation. She is on sotalol which was continued. Tele showing transient bradycardia but HR stable overall. We also continued her Xarelto. She ws monitored on tele. (8) Diabetes mellitus: A1c 6.8%. Patient with a history of diabetes. She is on glipizide, saxagliptin and metformin. The patient's blood glucose was monitored with AccuCheks covering with sliding scale. Hypoglycemia protocol was available as needed. (9) History of CVA (cerebrovascular accident): Patient has a history of CVA. She is debilitated and essentially bed bound. We had her up to recliner with Ulisses baldwin. (10) Dysphagia: MBS showing she needs to have Level 2 thickened liquids. Repeat MBS later in her hospital course showing patient can go to thin liquids with chin tucks. The patient overall did well and was able to be discharged home on 01/14/25. Discharge instructions discussed including medication side effects and all questions answered. Status at Discharge Cognitive/behavioral status at discharge: Stable Time Spent with Patient Time attestation: Total time spent providing and/or coordinating discharge services: 34 minutes Time spent: Greater than 30 minutes Exam Narrative: AF 98.3 163/66 56 18 92% 3L Gen - NARD Chest -few bibasilar inspiratory crackles otherwise clear. CV - RRR S1/S2. Tele showing episodes of transient bradycardia but HT overall about 60. Abd - soft, NT/ND Ext - no edema Psych - normal mood and affect. In good spiritis Skin - warm and dry. DS: Data Data Completed and Pending Labs on day of discharge: Labs from last 24 hours 01/14/25 01/14/25 01/13/25 07:11 03:50 20:28 WBC 8.2 RBC 3.36 L Hgb 11.4 L Hct 32.7 L MCV 97.3 MCH 33.9 MCHC 34.9 RDW 11.8 Plt Count 188 MPV 10.1 Sodium 127 L Potassium 3.9 Chloride 93 L Carbon Dioxide 30 Anion Gap 4 BUN 30 H Creatinine 0.92 Estim Creat Clear Calc 50 Estimated GFR 59 Glucose 175 H POC Capillary Glucose 197 H 259 H Calcium 8.7 01/13/25 01/13/25 01/13/25 15:56 15:46 11:59 WBC RBC Hgb Hct MCV MCH MCHC RDW Plt Count MPV Sodium 129 L Potassium 4.2 Chloride 93 L Carbon Dioxide 30 Anion Gap 6 BUN 29 H Creatinine 0.89 Estim Creat Clear Calc 51 Estimated GFR > 60 Glucose 220 H POC Capillary Glucose 227 H 219 H Calcium 9.1 Preliminary micro results at discharge 01/06/25 06:51 Blood Culture - Preliminary Blood Discharge Plan Discharge Attending physician on discharge: Raheel Carrera Consulting providers: Martell Saini; Juan Carlos Garcia; Renato Graham Discharging Clinician: Raheel Carrera Anticipated Discharge Date/Time: 01/14/25 10:27 Patient Disposition: Home Activity: as tolerated Diet: diabetic and other - see discharge instructions Discharge Instructions: Continue fluid restriction as at home Continue oxygen at 2Liters at all times including bedtime Remember to use chin tuck when swallowing. Please check glucose before meals and before bed. Record and bring into your doctor for review. Check blood pressure 1 to 2 times a day. Record and bring into your doctor for review. Call your doctor if your blood pressure is greater than 180/110. Take precautions to avoid falls. Contact your doctor or call 911 and come to the Emergency Room if you have increasing shortness of breath, confusion or other worrisome symptoms. Avoid NSAIDs (ibuprofen, naproxen, Aleve). Tylenol is safe to take. Follow-up with your primary care provider in 1-2 weeks. Please call for appointment. Follow-up with Nephrology at next scheduled appointment in February. Thank you for using [facility] for your health care needs. Patient Instructions: Antibiotic Form, Rivaroxaban (By mouth) Patient Language: Croatian Stand Alone Forms: General Discharge Information Follow-up/Referrals: PHYSICIAN,SHOULDER PUNCHER [Primary Care Provider, Internal Medicine] - Call for Appointment Britton Padilla MD [Physician, Nephrology] - Keep Reg. Scheduled Appt. Discharge Medications: New lisinopril 20 mg Tablet 20 mg PO QAM Qty: 30 1RF furosemide 20 mg Tablet 20 mg PO DAILY Qty: 30 0RF amlodipine [Norvasc] 5 mg Tablet 5 mg PO DAILY Qty: 30 1RF sodium chloride 1,000 mg Tablet,Soluble 1,000 mg PO QAM Qty: 30 1RF potassium chloride [Klor-Con M10] 10 mEq tablet,ER particles/crystals 10 meq PO DAILY Qty: 30 0RF Continued acetaminophen [Tylenol Extra Strength] 500 mg tablet 500 mg PO QHS PRN (Reason: pain) Centrum Complete 18-400 mg-mcg Tablet 1 tablet PO DAILY glipizide 5 mg tablet 5 mg PO BID Rx Instructions: TAKE 1 TABLET BY MOUTH TWICE DAILY IN THE MORNING AND AT BEDTIME sotalol 80 mg tablet 80 mg PO Q12HR Qty: 60 0RF nystatin 100,000 unit/gram powder 1 applic topical BID Qty: 30 0RF Rx Instructions: apply to CHRIS groin metformin 500 mg tablet extended release 24 hr 500 mg PO DAILY Qty: 90 3RF Xarelto 20 mg tablet 20 mg PO DAILY Qty: 90 2RF saxagliptin 5 mg tablet 5 mg PO DAILY Qty: 90 1RF ergocalciferol (vitamin D2) 1,250 mcg (50,000 unit) capsule 1,250 mcg PO DIRECTED Qty: 7 3RF Rx Instructions: twice a month takes on the on the 15th and the 30th folic acid 1 mg tablet See Rx Instructions .ROUTE .COMPLEX Qty: 90 3RF Dose Instruction: TAKE 1 TABLET BY MOUTH DAILY Rx Instructions: TAKE 1 TABLET BY MOUTH DAILY atorvastatin 20 mg tablet See Rx Instructions .ROUTE .COMPLEX Qty: 90 3RF Dose Instruction: TAKE 1 TABLET BY MOUTH AT BEDTIME Rx Instructions: TAKE 1 TABLET BY MOUTH AT BEDTIME Discontinued amlodipine 2.5 mg tablet 2.5 mg PO DAILY Qty: 90 3RF Date of admission: 01/06/25 14:43 Primary Care Provider: PHYSICIAN,SHOULDER PUNCHER Admitting Provider: Raheel Carrera Attending physician on admission: Raheel Carrera Condition: Stable Hospitalist MIPS Heart Failure (Exclusion) Patient has history of Heart Transplant or Left Ventricular Assistive Device?: No IF YES, STOP HERE Heart Failure (Qualifier) Patient has current or prior documentation of LVEF less than or equal to 40%, or mod/servere depressed LVSF?: No IF NO, STOP HERE
--- NOTE | 2025-01-18 08:40 | PC.NURSE ---
Blood cx shows no growth. Dr. Deandre saha.
--- NOTE | 2025-01-18 09:39 | PC.NURSE ---
Spoke with career resource technician during courtesy phone call after discharge. She was concerned about patient's new amlodipine dose. Instructed career resource technician to call PCP today to discuss if the dose is appropriate. Confirmed that caregiver does have providers number and she is going to call them today.
== END 2025-01-14 12:09 | disposition home or self-care (01) | DRG 689 ==
LOC: ANHED 07:52 → ANHIMU 09:00
PROVIDERS: Internal Medicine; Internal Medicine Nephrology; Admitting Provider Internal Medicine; Emergency Provider Emergency Medicine; Visit Provider Internal Medicine
DX: N39.0 Urinary tract infection, site not specified (principal); I50.33 Acute on chronic diastolic (congestive) heart failure; J96.01 Acute respiratory failure with hypoxia; E87.1 Hypo-osmolality and hyponatremia; R78.81 Bacteremia; B96.5 Pseudomonas (aeruginosa) (mallei) (pseudomallei) as the cause of diseases classified elsewhere; R13.10 Dysphagia, unspecified; E78.5 Hyperlipidemia, unspecified; E11.9 Type 2 diabetes mellitus without complications; I27.81 Cor pulmonale (chronic); I48.91 Unspecified atrial fibrillation; I11.0 Hypertensive heart disease with heart failure; M17.11 Unilateral primary osteoarthritis, right knee; Z79.84 Long term (current) use of oral hypoglycemic drugs; Z20.822 Contact with and (suspected) exposure to COVID-19; Z79.01 Long term (current) use of anticoagulants; Z86.73 Personal history of transient ischemic attack (TIA), and cerebral infarction without residual deficits; Z90.49 Acquired absence of other specified parts of digestive tract; Z87.891 Personal history of nicotine dependence; Z74.01 Bed confinement status
CPT/HCPCS: 36415; 71045; 71046; 74230; 80048; 80053; 80069; 81001; 82533; 82570; 82784; 82948; 83036; 83605; 83735; 83880; 83930; 83935; 84145; 84155; 84156; 84165; 84166; 84295; 84300; 84443; 84484; 84540; 85025; 85027; 85055; 86334; 86335; 87040; 87086; 87186; 87449; 87637; 87641; 87651; 92526; 92610; 92611; 93005; 93306; 94618; 94640; 94762; 96360; 96361; 99285; A9270; G0378; J0692; J1815; J1938; J3475; J7030; J7131

== ENCOUNTER 2025-01-26 10:55 | Outpatient (CLI) | payer OTHER, SELFPAY ==
[2025-01-26 11:39] LABS: Hematocrit 38.0 % (37.0-47.0); Hemoglobin 13.2 g/dL (12.0-15.0); Immature Granulocyte Percent A 1.3 % (0-0.5); Lymphocytes Absolute Auto 2.17 K/mm3 (0.9-3.2); Mean Corpuscular HGB Conc 34.7 g/dl (32-36); Mean Corpuscular Hemoglobin 34.1 pg (26-34); Mean Corpuscular Volume 98.2 fl (80-100); Nucleated Red Blood Cells Absolute Auto 0.000 K/mm3 (0.0-0.012); Nucleated Red Blood Cells Perc 0.0 % (0.0-0.2); Platelet Count Result 231 k/mm3 (150-375); Red Blood Count 3.87 M/mm3 (4.2-5.4); White Blood Count 6.3 K/mm3 (4.5-10.0)
[2025-01-26 12:02] LABS: Alanine Aminotransferase 11 U/L (6-35); Albumin Level 4.4 g/dL (3.5-5.1); Alkaline Phosphatase 103 U/L (38-126); Anion Gap 7 mmol/L (4-12); Aspartate Amino Transferase 28 U/L (14-36); Bilirubin,Total 0.6 mg/dL (0.2-1.3); Blood Urea Nitrogen 14 mg/dL (7-17); Calcium 9.4 mg/dL (8.4-10.2); Carbon Dioxide 28 mmol/L (22-30); Chloride 95 mmol/L (98-107); Estimated Glomerular Filt Rate > 60; Glucose 116 mg/dL (65-110); Potassium 4.7 mmol/L (3.4-5.0); Sodium 130 mmol/L (137-145); Total Protein 8.1 g/dL (6.3-8.2)
== END 2025-01-26 10:56 | disposition home or self-care (01) ==
LOC: ANHLAB 10:57
PROVIDERS: PCP Student in an Organized Health Care Education/Training Program; Visit Provider Internal Medicine Nephrology
DX: E87.1 Hypo-osmolality and hyponatremia (principal); D64.9 Anemia, unspecified
CPT/HCPCS: 36415; 80053; 85025